=== PATIENT | female | born 1965 | race Caucasian/White ===

== ENCOUNTER 2019-10-15 12:27 | Outpatient (CLI) | payer MEDICARE, MEDICAID, SELFPAY ==
[2019-10-15 12:51] LABS: Basophils Percent Auto 0.4 % (0.2-1.2); Eosinophils Absolute Auto 0.4 K/mm3 (0-0.3); Eosinophils Percent Auto 4.3 % (0-4.4); Hematocrit 39.8 % (37.0-47.0); Immature Granulocyte Absolute 0.03 K/mm3 (0.00-0.031); Immature Granulocyte Percent A 0.3 % (0-0.5); Lymphocytes Absolute Auto 2.17 K/mm3 (0.9-3.2); Lymphocytes Percent Auto 22.6 % (18.3-44.2); Mean Corpuscular HGB Conc 35.2 g/dl (32-36); Mean Corpuscular Hemoglobin 32.6 pg (26-34); Mean Corpuscular Volume 92.8 fl (80-100); Mean Platelet Volume 10.3 fl (7.4-10.4); Monocytes Absolute Auto 0.6 K/mm3 (0.1-0.6); Monocytes Percent Auto 5.8 % (2.6-8.5); Neutrophils Absolute Auto 6.4 K/mm3 (1.3-6.7); Neutrophils Percent Auto 66.6 % (45.5-73.1); Platelet Count Result 260 k/mm3 (150-375); Red Blood Count 4.29 M/mm3 (4.2-5.4); Red Cell Distribution Width 13.1 % (11.5-14.5); White Blood Count 9.6 K/mm3 (4.5-10.0)
[2019-10-15 16:32] LABS: Alanine Aminotransferase 25 U/L (4-35); Albumin Level 4.2 g/dL (3.5-5.1); Alkaline Phosphatase 169 U/L (38-126); Aspartate Amino Transferase 31 U/L (14-36); Bilirubin,Total 0.6 mg/dL (0.2-1.3); Blood Urea Nitrogen 14 mg/dL (7-17); Calcium 9.5 mg/dL (8.4-10.2); Carbon Dioxide 25 mmol/L (22-30); Chloride 103 mmol/L (98-107); Estimated Glomerular Filt Rate > 60; Glucose 229 mg/dL (65-105); Sodium 136 mmol/L (137-145)
[2019-10-15 17:23] LABS: Iron 76 ug/dL (37-170)
[2019-10-15 17:33] LABS: Percent Iron Saturation 24 % (20-50)
== END 2019-10-15 12:28 | disposition home or self-care (01) ==
PROVIDERS: Visit Provider Internal Medicine Hematology & Oncology
DX: E80.1 Porphyria cutanea tarda (principal)
CPT/HCPCS: 36415; 80053; 82542; 82728; 83540; 83550; 85025

== ENCOUNTER 2019-11-04 12:19 | Outpatient (CLI) | payer MEDICARE, MEDICAID, SELFPAY ==
[2019-11-13 18:26] LABS: Coproporphyrin I 16.3 mcg/24 h (7.1-48.7); Coproporphyrin III 2.6 mcg/24 h (11.0-148.5); Total Volume 1175 mL
== END 2019-11-04 12:20 | disposition home or self-care (01) ==
LOC: ANHLAB 12:26
PROVIDERS: Visit Provider Internal Medicine Hematology & Oncology
DX: E80.1 Porphyria cutanea tarda (principal)
CPT/HCPCS: 81050; 84120

== ENCOUNTER 2020-07-07 13:00 | Outpatient (RCR) | payer MEDICARE, MEDICAID, SELFPAY ==
[2020-04-16 10:52] VITALS: BMI 36.5
[2020-04-16 10:59] VITALS: BMI 36.5
== END 2020-07-07 16:27 | disposition home or self-care (01) ==
LOC: ANHDMC 13:00
PROVIDERS: Visit Provider Internal Medicine Endocrinology, Diabetes & Metabolism
DX: E11.69 Type 2 diabetes mellitus with other specified complication (principal); Z71.3 Dietary counseling and surveillance; Z71.89 Other specified counseling
CPT/HCPCS: 97802; G0108

== ENCOUNTER 2020-07-21 11:12 | Outpatient (RCR) | payer MEDICARE, SELFPAY ==
[2020-07-21 11:16] VITALS: BMI 35.5
[2020-07-21 11:17] VITALS: BMI 35.5
== END 2020-08-24 13:57 | disposition home or self-care (01) ==
LOC: ANHDMC 11:12
PROVIDERS: Visit Provider Internal Medicine Endocrinology, Diabetes & Metabolism
DX: E11.69 Type 2 diabetes mellitus with other specified complication (principal); Z71.3 Dietary counseling and surveillance
CPT/HCPCS: 97803

== ENCOUNTER 2021-02-22 07:22 | Outpatient (RCR) | payer MEDICARE, MEDICAID, SELFPAY ==
[2021-01-29 08:48] LABS: Basophils Absolute Auto 0.1 K/mm3 (0.0-0.1); Basophils Percent Auto 0.5 % (0.2-1.2); Eosinophils Absolute Auto 0.4 K/mm3 (0-0.3); Eosinophils Percent Auto 3.9 % (0-4.4); Hematocrit 39.6 % (37.0-47.0); Hemoglobin 13.4 g/dL (12.0-15.0); Immature Granulocyte Absolute 0.06 K/mm3 (0.00-0.031); Immature Granulocyte Percent A 0.6 % (0-0.5); Lymphocytes Absolute Auto 1.54 K/mm3 (0.9-3.2); Lymphocytes Percent Auto 15.5 % (18.3-44.2); Mean Corpuscular HGB Conc 33.8 g/dl (32-36); Mean Corpuscular Hemoglobin 29.8 pg (26-34); Mean Platelet Volume 9.6 fl (7.4-10.4); Monocytes Absolute Auto 0.5 K/mm3 (0.1-0.6); Monocytes Percent Auto 5.1 % (2.6-8.5); Neutrophils Absolute Auto 7.4 K/mm3 (1.3-6.7); Neutrophils Percent Auto 74.4 % (45.5-73.1); Platelet Count Result 293 k/mm3 (150-375); Red Cell Distribution Width 13.3 % (11.5-14.5); White Blood Count 9.9 K/mm3 (4.5-10.0)
[2021-01-29 08:54] LABS: Blood Urea Nitrogen 10 mg/dL (8-26); Carbon Dioxide 24 mmol/L (22-30); Chloride 95 mmol/L (98-109); Estimated Glomerular Filt Rate > 60; Glucose 383 mg/dL (70-105); Potassium 4.1 mmol/L (3.5-4.9); Sodium 136 mmol/L (138-146)
[2021-01-29 12:41] LABS: Alanine Aminotransferase 39 U/L (4-35); Albumin Level 4.1 g/dL (3.5-5.1); Alkaline Phosphatase 157 U/L (38-126); Anion Gap 14 mmol/L (8-16); Aspartate Amino Transferase 50 U/L (14-36); Bilirubin,Total 0.7 mg/dL (0.2-1.3); Blood Urea Nitrogen 11 mg/dL (7-17); Calcium 9.6 mg/dL (8.4-10.2); Carbon Dioxide 23 mmol/L (22-30); Chloride 98 mmol/L (98-107); Estimated Glomerular Filt Rate > 60; Glucose 378 mg/dL (65-110); Potassium 4.3 mmol/L (3.4-5.0); Sodium 135 mmol/L (137-145)
[2021-03-02 18:48] LABS: Coproporphyrin I 50.4 mcg/24 h (7.1-48.7); Coproporphyrin III 147.6 mcg/24 h (11.0-148.5); Total Volume 1700 mL
== END 2021-02-23 10:00 | disposition home or self-care (01) ==
LOC: ANHLAB 07:22
PROVIDERS: Visit Provider Internal Medicine Hematology & Oncology
DX: E80.1 Porphyria cutanea tarda (principal)
CPT/HCPCS: 36415; 80048; 80053; 81050; 82542; 84120; 85025

== ENCOUNTER 2024-06-24 09:29 | Outpatient (CLI) | payer MEDICARE, MEDICAID, SELFPAY ==
--- OUTSIDE RECORDS SUMMARY | 2024-06-24 10:08 | XMS_ITS ---
Author Organization [facility] Address [address] [facility] [place] [address] Care Team Providers Care Professor Of Chemical Engineering Name Role Phone Margot Aceves Primary Care Provider [phone] REASON FOR VISIT labs Encounters Encounter Location Date Provider Diagnosis [facility] - Margot Aceves [address] [place] [address] 05/15/2024 Margot Aceves Plan Of Treatment No Information Progress Notes * Yunier JHAB:1965 ( 58 yo F)Acc No.[id number]:05/15/2024 Patient:?JADYN Miracle :1965???Age:58 Y???Sex:Female Address:[facility] [place], [address] * true * Date:? Generated for Sundeepi danna/Nain/eTransmitting on:?06/24/2024 10:08 AM TOWER HAND
--- OUTSIDE RECORDS SUMMARY | 2024-06-24 10:08 | XMS_ITS | Referral Summary ---
Author Organization [facility] Address [address] [place] [address] Care Team Providers Care Small Parts Assembler Name Role Phone Lou Martni MD Primary Care Provide r Darian Beckman MD Unavailable [phone] Cezar Vides MD Unavailable Allergies Active Allergy Reactions Criticality Noted Date Comments Codeine Nausea only Low 04/08/2021 Diphenhydramine Rash,Nausea only,Nathen sea And Vomiting,Vomiting High 07/07/2017 Erythromycin Nausea & Vomiting,Itching High 06/18/19 18 [place]-3 Fatty Acids Nausea only Low 04/08/2021 Fluticasone Propion-Salmeterol Hives High 02/20/2020 Lisinopril Cough Low 04/08/2021 Morphine Hallucinations Medium 04/08/2021 Clopidogrel Hives Medium 04/08/2021 Tramadol Itching Low 04/08/2021 Medications atorvastatin (LIPITOR) 40 mg tablet Take 40 mg by mouth daily [address] (NexIUM) 40 mg capsule Take 40 mg by mouth daily before breakfast 0 Active ezetimibe (ZETIA) 10 mg tablet Take 10 mg by mouth daily 1 Active metFORMIN XR (GLUCOPHAGE XR) 500 mg 24 hr tablet Take 500 mg by mouth daily with breakfast 0 Active pregabalin (LYRICA) 25 mg capsule Take 25 mg by mouth nightly 0 Active fluticasone propionate (FLONASE) 50 mcg/actuation nasal spray Administer 2 sprays into each nostril daily 0 Active insulin degludec (TRESIBA) 200 unit/mL (3 mL) pen for injection Inject 0.28 mL (56 Units total) under the skin nightly 8.4 mL 1 Active dapagliflozin (FARXIGA) 10 mg tabletIndications :type 2 diabetes mellitus and heart failure with reduced ejection fraction Take 1 tablet (10 mg total) by mouth daily 30 tablet 1 Active metoprolol XL (TOPROL-XL) 25 mg extended release tablet Take 1 tablet (25 mg total) by mouth nightly 30 tablet 1 1 Active blood glucose diagnostic strip FreeStyle Lite Strips Take 1 strip 4 times a day by miscell. route before meals for 30 days. Active pen needle, diabetic (BD Ultra-Fine Mini Pen Needle) 31 gauge x 3/16 needle 0 Active exenatide ER microspheres (Bydureon BCise) 2 mg/0.85 mL auto-injector once a week 0 Active aspirin 81 mg chewable tablet Take 81 mg by mouth daily [address] (CYMBALTA) 60 mg capsule Take 1 capsule by mouth nightly 0 Active FLUoxetine (PROzac) 20 mg tablet Take 40 mg by mouth daily 0 Active montelukast (SINGULAIR) 10 mg tablet Take 10 mg by mouth nightly Active potassium chloride ER (potassium chloride ER) 20 mEq CR tablet Take 20 mEq by mouth daily as needed Active ticagrelor (Brilinta) 90 mg tablet Take 60 mg by mouth daily 0 Active ranolazine ER (RANEXA) 500 mg 12 hr tablet Take 1 tablet by mouth 2 (two) times a day 1 Active busPIRone (BUSPAR) 10 mg tablet Take 15 mg by mouth 2 (two) times a day Active hydrOXYzine (ATARAX) 25 mg tablet Take 1 tablet by mouth daily as needed 1 Active budesonide-formot Solitario (SYMBICORT) 160-4.5 mcg/actuation inhaler Inhale 2 puffs daily 1 Active albuterol HFA (PROVENTIL HFA,VENTOLIN HFA,PROAIR HFA) 90 mcg/actuation inhaler INHALE 1 PUFF BY MOUTH EVERY 4 HOURS NEEDED Active cyclobenzaprine (FLEXERIL) 10 mg tablet Take 10 mg by mouth as needed for muscle spasms Active oxyCODONE (ROXICODONE) 5 mg immediate release tabletIndications :Pain Take 1 tablet (5 mg total) by mouth every 4 (four) hours as needed for pain 20 tablet 1 Active amLODIPine (NORVASC) 5 mg tablet Take 1 tablet (5 mg total) by mouth daily Active carbidopa-levodop a CR (SINEMET CR) 25-100 mg per CR tablet TK TWO TS PO QHS Active dexAMETHasone (DECADRON) 1 mg tablet take at 10 p.m. the night before 8 a.m. cortisol Active ergocalciferol (VITAMIN D) 50,000 unit capsule Take 1 capsule every week by oral route for 90 days. Active icosapent ethyL (Vascepa) 1 gram capsule Active levothyroxine (Unithroid) 25 mcg tablet Take 1 tablet every day by oral route for 30 days. Active meclizine (ANTIVERT) 25 mg tablet Take 1 tablet twice a day by oral route as needed. 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 Overview (05/18/2021): Added automatically from request for surgery [id number] Coronary artery disease invo lving [place] heart without angina pectoris 04/06/2021 Overview (04/09/2021): Added automatically from request for surgery [id number] Social History Tobacco Use Types Packs/Day Years Used Date Smoking Tobacco: Former Cigarettes Q uit: 05/1988 Smokeless Tobacco: Never Tobacco Cessation:Counseling Given: Not Answered Alcohol Use Standard Drinks/Week Comments Never 0 (1 standard drink = 0.6 oz pur e alcohol) Social Connection and Isolation Panel [NHANES] A nswer Date Recorded In a typical week, how many times do you talk on the phone with family, friends, or neighbors? Three times a week 04/08/20 How often do you get togethe r with friends or relatives? Three times a week 04/08/2021 How often do you attend chur ch or tenriism services? 1 to 4 times per year 04/08/2021 Do you belong to any clubs o r organizations such as holiness groups, unions, fraternal or athletic groups, or school groups? No 04/08/2021 How often do you attend meet ings of the clubs or organizations you belong to? Never 04/08/2021 Are you , , di vorced, , never , or living with a partner? 04/08/2021 Overall Financial Resource Strain (CARDIA) Answe r Date Recorded How hard is it for you to pa y for the very basics like food, housing, medical care, and heating? Not hard at all 04/08/2021 PHQ-2 Answer Date Recorded PHQ-2 Total Score (If total score is 3 or more points, staff should administer the PHQ-9) 1 04/08/2021 Hunger Vital Sign Answer Date Recorded Within the past 12 months, y ou worried that your food would run out before you got the money to buy more. Never true 04/08/20 21 Within the past 12 months, t he food you bought just didn't last and you didn't have money to get more. Never true 04/08/2021 PRAPARE - Transportation Answer Date Re corded In the past 12 months, has l ack of transportation kept you from medical appointments or from getting medications? No 03/29 In the past 12 months, has l ack of transportation kept you from meetings, work, or from getting things needed for daily living? No 04/08/2021 Housing Stability Vital Sign Answer Ubaldo e Recorded In the last 12 months, was t here a time when you were not able to pay the mortgage or rent on time? No 04/08/2021 Number of Places Lived in the Last Year Not on f ile 04/08/2021 In the last 12 months, was t here a time when you did not have a steady place to sleep or slept in a prison (including now)? No 04/08/2021 Personal Safety Answer Date Recorded Have you ever been in or are you currently in a harmful physical or emotional relationship or is someone making you feel afraid or unsafe? Denies 07/27/2023 Comments No Sex and Gender Information Value Date Recorded Sex Assigned at Not on file Legal Sex Female 2:15 AM REGULATORY ASSISTANT Gender Identity Not on file Sexual Orientation Not on file Last Filed Vital Signs Vital Sign Reading Time Taken Comments Blood Pressure 143/85 07/27/2023 8:00 PM REGULATORY ASSISTANT Pulse 80 07/27/2023 8:00 PM REGULATORY ASSISTANT Temperature 36.5 ??C (97.7 ??F) 07/27/2023 1:55 PM CS T Respiratory Rate 18 07/27/2023 4:15 PM REGULATORY ASSISTANT Oxygen Saturation 97% 07/27/2023 8:00 PM REGULATORY ASSISTANT Inhaled Oxygen Concentration - - Weight 99.8 kg (220 lb) 07/27/2023 1:55 PM REGULATORY ASSISTANT Height 167.6 cm (5' 6 ) 07/27/2023 1:55 PM REGULATORY ASSISTANT Body Mass Index 35.51 07/27/2023 1:55 PM REGULATORY ASSISTANT Plan of Treatment Not on file Medical Devices Implanted Type Area Entry Level Installation Technician Device Identifier Shelf Expiration Date Model / Serial / Lot Biomet [employer] 73-3893 Sternalock Naldo 8 Hole Sternum Plate Bone 2.4 Mm Screw - [id number] Implanted:Qty: 3 on 04/12/2021 by Darian Beckman MD at [facility] N/A: Sternum [employer] 73-2623 / / Biomet [employer] [id number] Sternalock Naldo 2.4mm 12mm Self Drill Lock Sternum Cancellous - [id number] Implanted:Qty: 12 on 04/12/2021 by Darian Beckman MD at [facility] N/A: Sternum [employer] 73-2412 / / Biomet [employer] [id number] Sternalock Naldo 2.4mm 14mm Self Drill Lock Sternum Cancellous - [id number] Implanted:Qty: 4 on 04/12/2021 by Darian Beckman MD at [facility] N/A: Sternum [employer] 73-2414 / / Biomet [employer] [id number] Sternalock Naldo 2.4mm 18mm Self Drill Lock Sternum Cancellous - [id number] Implanted:Qty: 4 on 04/12/2021 by Darian Beckman MD at [facility] N/A: Sternum [employer] 73-2418 / / Biomet [employer] 73-2416 Sternalock Naldo 2.4mm 16mm Self Drill Lock Sternum Cancellous - [id number] Implanted:Qty: 4 on 04/12/2021 by Darian Beckman MD at [facility] N/A: Sternum [employer] 73-2416 / / Insurance IDPR MEDICARE SOLUTIONS IDPA MEDICARE SOLUTIONS MEDICARE SOLUTIONS IDPA MEDICARE SOLUTIONS IDPA Advance Directives For more information, please contact: [phone] * Full Code (Latest Code Status on File) Date Activated Date Inactivated Comments 04/12/2021 2:39 PM 04/21/2021 9:55 PM * Full Code Date Activated Date Inactivated Comments 04/08/2021 4:39 AM 04/12/2021 2:39 PM Care Teams Small Parts Assembler Relationship Specialty Start Date End Date Lou Martin MD [address] [address] PCP - General Internal Medicine 04/02/21 Darian Beckman MD [address] [address] Surgeon Cardiothoracic Surgery 04/21/21 Cezar Vides MD [address] [address] Referring Physician Cardiovascular Disease 04/21/21
--- OUTSIDE RECORDS SUMMARY | 2024-06-24 10:08 | XMS_ITS | Clinical Summary ---
Author Organization [facility] Address [address] [place] [address] Care Team Providers Care Digital Content Producer Name Role Phone Lou Martin MD Primary Care Provide r Darian Beckman MD Unavailable [phone] Cezar Vides MD Unavailable Allergies Active Allergy Reactions Criticality Noted Date Comments Codeine Nausea only Low 04/08/2021 Diphenhydramine Rash,Nausea only,[place] sea And Vomiting,Vomiting High 07/07/2017 Erythromycin Nausea & Vomiting,Itching High 06/18/19 18 [place]-3 Fatty Acids Nausea only Low 04/08/2021 Fluticasone [...] (05/18/2021): Added automatically from request for surgery [id number] Coronary artery disease invo lving inaja heart without angina pectoris 04/06/2021 Overview (04/09/2021): Added automatically from request for surgery [id number] Surgical History Surgery Date Site/Laterality Comments CORONARY ARTERY BYPASS GRAFT ECTOPIC SURGERY SECTION Medical History Medical History Date Comments Diabetes mellitus (HCC) Coronary artery disease Hypertension Anxiety Pulmonary nodule Sleep apnea CAD (coronary artery disease) Open wound GERD (gastroesophageal reflux disease) Type 2 diabetes mellitus (HCC) Stroke (HCC) PCT (porphyria cutanea tarda) (HCC) Depression Anxiety Family History Medical History Relation Name Comments Cancer Father Heart disease Father Cancer Maternal Grandfather Heart disease Mother Relation Name Status Comments Father Maternal Grandfather Mother Social History Tobacco Use Types Packs/Day Years [...] or neighbors? Three times a week 04/08/20 21 How often do you get togethe r with friends or relatives? Three times a week 04/08/2021 How often do you attend chur ch or lutheran services? 1 to 4 times per year 04/08/2021 Do you belong to any clubs o r organizations such as christian groups, unions, fraternal or athletic groups, or [...] place to sleep or slept in a senior living (including now)? No 04/08/2021 Personal Safety Answer Date Recorded Have you ever been in or are you currently in a harmful physical or emotional relationship or is someone making you feel afraid or unsafe? Denies 07/27/2023 Comments No Sex and Gender Information Value Date Recorded Sex Assigned at Not on file Legal Sex Female 2:15 AM [employer] Gender Identity Not on file Sexual Orientation Not on file Obstetrics History Last Filed Vital Signs Vital Sign Reading Time Taken Comments Blood Pressure 143/85 07/27/2023 8:00 PM [employer] Pulse 80 07/27/2023 8:00 PM [employer] Temperature 36.5 ??C (97.7 ??F) 07/27/2023 1:55 PM CS T Respiratory Rate 18 07/27/2023 4:15 PM [employer] Oxygen Saturation 97% 07/27/2023 8:00 PM W[employer] Inhaled Oxygen Concentration - - Weight 99.8 kg (220 lb) 07/27/2023 1:55 PM [employer] Height 167.6 cm (5' 6 ) 07/27/2023 1:55 PM [employer] Body Mass Index 35.51 07/27/2023 1:55 PM [employer] 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 Plan of Treatment Health Maintenance Due Date Last Done Comments Breast Cancer Screening-Mammogram 1963 Cervical Cancer Screening 1963 Colon Cancer Screening-Colonoscopy 1963 Hepatitis C Screening 1963 DTaP/Tdap/Td Vaccine (1 - Tdap) 1974 Hepatitis B Screening 1981 Regular Well Visit/Exam 18-64 1981 Zoster Vaccine (1 of 2) 2013 Depression Screening 04/06/2022 04/06/2021, 04/06/20 21 Influenza Vaccine (#1) 2024 Pneumococcal vaccine <65 (3 of 3 - PPSV23 or PCV20) 2028 02/19/2020, 02/19/2020 Medical Devices Implanted Type Area Acls Specialist Device Identifier Shelf Expiration Date Model / Serial / Lot [employer] 73-2623 Sternalock Naldo 8 Hole Sternum Plate Bone 2.4 Mm Screw - [id number] Implanted:Qty: 3 on 04/12/2021 by Darian Beckman MD at [facility] N/A: Sternum [employer] 73-2623 / / [employer] 73-2412 Sternalock Naldo 2.4mm 12mm Self Drill Lock Sternum Cancellous - [id number] Implanted:Qty: 12 on 04/12/2021 by Darian Beckman MD at [facility] N/A: Sternum [employer] 73-2412 / / [employer] 73-2414 Sternalock Naldo 2.4mm 14mm Self Drill Lock Sternum Cancellous - [id number] Implanted:Qty: 4 on 04/12/2021 by Darian Beckman MD at [facility] N/A: Sternum [employer] 73-2414 / / [employer] 73-2418 Sternalock Naldo 2.4mm 18mm Self Drill Lock Sternum Cancellous - [id number] Implanted:Qty: 4 on 04/12/2021 by Darian Beckman MD at [facility] N/A: Sternum [employer] 73-2418 / / [employer] 73-2416 Sternalock Naldo 2.4mm 16mm Self Drill Lock Sternum Cancellous - [id number] Implanted:Qty: 4 on 04/12/2021 by Darian Beckman MD at [facility] N/A: [employer] 73-0570 / / Insurance IDPA MEDICARE SOLUTIONS IDPA MEDICARE SOLUTIONS MEDICARE SOLUTIONS IDPA MEDICARE [employer] IDPA Advance Directives For more information, please contact: [phone] * Full Code (Latest Code Status on File) Date Activated Date Inactivated Comments 04/12/2021 2:39 PM 04/21/2021 9:55 PM * Full Code Date Activated Date Inactivated Comments 04/08/2021 4:39 AM 04/12/2021 2:39 PM Care Teams Digital Content Producer Relationship Specialty Start Date End Date Lou Martin MD [address] [address] PCP - General Internal Medicine 04/02/21 Darian Beckman MD [address] [address] Surgeon Cardiothoracic Surgery 04/21/21 Cezar Vides MD [address] [address] Referring Physician Cardiovascular Disease 04/21/21
--- OUTSIDE RECORDS SUMMARY | 2024-06-24 10:09 | XMS_ITS | Data Portability ---
Author Organization [place] - [facility] [employer], Main Office Address [address] [place] [address] Care Team Providers Care Criminal Legal Assistant Name Role Phone LEXI MARTIN Primary Care Provider [phone] LEXI MARTIN Referring Provider Assessment Encounter Date Assessment Date Assessment LastModified by Organization Details LastModified Time 02/22/2024 02/22/2024 03/11/2022: A1C 10.2 TSH/FT4: WNL Urine micro alb 235.4 CMP: Gluc 282, ALP 157 LIPIDS: HDL 28 CBC: HGB 11.6 11/11/2022: A1C 8.9 Gluc 206 TG 238, HDL 31 10/24/2023: A1C 12.1 Urine micro alb 71.8 UA: Bacteria few, gluc >1000, yeast 45 minutes spent with the patient in the office, ROS done, chart updated, consults reviewed, CT scan and Xrays ordered Not available 02/22/2024 13:27:21 02/29/2024 02/29/2024 03/11/2022: A1C 10.2 TSH/FT4: WNL Urine micro alb 235.4 CMP: Gluc 282, ALP 157 LIPIDS: HDL 28 CBC: HGB 11.6 11/11/2022: A1C 8.9 Gluc 206 TG 238, HDL 31 10/24/2023: A1C 12.1 Urine micro alb 71.8 UA: Bacteria few, gluc >1000, yeast 45 minutes spent in the office, chart updated, referrals provided Not available 03/15/2024 08:39:50 05/15/2024 05/15/2024 Assessment: Nicotine smoke: 3 ppd [id number] = 33 pack years Rhinitis to multiple environmental allergens with postnasal drip Bronchiectasis Bilateral pulmonary nodules Very severe OSAHS, AHI = 54 Plan: The following were reviewed and explained to the patient: [facility] split night sleep study 10/05/17 AHI = 54, CPAP 15 cmH2O, ResMed AirFit P10 nasal pillows Chest CT 03/19/20 RUL GGO; 5 mm RLL pulmonary nodule Chest CT 03/17/21 bilateral GGO, 5 mm RLL nodule, thoracic DDD Chest CT 10/07/21 stable RML nodules, bilateral GGO Chest CT 01/10/[address] 05/26/23 bronchiectasis, 7 mm and 5 mm RLL nodules, 5 mm CARLITOS nodule PFT 03/15/19 nl FEV1/FVC, FEV1 1.35 L (49%), TLC 4.24 L (82%), DLCO 59%, DLCO/VA 95% PFT 03/16/21 nl FEV1/FVC, FEV1 1.81 L (68%), TLC 4.33 L (81%), DLCO 32%, DLCO/VA 79% Lab data 09/06/21 multiple environmental allergies Lab data 03/15/22 ABHIJIT homogeneous 1:80, Coccidioides 2.1 6MW 08/22/23 pulse oximeter reading dropped from 95% to 94% with exercise PAP compliance downloaded and interpreted x 20 minutes. Data reviewed and explained to the patient. Average apnea/hypopnea index (AHI) is 9.5. Patient used PAP > 4 hours 95% of the time. PAP is set at 15 cmH2O. PAP will be reset at 14-20 cmH2O. Patient lost 22 lbs since the last visit. Keep EPR +2 multimedia engineer. Keep ramp start at 4 cmH2O. Keep ramp duration at 20 minutes. Keep humidifier level at 4. Oxygen supplementation: none Patient is benefiting from PAP therapy. Encouraged patient to maintain PAP use more than 70% of the time. Statement of PAP use and benefits will be sent to the home care store. ResMed Air Sense 11 auto set unit with heated humidifier, supplies at 14-20 cmH2O ordered. Further adjustment will be based on clinical response. Educated the patient on problems and solutions associated with positive airway pressure (PAP) use. Difficulty tolerating pressure, mask leaks, intolerance of interface, nasal congestion, claustrophobic response, dry mouth, and unintentional mask removal during sleep were covered. Patient experiences nasal congestion. Patient will use nasal saline spray before starting PAP, use heated PAP humidifier, clean/air dry humidifier reservoir daily, use nasal steroid spray, use ipratropium bromide nasal spray if rhinitis/rhinorrhe a is present or obtain an oronasal/oral interface. Dry mouth is a normal occurrence for people who just start out on PAP therapy because they are not used to air blowing in to the throat to hold open. Dry mouth is exacerbated for people who wear nasal PAP mask and whose jaw drops open during sleep. Not only does this create a much less efficient therapy because of leakage, it also causes dry mouth. There are a couple solutions to help prevent this type of problem. A simple solution would be to wear a chinstrap which essentially holds the jaw in place. A second solution would be a switch to a full face mask which covers both the nose and mouth. Although this is another easy solution, using a full face mask for some could seem claustrophobic or confining. There is no silver bullet solution as no single mask is right for everybody. Sometimes it takes a bit of experimentation to find a PAP mask which best meets the patient's needs as well as fits comfortably. Another tactic is to use a humidifier on your PAP machine. Most new PAP machines have integrated humidifiers. Humidification is moctezuma when dealing with symptoms of dry mouth because the humidifier can supply both warm and room temperate air. Even a small amount of humidity in the airflow will help nasal passages to stay hydrated. If a person is using both a full face mask and a PAP machine with a heated humidifier and is still experiencing dry mouth, an ill-fitted PAP mask might be causing the problem. Leakage can be caused by a mask that is to large or small, the wrong style mask, the cushion is degraded or simply because the mask's straps aren't adjusted correctly. If leakage occurs, dry air from the room can leak in while humidification escapes. The result is reduced humidification within the circuit and resulting in dry throat and mouth. Finally, beyond factors involving the PAP machine and mask, dry mouth can also be caused or worsened by dehydration. The general recommendation to during eight 8 oz. glasses of water a day might be too little for many people. When people drink large amounts of coffee or other caffeine beverages, or sweat a lot during the day, making sure to rehydrate is an important part of PAP therapy. Patient will setup an appointment with [facility] for supplies and pressure adjustments. A major predictor of success with use of PAP is follow-up with both the respiratory supplier and the treating physician. The download results can show the treating physician information about adherence to treatment, residual AHI while on treatment and presence of large mask leakage. This information is especially helpful if the patient has residual sleepiness despite treatment. General information on sleep disorder breathing, evaluation of sleep disordered breathing, treatment with PAP therapy, and living with PAP therapy were covered. We discussed with the patient the impact of weight on: Sleep disordered breathing CVA DM Mixed hyperlipidemia Hypertension CAD JEREMI Thoracic DDD We discussed with the patient the benefit of PAP therapy on: Sleep disordered breathing CVA Bipolar depression/Anxiety Headaches Rhinitis DM Hypertension Ischemic cardiomyopathy JEREMI Educated the patient on sleep hygiene measures. Relaxing rituals to rest easy, understanding foods with positive and negative impact on sleep, creating a peaceful sleep environment, timing of exercise, using herbal sleep aids, and practicing sleep-friendly meditation were covered. To determine how much sleep is needed, the patient will assess where (s)he falls on the spectrum, examine what lifestyle factors such as work schedules and stress are affecting the quality and quantity of sleep. In general, adults need 7-9 hours of sleep. Educated the patient regarding foods that promote sleep. These include but are not limited to cherries, bananas, toast, oatmeal, and warm milk. Educated the patient regarding foods and drinks to avoid before bedtime. These include but are not limited to aged cheese, chocolate, spicy foods, tomato-based sauces, soy, ginseng tea and processed meat. Cough/Dyspnea workup will be done as follows: Methacholine challenge test Advised to continue not to smoke. Continue albuterol HFA as needed. Continue Symbicort HFA 160/4.5 mcg 2 puffs BID. Gargle after use. She is advised to take one puff at a time and rest one minute between the first and second puff. The patient does not know how to accurately administer the inhalers. Today, the patient was shown how to take these medications. The proper technique for delivering these medications was instructed. The patient expressed a clear understanding and demonstrated back how to use these medications. Without the proper technique, the patient will not reap the benefits of these medications as the contents will not reach the lower airways as intended to be. Adherence to therapy is advocated. Nonadherence may lead to treatment failure, further progression of the condition, and other complications. Hospitals admissions are often the result of individuals not taking prescription medications accurately. Alternatively, greater adherence to medication regimens have shown to lower rates of hospitalization and decrease total medical costs in patients with chronic medical conditions. Advocated influenza vaccination annually and pneumonia vaccination in 2024. Advocated weight loss through diet and exercise. Patient's ideal body weight according to height and gender is up to 140 lbs. Encouraged patient to adjust caloric intake to maintain/achieve ideal body weight, emphasizing on fruits, vegetables, whole grains, and fat-free or low-fat products. These include lean meats, poultry, fish, beans, eggs, and nuts and foods that are low in saturated fats, trans-fats, cholesterol, salt (sodium), and glycemic index. Stressed the importance of regular exercise up to the patient's capacity limits. In this case, we recommend regular (4 x a week or more) walking or other light activity. Patient to monitor BP daily and bring records to PCP for further management. Follow-up: 1 week after methacholine challenge testing [email or web address] Not available 05/15/2024 09:06:22 06/20/2024 06/20/2024 03/11/2022: A1C 10.2 TSH/FT4: WNL Urine micro alb 235.4 CMP: Gluc 282, ALP 157 LIPIDS: HDL 28 CBC: HGB 11.6 11/11/2022: A1C 8.9 Gluc 206 TG 238, HDL 31 10/24/2023: A1C 12.1 Urine micro alb 71.8 UA: Bacteria few, gluc >1000, yeast 05/15/2024: Dr Aceves Vit D 16.2 UA: Glucose >1000 Plasma ACTH 5.7L DHEA 26.4 A1C 13.7 Urine micro alb 189 TG 276 Na 133, Gluc 541, ALP 168, T bili 1.40 HGB 15.7 05/20/2024: Dr Aceves Dexamethasone 356 Cortisol 3.6 45 minutes spent in the office, labs from Dr Aceves reviewed, chart updated, referrals provided, also called ER at [facility] Not available 06/20/2024 10:24:02 Plan of Treatment Reminders Order Date Submit Date Provider Last Modified By Organization Details Last Modified Time Details Appointments Any 15 2024 09:45A M Lexi mckinnon MD Not available Not available Not available Lab vitamin D, 25-hydrox y, total, serum [address] (Lab), [address] [place], [address], 02/22/2024 11:23:34 glycohemo globin, total, blood [address] (Lab), [address] [place], [address], 02/22/2024 11:23:34 microalbu min, urine [address] (Lab), [address] [place], [address], 02/22/2024 11:23:34 urinalysi s, complete [address] (Lab), [address] [place], [address], 03/06/2024 14:09:19 vitamin D, 25-hydrox y, total, serum [address] (Lab), [address] [place], [address], 02/29/2024 11:29:27 glycohemo globin, total, blood 2023 024 CONSTANZA [facility] (Lab), [address] [place], [address], 05/15/2024 13:34:27 microalbu min, urine [address] (Lab), [address] [place], [address], 02/29/2024 11:29:28 urinalysi s, complete [address] (Lab), [address] [place], [address], 03/07/2024 15:01:05 lipid panel, serum [address] (Lab), [address] [place], [address], 06/20/2024 10:21:32 CBC w/ auto diff [address] (Lab), [address] [place], [address], 06/20/2024 10:21:32 TSH, serum or plasma [address] (Lab), [address] [place], [address], 06/20/2024 10:21:33 CMP, serum or plasma [address] (Lab), [address] [place], [address], 06/20/2024 10:21:33 vitamin D, 25-hydrox y, total, serum [address] (Lab), [address] [place], [address], 06/20/2024 10:15:26 glycohemo globin, total, blood [address] (Lab), [address] [place], [address], 06/20/2024 10:15:27 microalbu min, urine 2024 025 [email or web address] [facility] (Lab), [address] [facility], [place], [address], 06/20/2024 10:15:27 urinalysi s, complete 2024 025 [email or web address] [facility] (Lab), [address] [place], [address], 06/20/2024 10:15:27 glucose, fingersti ck, blood 2024 025 [email or web address] [address] [facility] [address], [place], [address], 06/20/2024 10:14:44 Referral gynecolog ist referral - Please call patient to schedule. 2023 024 [email or web address] Jeane Hollis MD, [address], [address], [place], [address], 03/27/2024 08:59:15 orthopedi c surgeon referral 2023 024 [email or web address] Jeffrey Perry MD, [address] [facility], [place], [address], 02/26/2024 12:14:27 pulmonolo gist referral 2023 024 [email or web address] Germain Romero MD, [address] [place], [address], 02/26/2024 12:13:10 hematolog ist referral 2023 024 [email or web address] Ronnell Butler, [address], [place], [address], 02/26/2024 12:13:08 nephrolog ist referral 2023 024 [place], [address], [address], [place], [address], 02/26/2024 12:15:15 cardiolog ist referral 2023 024 [email or web address] Tigre Gifford MD, [address] [facility], [address], [place], [address], 02/26/2024 12:15:13 hepatolog ist referral 2023 024 [email or web address] Trinidad Vega MD, [address], [address], [place], [address], 02/26/2024 12:15:14 podiatris t referral 2023 024 [email or web address] Víctor Zaragoza DPM, [address] [facility], [address], [place], [address], 02/26/2024 12:13:10 endocrino logy referral - Please call patient to schedule. 2023 024 [email or web address] [place], [address] [facility], [place], [address], 03/27/2024 08:58:46 gynecolog ist referral - Please call patient to schedule. 2023 024 Jeane Hollis MD, [address], [address], [place], [address], 02/29/2024 11:58:59 orthopedi c surgeon referral 2023 024 [email or web address] Jeffrey Perry MD, [address] [facility], [place], [address], 02/29/2024 11:57:10 pulmonolo gist referral 2023 024 [email or web address] Germain Romero MD, [address] [facility], [place], [address], 02/29/2024 11:57:08 hematolog ist referral 2023 024 [email or web address] Ronnell Butler, [address], [place], [address], 02/29/2024 11:58:31 nephrolog ist referral 2023 024 [email or web address] [place], [address], [address], [place], [address], 02/29/2024 11:57:08 cardiolog ist referral 2023 024 [email or web address] Tigre Gifford MD, [address] [facility], [address], [place], [address], 02/29/2024 11:57:55 urologist referral 2023 024 Rahul Anders, [address] [facility], [address], [place], [address], 02/29/2024 11:58:18 hepatolog ist referral 2023 024 Trinidad Vega MD, [address], [address], [place], [address], 02/29/2024 11:57:56 podiatris t referral 2023 024 [email or web address] Víctor Zaragoza DPM, [address] [facility], [address], [place], [address], 02/29/2024 11:57:09 endocrino logy referral - Please call patient to schedule. 2023 024 [place], [address], [place], [address], 02/29/2024 11:59:00 gynecolog ist referral - Please call patient to schedule. 2024 025 [email or web address] Jeane Hollis MD, [address], [address], [place], [address], 06/20/2024 10:22:10 orthopedi c surgeon referral 2024 025 [email or web address] Jeffrey Perry MD, [address] [facility], [place], [address], 06/20/2024 10:22:11 pulmonolo gist referral 2024 025 [email or web address] Germain Romero MD, [address] [place], [address], 06/20/2024 10:22:11 neurologi reza surgeon referral 2024 025 [email or web address] [place], [address], [place], [address], 06/20/2024 10:22:12 hematolog ist referral 2024 025 [email or web address] Ronnell Butler, [address], [place], [address], 06/20/2024 10:22:10 nephrolog ist referral 2024 025 [email or web address] [place], [address], [place], [address], 06/20/2024 10:22:11 cardiolog ist referral 2024 025 [email or web address] Tigre Gifford MD, [address] [facility], [address], [place], [address], 06/20/2024 10:22:11 urologist referral 2024 025 [email or web address] Rahul Anders, [address] [facility], [facility] [address], [place], [address], 06/20/2024 10:22:10 hepatolog ist referral 2024 025 [email or web address] Trinidad Vega MD, [address], [address], [place], [address], 06/20/2024 10:22:10 podiatris t referral 2024 025 [email or web address] Víctor Zaragoza DPM, [address], [address], [place], [address], 06/20/2024 10:22:11 endocrino logy referral - Please call patient to schedule. 2024 025 [email or web address] [place], [address], [place], [address], 06/20/2024 10:22:10 Procedures None recorded. Surgeries None recorded. Imaging MAMMO, screening , digital, bilateral - Please call patient to schedule. [address] ([facility] Scheduling), [address] [place], [address], 02/22/2024 11:23:34 XR, hip + pelvis, unilatera l 2023 024 [facility] ([facility] Scheduling), [address] [place], [address], 02/22/2024 11:27:24 CT, abdomen + pelvis, w/o contrast - STATH OLD AND CALL Dr JINA PATEL DO ORAL CONTRAST 2023 024 [facility] ([facility] Scheduling), [address] [place], [address], 02/22/2024 13:03:02 DEXA, axial skeleton [address] ([facility] Scheduling), [address] [place], [address], 02/22/2024 11:23:34 MAMMO, screening , digital, bilateral - Please call patient to schedule. [address] ([facility] Scheduling), [address] [place], [address], 02/29/2024 11:33:44 DEXA, axial skeleton [address] ([facility] Scheduling), [address] [place], [address], 02/29/2024 11:33:44 CT, abdomen + pelvis, w/o contrast [facility] [address] [place], [address], 06/22/2024 04:09:14 MAMMO, screening , digital, bilateral - Please call patient to schedule. [address] ([facility] Scheduling), [address] [place], [address], 06/24/2024 11:06:39 DEXA, axial skeleton [address] ([facility] Scheduling), [address] [place], [address], 06/24/2024 11:07:14 Medication Orders None recorded. Patient TargetsNo targets recorded. Patient Instructions Encounter Date Encounter Id Patient Instructions Last Modified By Organization Details Last Modified Time 02/29/2024 [id number] Thank you for your visit to our office today. We would like to request that you reach out to your referring or previous provider and request that they send us a Summary of Care in electronic form, so that we may have it on file in your medical record. At your visit, we had the medical records we needed to provide you with the best possible care; however, for insurance purposes, an electronic Summary of Care is beneficial. Thank you for your assistance in obtaining this information and we look forward to providing continued care to you. Please review your medication list from the Summary of Care for this visit. If there are any differences from what you are currently taking at home, please call us to discuss. lena Not available 02/29/2024 10:25:07 Homebound Status : {{Patient has an inability to leave the home without a taxing effort and assistance from another person Does not meet homebound status}} Required Home Health Services: {{none longterm, physical therapy, occupational therapy longterm, physical therapy longterm}} Durable Medical Equipment needed: {{cane walker wal ker with seat manual wheelchair bedsid e commode oxygen}} Billing Guidelines CPT code 89001- Transitional Care Management services with moderate medical decision complexity (qbay-my-eyar visit within 14 days of discharge). CPT code 35784- Transitional Care Management services with high medical decision complexity (insp-zq-suou visit within 7 days of discharge). lena Not available 02/29/2024 10:25:07 03/15/2024 [id number] 1. I will send a urine for culture 2. She needs a CT of the abdomen and pelvis without contrast to see if she still has emphysematous cystitis 3. If she does she may need a cystoscopy with resection of the wall of the bladder to release the infection of the bladder [email or web address] Not available 03/15/2024 18:03:50 05/15/2024 [id number] methacholine challenge* - Please call patient to schedule. ALFA CPT_95070 per [facility] payor portal, ref #[id number]. CONSTANZA Not available 06/20/2024 07:15:56 Reason for Referral Corporate Traffic Manager Referral for Co ronary arteriosclerosis Referring Physician: Lexi Martin Internal Medicine, Encounter Date: 02/22/2024 Referring Physician: Lexi Martin Internal Medicine, Encounter Date: 02/22/2024 Travel Rn Or Referral for Ci rrhosis of liver Referring Physician: Lexi Martin Internal Medicine, Encounter Date: 02/22/2024 Seasonal Retail Merchandiser Referral for Ch ronic kidney disease Referring Physician: Lexi Martin Internal [facility], Encounter Date: 02/22/2024 Customer Solutions Representative Referral for C hronic obstructive pulmonary disease Referring Physician: Lexi Martin Internal Medicine, Encounter Date: 02/22/2024 Building Consultant Referral for Type 2 diabetes mellitus without complication Referring Physician: Lexi Martin Internal [facility], Encounter Date: 02/22/2024 Smelter Charger Referral for Gy necologic examination Please call patient to schedule. Referring Physician: Darrin Johnson Medicine, Encounter Date: 02/22/2024 Endocrinology Referral for T ype 2 diabetes mellitus without complication Please call patient to schedule. Referring Physician: Lexi Martin [facility], Encounter Date: 02/22/2024 Orthopedic Surgeon Referral for Pain in right hip joint Referring Physician: Lexi Martin [facility], Encounter Date: 02/22/2024 Corporate Traffic Manager Referral for Co ronary arteriosclerosis Referring Physician: Lexi Martin [facility], Encounter Date: 02/29/2024 Referring Physician: Darrin Johnson Medicine, Encounter Date: 02/29/2024 Travel Rn Or Referral for Ci rrhosis of liver Referring Physician: Lexi Martin [facility], Encounter Date: 02/29/2024 Seasonal Retail Merchandiser Referral for Ch ronic kidney disease Referring Physician: Lexi Martin [facility], Encounter Date: 02/29/2024 Customer Solutions Representative Referral for C hronic obstructive pulmonary disease Referring Physician: Darrin Johnson Medicine, Encounter Date: 02/29/2024 Building Consultant Referral for Type 2 diabetes mellitus without complication Referring Physician: Lexi Martin Internal [facility], Encounter Date: 02/29/2024 Smelter Charger Referral for Gy necologic examination Please call patient to schedule. Referring Physician: Darrin Johnson Medicine, Encounter Date: 02/29/2024 Endocrinology Referral for T ype 2 diabetes mellitus without complication Please call patient to schedule. Referring Physician: Lexi Maritn Internal Medicine, Encounter Date: 02/29/2024 Orthopedic Surgeon Referral for Pain in right hip joint Referring Physician: Lexi Martin [facility], Encounter Date: 02/29/2024 Urologist Referral for Cysti tis Referring Physician: Darrin Johnson Medicine, Encounter Date: 02/29/2024 Corporate Traffic Manager Referral for Co ronary arteriosclerosis Referring Physician: Lexi Mratin Internal Medicine, Encounter Date: 06/20/2024 Referring Physician: Darrin Johnson Medicine, Encounter Date: 06/20/2024 Travel Rn Or Referral for Ci rrhosis of liver Referring Physician: Darrin Johnson, Encounter Date: 06/20/2024 Seasonal Retail Merchandiser Referral for Ch ronic kidney disease Referring Physician: Darrin Johnson, Encounter Date: 06/20/2024 Customer Solutions Representative Referral for C hronic obstructive pulmonary disease Referring Physician: Darrin Johnson, Encounter Date: 06/20/2024 Building Consultant Referral for Type 2 diabetes mellitus without complication Referring Physician: Darrin Johnson, Encounter Date: 06/20/2024 Smelter Charger Referral for Gy necologic examination Please call patient to schedule. Referring Physician: Darrin Johnson, Encounter Date: 06/20/2024 Endocrinology Referral for T ype 2 diabetes mellitus without complication Please call patient to schedule. Referring Physician: Darrin Johnson, Encounter Date: 06/20/2024 Orthopedic Surgeon Referral for Pain in right hip joint Referring Physician: Darrin Johnson, Encounter Date: 06/20/2024 Urologist Referral for Cysti tis Referring Physician: Lexi Martin, Internal Medicine, Encounter Date: 06/20/2024 Neurological Surgeon Amy schaeffer for Spinal stenosis Referring Physician: Lexi Martin, Internal Medicine, Encounter Date: 06/20/2024 Results Created Date Observation Date Name Description Value Unit Range Abnormal Flag Note LastModifiedBy Organization Detail LastModifiedTime 03/15/2003/15/2024 urina lysis , dipst ick Color Yellow Not Available [address], [address], [address], 03/15/2024 16:53:28 03/15/2003/15/2024 urina lysis , dipst ick Appearance Slight ly Cloudy Not Available [address], [address], 03/15/2024 16:53:28 03/15/2003/15/2024 urina lysis , dipst ick Glucose (reference range: negative mg/dl) 1000 Not Available [address], [address], [address], 03/15/2024 16:53:28 03/15/2003/15/2024 urina lysis , dipst ick Bilirubin (reference range: negative mg/dl) Negati ve Not Available [address], [address], 03/15/2024 16:53:28 03/15/2003/15/2024 urina lysis , dipst ick Ketone (reference range: negative mg/dl) Negati ve Not Available [address], [address], 03/15/2024 16:53:28 03/15/20 24 03/15/2024 urina lysis , dipst ick Specific Gordon (reference range: 1.005-1.030) 1.015 Not Available [address], [address], 03/15/2024 16:53:28 03/15/2003/15/2024 urina lysis , dipst ick Blood (reference range: negative Ever/??l) Small Not Available [address], [address], 03/15/2024 16:53:28 03/15/20 24 03/15/2024 urina lysis , dipst ick pH (reference range: 5-7) 6.0 Not Available [address], [address], 03/15/2024 16:53:28 03/15/20 24 03/15/2024 urina lysis , dipst ick Protein (reference range: negative mg/dl) Negati ve Not Available [address], [address], 03/15/2024 16:53:28 03/15/20 24 03/15/2024 urina lysis , dipst ick Urobilinogen (reference range: 0.2-1 mg/dl) 0.2 Not Available [address], [address], 03/15/2024 16:53:28 03/15/20 24 03/15/2024 urina lysis , dipst ick Nitrite (reference rage: negative mg/dl) positi ve Not Available [facility] [address], [address], [place], [address], 03/15/2024 16:53:28 03/15/20 24 03/15/2024 urina lysis , dipst ick Leukocytes (reference range: negative americo/??l) Negati ve Not Available [facility] [place] [address], [address], [place], [address], 03/15/2024 16:53:28 06/20/19 25 06/20/2024 gluco se, finge rstic k, blood Blood Glucose: mg/dl 543 Not Available [facility] [address], [place], [address], 06/20/2024 10:09:49 02/22/20 24 02/22/2024 XR, hip, unila teral , 2 or 3 view [facility] [address], [place] [address] [phone] Patien t Name: JOSE D JHA ion #: [id number] Sex: F : 1965 5 Dictat ed By: Alli rogel Attend ing Physic jovi: MEAGHAN SINGER [facility] Physic jovi: MEAGHAN SINGER Exam Date: 2023 10:00 AM Exam Name: XR HIP/PE LVIS RT 2-3V Admitt ing Diagno sis(es ): CLINIC AL INFORM ATION: 58 years old, Female ; pain right hip. TECHNI QUE: 3 views of the pelvis and right hip were obtain ed. COMPAR SHELLIE: None FINDIN GS: No acute fractu re or disloc ation. Modera te arthri tic change s are seen in both hips, slight ly greate r on the right with joint space narrow ing and subcho ndral sclero sis. Sacrum is partia lly obscur ed by bowel gas. Surgic al clip in the right inguin al region . Adjace nt soft tissue s are otherw ise unrema rkable . IMPRES LAKSHMI: 1. No eviden ce of acute bony abnorm ality. 2. Arthri tic change s as descri bed above. Electr onical ly Signed by: Alli rogel at 2023 08:23: 16 AM Page 1 INTERFACE [facility] (Imaging) [address] [place], [address], 02/22/2024 11:25:31 02/22/20 24 02/22/2024 XR, hip + pelvi s, unila teral No observ ation record ed. [facility] [address] [place], [address], 02/22/2024 11:27:24 02/22/20 24 02/22/2024 CT, abdom en + pelvi s, w/o contr ast [facility] [address] [place] [address] [phone] Patien t Name: JOSE D JHA Access ion #: [id number] Sex: F : 1965 5 Dictat ed By: Alli rogel Attend ing Physic jovi: MEAGHAN SINGER Orderi Physic jovi: MEAGHAN SINGER Exam Date: 2023 11:18 AM Exam Name: CT ABDOME N PELVIS WO Admitt ing Diagno sis(es ): CLINIC AL INFORM ATION: 58 years old, Female ; abdomi nal pain. TECHNI QUE: Axial CT images of the abdome n and pelvis were obtain ed withou t IV contra st. Oral contra st was also admini stered prior to the examin ation. Bills l and sagitt al reform atted images were obtain ed, review ed, and stored . Evalua tion of the parenc hymal organs is limite d withou t IV contra st. Evalua tion of the bowel and mesent ever is limite d withou t oral contra st. [facility] CT [facility] are perfor med using dose modula tion techni ques as approp riate to a perfor med exam includ ing the follow ing: Automa sharan exposu re contro l was utiliz ed; adjust ment of the MA and/or KV accord ing to patien t size; and use of iterat kandi recons tructi on techni que. CTDIvo l = 19.49 mGy DLP = 1072.7 mGy-cm COMPAR SHELLIE: None FINDIN GS: Lung bases: 5 mm nodule in the right middle lobe partia lly visual ized. Calcif ied granul josette also seen in the right middle lobe. 5.5 mm nodule in the right lower lobe. Atelec tasis in the lung bases. Liver: Nodula r contou r of the liver with relati ve enlarg ement of the left hepati c lobe consis tent with cirrho sis [facility]. Biliar y: No calcif ied gallst ones or biliar y ductal dilata tion. Spleen : Unrema rkable . Pancre as: Grossl y unrema rkable in its noncon trast enhanc ed appear ance. Adrena l glands : Left adrena l nodule measur es up to 1.5 cm with densit y most Page 1 [facility] [address] [place] [address] Patien t Name: JOSE D JHA Access ion #: [id number] Sex: F : 1965 5 Dictat ed By: Alli rogel Attend ing Physic jovi: KAIN HERNANDEZ Orderi Physic jovi: MEAGHAN SINGER Exam Date: 2023 11:18 AM Exam Name: CT ABDOME N PELVIS WO Admitt ing Diagno sis(es ): consis tent with a benign lipid rich adenom a. Right adrena l nodule measur es up to 1.2 cm, also most consis tent with a benign lipid rich adenom a. Kidney s: No hydron ephros is. No renal or ureter al calcul i. Aorta/ Vascul ar: Scatte red athero sclero tic calcif icatio n. No abdomi nal aortic aneury sm. Retrop eriton eum: No mass or lympha denopa thy. Bowel/ mesent ever: No small bowel obstru ction. No free air or free fluid. Append ix is visual ized and appear s unrema rkable . Pelvic organs : Grossl y unrema rkable . Bladde r: Promin ent locule s of gas within the bladde r wall, with a larger pocket of gas along the right anteri or aspect of the bladde r, can not exclud e extral uminal gas in this locati on. No free air elsewh ere in the abdome n or pelvis . Abdomi nal wall: No mass or hernia . Bones: No acute fractu re or suspic ious intrao sseous lesion . IMPRES LAKSHMI: 1. Intram ural gas in the bladde r wall , suspec sharan emphys ematou s cystit is in the approp ria clinic al settin g. A pocket of gas along the right anteri or aspect of the bladde r may be intram ural gas, althou gh extral uminal gas not exclud ed. No free air elsewh ere in the abdome n or pelvis . 2. Cirrho tic liver morpho logy . 3. Small pulmon mulugeta nodule s in the right lung base. These appear stable compar ed to prior CT chest exams dating back to 2022 and most likely benign . Correl ation with patien t risk factor s for lung cancer recomm ended. If the patien t is high risk, follow -up CT chest in 12 months could be consid ered. Findin gs regard ing the suspec sharan emphys ematou s cystit is and possib le extral uminal gas adjace nt to the right anteri or bladde r wall was report ed to the [facility] Jennifer almanzar , at [facility] by Dr. Anni rogel by phone at a proxim ally 12:00 p.m. CDT on 2023. Electr onical ly Signed by: Alli rogel at 2023 10:00: 34 AM Page 3 INTERFACE [facility] (Imaging) [address] [place], [address], 02/22/2024 13:03:03 02/22/20 24 02/22/2024 CT, abdom en + pelvi s, w/o contr ast No observ ation record ed. [address] [place], [address], 03/11/2024 12:21:45 02/22/20 24 02/22/2024 XR, chest , 1 view No observ ation record ed. [address] [place], [address], 03/11/2024 12:21:57 05/27/20 24 05/27/2024 imagi ng/di agnos tic resul t No observ ation record ed. [facility] [address] [place], [address], 05/27/2024 10:01:36 05/27/20 24 05/27/2024 imagi ng/di agnos tic resul t No observ ation record ed. [facility] [address] [place], [address], 05/27/2024 10:06:35 05/27/20 24 05/27/2024 imagi ng/di agnos tic resul t No observ ation record ed. [facility] [address] [place], [address], 05/27/2024 13:20:30 Result Notes None recorded. Problems Name Problem SNOMED Code Status Onset Date Resolution Date Notes Provider Name and Address Organization Details Recorded Time Vitamin D deficien cy 17817488 Active 2022 Not Available [facility] 3 21:07:09 Onychomy cosis of toenails 988427650 Active 2022 Not Available [facility] 3 21:07:09 Cirrhosi s of liver 37194552 Active 2022 Lexi foster MD [address], [address], [place], [address] , [employer] [facility] 3 16:11:52 Spinal stenosis 35513866 Active 2022 Lexi foster MD [address], [address], [place], [address] , [employer] [facility] 3 16:12:07 Gastroes ophageal reflux disease without esophagi tis 768820699 Active 2022 Lexi foster MD [address], [address], [place], [address] , [employer] [facility] 3 16:12:29 Ganglion of wrist 096490612 Active 2022 Lexi foster MD [address], [address], [place], [address] , [employer] [facility] 3 16:13:07 Chronic obstruct kandi pulmonar y disease 66652255 Completed 201903/10/2021 Lexi foster MD [address], [address], [place], [address] , [employer] [facility] 4 22:58:28 Herpes labialis 9946541 Active Not Available [facility] 3 21:07:08 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 39844154994 07 Active 2019 Not Available [facility] 3 21:07:08 Pain in throat 000464491 Completed Not Available [facility] 3 03:03:13 Chronic depressi on 619868415 Active Not Available [facility] 3 21:07:08 Degenera tive joint disease involvin g multiple joints 910838812 Active 2021 Not Available [facility] 3 21:07:08 Gastroes ophageal reflux disease 868015127 Active Not Available [facility] 3 21:07:08 Gastroen teritis 98797233 Completed Not Available [facility] 3 03:03:14 Chest pain 23495592 Completed Not Available [facility] 3 03:03:14 Hypertri glycerid emia 425782503 Active Not Available [facility] 3 21:07:09 Knee pain Completed Not Available [facility] 3 03:03:14 Type 2 diabetes mellitus without complica tion 103998505 Completed Lexi foster MD [address], [place], [address] , [employer] 5 09:52:44 Arthriti s 8676544 Completed Not Available [facility] 3 03:03:14 Hyperten sive disorder 70922233 Completed Not Available [facility] 3 03:03:15 Neuropat hy 954047136 Completed Lexi foster MD [address], [address], [place], [address] , [employer] 5 17:43:39 Stented coronary artery 173964723 Active x6 stents Not Available [facility] 3 21:07:09 Osteoart hritis 070317628 Completed Not Available [facility] 3 03:03:15 Vertigo 599856640 Active 2021 Not Available [facility] 3 21:07:09 Obesity 202313699 Active Not Available [facility] 3 21:07:09 Ischemic congesti ve cardiomy opathy 828615617 Active 2017 Not Available [facility] 3 21:07:09 Type 1 diabetes mellitus 53515402 Completed Not Available [facility] 3 03:03:15 Anxiety 70899693 Active Not Available [facility] 3 21:07:09 Coronary arterios clerosis 39878153 Active 2017 Not Available [facility] 3 21:07:09 Acute upper respirat ory infectio n 92874559 Completed Not Available [facility] 3 03:03:16 Hyperlip idemia 92958103 Completed Lexi foster MD [address], [address], [place], [address] , [facility] 5 10:20:29 Essentia l hyperten lakshmi 09835111 Active Not Available [facility] 3 21:07:09 Porphyri a cutanea tarda 87310020 Active Not Available [facility] 3 21:07:09 Polyp of colon 98525717 Active Not Available [facility] 3 21:07:09 Diabetes mellitus 89092024 Completed Not Available [facility] 3 03:03:17 Sleep apnea 62647172 Completed 201703/10/2021 Not Available [facility] 3 03:03:17 Obstruct kandi sleep apnea syndrome 36289875 Active 2019 Not Available [facility] 3 21:07:09 Psoriasi s 4134106 Active Not Available [facility] 3 21:07:09 Disorder of skin 79957785 Completed Not Available [facility] 3 03:03:17 Chronic kidney disease 427922777 Active 2023 Lexi foster MD [address], [address], [place], [address] , [facility] 4 16:45:16 Chronic obstruct kandi pulmonar y disease 78198762 Active 2023 Lexi foster MD [address], [address], [place], [address] , [facility] 4 22:58:28 Seasonal allergy 785252518 Active 2023 PRATEEK Carvajal null, [facility] 4 16:36:13 Cough 39310896 Active 2024 Michel Malagon CMA null, [facility] 5 13:40:29 Neuropat hy 705441188 Active 2024 Lexi foster MD [address], [address] [address], [place], [address] , [employer] 5 17:43:39 Type 2 diabetes mellitus without complica tion 122907938 Active 2024 Lexi foster MD [address], [place], [address] , [employer] 5 09:52:44 Hyperlip idemia 49311535 Active 2024 Lexi foster MD [address], [facility] [address], [place], [address] , [employer] 5 10:20:29 Notes:Medical History: Left CVA without residual hemiparesis 1984 Vertigo Bipolar depression/Anxiety Migraine headaches Bruxism Rhinitis to multiple environmental allergens with postnasal drip Eosinophils 400/uL Alpha-1 antitrypsin PiMM 160 mg% Obesity with very severe OSAHS, AHI = 54, 10/05/17, on autoCPAP c/o [employer] [facility] T2DM with neuropathy/microalbuminuria Mixed hyperlipidemia Hypertension EF 55% CAD s/p CA with ischemic cardiomyopathy Mild MR 4.1 cm ascending thoracic aortic ectasia Granulomatous disease (chest, liver) ABHIJIT homogeneous 1:80 Coccidioides 2.1 Bronchiectasis Bilateral nodules JEREMI Cirrhosis Diarrhea-predominant IBS Diverticulosis/Diverticulitis Normocytic anemia Porphyria cutanea tarda Thoracic stenosis/DDD Onychomycosis Procedure History: T&A 1969 9 coronary artery stents placement 2015, 2016, 2017 Colonoscopy with polypectomy 2019 4 vessel CABG 2020 Problem Notes None recorded. Procedures Surgical History Date Name Laterality Status Provider Name and Address Organization Details Recorded Time 02/29/20 24 Transitional_Care_ Management completed Sagrario Álvarez MA [employer] 02/29/2024 10:25:07 11/25/19 23 Blank Procedure Note completed Víctor Zaragoza DPM [address], [address], [place], [address], [employer] 11/24/2022 11:35:04 11/23/19 23 Medicare Wellness CPT Code, subsequent completed Carlie Vidal RN [facility] 11/22/2022 09:36:22 09/14/19 23 Nail Debridement completed Víctor Zaragoza DPM [address], [address], [place], [address], [facility] 09/13/2022 09:36:10 05/29/19 22 dilation of esophagus completed Isabella Grijalva RN [facility] 08/24/2022 10:11:23 11/13/19 21 Endoscopy completed Not Available [facility] 07/27/2022 02:55:59 07/08/19 21 Date of Last Colonoscopy completed Not Available [facility] 07/27/2022 02:55:56 01/18/20 18 Exc tr-ext b9+nancy 2.1-3cm completed Not Available [facility] 07/27/2022 02:55:59 01/18/20 18 Intmd rpr s/a/t/ext 2.6-7.5 completed Not Available [facility] 07/27/2022 02:55:59 section completed Not Available [facility] 07/27/2022 02:55:59 other completed Not Available [facility] 07/27/2022 02:55:59 Cardiovascular Surgery completed Not Available [facility] 07/27/2022 02:55:59 TOPOGRAPHY TECHNICIAN Surgery completed Not Available [facility] 07/27/2022 02:55:59 Cardiac Bypass completed Not Available [facility] 07/27/2022 02:55:59 Imaging Results Imaging Date Name Status LastModified by [facility] Details LastModified Time 02/22/2024 XR, hip, unilateral, 2 or 3 view active INTERFACE [facility] (Imaging) [address] [place], [address], 02/22/2024 11:25:31 02/22/2024 XR, hip + pelvis, unilateral active [facility] [address] [place], [address], 02/22/2024 11:27:24 02/22/2024 CT, abdomen + pelvis, w/o contrast active INTERFACE [facility] (Imaging) [address] [place], [address], 02/22/2024 13:03:03 02/22/2024 CT, abdomen + pelvis, w/o contrast completed [address] [place], [address], 03/11/2024 12:21:45 02/22/2024 XR, chest, 1 view completed [address] [place], [address], 03/11/2024 12:21:57 05/27/2024 imaging/diagnos tic result active [facility] [address] [place], [address], 05/27/2024 10:01:36 05/27/2024 imaging/diagnos tic result active [facility] [address] [place], [address], 05/27/2024 10:06:35 05/27/2024 imaging/diagnos tic result active [facility] [address] [place], [address], 05/27/2024 13:20:30 Procedure Notes None recorded. Medical Equipment None Reported. Allergies Allergen ID Allergen Name Allergen Category Reaction Reaction Severity Criticality Documentation Date Start Date Code Code System Note Provider Name and Address Organization Details Recorded Time 5479 tramadol medicatio n rash Not available Not available 07/27/2022 56266 RxNorm Not Available [facility] 3 03:13:29 5480 Plavix medicatio n itching Not available Not available 07/27/2022 94571 2 RxNorm Not Available [facility] 3 03:13:29 5481 morphine medicatio n Not available Not available Not available 07/27/2022 7052 RxNorm Not Available [facility] 3 03:13:29 5482 lisinopri l medicatio n cough Not available Not available 07/27/2022 85738 RxNorm Not Available [facility] 3 03:13:29 5483 erythromy zenobia medicatio n dizziness vomiting Not available Not available Not available 07/27/2022 4053 RxNorm Not Available [facility] 3 03:13:29 5484 codeine medicatio n dizziness vomiting Not available Not available Not available 07/27/2022 2670 RxNorm Not Available [facility] 3 03:13:30 5485 Benadryl medicatio n vomiting Not available Not available 07/27/2022 96854 7 RxNorm Not Available [facility] 3 03:13:30 5486 fluticaso ne / salmetero l medicatio n Not available Not available Not available 07/27/2022 65100 5 RxNorm Not Available [facility] 3 03:13:30 Medications Name Sig Start Date Stop Date Status Note LastModified by Organization Details LastModified Time multivitami n tablet active Not Available Not Available Not Available losartan 50 mg tablet TAKE 1 TABLET BY MOUTH EVERY DAY active Not Available Not Available No t Available quetiapine 25 mg tablet TAKE 1 TABLET BY MOUTH AT BEDTIME NEEDED 08/21 completed Not Available Not Available Not Available glycopyrrol ate 1 mg tablet 03/09 completed Not Available Not Available Not Available fluoxetine 40 mg capsule TAKE 1 CAPSULE BY MOUTH DAILY active Not Available Not Available No t Available cyclobenzap rine 10 mg tablet TAKE 1 TABLET BY MOUTH TWICE DAILY NEEDED active Not Available Not Available No t Available ziprasidone 80 mg capsule TK 1 C PO HS active Not Available Not Available No t Available amoxicillin 500 mg capsule Take 1 capsule 3 times a day by oral route for 7 days. 07/21 completed Not Available Not Available Not Available Miralax 17 gram/dose oral powder FPD OR DIRECTED BY DOCTOR active Not Available Not Available No t Available atorvastati n 40 mg tablet TAKE 1 TABLET BY MOUTH EVERY DAY active Not Available Not Available No t Available methocarbam ol 500 mg tablet TK 2 TS PO TID FOR 7 DAYS 05/01 completed Not Available Not Available Not Available Augmentin 875 mg-125 mg tablet Take 1 tablet twice a day by oral route for 7 days. 06/20 completed Not Available Not Available Not Available carvedilol 6.25 mg tablet Take 1 tablet twice a day by oral route. 08/12 completed Not Available Not Available Not Available gabapentin 600 mg tablet TAKE 1 TABLET BY MOUTH THREE TIMES DAILY 11/19 completed Not Available Not Available Not Available doxycycline hyclate 100 mg capsule Take 1 capsule twice a day by oral route. 10/09 completed Not Available Not Available Not Available atorvastati n 20 mg tablet active Not Available Not Available Not Available ipratropium 0.5 mg-albutero l 3 mg (2.5 mg base)/3 mL nebulizatio n soln USE 1 VIAL IN NEBULIZER FOUR TIMES DAILY NEEDED 03/15 completed Not Available Not Available Not Available clindamycin HCl 300 mg capsule 08/12 completed Not Available Not Available Not Available albuterol sulfate 2.5 mg/3 mL (0.083 %) solution for nebulizatio n INHALE THE CONTENTS OF 1 VIAL PER NEBULIZER Q 4 H PRN active Not Available Not Available No t Available carbidopa ER 25 mg-levodopa 100 mg tablet,exte nded release TK TWO TS PO QHS active Not Available Not Available No t Available cetirizine 10 mg tablet TAKE 1 TABLET BY MOUTH EVERY DAY NEEDED active Not Available Not Available No t Available cefpodoxime 200 mg tablet 02/28 completed Not Available Not Available Not Available azithromyci n 250 mg tablet Take 2 TABLET EVERY DAY by oral route for 1 day. then 1 tab a day for 4 days 07/10 completed Not Available Not Available Not Available ibuprofen 800 mg tablet 12/05 completed Not Available Not Available Not Available ofloxacin 0.3 % eye drops INSTILL 1 DROP INTO AFFECTED EYE(S) BY OPHTHALMI C ROUTE 4 TIMES PER DAY active Not Available Not Available No t Available fluconazole 150 mg tablet TAKE 1 TABLET BY MOUTH DAILY 02/21 completed Not Available Not Available Not Available ranitidine 300 mg tablet Take1 tab by mouth twice daily active Not Available Not Available No t Available cephalexin 250 mg capsule Take 1 capsule 4 times a day by oral route for 7 days. active Not Available Not Available No t Available hydrocodone 5 mg-acetamin ophen 325 mg tablet 12/05 completed Not Available Not Available Not Available Claritin 10 mg tablet Take 1 tablet every day by oral route for 30 days. 08/12 completed Not Available Not Available Not Available meloxicam 15 mg tablet 08/29 completed Not Available Not Available Not Available sucralfate 1 gram tablet 08/12 completed Not Available Not Available Not Available FreeStyle Lancets 28 gauge TEST TID 03/10 completed Not Available Not Available Not Available prednisone 20 mg tablet active Not Available Not Available Not Available isosorbide mononitrate ER 30 mg tablet,exte nded release 24 hr 09/30 completed Not Available Not Available Not Available terconazole 0.8 % vaginal cream 12/01 completed Not Available Not Available Not Available Lantus U-100 Insulin 100 unit/mL subcutaneou s solution Inject 68 units every day by subcutane ous route. 11/14 completed Not Available Not Available Not Available metronidazo le 500 mg tablet 07/10 completed Not Available Not Available Not Available clopidogrel 75 mg tablet 08/29 completed Not Available Not Available Not Available amlodipine 5 mg tablet TAKE 1 TABLET BY MOUTH EVERY DAY active Not Available Not Available No t Available valacyclovi r 500 mg tablet qd active Not Available Not Available Not Available ciprofloxac in 500 mg tablet TAKE 1 TABLET BY MOUTH EVERY 12 HOURS FOR 7 DAYS 02/21 completed Not Available Not Available Not Available sulfamethox azole 800 mg-trimetho prim 160 mg tablet Take 1 tablet twice a day by oral route for 7 days. 09/30 completed Not Available Not Available Not Available hydrocodone 10 mg-acetamin ophen 325 mg tablet 10/09 completed Not Available Not Available Not Available tramadol 50 mg tablet active Not Available Not Available No t Available Condoms-Pre m Lubricated 07/10 completed Not Available Not Available Not Available acetaminoph en 500 mg tablet TAKE 1-2 TABLETS BY MOUTH EVERY 6 HOURS NEEDED FOR PAIN 08/14 completed Not Available Not Available Not Available triamcinolo ne acetonide 0.1 % topical cream 05/02 completed Not Available Not Available Not Available glimepiride 2 mg tablet Take 2 tablets twice a day by oral route before meals for 90 days. 08/12 completed Not Available Not Available Not Available glimepiride 1 mg tablet TAKE 1 TABLET BY MOUTH TWICE DAILY WITH MEALS 02/11 completed Not Available Not Available Not Available ketorolac 0.5 % eye drops 10/10 completed Not Available Not Available Not Available Imitrex 50 mg tablet Take one tablet for headache, repeat in 2 hrs if needed , not to exceed 2 pills in 24hrs 09/24 completed Not Available Not Available Not Available meloxicam 7.5 mg tablet TK 1 T PO QD FOR 14 DAYS 02/06 completed Not Available Not Available Not Available famotidine 20 mg tablet Take 1 tablet twice a day by oral route. active Not Available Not Available No t Available amitriptyli ne 25 mg tablet Take 1 tablet every day by oral route. 11/14 completed Not Available Not Available Not Available ciprofloxac in 0.3 % eye drops INSTILL 1 DROP INTO AFFECTED EYE(S) BY OPHTHALMI C ROUTE EVERY 2 HOURSWHIL E AWAKE FOR 2 DAYS THEN 1 DROP EVERY 4 HRS WHILE AWAKE FOR 5 DAYS active Not Available Not Available No t Available Kenalog 10 mg/mL suspension for injection In office injection administe red by the provider 07/21 completed [facility]: [id number] Not Available Not Available Not Available dexamethaso ne 1 mg tablet TAKE 1 TABLET BY MOUTH AT 10 PM NIGHT BEFORE 8AM CORTISOL 1 DAYS 06/20 completed Not Available Not Available Not Available meclizine 25 mg tablet Take 1 tablet twice a day by oral route as needed. 05/02 completed Not Available Not Available Not Available lithium carbonate 300 mg capsule TK 1 C PO TID B MEALS active Not Available Not Available No t Available doxycycline monohydrate 100 mg capsule 10/09 completed Not Available Not Available Not Available gemfibrozil 600 mg tablet TAKE 1 TABLET BY MOUTH TWICE DAILY active Not Available Not Available No t Available hydrocodone 7.5 mg-acetamin ophen 325 mg tablet 10/31 completed Not Available Not Available Not Available cephalexin 500 mg capsule Take 1 capsule 4 times a day by oral route for 10 days. 04/05 completed Not Available Not Available Not Available simvastatin 20 mg tablet TK 1 T PO QD active Not Available Not Available No t Available buspirone 30 mg tablet TAKE 1 TABLET BY MOUTH THREE TIMES DAILY active Not Available Not Available No t Available metformin 1,000 mg tablet TK 1 T PO D IN THE MORNING 08/29 completed Not Available Not Available Not Available esomeprazol e magnesium 40 mg capsule,del ayed release TAKE 1 CAPSULE BY MOUTH TWICE DAILY active Not Available Not Available No t Available neomycin-po lymyxin-dex ameth 3.5 mg/mL-10,00 0 unit/mL-0.1 % eye drops INT 1 GTT INTO OU QID FOR 1 WEEK 12/01 completed Not Available Not Available Not Available nystatin 100,000 unit/gram topical cream PRN 03/09 completed Not Available Not Available Not Available ranitidine 150 mg tablet TAKE ONE TABLET BY MOUTH TWICE DAILY NEEDED 11/19 completed Not Available Not Available Not Available buspirone 10 mg tablet TAKE 1 TABLET BY MOUTH THREE TIMES DAILY active Not Available Not Available No t Available lisinopril 10 mg tablet 08/29 completed Not Available Not Available Not Available glimepiride 4 mg tablet active Not Available Not Available Not Available Qvar 40 mcg/actuati on Metered Aerosol oral inhaler INHALE 2 PUFFS BY MOUTH TWICE DAILY 10/10 completed Not Available Not Available Not Available fluoxetine 10 mg capsule Take 1 capsule twice a day by oral route. 10/27 completed Not Available Not Available Not Available nitroglycer in 0.4 mg sublingual tablet 05/02 completed Not Available Not Available Not Available Valtrex 1 gram tablet Take 1 tablet every 12 hours by oral route. 06/25 completed Not Available Not Available Not Available gabapentin 300 mg capsule TAKE ONE CAPSULE BY MOUTH THREE TIMES DAILY 09/30 completed Not Available Not Available Not Available omeprazole 20 mg capsule,del ayed release Take 1 capsule every day by oral route as needed for 90 days. active Not Available Not Available No t Available aspirin 81 mg chewable tablet Chew 1 tablet every day by oral route. 10/27 completed Not Available Not Available Not Available diclofenac sodium 75 mg tablet,mauro yed release Take 2 tablets every day by oral route. 12/01 completed Not Available Not Available Not Available insulin syringe U-100 with needle 1 mL 31 gauge x 5/16 USE TO INJECT INSULIN QID active Not Available Not Available No t Available montelukast 10 mg tablet TAKE 1 TABLET BY MOUTH EVERY DAY 05/15 completed Not Available Not Available Not Available hydroxyzine HCl 25 mg tablet 08/12 completed Not Available Not Available Not Available ranitidine 150 mg capsule 09/30 completed Not Available Not Available Not Available lisinopril 5 mg tablet 08/29 completed Not Available Not Available Not Available hydrochloro thiazide 25 mg tablet Take 1 tablet every day by oral route for 30 days. 09/30 completed Not Available Not Available Not Available furosemide 20 mg tablet TAKE 1 TABLET BY MOUTH SINGLE DOSE NEEDED. TAKE IF BLOOD PRESSURE IS HIGH AFTER A HIGH SALT MEAL 02/28 completed Not Available Not Available Not Available Unithroid 25 mcg tablet Take 1 tablet every day by oral route for 30 days. active Not Available Not Available No t Available ziprasidone 40 mg capsule TK 1 C PO QD WC active Not Available Not Available No t Available metoprolol succinate ER 25 mg tablet,exte nded release 24 hr TAKE 1 TABLET BY MOUTH EVERY DAY active Not Available Not Available No t Available clobetasol 0.05 % topical ointment APPLY TOPICALLY TO THE AFFECTED AREA TWICE DAILY FOR 2 WEEKS 05/15 completed Not Available Not Available Not Available Aspir-81 mg tablet,mauro yed release Take 1 tablet every day by oral route. 05/02 completed Not Available Not Available Not Available levofloxaci n 500 mg tablet Take 1 tablet every 24 hours by oral route. 09/30 completed Not Available Not Available Not Available levofloxaci n 750 mg tablet TK 1 T PO Q 24 HOURS FOR 7 DAYS active Not Available Not Available No t Available methylpredn isolone 4 mg tablets in a dose pack take as directed 08/29 completed Not Available Not Available Not Available albuterol sulfate HFA 90 mcg/actuati on aerosol inhaler INHALE 1 PUFF BY MOUTH EVERY 4 HOURS NEEDED active Not Available Not Available No t Available Vitamin D2 1,250 mcg (50,000 unit) capsule Take 1 capsule every week by oral route for 90 days. active Not Available Not Available No t Available losartan 50 mg-hydrochl orothiazide 12.5 mg tablet TAKE 1 TABLET BY MOUTH EVERY DAY active Not Available Not Available No t Available carbidopa 25 mg-levodopa 100 mg tablet TAKE 2 TABLETS BY MOUTH EVERY NIGHT AT BEDTIME 10/31 completed Not Available Not Available Not Available ziprasidone 60 mg capsule Take 1 capsule every day by oral route. 2012 active Not Available Not Available Not Avai lable ondansetron 4 mg disintegrat ing tablet 09/30 completed Not Available Not Available Not Available cefdinir 300 mg capsule Take 1 capsule every 12 hours by oral route. active Not Available Not Available No t Available losartan 100 mg tablet 08/12 completed Not Available Not Available Not Available fluoxetine 20 mg capsule TK 2 CS PO QAM FOR 30 DAYS 11/14 completed Not Available Not Available Not Available fluticasone propionate 50 mcg/actuati on nasal spray,suspe nsion SHAKE LIQUID AND USE 1 SPRAY IN EACH NOSTRIL DAILY 2022 active Not Available Not Available Not Avai lable metformin ER 500 mg tablet,exte nded release 24 hr TAKE 1 TABLET BY MOUTH EVERY DAY WITH A MEAL active Not Available Not Available No t Available clotrimazol e 1 % topical cream PRN 03/09 completed Not Available Not Available Not Available doxycycline hyclate 100 mg tablet active Not Available Not Available No t Available dicyclomine 10 mg capsule TK 1T PO TID 08/12 completed Not Available Not Available Not Available insulin syringe U-100 with needle 0.5 mL 31 gauge x /16 USE ONCE D UTD active Not Available Not Available No t Available risperidone 0.5 mg tablet TK 1 T PO QD HS 05/01 completed Not Available Not Available Not Available naproxen 500 mg tablet TK 1 T PO BID WC 07/10 completed Not Available Not Available Not Available amoxicillin 500 mg-anmol m clavulanate 125 mg tablet 10/10 completed Not Available Not Available Not Available buspirone 15 mg tablet Take 1 tablet twice a day by oral route for 30 days. 07/21 completed Not Available Not Available Not Available hydroxyzine pamoate 25 mg capsule 08/29 completed Not Available Not Available Not Available neomycin 3.5 mg/g-polymy rob B 10,000 unit/g-dexa meth 0.1 % eye oint 08/03 completed Not Available Not Available Not Available ezetimibe 10 mg tablet TAKE 1 TABLET BY MOUTH EVERY DAY active Not Available Not Available No t Available Novolog FlexPen U-100 Insulin aspart 100 unit/mL (3 mL) subcutaneou s active Not Available Not Available Not Available carbidopa 25 mg-levodopa 100 mg-entacapo ne 200 mg tablet 2 tabs every night at bedtime 09/24 completed Not Available Not Available Not Available nitrofurant oin monohydrate /macrocryst als 100 mg capsule Take 1 capsule every 12 hours by oral route for 5 days. 08/14 completed Not Available Not Available Not Available duloxetine 30 mg capsule,del ayed release 08/12 completed Not Available Not Available Not Available duloxetine 60 mg capsule,del ayed release TAKE 1 CAPSULE BY MOUTH DAILY active Not Available Not Available No t Available BD Ultra-Fine Mini Pen Needle 31 gauge x 3/16 USE 1 NEEDLE FOUR TIMES DAILY DIRECTED. 05/02 completed Not Available Not Available Not Available Flovent HFA 110 mcg/actuati on aerosol inhaler 2 PUFFS BID 11/23 completed Not Available Not Available Not Available fenofibrate 160 mg tablet 12/01 completed Not Available Not Available Not Available pregabalin 25 mg capsule Take 1 capsule every day No alcohol, driving or with other sedating medicatio ns. 09/06 completed Not Available Not Available Not Available pregabalin 50 mg capsule TAKE 1 CAPSULE BY MOUTH EVERY DAY active Not Available Not Available No t Available meloxicam 7.5mg tab 1x daily 12/28 completed Not Available Not Available Not Available glycopyrrol ate 08/[address] Vega 03/19 Not Available Not Available Not Available calcium 60MG 1T PO BID 03/09 completed Not Available Not Available Not Available omeprazole 40mg 11/16 completed Not Available Not Available Not Available multivitami n 1T PO QD 03/09 completed Not Available Not Available Not Available ranolazine ER 500 mg tablet,exte nded release,12 hr TAKE 1 TABLET BY MOUTH TWICE DAILY FOR CHRONIC ANGINA active Not Available Not Available No t Available BD Ultra-Fine Short Pen Needle 31 gauge x 5/16 USE FOUR TIMES DAILY DIRECTED 03/10 completed Not Available Not Available Not Available BD Ultra-Fine Original Pen Needle 29 gauge x 1/2 USE TO INJECT INSULIN DAILY active Not Available Not Available No t Available Apidra U-100 Insulin 100 unit/mL subcutaneou s solution INJECT 15 UNITS SUBCUTANE OUSLY WITH MEALS 2 TO 3 TIMES DAILY 07/10 completed Not Available Not Available Not Available Apidra U-100 Insulin 20 mg with meals 10/27 completed Not Available Not Available Not Available fenofibrate nanocrystal lized 145 mg tablet TAKE 1 TABLET BY MOUTH EVERY DAY active Not Available Not Available No t Available calcium 600 mg (as carbonate)- vitamin D3 10 mcg (400 unit) tablet 09/30 completed Not Available Not Available Not Available budesonide- formoterol HFA 160 mcg-4.5 mcg/actuati on aerosol inhaler INHALE 2 PUFFS BY MOUTH TWICE DAILY DIRECTED 05/02 completed Not Available Not Available Not Available peg 3350-electr olytes 236 gram-22.74 gram-6.74 gram-5.86 gram solution active Not Available Not Available Not Available FreeStyle Lite Strips Take 1 strip 4 times a day by miscell. route before meals for 30 days. 03/10 completed Not Available Not Available Not Available Symbicort 05/02 completed Not Available Not Available Not Available Lantus Solostar U-100 Insulin 68 units daily 10/27 completed Not Available Not Available Not Available Humalog KwikPen (U-100) Insulin 100 unit/mL subcutaneou s Inject 10 units 3 times a day by subcutane ous route with meals for 90 days. 01/29 completed Not Available Not Available Not Available Calcium 500 + D (D3) BID 07/10 completed Not Available Not Available Not Available ProChamber U UTD active Not Available Not Av ailable Not Available BD Ultra-Fine Sofia Pen Needle 32 gauge x 03/10 completed Not Available Not Available Not Available Brilinta 90 mg tablet Take 1 tablet twice a day by oral route for 30 days. 03/09 completed Not Available Not Available Not Available ropivacaine (PF) 5 mg/mL (0.5 %) injection solution Take 1 mg by injection route. 07/21 completed Not Available Not Available Not Available Accu-Chek FastClix Lancing Device 01/15 completed Not Available Not Available Not Available Vascepa 1 gram capsule Take 2 capsules twice a day by oral route for 90 days. 03/09 completed Not Available Not Available Not Available Aerospan 80 mcg/actuati on HFA aerosol inhaler Inhale 1 puff every day by inhalatio n route. 03/15 completed Not Available Not Available Not Available potassium chloride ER 20 mEq tablet,exte nded release active Not Available Not Available Not Available Spiriva Respimat 2.5 mcg/actuati on solution for inhalation Inhale 2 puffs every day by inhalatio n route. 11/22 completed Not Available Not Available Not Available Rexulti 1 mg tablet TAKE 1 TABLET BY MOUTH EVERY DAY active Not Available Not Available No t Available Rexulti 0.5 mg tablet TAKE 1 TABLET BY MOUTH EVERY DAY 08/14 completed Not Available Not Available Not Available Rexulti 05/02 completed Not Available Not Available Not Available Brilinta 60 mg tablet TAKE 1 TABLET BY MOUTH TWICE DAILY active Not Available Not Available No t Available Tresiba FlexTouch U-200 insulin 200 unit/mL (3 mL) subcutaneou s pen INJECT UP TO 80 UNITS ONCE A DAY AT BEDTIME active Not Available Not Available No t Available metoprolol tartrate 37.5 mg tablet TAKE 1 TABLET BY MOUTH 1 TIME EACH DAY 08/14 completed Not Available Not Available Not Available Basaglar KwikPen U-100 Insulin 100 unit/mL (3 mL) subcutaneou s 70-75 U daily 09/30 completed Not Available Not Available Not Available Qvar RediHaler 40 mcg/actuati on HFA breath activated aerosol Inhale 2 puffs twice a day by inhalatio n route. 08/06 completed Not Available Not Available Not Available Bydureon BCise 2 mg/0.85 mL subcutaneou s auto-inject or INJECT 2 MG UNDER THE SKIN ONCE A WEEK 02/28 completed Not Available Not Available Not Available Tylenol 325 mg capsule Take 2 capsules as needed by oral route. 12/01 completed Not Available Not Available Not Available OneTouch Ultra Blue Test Strip USE DIRECTED TO CHECK BLOOD SUGAR FOUR TIMES DAILY 03/10 completed Not Available Not Available Not Available Tia Max U-300 SoloStar 300 unit/mL (3 mL) subcutaneou s insulin pen Inject 70 units every day by subcutane ous route. 06/17 completed Not Available Not Available Not Available Accu-Chek Fastclix Lancet Drum 07/10 completed Not Available Not Available Not Available Bijuva 1 mg-100 mg capsule TK 1T PO QD 03/09 completed Not Available Not Available Not Available Dexcom G7 Sensor device CHANGE SENSOR EVERY 10 DAYS active Not Available Not Available No t Available Ozempic 0.25 mg or 0.5 mg (2 mg/3 mL) subcutaneou s pen injector Inject by subcutane ous route. active Not Available Not Available No t Available Vitals Date Recorded Body height Body mass index (BMI) Body weight Body temperature Heart rate Systolic blood pressure Diastolic blood pressure Provider Name and Address Organization Details Last Updated DateTime 4 167.64 cm 33.9 kg/m2 50813.4 g 97.1 [degF] 84 /min 124 mm[Hg] 70 mm[Hg] PRATEEK [place] [employer] [facility] [employer] 4 09:47:16 Date Recorded Body height Body mass index (BMI) Body weight Body temperature Heart rate Oxygen saturation Oxygen saturation in Arterial blood by Pulse oximetry Systolic blood pressure Diastolic blood pressure Provider Name and Address Organization Details Last Updated DateTime 4 167.64 cm 34.1 kg/m2 24641.9 9 g 96.1 [degF] 96 /min 89 % 89 % 132 mm[Hg] 74 mm[Hg] Sagrario Álvarez [place] [employer] [facility] [employer] 4 10:29:18 Date Recorded Body height Heart rate Body temperature Body mass index (BMI) Body weight Oxygen saturation Oxygen saturation in Arterial blood by Pulse oximetry Systolic blood pressure Diastolic blood pressure Provider Name and Address Organization Details Last Updated DateTime 4 167.64 cm 86 /min 97.1 [degF] 34.2 kg/m2 93706.5 8 g 98 % 98 % 164 mm[Hg] 88 mm[Hg] Carlee Harper CMA [place] [employer] [facility] [employer] 4 16:36:43 Date Recorded Body height Body mass index (BMI) Body weight Body temperature Heart rate Oxygen saturation Oxygen saturation in Arterial blood by Pulse oximetry Systolic blood pressure Diastolic blood pressure Provider Name and Address Organization Details Last Updated DateTime 4 167.64 cm 32 kg/m2 47241.0 1 g 98.1 [degF] 75 /min 96 % 96 % 130 mm[Hg] 84 mm[Hg] Sagrario Álvarez MA [facility] [employer] [facility] 4 08:39:17 Date Recorded Heart rate Respiratory rate Provider N julian and Address Organization Details Last Updated DateTime 05/15/2024 75 /min 15 /min Germain Romero MD [address] [place] [address], [id number], [facility] [employer] [facility] 05/15/2024 09:07:54 Date Recorded Body height Body mass index (BMI) Body weight Body temperature Heart rate Oxygen saturation Oxygen saturation in Arterial blood by Pulse oximetry Systolic blood pressure Diastolic blood pressure Provider Name and Address Organization Details Last Updated DateTime 5 167.64 cm 32.8 kg/m2 87381.2 5 g 98.1 [degF] 89 /min 96 % 96 % 134 mm[Hg] 72 mm[Hg] Sagrario Álvarez MA [facility] [employer] [facility] 5 09:36:12 Social History Question Answer Notes LastModified by Organization Details LastModified Time Tobacco Smoking Status Former Smoker quit 32yrs ago Not Available [facility] 07/27/2022 02:51:25 Do You Have An Advance Directive? No Information Given To Patient [id number] Information not available 07/27/2022 What Is Your Level Of Alcohol Consumption? None [id number] Information not available 07/27/2022 What Is Your Level Of Caffeine Consumption? Heavy [id number] Information not available 07/27/2022 How Much Tobacco Do You Chew? None [id number] Information not available 07/27/2022 In The 14 Days Before Symptom Onset, Have You Had Close Contact With A Laboratory-conf irwalker GUOID-19 While That Case Was Ill? No [id number] Information not available 07/27/2022 In The 14 Days Before Symptom Onset, Have You Had Close Contact With A Person Who Is Under Investigation For COVID-19 While That Person Was Ill? No [id number] Information not available 07/27/2022 Are You Currently Employed? No Disablied Information not available 05/15/2024 What Type Of Diet Are You Following? REGULAR [id number] Information not available 07/27/2022 Which Illicit Or Recreational Drugs Have You Used? None [id number] Information not available 07/27/2022 Do You Or Have You Ever Used E-cigarettes Or Vape? Never Used Electronic Cigarettes [id number] Information not available 07/27/2022 What Is The Highest Grade Or Level Of School You Have Completed Or The Highest Degree You Have Received? [id number] Information not available 07/27/2022 Do You Have An Electrostatic Air Filter? No [id number] Information not available 07/27/2022 Have There Been Any Changes To Your Family Or Social Situation? No [id number] Information not available 07/27/2022 What Is The Fluoride Status Of Your Home? Unknown [id number] Information not available 07/27/2022 When Did You Quit Smoking? 14+yearssincelast cigarette [id number] Information not available 07/27/2022 Are There Any Guns Present In Your Home? No [id number] Information not available 07/27/2022 Do You Have A Humidifier? Yes [id number] Information not available 07/27/2022 Do You Use Insect Repellent Routinely? No [id number] Information not available 07/27/2022 Where [facility] You [facility] [id number] Information not available 07/27/2022 Do You Have A Medical Power Of Care Professionals? No [id number] Information not available 07/27/2022 Do You Have Moisture Problems In Your Home? No [id number] Information not available 07/27/2022 What Was The Date Of Your Most Recent Tobacco Screening? 06/20/2024 Information not available 06/20/2024 How Many Children Do You Have? 2 Information not available 02/29/2024 Do You Have Any Pets? Yes [id number] Information not available 07/27/2022 What Is Your Relationship Status? Single [id number] Information not available 07/27/2022 Do You Use Your Seat Belt Or Car Seat Routinely? Yes [id number] Information not available 07/27/2022 Do You Have Smoke And Carbon Monoxide Detectors In Your Home? Yes [id number] Information not available 07/27/2022 At What Age Did You Start Smoking Tobacco? 13 [id number].[id number] [id number] Information not available 07/27/2022 Are You Passively Exposed To Smoke? Yes [id number] Information not available 07/27/2022 Do You Or Have You Ever Used Smokeless Tobacco? Never Used Smokeless Tobacco MIGRATION.0301 [id number] Information not available 07/27/2022 Are There Any Smokers In Your House? Yes MIGRATION.0301 [id number] Information not available 07/27/2022 How Much Tobacco Do You Smoke? 3+ PPD MIGRATION.0301 [id number] Information not available 07/27/2022 What Types Of Sporting Activities Do You Participate In? None MIGRATION.0301 [id number] Information not available 07/27/2022 Do You Feel Stressed (tense, Restless, Nervous, Or Anxious, Or Unable To Sleep At Night)? [id number] MIGRATION.0301 [id number] Information not available 07/27/2022 Do You Use Any Illicit Or Recreational Drugs? No MIGRATION.0301 [id number] Information not available 07/27/2022 Do You Use Sunscreen Routinely? Yes MIGRATION.0301 [id number] Information not available 07/27/2022 Has Tobacco Cessation Counseling Been Provided? No Information not available 09/13/2022 Have You Recently Traveled Abroad? No MIGRATION.0301 [id number] Information not available 07/27/2022 Do You Have Any Dietary Restrictions? No MIGRATION.0301 [id number] Information not available 07/27/2022 Do You Or Have You Ever Used Any Other Forms Of Tobacco Or Nicotine? No MIGRATION.0301 [id number] Information not available 07/27/2022 Sex: Female Functional Status Question Answer Note LastModified by Organizat ion Details LastModified Time What is your exercise level? Occasional [id number] Information not available 07/27/2022 Mental Status None recorded. Family History Relationship Description Onset Age of this Age Resolved Age Notes LastModified by Organization Details LastModified Time Paternal Grandmother Diabetes mellitus MIGRATION.020 [id number] Not available 07/27/2022 02:56:04 Mother Diabetes mellitus MIGRATION.021 [id number] Not available 07/27/2022 02:56:04 Mother Essential hypertension MIGRATION.331 [id number] Not available 07/27/2022 02:56:04 Maternal Grandmother Diabetes mellitus MIGRATION.216 [id number] Not available 07/27/2022 02:56:04 Maternal Grandfather Malignant tumor of colon MIGRATION.183 [id number] Not available 07/27/2022 02:56:04 Paternal Grandfather Malignant tumor of lung MIGRATION.610 [id number] Not available 07/27/2022 02:56:04 Father Essential hypertension MIGRATION.915 [id number] Not available 07/27/2022 02:56:04 Father Diabetes mellitus [email or web address] Not available 2022 09:21:05 Father Heart disease [email or web address] Not available 2022 09:21:54 Father Family history of malignant neoplasm [email or web address] Not available 2022 09:22:16 Sister Diabetes mellitus [email or web address] Not available 2022 09:21:09 Maternal Uncle Diabetes mellitus [email or web address] Not available 2022 09:21:15 Maternal Uncle Family history of stroke [email or web address] Not available 2022 09:21:28 Paternal Uncle Family history of stroke [email or web address] Not available 2022 09:21:28 Mother Arthritis Not available 09/13/2022 09:21:36 Mother Heart disease [email or web address] Not available 2022 09:21:53 Unspecified Relation Family history of malignant neoplasm [email or web address] Not available 2022 09:22:16 Son Asthma [email or web address] Not available 09/2022 12:49:38 Notes:NO ENT Medical History Condition Response SLEEP APNEA Y MRSA N ALLERGIES/HAYFEVER Y LUNG DISEASE/DISORDER N INSOMNIA N COPD N RADIATION / CHEMOTHERAPY N HIGH CHOLESTEROL / HYPERLIPIDEMIA Y HYPERTHYROIDISM N BLOOD DISEASES Y EAR OR HEARING PROBLEMS N HYPOTHYROIDISM N DEPRESSION (INCLUDING POST ) Y BOWEL PROBLEMS Y BACK / NECK PROBLEMS Y STROKE/TIA Y ULCERS N OBESITY Y ANEURYSM N URINARY/BLADDER/KIDNEY PROBLEMS Y CORONARY ARTERY DISEASE (CAD) Y ARTHRITIS Y USE OF BLOOD THINNERS Y DIABETES, TYPE Y ENT Y PARATHYROID DISEASE N SEASONAL ALLERGIES Y PERIPHERAL VASCULAR DISEASE Y HEARTBURN / REFLUX Y HEPATITIS / LIVER DISEASE N SLEEP DISORDER Y SEIZURES/EPILEPSY N HEADACHES/MIGRAINES Y CHF N PACEMAKER N DIZZINESS Y NEUROPATHY Y HEART DISEASE/HEART PROBLEMS Y AIDS/HIV N FRACTURES N HYPERTENSION Y CANCER: SPECIFY N TOURETTE'S N BLOOD TRANSFUSION N ANESTHESIA COMPLICATIONS N ANEMIA/BLOOD DISORDER N CHRONIC EAR INFECTIONS N TUBERCULOSIS N Gynecological History Statement/Question Response How many live births 2 Date of Last Mammogram 12/02/2020 Date of Last Colonoscopy 07/08/2020 Date of Last Mammogram Date of LMP Date of Last Pap Current Control Method Tubal Ligat ion Obstetrics History GPAL:G 4 P 2 0 2 2 Type Value Multiple Births 0 Full Term 2 Induced 1 Spontaneous 1 Premature 0 Living 2 Ectopics 0 Total 4 Immunizations Vaccine Type Date Status Note Provider Nam e and Address Organization Details Recorded Time Pneumococcal conjugate PCV 13 0 completed Not Available [facility] 06/26/2023 12:27:58 pneumococcal polysaccharide PPV23 0 completed Not Available [facility] 06/26/2023 12:27:58 Past Encounters Encounter ID Performer Location Encounter Start Date Encounter Closed Date Diagnosis/Indication Diagnosis SNOMED-CT Code Diagnosis ICD10 Code Diagnosis Note [id number] _CONSTANZA_M IGRATION_ DEFAULT_1 _1 , 10/02/2020 00:00:00 10/05/2020 09:05:28 [id number] [facility] Internal Med [facility] [address] [place] [address] [address] 10/27/2020 00:00:00 10/27/2020 11:28:54 [id number] S_[facility] Internal Med [facility] [address] [place] [address] 12/01/2020 00:00:00 12/01/2020 17:49:53 [id number] _CONSTANZA_M IGRATION_ DEFAULT_1 _1 , 01/08/2021 00:00:00 01/18/2021 10:12:42 [id number] _ATHENA_M IGRATION_ DEFAULT_1 _1 , 02/11/2021 00:00:00 02/11/2021 12:48:03 [id number] [facility] Internal Med [address], [facility] [address] [place] [address] 03/09/2021 00:00:00 03/22/2021 17:55:37 [id number] [facility] [address] [place] [address] 03/15/2021 00:00:00 03/16/2021 10:19:52 [id number] [facility] Internal Med [address] [address] 03/26/2021 00:00:00 03/27/2021 08:37:14 [id number] [facility] General Surgery [address] [place] [address], [address] [address] 04/01/2021 00:00:00 04/01/2021 13:39:45 [id number] [facility] Internal Med [address] [address] 08/12/2021 00:00:00 08/12/2021 10:14:45 [id number] [facility] [address] [place] [address] 08/23/2021 00:00:00 08/23/2021 17:47:56 [id number] _ATHENA_M IGRATION_ DEFAULT_1 _1 , 09/02/2021 00:00:00 09/02/2021 11:52:42 [id number] [facility] [address] [place] [address] 09/06/2021 00:00:00 09/06/2021 10:41:11 [id number] [facility] Internal Med [address] [address] 11/16/2021 00:00:00 11/16/2021 16:04:11 [id number] [facility] [address] [facility] 15 [place] [address] 03/15/2022 00:00:00 03/15/2022 10:21:02 [id number] [facility] Pul[facility] [place] [address] [facility], [facility] 15 [place] [address] 03/15/2022 00:00:00 03/15/2022 11:32:59 [id number] [facility] [place] [address] [facility] [address] [place] [address] 04/05/2022 00:00:00 04/05/2022 09:45:54 [id number] [facility] Internal Med [facility] [address]43 [facility], [address] [address] 07/21/2022 00:00:00 07/21/2022 09:40:11 [id number] Virgilio Vick MD [facility] ENT [place] [address] [facility] [address] [place] [address] 08/25/2022 10:07:10 08/25/2022 11:05:59 Vertigo [id number] R42 [id number] Víctor Zaragoza DPM [facility] Podiatry [place] [id number] [facility], [facility] 4 [place] [address] 09/13/2022 08:49:33 09/13/2022 09:44:48 Diabetic peripheral neuropathy [id number] E11.42 Patient educated on neuropathy , diabetes, diabetic diet, and daily foot exams. Patient is to check feet daily for new wounds, blisters, redness to prevent infection and ulceration s to the feet. Patient will return to clinic in 3 months for diabetic foot workup.Rx diabetic shoes insoles Onychomyco sis of toenails [id number] B35.1 left great toenailedu cated on treatment optionsPat ient will return for total nail avulsion of left great toenail with treatment with topical medication [id number] Lexi foster MD [facility] Internal Med [facility] [address] [facility], [facility] 15 [place] [address] 11/22/2022 09:05:48 11/22/2022 09:59:24 Screening - NAD 411906930 Z13.9 C-scope: 07/08/2020 : Poor prep, next in one year 03/09/2021 C-scope/EG D 11/17/2021 : Dr Vega PAP: Did see Dr Gloria as per her hxNow on OC bijuva for 'vaginal thinness' as per her hx DEXA: 12/03/18: NormalDEXA : 12/25/2020 : Normal Mammogram: 12/02/2020 : NormalOrde red Get yearly flu shots, does not do thisUTD Tdap if one year agoUTD PCV #23 02/19/2020 Get COVID 19 vaccine done, she has declined this today 03/09/2021 states that she does not 'trust' this or the government that made this', advised to follow all CDC guidelines RTC in 3 monthsDo labsER if worseShe did verbalize her understand ing of the above Type 2 brie betes mellitus without complication 649533113 E11.[address] Aceves Not on farxiga 10mg dailyNot on glimeperid e as per ACCU On metformin ER 500mg dailyOn bydurion 2mg weekly Dr Ndiaye podiatryNe eds to see [facility] Coronary arteriosclerosis 08176540 I25.10 S/p stentsS/p stress test 01/12/[address] [facility] [address] Joseph/p admitted and d/c from [facility] for CP on 10/20/2020 S/p CABG in 03/2021, Dr Beckman On ASAOn brilintaOf f coreg 6.25mg bidOn losartan 50mg dailyOn mag oxOn metoprolol XR 25mg daily Dr Gifford 03/17/22 Hyperlipidemia 91486579 E78.5 On ASAOn atorvastat in 40mg dailyOn zetia 10mg dailyOff vascepa 1mg 2 tabs bid Get labs Porphyria cutanea tarda 45528293 E80.[address] Butler She did have a skin lesion on the L forearm, advised to keep away from sunlight and keep coveredDr Butler 01/29/2021 , treated with atarax and PO keflex PRN Dr Butler 12/24/2021 Cirrhosis of liver 99569 007 K74.60 12/06/2019 : US liver: Fatty liver02/16: MRCP: Fatty infiltrati on, unremarkab le MRCP, Ila Hanin L Noted on the CT A/P 10/20/2020 Dr Vega 03/18/2021 , needs to see Dr Vega again Chronic ki dney disease 632180415 N18.9 Get an apt with Dr Carbone, last 10/26/2021 Spinal stenosis 21705842 M48.00 MRI T spine 03/25/2021 , needs to see NS Abdominal pain 29320719 R10.9 S/p CT A/P on 10/20/2020 , admitted and d/c from [facility] on 10/20/2020 Dr Vega: 11/04/2020 C-scope/EG D 11/17/2021 : Dr Troy: Dr Vega On prilosec 20mg dailyGastr itis, distal esophogeal strictureK eep apt with Dr Vega Chronic ob structive pulmonary disease 01124322 J44.9 Ex smoker On singulairO n HHNsOn proventilO n flonaseOn spirivaOn Symbicort Not on symbicortO n O2 PRN CT chest 03/17/2021 Dr Romero 03/15/2022 Gastroesop hageal reflux disease without esophagitis 307625200 K21.9 12/13/2019 : EGD: Hiatal hernia, gastritis: Dr Sanabria-ri ope/EGD 11/17/2021 : Dr Sweeney PPI advised to take as needed, did see Dr Vega 03/18/2021 , stricture dilated, PPI to be bidDoes wellAdvise d Neuropathy 167276585 G62 .9 On lyrica 50mg dailyDoes not want to see pain management Anxiety 19823312 F41.[address] [place] psychiatry in past On fluoxetine 40mg dailyOn buspirone 15mg dailyNot suicidal or homicidalS ees Dr Banerjee Ganglion of wrist 20280828 [address] GomezL>R soft slightly tender swelling noted on the flexor wrist, normal ROM and pediatric genetic counselor Dr Gomez 04/05/2022 Eruption 214074186 R21 Noted on the upper anterior chest, faint red flat rashGet on triamcinol one Vertigo 149295741 R42 Get a referral to ENT and do PT Screening mammography 24 136656 Z12.31 Screening for osteoporosis 825710156 Z13.820 Gynecologi c examination 62830527 Z01.419 Adult heal th examination 774942508 Z00.00 Screening for disorder 016771892 Z13.9 [id number] Víctor Zaragoza DPM [facility] Pod[facility] [place] [address] [facility], [place] [address] [place] [address] 11/24/2022 09:41:05 11/24/2022 16:11:07 Onychomycosis of toenails 066565986 B35.1 left great toenailTot al nail avulsion performed todayWound care instructio peña reviewedMo nitor for signs of infection at present seek medical attention immediatel yThe area clean and dry daily until healedFoll ow-up in 2-3 weeks, Rx ketoconazo le at that time [id number] Lexi foster MD [facility] Internal Med [facility] [address] [facility], [place] [address] [place] [address] 03/21/2023 09:43:30 03/21/2023 10:15:32 Screening - NAD 115333222 Z13.9 C-scope: 07/08/2020 : Poor prep, next in one year 03/09/2021 C-scope/EG D 11/17/2021 : Dr Vega PAP: Did see Dr Gloria as per her hxNow on OC bijuva for 'vaginal thinness' as per her hx DEXA: 12/03/18: NormalDEXA : 12/25/2020 : Normal Mammogram: 12/02/2020 : NormalOrde red Get yearly flu shots, does not do thisUTD Tdap if one year agoUTD PCV #23 02/19/2020 Get COVID 19 vaccine done, she has declined this today 03/09/2021 states that she does not 'trust' this or the government that made this', advised to follow all CDC guidelines RTC in 3 monthsDo labsER if worseShe did verbalize her understand ing of the above Type 2 brie betes mellitus without complication 583179898 E11.[address] On tresciba 77U daily Dr Aceves Not on farxiga 10mg dailyNot on glimeperid e as per ACCU On metformin ER 500mg dailyOn bydurion 2mg weekly Dr Ndiaye podiatryNe eds to see eye MDDr Ketan, referred to Dr Mays labs Coronary arteriosclerosis 33596881 I25.10 S/p stentsS/p stress test 01/12/2021 [facility] Dr Joseph/ellie admitted and d/c from [facility] for CP on 10/20/2020 S/p CABG in 03/2021, Dr Beckman On ASAOn brilintaOf f coreg 6.25mg bidOn lasix PRNOn losartan 50mg dailyOn mag oxOn metoprolol XR 25mg dailyON NTGOn ranolazine ER 500mg bid, filled 02/24/2023 Dr Balta Gifford 03/17/22Dr Gifford 09/02/2022 Rhythm report 03/14/2023 Hyperlipidemia 12795713 E78.5 On ASAOn atorvastat in 40mg dailyOn zetia 10mg dailyOff vascepa 1mg 2 tabs bid Get labs Porphyria cutanea tarda 27432453 E80.[address] Butler She did have a skin lesion on the L forearm, advised to keep away from sunlight and keep coveredDr Butler 01/29/2021 , treated with atarax and PO keflex PRN Cirrhosis of liver 54465 007 K74.60 12/06/2019 : US liver: Fatty liver02/16: MRCP: Fatty infiltrati on, unremarkab le MRCP, Ila Schaeffer Noted on the CT A/P 10/20/2020 Dr Vega 03/18/2021 , needs to see Dr Vega again Dr Vega 01/25/2023 , f/u in 6 weeks, get RUQ US, continue with nexium, and get barium swallow study Chronic ki dney disease 233168624 N18.9 Get an apt with Dr Carbone, last 10/26/2021 Spinal stenosis 89001708 M48.00 MRI T spine 03/25/2021 , needs to see NS Abdominal pain 31652781 R10.9 S/p CT A/P on 10/20/2020 , admitted and d/c from [facility] on 10/20/2020 Dr Vega: 11/04/2020 C-scope/EG D 11/17/2021 : Dr Troy: Dr Vega On prilosec 20mg dailyGastr itis, distal esophogeal strictureK eep apt with Dr Vega Chronic ob structive pulmonary disease 30900735 J44.9 Ex smoker On singulairO n HHNsOn proventilO n flonaseOn spirivaOn Symbicort Not on symbicortO n O2 PRN CT chest 03/17/2021 Dr Romero 03/15/2022 Gastroesop hageal reflux disease without esophagitis 324801180 K21.9 12/13/2019 : EGD: Hiatal hernia, gastritis: Dr Sanabria-ri ope/EGD 11/17/2021 : Dr Sweeney PPI advised to take as needed, did see Dr Vega 03/18/2021 , stricture dilated, PPI to be bidDoes wellAdvise d Neuropathy 027294875 G62 .9 On lyrica 50mg dailyDoes not want to see pain management Anxiety 61690066 F41.[address] [place] psychiatry in past On fluoxetine 40mg dailyOn buspirone 15mg dailyNot suicidal or homicidalS ees Dr Banerjee Ganglion of wrist 777118 [address] GomezL>R soft slightly tender swelling noted on the flexor wrist, normal ROM and pediatric genetic counselor Dr Gomez 04/05/2022 Eruption 811139315 R21 Noted on the upper anterior chest, faint red flat rashGet on triamcinol one Screening mammography 24 054424 Z12.31 Screening for osteoporosis 464465370 Z13.820 Gynecologi c examination 36559754 Z01.315 [id number] Germain Romero MD [facility] Pulmon[facility] gy [address] [address] 05/02/2023 11:58:54 05/03/2023 10:02:49 Dyspnea on exertion 19550290 R06.09 R05.9 T78.40XA [id number] Lexi foster MD [facility] Internal Med [facility] [address] [place] [address] 08/22/2023 08:57:49 08/22/2023 11:17:00 Screening - NAD 247823600 Z13.9 C-scope: 07/08/2020 : Poor prep, next in one year 03/09/2021 C-scope/EG D 11/17/2021 : Dr Vega PAP: Did see Dr Gloria as per her hxNow on OC bijuva for 'vaginal thinness' as per her hx DEXA: 12/03/18: NormalDEXA : 12/25/2020 : Normal Mammogram: 12/02/2020 : NormalOrde red Get yearly flu shots, does not do thisUTD Tdap if one year agoUTD PCV #23 02/19/2020 Get COVID 19 vaccine done, she has declined this today 03/09/2021 states that she does not 'trust' this or the government that made this', advised to follow all CDC guidelines RTC in 6 weeksDo labsER if worseShe did verbalize her understand ing of the above Type 2 brie betes mellitus without complication 990597204 E11.9 On tresciba 77U daily Dr Aceves Not on farxiga 10mg dailyNot on glimeperid e as per ACCU On metformin ER 500mg dailyOn bydurion 2mg weeklyOn tresciba U [address] Ndiaye podiatryNe eds to see eye MDDr Ketan, referred to Dr Mays labs Coronary arteriosclerosis 81916230 I25.10 S/p stentsS/p stress test 01/12/[address] [facility] [address] Joseph/p admitted and d/c from [facility] for CP on 10/20/2020 S/p CABG in 03/2021, Dr Beckman On ASAOn brilintaOf f coreg 6.25mg bidOn lasix PRNOn losartan 50mg dailyOn mag oxOn metoprolol ER 25mg dailyON NTGOn ranolazine ER 500mg bid, filled 02/24/2023 Dr Balta Gifford 03/17/22Dr Balta 09/02/2022 Rhythm report 03/14/2023 Hyperlipidemia 51265360 E78.5 On ASAOn atorvastat in 40mg dailyOn zetia 10mg dailyOff vascepa 1mg 2 tabs bid Get labs Porphyria cutanea tarda 17681992 E80.[address] Butler She did have a skin lesion on the L forearm, advised to keep away from sunlight and keep coveredDr Butler 01/29/2021 , treated with atarax and PO keflex PRN Cirrhosis of liver 89305 007 K74.60 12/06/2019 : US liver: Fatty liver02/16: MRCP: Fatty infiltrati on, unremarkab le MRCP, Bakanas Sandra L Noted on the CT A/P 10/20/2020 Dr Vega 03/18/2021 , needs to see Dr Vega again Dr Vega 01/25/2023 , f/u in 6 weeks, get RUQ US, continue with nexium, and get barium swallow study [facility] 07/07/2023 : ER for weakness, CT A/P: Cirrhosis, get MRI liver Chronic ki dney disease 047962761 N18.9 Get an apt with Dr Carbone, last 10/26/2021 Spinal stenosis 10226539 M48.00 MRI T spine 03/25/2021 , needs to see NS Abdominal pain 61900642 R10.9 S/p CT A/P on 10/20/2020 , admitted and d/c from [facility] on 10/20/2020 Dr Vega: 11/04/2020 C-scope/EG D 11/17/2021 : Dr Troy: Dr Vega On prilosec 20mg dailyGastr itis, distal esophogeal strictureK eep apt with Dr Vega Chronic ob structive pulmonary disease 19416032 J44.9 Ex smoker On singulairO n HHNsOn proventilO n flonaseOn singulairO n spirivaOn Symbicort Not on symbicortO n O2 PRN CT chest 03/17/2021 Dr Romero 03/15/2022 Addendum: 08/25/2023 :CT Chest Dr Romero Gastroesop hageal reflux disease without esophagitis 768737562 K21.9 12/13/2019 : EGD: Hiatal hernia, gastritis: Dr Sanabria-ri ope/EGD 11/17/2021 : Dr Sweeney PPI advised to take as needed, did see Dr Vega 03/18/2021 , stricture dilated, PPI to be bidDoes wellAdvise d Neuropathy 660375273 G62 .9 On lyrica 50mg dailyDoes not want to see pain management Anxiety 06111939 F41.[address] [place] psychiatry in past On fluoxetine 40mg dailyOn buspirone 15mg dailyNot suicidal or homicidalS ees Dr Banerjee Ganglion of wrist 20280828 009 [address] GomezL>R soft slightly tender swelling noted on the flexor wrist, normal ROM and pediatric genetic counselor Dr Gomez 04/05/2022 Eruption 296549779 R21 Noted on the upper anterior chest, faint red flat rashGet on triamcinol one Screening mammography 24 066569 Z12.31 Screening for osteoporosis 234313764 Z13.820 Gynecologi c examination 92505922 Z01.419 Recurrent urinary tract infection 184463710 N39.0 Seen in the ERHas increased frequency and urgency, no LBP, no gross hematuriaU A: 08/22/2023 : No leuk, trace blood, +ve nitriteSta rt on cipro 500mg po bid for 7 days, also get on diflucan as she also gets yeast infections with any antibiotic s [id number] Germain Romero MD [facility] [address] 08/22/2023 09:28:58 08/23/2023 08:18:50 Obstructive sleep apnea syndrome 14137616 G47.33 Dyspnea on exertion 6084 5006 R06.09 R05.9 T78.40XA [id number] Lexi foster MD [facility] [address] 10/24/2023 10:53:09 10/24/2023 11:31:57 Screening - NAD 750947811 Z13.9 C-scope: 07/08/2020 : Poor prep, next in one year 03/09/2021 C-scope/EG D 11/17/2021 : Dr Silvia RIVERA: Did see Dr Gloria as per her hxNow on OC bijuva for 'vaginal thinness' as per her hx DEXA: 12/03/18: NormalDEXA : 12/25/2020 : Normal Mammogram: 12/02/2020 : Renee moura Get yearly flu shots, does not do thisUTD Tdap if one year agoUTD PCV #23 02/19/2020 Get COVID 19 vaccine done, she has declined this today 03/09/2021 states that she does not 'trust' this or the government that made this', advised to follow all CDC guidelines RTC in 6 weeksDo labsER if worseShe did verbalize her understand ing of the above Type 2 brie betes mellitus without complication 234397136 E11.9 Not on farxiga 10mg dailyNot on glimeperid e as per ACCU On metformin ER 500mg dailyOn bydurion 2mg weeklyOn tresciba U [address] Ndiaye podiatryNe eds to see eye MDDr Wood, referred to Dr Davon carballo Coronary arteriosclerosis 31485020 I25.10 S/p stentsS/p stress test 01/12/[address] [facility] [address] Joseph/p admitted and d/c from [facility] for CP on 10/20/2020 S/p CABG in 03/2021, Dr Kim/ellie ECHO 07/31/2023 S/p stress 08/28/[address] Gifford 10/10/2023 Off coreg 6.25mg bidOn lasix PRNOn losartan 50mg dailyOn mag oxOn metoprolol ER 25mg dailyON NTGOn ranolazine ER 500mg bid, filled 02/24/2023 Dr Balta Gifford 03/17/22Dr Gifford 09/02/2022 Rhythm report 03/14/2023 Hyperlipidemia 89197135 E78.5 On ASAOn atorvastat in 40mg dailyOn zetia 10mg dailyOff vascepa 1mg 2 tabs bid Get labs Porphyria cutanea tarda 22805700 E80.[address] Butler She did have a skin lesion on the L forearm, advised to keep away from sunlight and keep coveredDr Butler 01/29/2021 , treated with atarax and PO keflex PRN Cirrhosis of liver 88571 007 K74.60 12/06/2019 : US liver: Fatty liver02/16: MRCP: Fatty infiltrati on, unremarkab le MRCP, Ila Flores L Noted on the CT A/P 10/20/2020 Dr Vega 03/18/2021 , needs to see Dr Vega again Dr Vega 01/25/2023 , f/u in 6 weeks, get RUQ US, continue with nexium, and get barium swallow study [facility] 07/07/2023 : ER for weakness, CT A/P: Cirrhosis, get MRI liver Chronic ki dney disease 969585525 N18.9 Get an apt with Dr Carbone, last 10/26/2021 Spinal stenosis 41800975 M48.00 MRI T spine 03/25/2021 , needs to see NS, today 10/24/2023 declines Abdominal pain 72987389 R10.9 S/p CT A/P on 10/20/2020 , admitted and d/c from [facility] on 10/20/2020 Dr Vega: 11/04/2020 C-scope/EG D 11/17/2021 : Dr Troy: Dr Vega On prilosec 20mg dailyGastr itis, distal esophogeal strictureK eep apt with Dr Vega Chronic ob structive pulmonary disease 57806385 J44.9 Ex smoker On singulairO n HHNsOn proventilO n flonaseOn singulairO n spirivaOn Symbicort Not on symbicortO n O2 PRN CT chest 03/17/2021 Dr Romero 03/15/2022 Addendum: 08/25/2023 :CT Chest Dr Romero Gastroesop hageal reflux disease without esophagitis 147128707 K21.9 12/13/2019 : EGD: Hiatal hernia, gastritis: Dr Sanabria-ri ope/EGD 11/17/2021 : Dr Sweeney PPI advised to take as needed, did see Dr Vega 03/18/2021 , stricture dilated, PPI to be bidDoes wellAdvise d Neuropathy 728882109 G62 .9 On lyrica 50mg daily, wants to double as she feels that the daily dose is not as effective, will increase to bid 10/24/2023 Does not want to see pain management Anxiety 03662334 F41.[address] Ny psychiatry in past On fluoxetine 40mg dailyOn buspirone 15mg dailyNot suicidal or homicidalS ees Dr Banerjee Ganglion of wrist 20280828 [address] GomezL>R soft slightly tender swelling noted on the flexor wrist, normal ROM and pediatric genetic counselor Dr Gomez 04/05/2022 Eruption [id number] R21 Noted on the upper anterior chest, faint red flat rashGet on triamcinol one Screening mammography 24 224999 Z12.31 Screening for osteoporosis 780922900 Z13.820 Gynecologi c examination 29551563 Z01.371 [id number] Lexi foster MD [facility] Internal Med [facility] [address] [facility] [place] [address] 02/22/2024 09:36:19 02/22/2024 10:21:01 Screening - NAD 826768511 Z13.9 C-scope: 07/08/2020 : Poor prep, next in one year 03/09/2021 C-scope/EG D 11/17/2021 : Dr Vega PAP: Did see Dr Gloria as per her hxNow on OC bijuva for 'vaginal thinness' as per her hx DEXA: 12/03/18: NormalDEXA : 12/25/2020 : Normal Mammogram: 12/02/2020 : NormalMamm ogram 05/26/2023 : Neg Get yearly flu shots, does not do thisUTD Tdap if one year agoUTD PCV #23 02/19/2020 Get COVID 19 vaccine done, she has declined this today 03/09/2021 states that she does not 'trust' this or the government that made this', advised to follow all CDC guidelines RTC in 6 weeksDo labsER if worseShe did verbalize her understand ing of the above Type 2 brie betes mellitus without complication [id number] E11.9 Not on farxiga 10mg dailyNot on glimeperid e as per ACCU On metformin ER 500mg dailyOn bydurion 2mg weeklyOn tresciba U [address] Ndiaye podiatryGr [facility] 09/27/2023 Dr Aceves, referred to Dr Mays labs Coronary arteriosclerosis 06746400 I25.10 S/p stentsS/p stress test 01/12/[address] Joseph/ellie admitted and d/c from [facility] for CP on 10/20/2020 S/p CABG in 03/2021, Dr RayS/p ECHO 07/31/2023 S/p stress 08/28/[address] Gifford 10/10/2023 , 02/18/2024 Off coreg 6.25mg bidOn lasix PRNOn losartan 50mg dailyOn mag oxOn metoprolol ER 25mg dailyOn NTGOn ranolazine ER 500mg bid, filled 02/24/2023 Dr Gifford Rhythm report 03/14/2023 Hyperlipidemia 09601715 E78.5 On ASAOn atorvastat in 40mg dailyOn zetia 10mg dailyOff vascepa 1mg 2 tabs bid Get labs Porphyria cutanea tarda 72615910 E80.[address] Butler She did have a skin lesion on the L forearm, advised to keep away from sunlight and keep coveredDr Butler 01/29/2021 , treated with atarax and PO keflex PRN Cirrhosis of liver 61887 007 K74.60 12/06/2019 : US liver: Fatty liver02/16: MRCP: Fatty infiltrati on, unremarkab le MRCP, Bakanas Sandra L Noted on the CT A/P 10/20/2020 Dr Vega 03/18/2021 , needs to see Dr Vega again Dr Vega 01/25/2023 , f/u in 6 weeks, get RUQ US, continue with nexium, and get barium swallow study [facility] 07/07/2023 : ER for weakness, CT A/P: Cirrhosis, get MRI liver Chronic ki dney disease 647748284 N18.9 Get an apt with Dr Carbone last 01/03/2023 , f/u in 6 months Spinal stenosis 47668038 M48.00 MRI T spine 03/25/2021 , needs to see NS, today 10/24/2023 declines Abdominal pain 47177640 R10.9 S/p CT A/P on 10/20/2020 , admitted and d/c from [facility] on 10/20/2020 Dr Vega: 11/04/2020 C-scope/EG D 11/17/2021 : Dr Troy: Dr Vega On prilosec 20mg dailyGastr itis, distal esophogeal strictureK eep apt with Dr Vega Will repeat the CT A/P 02/22/2024 , may need to d/c the GLP-1 Addendum: 02/22/2024 : CT abd/pelvis noted, will now have to proceed to the ER, she was notified and will go to [facility] ER, also discussed with Dr Lillian QUINTANILLA at [facility] ER Chronic ob structive pulmonary disease 20888849 J44.9 Ex smoker On singulairO n HHNsOn proventilO n flonaseOn singulairN ot on spirivaNot on Symbicort Not on symbicortO n O2 PRN CT chest 03/17/2021 Dr Romero 03/15/2022 Addendum: 08/25/2023 :CT Chest Dr Heather Romero 08/22/2023 Gastroesop hageal reflux disease without esophagitis 040051444 K21.9 12/13/2019 : EGD: Hiatal hernia, gastritis: Dr Sanabria-ri ope/EGD 11/17/2021 : Dr Sweeney PPI advised to take as needed, did see Dr Vega 03/18/2021 , stricture dilated, PPI to be bidDoes wellAdvise d Neuropathy 019863801 G62 .9 On lyrica 50mg daily, increased to bid 10/24/2023 Does not want to see pain management Anxiety 62950181 F41.[address] Ny psychiatry in past On fluoxetine 40mg dailyOn buspirone 15mg dailyNot suicidal or homicidalS ees Dr Banerjee Ganglion of wrist 20280828 009 [address] GomezL>R soft slightly tender swelling noted on the flexor wrist, normal ROM and pediatric genetic counselor Dr Gomez 04/05/2022 Eruption 214099579 R21 Noted on the upper anterior chest, faint red flat rashGet on triamcinol one Screening mammography 24 559334 Z12.31 Screening for osteoporosis 928159002 Z13.820 Gynecologi c examination 47644207 Z01.419 Pain in ri ght hip joint 1900672453 87207 M25.551 Get xraysWill need to see ortho Addendum: 02/22/2024 :XRays noted [id number] Lexi foster MD [facility] Internal Med [address] [place] [address] 02/29/2024 10:00:10 02/29/2024 11:33:43 Screening - NAD 138118271 Z13.9 C-scope: 07/08/2020 : Poor prep, next in one year 03/09/2021 C-scope/EG D 11/17/2021 : Dr Vega PAP: Did see Dr Gloria as per her hxNow on OC bijuva for 'vaginal thinness' as per her hx DEXA: 12/03/18: NormalDEXA : 12/25/2020 : Normal Mammogram: 12/02/2020 : NormalMamm ogram 05/26/2023 : Neg Get yearly flu shots, does not do thisUTD Tdap if one year agoUTD PCV #23 02/19/2020 Get COVID 19 vaccine done, she has declined this today 03/09/2021 states that she does not 'trust' this or the government that made this', advised to follow all CDC guidelines RTC in 6 weeksDo labsER if worseShe did verbalize her understand ing of the above Type 2 brie betes mellitus without complication 169322670 E11.9 Not on farxiga 10mg dailyNot on glimeperid e as per ACCUNot on bydurion 2mg weekly On metformin ER 500mg dailyOn tresciba U [address] Ndiaye podiatryGr [facility] 09/27/2023 Dr Aceves, will discuss use of the Bydureon with Dr AcevesGet labs Coronary arteriosclerosis 03472807 I25.10 S/p stentsS/p stress test 01/12/2021 [facility] Dr Joseph/p admitted and d/c from [facility] for CP on 10/20/2020 S/p CABG in 03/2021, Dr Kim/ellie ECHO 07/31/2023 S/p stress 08/28/[address] Gifford 10/10/2023 , 02/18/2024 Off coreg 6.25mg bidOn lasix PRNOn losartan 50mg dailyOn mag oxOn metoprolol ER 25mg dailyOn NTGOn ranolazine ER 500mg bid, filled 02/24/2023 Dr Gifford Rhythm report 03/14/2023 Hyperlipidemia 83482779 E78.5 On ASAOn atorvastat in 40mg dailyOn zetia 10mg dailyOff vascepa 1mg 2 tabs bid Get labs Porphyria cutanea tarda 66431554 E80.[address] Butler She did have a skin lesion on the L forearm, advised to keep away from sunlight and keep coveredDr Luke 01/29/2021 , treated with atarax and PO keflex PRN Cirrhosis of liver 13126 007 K74.60 12/06/2019 : US liver: Fatty liver02/16: MRCP: Fatty infiltrati on, unremarkab le MRCP, Bakanas Sandra L Noted on the CT A/P 10/20/2020 Dr Vega 03/18/2021 , needs to see Dr Vega again Dr Vega 01/25/2023 , f/u in 6 weeks, get RUQ US, continue with nexium, and get barium swallow study [facility] 07/07/2023 : ER for weakness, CT A/P: Cirrhosis, get MRI liver Chronic ki dney disease 393702441 N18.9 Get an apt with Dr Carbone last 01/03/2023 , f/u in 6 months Spinal stenosis 82903259 M48.00 MRI T spine 03/25/2021 , needs to see NS, today 10/24/2023 declines Abdominal pain 38320517 R10.9 S/p CT A/P on 10/20/2020 , admitted and d/c from [facility] on 10/20/2020 Dr Vega: 11/04/2020 C-scope/EG D 11/17/2021 : Dr Troy: Dr Vega On prilosec 20mg dailyGastr itis, distal esophogeal strictureK eep apt with Dr Vega Will repeat the CT A/P 02/22/2024 , may need to d/c the GLP-1 Addendum: 02/22/2024 : CT abd/pelvis noted, will now have to proceed to the ER, she was notified and will go to [facility] ER, also discussed with Dr Lillian QUINTANILLA at [facility] ER OV 02/29/2024 : S/p [facility] ER, given antibiotic s, does well today, does now need to see urology Chronic ob structive pulmonary disease 88208838 J44.9 Ex smoker On singulairO n HHNsOn proventilO n flonaseOn singulairN ot on spirivaNot on Symbicort Not on symbicortO n O2 PRN CT chest 03/17/2021 Dr Romero 03/15/2022 Addendum: 08/25/2023 :CT Chest Dr Heather Romero 08/22/2023 Gastroesop hageal reflux disease without esophagitis 309115153 K21.9 12/13/2019 : EGD: Hiatal hernia, gastritis: Dr Burdick-ri ope/EGD 11/17/2021 : Dr Sweeney PPI advised to take as needed, did see Dr Vega 03/18/2021 , stricture dilated, PPI to be bidDoes wellAdvise d Neuropathy 159502223 G62 .9 On lyrica 50mg daily, increased to bid 10/24/2023 Does not want to see pain management Anxiety 72684144 F41.[address] Ny psychiatry in past On fluoxetine 40mg dailyOn buspirone 15mg dailyNot suicidal or homicidalS ees Dr Banerjee Ganglion of wrist 147281 [address] GomezL>R soft slightly tender swelling noted on the flexor wrist, normal ROM and pediatric genetic counselor Dr Gomez 04/05/2022 Screening mammography 24 697667 Z12.31 Screening for osteoporosis 932118572 Z13.820 Gynecologi c examination 17752151 Z01.419 Pain in ri ght hip joint 1694267525 69754 M25.551 Get xraysWill need to see ortho Addendum: 02/22/2024 :XRays noted Cystitis 93785878 B37.41 S/p CT A/P , 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 [id number] Germain Romero MD [facility] [place] [address] [address] 05/15/2024 08:25:38 05/15/2024 11:58:26 Obstructive sleep apnea syndrome 63395151 G47.33 Dyspnea on exertion 6084 5006 R06.09 R05.9 T78.40XA [id number] Lexi foster MD [facility] Internal Med [facility] [address] [place] [address] 06/20/2024 09:16:46 06/20/2024 10:22:09 Screening - NAD 198984968 Z13.9 C-scope: 07/08/2020 : Poor prep, next in one year 03/09/2021 C-scope/EG D 11/17/2021 : Dr Vega PAP: Did see Dr Gloria as per her hxNow on OC bijuva for 'vaginal thinness' as per her hx DEXA: 12/03/18: NormalDEXA : 12/25/2020 : Normal Mammogram: 12/02/2020 : NormalMamm ogram 05/26/2023 : Neg Get yearly flu shots, does not do thisUTD Tdap if one year agoUTD PCV #23 02/19/2020 Get COVID 19 vaccine done, she has declined this today 03/09/2021 states that she does not 'trust' this or the government that made this', advised to follow all CDC guidelines RTC in 6 weeksDo labsER if worseShe did verbalize her understand ing of the above Type 2 brie betes mellitus without complication 795730821 E11.9 Not on farxiga 10mg dailyNot on glimeperid e as per ACCUNot on bydurion 2mg weekly On metformin ER 500mg dailyOn tresciba U [address] Ndiaye podiatryGr [facility] 09/27/2023 Dr Aceves, will discuss use of the Bydureon with Dr Julian labs OV 06/20/2024 :ACCU 06/20/2024 540+, which is fasting, she is now referred to the ER 06/20/2024 [address] [facility] ER, case discussed with Dr Snyder in the ERAlso spoke personally with Dr Aceves, as per Dr Aceves she has been very non compliant with her labs and has also missed her appointmen t, she does also agree that she has to proceed to the ER! Coronary arteriosclerosis 15797081 I25.10 S/p stentsS/p stress test 01/12/2021 [facility] Dr Joseph/p admitted and d/c from [facility] for CP on 10/20/2020 S/p CABG in 03/2021, Dr Kim/ellie ECHO 07/31/2023 S/p stress 08/28/[address] Gifford 10/10/2023 , 02/18/2024 Off coreg 6.25mg bidOn lasix PRNOn losartan 50mg dailyOn mag oxOn metoprolol ER 25mg dailyOn NTGOn ranolazine ER 500mg bid, filled 02/24/2023 Dr Gifford Rhythm report 03/14/2023 05/27/2024 : CTA chest, [facility] ER Hyperlipidemia 38336351 E78.5 On ASAOn atorvastat in 40mg dailyOn zetia 10mg dailyOff vascepa 1mg 2 tabs bid Get labs Porphyria cutanea tarda 93484006 E80.[address] Butler She did have a skin lesion on the L forearm, advised to keep away from sunlight and keep coveredDr Luke 01/29/2021 , treated with atarax and PO keflex PRN Cirrhosis of liver 33865 007 K74.60 12/06/2019 : US liver: Fatty liver02/16: MRCP: Fatty infiltrati on, unremarkab le MRCP, Ila Flores L Noted on the CT A/P 10/20/2020 Dr Vega 03/18/2021 , needs to see Dr Vega again Dr Vega 01/25/2023 , f/u in 6 weeks, get RUQ US, continue with nexium, and get barium swallow study [facility] 07/07/2023 : ER for weakness, CT A/P: Cirrhosis, get MRI liverRefer red to Dr Vega 06/20/2024 Chronic ki dney disease 010895237 N18.9 Get an apt with Dr Carbone last 01/03/2023 , f/u in 6 months Spinal stenosis 73744178 M48.00 MRI T spine 03/25/2021 , needs to see NS, today 10/24/2023 declinesCT A Chest 05/27/2024 , needs to repeat the MRI, at this time refer to NS, will refer to NS 06/20/2024 Abdominal pain 60533675 R10.9 S/p CT A/P on 10/20/2020 , admitted and d/c from [facility] on 10/20/2020 Dr Vega: 11/04/2020 C-scope/EG D 11/17/2021 : Dr Troy: Dr Vega On prilosec 20mg dailyGastr itis, distal esophogeal strictureK eep apt with Dr Vega Will repeat the CT A/P 02/22/2024 , may need to d/c the GLP-1 Addendum: 02/22/2024 : CT abd/pelvis noted, will now have to proceed to the ER, she was notified and will go to [facility] ER, also discussed with Dr Lillian QUINTANILLA at [facility] ER OV 02/29/2024 : S/p [facility] ER, given antibiotic s, does well today, does now need to see urology Chronic ob structive pulmonary disease 93420456 J44.9 Ex smoker On singulairO n HHNsOn proventilO n flonaseOn singulairN ot on spirivaNot on Symbicort Not on symbicortO n O2 PRN CT chest 03/17/2021 Dr Romero 03/15/2022 Addendum: 08/25/2023 :CT Chest Dr Heather Romero 08/22/2023 , referred 06/20/2024 Gastroesop hageal reflux disease without esophagitis 078610261 K21.9 12/13/2019 : EGD: Hiatal hernia, gastritis: Dr Sanabria-ri ope/EGD 11/17/2021 : Dr Sweeney PPI advised to take as needed, did see Dr Vega 03/18/2021 , stricture dilated, PPI to be bidDoes wellAdvise d Neuropathy 896961138 G62 .9 On lyrica 50mg daily, increased to bid 10/24/2023 Does not want to see pain management Anxiety 49616038 F41.[address] Ny psychiatry in past On fluoxetine 40mg dailyOn buspirone 15mg dailyNot suicidal or homicidalS ees Dr Banerjee Ganglion of wrist 20280828 009 M67[address] GomezL>R soft slightly tender swelling noted on the flexor wrist, normal ROM and pediatric genetic counselor Dr Gomez 04/05/2022 Screening mammography 24 980223 Z12.31 Screening for osteoporosis 677192901 Z13.820 Gynecologi c examination 32133476 Z01.419 Pain in ri ght hip joint 7776475898 21434 M25.551 Get xraysWill need to see ortho Addendum: 02/22/2024 :XRays noted Cystitis 06420395 B37.41 S/p CT A/P , [facility] Health Concerns Section Related Observation LastModified by Organization Detai ls LastModified Time None Recorded Concern Status LastModified by Organization Details LastModified Time None Recorded Advance Directives Directive N: information given to mac ent Payers Encounter Date Sequence Insurance Name Policy Number Policy Mata Covered Member ID Mata Member ID Guarantor Name 02/22/2024 1 [facility] (MEDICARE REPLACEMENT/AD VANTAGE - PPO) [id number] Jose D Jha [id number] Jose D Jha 02/22/2024 2 [place] Jose D Jha [id number] Jose D Jha 02/29/2024 1 [facility] (MEDICARE REPLACEMENT/AD VANTAGE - PPO) [id number] Jose D Jha [id number] Jose D Jha 02/29/2024 2 [place]IC[place] REPLACEMENT PRIMARY) Jose D Jha [id number] Jose D Jha 03/15/2024 1 [facility] (MEDICARE REPLACEMENT/AD VANTAGE - PPO) [id number] Jose D Jha [id number] Jose D Jha 03/15/2024 2 [place]PLACEMENT [place]IMARY) Jose D Jha [id number] Jose D Jha 05/15/2024 1 [facility] (MEDICARE REPLACEMENT/AD VANTAGE - PPO) [id number] Jose D Jha [id number] Jose D Jha 05/15/2024 2 [place]IC[place] REPLACEMENT [place]IMARY) Jose D Jha [id number] Jose D Jha 06/20/2024 1 [facility] (MEDICARE REPLACEMENT/AD VANTAGE - PPO) [id number] Jose D Jha [id number] Jose D Jha 06/20/2024 2 [place] OR MEDIC[place] REPLACEMENT [place]IMARY) Jose D Jha [id number] Jose D Jha Notes Date Note Type Note Provider Name and Address Organization Details Recorded Time 4 text/html OV 10/01/2019:Here to establish care via doxy tele visit she is agreeable to do this visitPast PCP: Dr Antonio Hx:HTNDMIIHLDAsthmaGERDC AD s/p stentsSleep apneaAnxiety and depressinChronic managementPorphyria cutanea tardiaSurgical Hx: 16 yearsSocial Hx:Quit 31 years ago, 3 PPD 4 yearsHPI:She is here for ACV for dental caries with teeth fractures and also sinus issuesShe feels that she may have an infected tooth, at the 'bottom' of both sidesThere is blood with brushing, has not seen a dentisit recently d/t COVID 19OV 11/20/2019:Here for her one month follow upShe states that she did do the labsShe has a c/o abd pain and dysphagiaShe is able to swallow but states that she has to 'shaw food with water'She c/o epigastric pain and RUQ painNo N/V or diarrhea, no constipationNo blood in stool or urineNormal appetiteNo fevers or chillsOV 01/16/2020:Tele visit she is agreeable to do soHere for post hosp follow upShe was admitted for pneumoniaShe is on the antibioticsDoes well now, the cough is very mild and has a clear sputum to it, no SOB or chest painHer meds were reconciled OV 02/19/2020:Here for her one month aptShe is doing much betterShe did do the labsShe also has seen Dr Aceves and is now on metformin and bydurionOV 06/17/2020:Here for her routine aptShe is doing wellNo recent labs notedShe is here for her MWVOV 10/27/2020:Here for her post hosp aptShe was admitted to [facility] for chest pain and abd pain, s/p xr chest and CT A/P d/c on 10/20/2020oes well nowDoes have abrasions noted on the L forearmShe denies any trauma, but does state that she has dogs that can 'claw' on the skin but does not feel that they did thisNo fevers or chillsNo N/V or diarrhea nowNo chest pain or SOBOV 12/01/2020:Here for her routine aptShe is doing well todayShe has not yet done her mammogram, PAP or Dexa, d/t insurance issues but can do that nowShe did do the labsShe states that her skin issues are resolvedOV 03/09/2021:Here for her routine aptShe is doing wellShe did do the labsOV 08/12/2021:Here for her f/u aptShe is well, s/p CABG Dr Beckman in he has no new labsOV 11/16/2021:Here for her routine aptShe is doing wellStamela did do the labs for Dr Aceves's NPOV 03/15/2022:Here for her f/u apt, she is doing well, she did do the labs, wants a referral for a cyst on the L>R wristOV 07/21/2022:Here for her f/u apt and wellness visit, she is feeling well today, has not done her labs as she states that she 'got busy', she has also not seen Dr Aceves, she does have vertigo, states that the meclizine does not help, gets dizzy when she lies down or get up from a sitting positionROS OV 11/22/2022: Here for her f/u apt, she is doing very well, states that she has been very active now and she did do the labs, she still has to see Dr Aceves OV 03/21/2023: Here for her f/u apt, she feels well today, no recent labs noted OV 08/22/2023: Here for her f/u apt, she was seen in the ER for a UTI, now still c/o UTI symptoms of urgency, no fevers or chills, no N/V no LBP OV 10/24/2023: Here for her f/u apt, she is doing well today, would like to increase her lyrica, also wants to get labs OV 02/22/2024: Here for her routine apt, she is c/o R hip pain, denies any acute or remote trauma, is able to weight bear, also has noted abd pain, some diarrhea, no blood in stool, no fevers or chills Lexi Martin MD [address], [place], [address], [place] [facility] 02/22/2024 14:05:34 4 text/html OV 10/01/2019:Here to establish care via doxy tele visit she is agreeable to do this visitPast PCP: Dr Antonio Hx:HTNDMIIHLDAsthmaGERDC AD s/p stentsSleep apneaAnxiety and depressinChronic managementPorphyria cutanea tardiaSurgical Hx: 16 yearsSocial Hx:Quit 31 years ago, 3 PPD 4 yearsHPI:She is here for ACV for dental caries with teeth fractures and also sinus issuesShe feels that she may have an infected tooth, at the 'bottom' of both sidesThere is blood with brushing, has not seen a dentisit recently d/t COVID 19OV 11/20/2019:Here for her one month follow upShe states that she did do the labsShe has a c/o abd pain and dysphagiaShe is able to swallow but states that she has to 'shaw food with water'She c/o epigastric pain and RUQ painNo N/V or diarrhea, no constipationNo blood in stool or urineNormal appetiteNo fevers or chillsOV 01/16/2020:Tele visit she is agreeable to do soHere for post hosp follow upShe was admitted for pneumoniaShe is on the antibioticsDoes well now, the cough is very mild and has a clear sputum to it, no SOB or chest painHer meds were reconciled OV 02/19/2020:Here for her one month aptShe is doing much betterShe did do the labsShe also has seen Dr Aceves and is now on metformin and bydurionOV 06/17/2020:Here for her routine aptShe is doing wellNo recent labs notedShe is here for her MWVOV 10/27/2020:Here for her post hosp aptShe was admitted to [facility] for chest pain and abd pain, s/p xr chest and CT A/P d/c on 10/20/2020oes well nowDoes have abrasions noted on the L forearmShe denies any trauma, but does state that she has dogs that can 'claw' on the skin but does not feel that they did thisNo fevers or chillsNo N/V or diarrhea nowNo chest pain or SOBOV 12/01/2020:Here for her routine aptShe is doing well todayShe has not yet done her mammogram, PAP or Dexa, d/t insurance issues but can do that nowShe did do the labsShe states that her skin issues are resolvedOV 03/09/2021:Here for her routine aptShe is doing Tanner did do the labsOV 08/12/2021:Here for her f/u aptShe is well, s/p CABG Dr Beckman in he has no new labsOV 11/16/2021:Here for her routine aptShe is doing Tanner did do the labs for Dr Aceves's NPOV 03/15/2022:Here for her f/u apt, she is doing well, she did do the labs, wants a referral for a cyst on the L>R wristOV 07/21/2022:Here for her f/u apt and wellness visit, she is feeling well today, has not done her labs as she states that she 'got busy', she has also not seen Dr Aceves, she does have vertigo, states that the meclizine does not help, gets dizzy when she lies down or get up from a sitting positionROS OV 11/22/2022: Here for her f/u apt, she is doing very well, states that she has been very active now and she did do the labs, she still has to see Dr Aceves OV 03/21/2023: Here for her f/u apt, she feels well today, no recent labs noted OV 08/22/2023: Here for her f/u apt, she was seen in the ER for a UTI, now still c/o UTI symptoms of urgency, no fevers or chills, no N/V no LBP OV 10/24/2023: Here for her f/u apt, she is doing well today, would like to increase her lyrica, also wants to get labs OV 02/22/2024: Here for her routine apt, she is c/o R hip pain, denies any acute or remote trauma, is able to weight bear, also has noted abd pain, some diarrhea, no blood in stool, no fevers or chills 02/29/2024: Here for her f/u apt, she is doing well today, was seen in the ER Lexi Martin MD [address], [address], [place], [address], [employer] 03/15/2024 08:41:16 4 text/html this is a severe diabetic that has not been controlling her diabetes. She presented to the emergency room and I remember getting a call from the emergency room saying that this patient had emphysematous cystitis. Her sugars are still out of control she has been noncompliant. She has been treated with antibiotics for a long course but she is still showing nitrite positive urine but greater than a 1000 mg/dL of glucose in her urine. Rahul Anders MD [address], [address], [place], [address], [employer] 03/15/2024 18:05:30 4 text/html Primary care/Referring provider: Lexi Martin, MDPatient is here to go over her ILD management.Initial development of shortness of breath: 1990Duration of shortness of breath: 36 yearsCondition of shortness of breath: stableTiming of shortness of breath: noneFrequency: up to 6 times a dayLimits activities: yesAggravating factors: walking, bending down, heat, bug spray, cologneAlleviating factors: restModified Medical Research [place] (mMRC) Dyspnea Scale - Grade 2Grade 0 ? I only get breathless with strenuous exercise? .Grade 1 ? I get short of breath when hurrying on the level or walking up a slight hill? .Grade 2 ? I walk slower than people of the same age on the level because of breathlessness or have to stop for breath when walking at my own pace on the level? .Grade 3 ? I stop for breath after walking about 100 yards or after a few minutes on the level? .Grade 4 ? I am too breathless to leave the house? or ? I am breathless when dressing? .Treatment history:albuterol HFA as needed since 1987Duonebs as needed 2017-1Advair 2004 onlyQVAR 2012-2016Aerospan 80 mcg 2016-2018Flovent HFA 2019 onlySymbicort 160/4.5 mcg 2 puffs BID since 2019Other symptoms:Productive cough: yellowWheezing: yesChest tightness: yesOrthopnea: noFrequent throat clearing or swallowing: yesPalpitations: noHeartburn: noDysphagia: noEdema: noEnvironmental exposures:Nicotine smoke: 3 ppd 0521-9424 = 33 pack yearsPaint: noDye: noDust mites: yesMold: noDamp basement: yesWood burning stove: noAnimal dander: cats and dogsCockroaches: yesPollen: yesArsenic: noAsbestos: noBeryllium: noCadmium: noChromium: noCoal smoke: noDiesel fumes: noNickel: noSilica: noSoot: no CC: My CPAP stop working in the middle of 03/2024. It won't turn back on anymore. At home since 08/22/23, the patient uses a ResMed AirSense 10 autoset unit with heated humidification. The patient does not need the ramp to start low and go up slowly on the pressure anymore. There is some xerostomia in a.m. There is no hose/mask condensation with water.The patient wears a [employer]Med extra small AirFit P10 nasal pillows for her without chin strap. There is no claustrophobia, no nostril/nose bridge irritation, no facial rash, no facial numbness, no nosebleeding.The patient feels more refreshed upon waking and daytime alertness is improved. Energy levels are sustained until noon.At home, the patient sleeps from 8:30 pm to 4:30 am and wakes up without an alarm.Snoring: heavy, since .Snorting: yesChoking: yesCoughing: yesGasping: yesGagging: noSighing: noWitnessed apnea: yesTwitching or jerking of leg(s), arm(s), body, head: yesTeeth grinding: yesTeeth clenching: yesSleeptalking: yesSleepwalking: noSleep crying: noBedwetting: noTongue/lip/gum/cheek biting: noSleeping with open mouth: yesSleep paralysis: yesHypnagogic hallucinations: noHypnopompic hallucinations: noVivid dreams: yesDifficulty with sleep onset: yesDifficulty with sleep maintenance: yesSleep interruptions: bodily achesPatient wakes up with: fatigue, xerostomia, headaches, jaw pain, disorientation, cognitive impairment, mobility impairment, dexterity impairmentDaytime cataplexy: noMorning hypersomnolence: noAfternoon hypersomnolence: yesCaffeine sources in diet: coffee 3 cups per day, tea 64 oz per day, energy drink 1/3 can of Rip It per dayAssociated medical and psychiatric conditions:Congestive heart failure: noCoronary artery disease: yesMyocardial infarction: yesHypertension: yesStroke: noBronchial asthma: noChronic obstructive pulmonary disease: noDepression: yesBipolar disorder: yesAnxiety: yesPanic disorder: noPosttraumatic stress disorder: noAttention deficit and hyperactivity disorder: noObsessive Compulsive disorder: noSchizophrenia: noSchizoaffective disorder: noPersonality disorder: noChronic analgesic use: noChronic sedative/hypnotic use: noEPWORTH SLEEPINESS SCALE (ESS)CHANCE OF DOZING SCORE0 = would never doze1 = slight chance of dozing2 = moderate chance of dozing3 = high chance of dozingSITUATION AND CHANCE OF DOZINGSitting and reading - 2Watching television - 2Sitting inactive in a public place (e.g. a theater or meeting) - 1As a passenger in a car for an hour without a break - 2Lying down to rest in the afternoon when circumstances permit - 2Sitting and talking to someone - 2Sitting quietly after lunch without alcohol - 2In a car, while stopped for a few minutes in the traffic - 1TOTAL SCORE 14Subjectively, patient has a moderate chance of dozing. Germain Romero MD [address], [address], [place], [address], [place] [facility] 05/15/2024 09:09:06 5 text/html OV 10/01/2019:Here to establish care via doxy tele visit she is agreeable to do this visitPast PCP: Dr Antonio Hx:HTNDMIIHLDAsthmaGERDC AD s/p stentsSleep apneaAnxiety and depressinChronic managementPorphyria cutanea tardiaSurgical Hx: 16 yearsSocial Hx:Quit 31 years ago, 3 PPD 4 yearsHPI:She is here for ACV for dental caries with teeth fractures and also sinus issuesShe feels that she may have an infected tooth, at the 'bottom' of both sidesThere is blood with brushing, has not seen a dentisit recently d/t COVID 19OV 11/20/2019:Here for her one month follow upShe states that she did do the labsShe has a c/o abd pain and dysphagiaShe is able to swallow but states that she has to 'shaw food with water'She c/o epigastric pain and RUQ painNo N/V or diarrhea, no constipationNo blood in stool or urineNormal appetiteNo fevers or chillsOV 01/16/2020:Tele visit she is agreeable to do soHere for post hosp follow upShe was admitted for pneumoniaShe is on the antibioticsDoes well now, the cough is very mild and has a clear sputum to it, no SOB or chest painHer meds were reconciled OV 02/19/2020:Here for her one month aptShe is doing much betterShe did do the labsShe also has seen Dr Aceves and is now on metformin and bydurionOV 06/17/2020:Here for her routine aptShe is doing wellNo recent labs notedShe is here for her MWVOV 10/27/2020:Here for her post hosp aptShe was admitted to [facility] for chest pain and abd pain, s/p xr chest and CT A/P d/c on 1Does well nowDoes have abrasions noted on the L forearmShe denies any trauma, but does state that she has dogs that can 'claw' on the skin but does not feel that they did thisNo fevers or chillsNo N/V or diarrhea nowNo chest pain or SOBOV 12/01/2020:Here for her routine aptShe is doing well todayShe has not yet done her mammogram, PAP or Dexa, d/t insurance issues but can do that nowShe did do the labsShe states that her skin issues are resolvedOV 03/09/2021:Here for her routine aptShe is doing wellShe did do the labsOV 08/12/2021:Here for her f/u aptShe is well, s/p CABG Dr Beckman in he has no new labsOV 11/16/2021:Here for her routine aptShe is doing wellShe did do the labs for Dr Aceves's NPOV 03/15/2022:Here for her f/u apt, she is doing well, she did do the labs, wants a referral for a cyst on the L>R wristOV 07/21/2022:Here for her f/u apt and wellness visit, she is feeling well today, has not done her labs as she states that she 'got busy', she has also not seen Dr Aceves, she does have vertigo, states that the meclizine does not help, gets dizzy when she lies down or get up from a sitting positionROS OV 11/22/2022: Here for her f/u apt, she is doing very well, states that she has been very active now and she did do the labs, she still has to see Dr Aceves OV 03/21/2023: Here for her f/u apt, she feels well today, no recent labs noted OV 08/22/2023: Here for her f/u apt, she was seen in the ER for a UTI, now still c/o UTI symptoms of urgency, no fevers or chills, no N/V no LBP OV 10/24/2023: Here for her f/u apt, she is doing well today, would like to increase her lyrica, also wants to get labs OV 02/22/2024: Here for her routine apt, she is c/o R hip pain, denies any acute or remote trauma, is able to weight bear, also has noted abd pain, some diarrhea, no blood in stool, no fevers or chills 02/29/2024: Here for her f/u apt, she is doing well today, was seen in the ER OV 06/20/2024: Here for her f/u apt, she feels well today, states that she has not kept her apt with Dr Aceves as she was 'sick' on the day of the appointment, 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
--- OUTSIDE RECORDS SUMMARY | 2024-06-24 10:09 | XMS_ITS ---
Author Organization [facility] Address [address] [place] [address] Care Team Providers Care Pharmaceutical Representative Name Role Phone Margot Aceves Primary Care Provider [phone] Encounters Encounter Location Date Provider Diagnosis [facility] - Margot Aceves [address] [place] [address] 05/21/2024 Margot Aceves Plan Of Treatment No Information Progress Notes * Yunier JHAB:1965 ( 58 yo F)Acc No.[id number]:05/21/2024 Patient:?JADYN Miracle :1965???Age:58 Y???Sex:Female Address:[place], [address] * true * Date:? 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
--- OUTSIDE RECORDS SUMMARY | 2024-06-24 10:10 | XMS_ITS | CONTINUITY OF CARE DOCUMENT ---
Author Name tammie cho Address Unknown Organization [facility] Address [address] [address] [place] [address] Phone [phone] Care Team Providers Care Sales Operations Specialist Name Role Phone Balta QUINTANILLA, Tigre Gamboa Unavailable DANIELLE YOUNG MD Unavailable [phone] LEXI LE MD Unavailable PROBLEMS Condition Status Date Provider Notes CHEST PAIN NL STRESS TEST 04/10 active Kelby Worthy MD SHORTNESS OF BREATH active Maryjane Worthy MD CAD active Ana Rosa Canada NP Diastolic CHF active Collins Bradford MD Cardiomyopathy active Luz Verma HTN essential active Luz Verma Hypercholesterolemia active Luz Alonso on TIA active Tigre Gifford MD Dizziness active Tigre Gifford MD Syncope and collapse active Tigre foster MD Palpitations active Tigre Gifford MD CAD -s/p CABG active Tigre Gifford MD Preop cardiovasc. examination active Ignacio Gifford MD Sternal wound infection active Tigre nguyen MD Porphyria cutanea tarda active Tigre nguyen MD Pneumonia active Tigre Gifford MD MISTY active Tigre Gifford MD AMI inferior wall active Luz Verma AMI anterior wall active Essence Verma Fatigue active Ana Rosa Canada NP Family History of Hypertension: completed - Sa esa Gifford MD Family History of CVA or Stroke: completed - Sergio Gifford MD Family History of Hypertension: completed - Sa esa Gifford MD Family History of CVA or Stroke: completed - S so Gifford MD HTN NL LV FN ON ECHO active Maryjane Worthy MD BIPOLAR AFFECTIVE DISORDER active Maryjane hodge MD DIABETES MELLITUS active Maryjane Worthy MD ENCOUNTERS Date Type Provider Location Encounter Diag nosis - In-person encounter Office Visit Tigre Gifford MD [facility] Syncope and collapse - In-person encounter Office Visit Tigre Gifford MD [facility] Palpitations - In-person encounter Office Visit Tigre Gifford MD [facility] - In-person encounter Office Visit Tigre Gifford MD [facility] - In-person encounter Office Visit Tigre Gifford MD [facility] CAD -s/p CABG - In-person encounter Office Visit Tigre Gifford MD [facility] Preop cardiovasc. examination - In-person encounter Office Visit Tigre Gifford MD [facility] - In-person encounter Office Visit Tigre Gifford MD [facility] Sternal wound infection - In-person encounter Office Visit Tigre Gifford MD [facility] - In-person encounter Office Visit Tigre Gifford MD [facility] - In-person encounter Office Visit Tigre Gifford MD [facility] Porphyria cutanea tarda - In-person encounter Office Visit Tigre Gifford MD [facility] - In-person encounter Office Visit Tigre Gifford MD [facility] - In-person encounter Office Visit Tigre Gifford MD [facility] Pneumonia - In-person encounter Office Visit Tigre Gifford MD [facility] - In-person encounter Office Visit Tigre Gifford MD [facility] - In-person encounter Office Visit Tigre Gifford MD [facility] - In-person encounter Office Visit Tigre Gifford MD [facility] - In-person encounter Office Visit Tigre Gifford MD [facility] Dizziness - In-person encounter Office Visit Tigre Gifford MD [facility] Family History of CVA or Stroke:Family History of Hypertension:Family History of CVA or Stroke:Family History of Hypertension:TIAOSA - In-person encounter Office Visit Tigre Gifford MD [facility] - In-person encounter Office Visit Tigre Gifford MD [facility] - In-person encounter Office Visit Tigre Gifford MD [facility] - In-person encounter Office Visit Tigre Gifford MD [facility] - In-person encounter Office Visit Tigre Gifford MD [facility] AMI anterior wallAMI inferior wallDiastolic CHFCardiomyopathyHTN essentialHypercholesterolemia - In-person encounter Office Visit Tigre Gifford MD [facility] CADFatigue - In-person encounter Office Visit Maryjane Worthy MD [facility] CHEST PAIN NL STRESS TEST 04/10SHORTNESS OF BREATHDIABETES MELLITUSBIPOLAR AFFECTIVE DISORDERHTN NL LV FN ON ECHO VITAL SIGNS Date Observation Value Provider Body Mass Index (Ratio) 36.61 kg/m2 [place] as Paula blood pressure, diastolic 94 mm[Hg] Li nkLogic blood pressure, systolic 155 mm[Hg] [place] kLogic blood pressure, cuff size regular Ja rr blood pressure, diastolic 94 mm[Hg] Ja rret blood pressure, systolic 155 mm[Hg] Jar unm [facility] pulse rate 73 /min Celio oxygen saturation, oximetry 95 % Celio respiratory rate E&M 16 /min Celio weight E&M 220 [lb_av] Celio y height E&M 65 [in_i] Celio y Body Mass Index (Ratio) 36.61 kg/m2 Colby Gifford MD blood pressure, diastolic 97 mm[Hg] An shara Barr blood pressure, systolic 145 mm[Hg] Any cristian Barr pulse rate 86 /min Apryl Barr oxygen saturation, oximetry 95 % Apryl Barr weight E&M 220 [lb_av] Apryl Barr blood pressure, cuff size large An shara Barr height E&M 65 [in_i] Apryl Barr Body Mass Index (Ratio) 35.11 kg/m2 Colby Gifford MD blood pressure, diastolic 76 mm[Hg] Kaylen Gonzalez blood pressure, systolic 134 mm[Hg] Abner Gonzalez oxygen saturation, oximetry 96 % Daphney Carlos pulse rate 85 /min Daphney garnica weight E&M 211 [lb_av] Daphney garnica blood pressure, cuff size large Kaylen saravia Carlos respiratory rate E&M 16 /min Nikky Gonzalez height E&M 65 [in_i] Daphney garnica Body Mass Index (Ratio) 34.11 kg/m2 Colby Gifford MD blood pressure, cuff size large Ke rri Umairuenenfdomingo blood pressure, diastolic 91 mm[Hg] Ke rri Gruenenfeldradha blood pressure, systolic 138 mm[Hg] Luna ri Sue oxygen saturation, oximetry 97 % Gosia Sue respiratory rate E&M 16 /min Gosia G christopheenenfeldradha pulse rate 79 /min Gosia Espinozanfe lder weight E&M 205 [lb_av] Gosia Rocnenfe lder height E&M 65 [in_i] Gosia Rocnenfe lder Body Mass Index (Ratio) 34.78 kg/m2 Colby Gifford MD blood pressure, diastolic 97 mm[Hg] St chun Milton blood pressure, systolic 128 mm[Hg] Shiraz Milton oxygen saturation, oximetry 98 % Raquel Milton pulse rate 81 /min Raquel Milton respiratory rate E&M 18 /min Raquel Garnica eliot weight E&M 209 [lb_av] Raquel Milton height E&M 65 [in_i] Raquel Milton Body Mass Index (Ratio) 35.77 kg/m2 Colby Gifford MD blood pressure, diastolic 79 mm[Hg] Te bess Odraz blood pressure, systolic 123 mm[Hg] Ter i Ordaz oxygen saturation, oximetry 96 % Jessica Ordaz respiratory rate E&M 15 /min Jessica Bermudez jazmin pulse rate 86 /min Jessica Schafferett weight E&M 215 [lb_av] Jessica Ordaz Body Mass Index (Ratio) 35.94 kg/m2 Colby Gifford MD blood pressure, diastolic 73 mm[Hg] Sa ra [place] blood pressure, systolic 113 mm[Hg] Tona a Fuller oxygen saturation, oximetry 96 % Kristina Fuller respiratory rate E&M 18 /min Kristina Si ms pulse rate 95 /min Kristina Fuller Inhaled O2 2 L/min Kristina Fuller weight E&M 216 [lb_av] Kristina Fuller height E&M 65 [in_i] Kristina Fuller Body Mass Index (Ratio) 35.27 kg/m2 Colby Gifford MD blood pressure, diastolic 94 mm[Hg] Li nkLogic blood pressure, systolic 145 mm[Hg] [place] kLogic blood pressure, cuff size large Tr hever Izquierdo blood pressure, diastolic 94 mm[Hg] Tr hever Izquierdo blood pressure, systolic 145 mm[Hg] Try chase Izquierdo oxygen saturation, oximetry 96 % Raymond Izquierdo respiratory rate E&M 20 /min Raymond Izquierdo pulse rate 96 /min Raymond Izquierdo weight E&M 212 [lb_av] Raymond Izquierdo height E&M 65 [in_i] Raymond Izquierdo Body Mass Index (Ratio) 37.77 kg/m2 Colby Gifford MD blood pressure, cuff size large Ke rri Gruenenfeldradha blood pressure, diastolic 66 mm[Hg] Ke rri Gruenenfeldradha blood pressure, systolic 132 mm[Hg] Luna ri Jamarelder oxygen saturation, oximetry 95 % Gosia Sue respiratory rate E&M 16 /min Gosia G christopheenenfeldradha pulse rate 94 /min Gosia Grjacquelinenenfe lder weight E&M 227 [lb_av] Gosia Gruenenfe lder height E&M 65 [in_i] Gosia Gruenenfe lder Body Mass Index (Ratio) 37.60 kg/m2 Colby Gifford MD blood pressure, diastolic 60 mm[Hg] Li nkLogic blood pressure, systolic 118 mm[Hg] [place] kLogic blood pressure, diastolic 60 mm[Hg] Rhoda Larsen blood pressure, systolic 118 mm[Hg] Meg Larsen oxygen saturation, oximetry 96 % Seymour Larsen respiratory rate E&M 16 /min Jasmyn Larsen pulse rate 95 /min Seymour huynh weight E&M 226 [lb_av] Seymour Huizare peña height E&M 65 [in_i] Seymour Huizare [facility] Body Mass Index (Ratio) 37.94 kg/m2 Colby Gifford MD blood pressure, diastolic 80 mm[Hg] Li nkLogic blood pressure, systolic 140 mm[Hg] [place] kLogic blood pressure, cuff size large Ke rri Gruenenfeldradha blood pressure, diastolic 80 mm[Hg] Ke rri Gruenenfeldradha blood pressure, systolic 140 mm[Hg] Luna Briannenfelder oxygen saturation, oximetry 94 % Gosia Briannenfelder respiratory rate E&M 16 /min Gosia caalnfelder pulse rate 97 /min Gosia Briannenfe lder weight E&M 228 [lb_av] Gosia Briannenfe lder height E&M 65 [in_i] Gosia Gruenenfe lder Body Mass Index (Ratio) 37.94 kg/m2 Colby Gifford MD blood pressure, diastolic 70 mm[Hg] Ma [facility] [place] blood pressure, systolic 102 mm[Hg] [facility] [place] oxygen saturation, oximetry 97 % Subha [place] respiratory rate E&M 18 /min Subha [place] pulse rate 86 /min Subha [place] weight E&M 228 [lb_av] Subha [place] blood pressure, resting Yes Graham [place] height E&M 65 [in_i] Subha O'[place]imeon Body Mass Index (Ratio) 37.60 kg/m2 Colby Gifford MD blood pressure, diastolic 92 mm[Hg] Cy crissy Verdugo blood pressure, systolic 136 mm[Hg] Cassandra ghazala Verdugo blood pressure, cuff size regular Dima Verdugo pulse rate 93 /min Laura Abelinobel laury oxygen saturation, oximetry 95 % Laura Verdugo respiratory rate E&M 16 /min Laura Verdugo weight E&M 226 [lb_av] Laura Campbel l height E&M 65 [in_i] Laura Campbel l Body Mass Index (Ratio) 36.61 kg/m2 Lion patel Lambros blood pressure, diastolic 82 mm[Hg] To nsha Rizo blood pressure, systolic 139 mm[Hg] Ton sha Rizo oxygen saturation, oximetry 95 % Tonsha Rizo respiratory rate E&M 16 /min Tonsha Rizo pulse rate 83 /min Tonsha Rizo weight E&M 220 [lb_av] Tonsha Rizo height E&M 65 [in_i] Tonsha Rizo Body Mass Index (Ratio) 38.44 kg/m2 Colby Gifford MD blood pressure, diastolic 96 mm[Hg] To nsha Rizo blood pressure, systolic 156 mm[Hg] Ton sha Rizo pulse rate 88 /min Tonsha Rizo oxygen saturation, oximetry 93 % Tonsha Rizo respiratory rate E&M 18 /min Tonsha Rizo weight E&M 231 [lb_av] Tonsha Rizo height E&M 65 [in_i] Tonsha Rizo Body Mass Index (Ratio) 38.10 kg/m2 Colby Gifford MD temperature site temporal Tonsha Rizo weight E&M 229 [lb_av] Tonsha Rizo oxygen saturation, oximetry 95 % Tonsha Rizo respiratory rate E&M 16 /min Tonsha Rizo pulse rate 88 /min Tonsha Rizo height E&M 65 [in_i] Tonsha Rizo blood pressure, diastolic 88 mm[Hg] To nsha Rizo blood pressure, systolic 127 mm[Hg] Ton sha Rizo temperature E&M 97.1 [degF] Tressa Tanks chaim Body Mass Index (Ratio) 37.11 kg/m2 Lion jorge Al Body Mass Index (Ratio) 38.77 kg/m2 Colby Gifford MD pulse rate 81 /min Tessy Block blood pressure, diastolic 80 mm[Hg] Br ittsilvia Block blood pressure, systolic 102 mm[Hg] Aurora wanda Block oxygen saturation, oximetry 97 % Tessy Block weight E&M 223 [lb_av] Tessy Block respiratory rate E&M 16 /min Rk Clifford height E&M 65 [in_i] Tessy Block blood pressure, cuff size regular Cy crissy Verdugo blood pressure, diastolic 80 mm[Hg] Cy crissy Verdugo blood pressure, systolic 138 mm[Hg] Cassandra ghazala Verdugo oxygen saturation, oximetry 95 % Laura Verdugo respiratory rate E&M 18 /min Laura Verdugo pulse rate 83 /min Laura Waters l weight E&M 233 [lb_av] Laura Rocabel l height E&M 65 [in_i] Laura Rocabel l Body Mass Index (Ratio) 39.77 kg/m2 Colby Gifford MD blood pressure, diastolic, standing 70 mm [Hg] Germaine Barr blood pressure, systolic, standing 90 mm[ Hg] Germaine Barr pulse rate, sitting 79 /min Germaine Barr blood pressure, diastolic, sitting 60 mm[ Hg] Germaine Barr blood pressure, systolic, sitting 110 mm[ Hg] Germaine Barr blood pressure, cuff size large Cr jeannette Barr blood pressure, diastolic 60 mm[Hg] Cr jeannette Barr blood pressure, systolic 110 mm[Hg] Cry stal Momo oxygen saturation, oximetry 96 % Germaine Barr respiratory rate E&M 17 /min Germaine Barr pulse rate 79 /min Germaine hill weight E&M 239 [lb_av] Germaine hill height E&M 65 [in_i] Germaine hill Body Mass Index (Ratio) 39.60 kg/m2 Colby Gifford MD blood pressure, diastolic 80 mm[Hg] Jose Enrique lleen Robbins blood pressure, systolic 118 mm[Hg] Marcus cui Robbins oxygen saturation, oximetry 98 % Samuel Robbins respiratory rate E&M 16 /min Samuel Robibns pulse rate 74 /min [place] Robbins weight E&M 238 [lb_av] [place] Robbins height E&M 65 [in_i] Samuel Robbins Body Mass Index (Ratio) 38.77 kg/m2 Alexei Plurad respiratory rate E&M 18 /min Laura Verdugo blood pressure, cuff size regular Cy crissy Verdugo blood pressure, diastolic 78 mm[Hg] Cy courtneybrandon Verdugo blood pressure, systolic 128 mm[Hg] Cassandra ghazala Verdugo oxygen saturation, oximetry 96 % Laura Verdugo pulse rate 92 /min Laura Abelinobel l weight E&M 233 [lb_av] Laura Campbel l height E&M 65 [in_i] Laura Campbel l Body Mass Index (Ratio) 38.44 kg/m2 Colby Gifford MD blood pressure, diastolic 80 mm[Hg] Da sascha Jorge blood pressure, systolic 126 mm[Hg] Dac ia Jorge oxygen saturation, oximetry 95 % Ashanti Jorge respiratory rate E&M 16 /min Ashanti V oss pulse rate 78 /min Ashanti Jorge weight E&M 231 [lb_av] Ashanti Jorge height E&M 65 [in_i] Ashanti Jorge Body Mass Index (Ratio) 38.77 kg/m2 Colby Gifford MD blood pressure, diastolic 72 mm[Hg] Da sascha Jorge blood pressure, systolic 128 mm[Hg] Dac ia Jorge oxygen saturation, oximetry 97 % Ashanti Jorge respiratory rate E&M 16 /min Ashanti V oss pulse rate 71 /min Ashanti Jorge weight E&M 233 [lb_av] Ashanti Jorge height E&M 65 [in_i] Ashanti Jorge Body Mass Index (Ratio) 37.94 kg/m2 Alexei Plurad blood pressure, diastolic 70 mm[Hg] Da sascha Jorge blood pressure, systolic 120 mm[Hg] Dac ia Jorge oxygen saturation, oximetry 95 % Ashanti Jorge respiratory rate E&M 18 /min Ashanti V oss pulse rate 73 /min Ashanti Jorge weight E&M 228 [lb_av] Ashanti Jorge height E&M 65 [in_i] Ashanti Jorge Body Mass Index (Ratio) 38.74 kg/m2 Dasha Verma blood pressure, diastolic 70 mm[Hg] Rhoda Larsen blood pressure, systolic 118 mm[Hg] Meg Larsen oxygen saturation, oximetry 97 % Seymour Larsen respiratory rate E&M 20 /min Jasmyn Larsen pulse rate 87 /min Seymour huynh weight E&M 232.8 [lb_av] Seymour rebolledo height E&M 65 [in_i] Seymour huynh Body Mass Index (Ratio) 39.57 kg/m2 Colby Gifford MD blood pressure, resting Yes Jana Larsen blood pressure, diastolic 70 mm[Hg] Rhoda Larsen blood pressure, systolic 135 mm[Hg] Meg Larsen oxygen saturation, oximetry 94 % Seymour Larsen respiratory rate E&M 20 /min Jasmyn Larsen pulse rate 75 /min Seymour huynh weight E&M 237.8 [lb_av] Seymour rebolledo height E&M 65 [in_i] Seymour huynh Body Mass Index (Ratio) 40.08 kg/m2 Schuyler Gonzales blood pressure, diastolic, left arm 82 mm [Hg] Rivas Gonzales blood pressure, systolic, left arm 120 mm [Hg] Rivas Gonzales blood pressure, diastolic, right arm 80 m m[Hg] Rivas Gonzales blood pressure, systolic, right arm 130 m m[Hg] Rivas Gonzales blood pressure, diastolic 82 mm[Hg] Dodd blood pressure, systolic 120 mm[Hg] Ozzie Gonzales pulse rate 104 /min Rivas Gonzales oxygen saturation, oximetry 98 % Rivas Gonzales respiratory rate E&M 16 /min Rivas Gonzales weight E&M 240 [lb_av] Rivas Gonzales height E&M 65 [in_i] Rivas Gonzales ALLERGIES Allergy Name Onset Date Reaction Criticality Status FISH OIL High Criticality active TRAMADOL High Criticality active BENADRYL High Criticality active PLAVIX FULL BODY RASH & burning sensation to skin High Criticality active CODEINE High Criticality active ERYTHROMYCIN High Criticality active RESULTS Date Observation Value Provider Reference Range Interpretation Location lipoprotein, beta, serum, point, quantitative, calculated 59 mg/dL Link[facility] 0-99 HDL cholesterol, serum 29 mg/dL Link[facility] >39 Low triglyceride, serum, random 252 mg/dL [facility] 0-149 High cholesterol, serum 129 mg/dL [facility] [phone]/08/ 05 alanine aminotransferase (SGPT), serum 42 1/L [facility] 0-32 High aspartate aminotransferase (SGOT), serum 41 1/L [facility] 0-40 High alkaline phosphatase, serum 170 1/L [facility] 48-121 High bilirubin, serum, total 0.4 mg/dL [facility] 0.0-1.2 albumin/globulin ratio, serum 1.6 [facility] 1.2-2.2 globulin, serum 2.5 [facility] 1.5-4.5 albumin, serum 4.0 g/dL [facility] 3.8-4.9 protein, total, serum 6.5 g/dL [facility] 6.0-8.5 calcium, serum 9.5 mg/dL [facility] 8.7-10.2 carbon dioxide, venous blood 25 mmol/L [facility] 20-29 chloride, serum 98 mmol/L [facility] 96-106 potassium, serum 4.2 mmol/L [facility] 3.5-5.2 sodium, serum 137 mmol/L [facility] [phone]/08/ 05 urea nitrogen/creatinine ratio, serum 13 [facility] 9-23 eGFR if 91 mL/min/{1. 73_m2} Link[facility]ic >59 eGFR if not 79 mL/min/{1. 73_m2} LinkLogic >59 creatinine, serum 0.83 mg/dL [facility] 0.57-1.00 urea nitrogen, blood 11 mg/dL Link[facility] 6-24 blood glucose, random 346 mg/dL [facility] 65-99 High prothrombin time (patient) 11.3 s [facility] 9.1-12.0 international normalized ratio (INR) 1.1 [facility] 0.9-1.2 platelet count 285 X10E3/UL [facility] [phone]/08/ 05 red blood cell distribution width 13.2 % [facility] 11.7-15.4 mean corpuscular hemoglobin concentration, RBC 32.8 G/DL [facility] 31.5-35.7 mean corpuscular hemoglobin, RBC 29.0 pg [facility] 26.6-33.0 mean corpuscular volume, RBC 88 fL [facility] 79-97 hematocrit, blood 40.5 % [facility] 34.0-46.6 hemoglobin, blood 13.3 g/dL [facility] 11.1-15.9 erythrocyte (RBC) count 4.58 X10E6/UL Link[facility] 3.77-5.28 leukocyte count, blood 10.7 X10E3/UL [facility] 3.4-10.8 lipoprotein, beta, serum, point, quantitative, calculated 66 mg/dL [facility] 0-99 HDL cholesterol, serum 30 mg/dL Link[facility] >39 Low triglyceride, serum, random 205 mg/dL [facility] 0-149 High cholesterol, serum 130 mg/dL [facility] [phone]/01/ 30 alanine aminotransferase (SGPT), serum 15 1/L [facility] 0-32 aspartate aminotransferase (SGOT), serum 20 1/L [facility] 0-40 alkaline phosphatase, serum 94 1/L [facility] 39-117 bilirubin, serum, total 0.2 mg/dL [facility] 0.0-1.2 albumin/globulin ratio, serum 1.5 [facility] 1.2-2.2 globulin, serum 2.6 [facility] 1.5-4.5 albumin, serum 4.0 g/dL [facility] 3.8-4.9 protein, total, serum 6.6 g/dL [facility] 6.0-8.5 calcium, serum 9.6 mg/dL [facility] 8.7-10.2 carbon dioxide, venous blood 23 mmol/L [facility] 20-29 chloride, serum 103 mmol/L [facility] 96-106 potassium, serum 4.0 mmol/L [facility] 3.5-5.2 sodium, serum 140 mmol/L [facility] [phone]/01/ 30 urea nitrogen/creatinine ratio, serum 14 [facility] 9-23 eGFR if 60 mL/min/{1. 73_m2} Link[facility]ic >59 eGFR if not 52 mL/min/{1. 73_m2} [facility] >59 Low creatinine, serum 1.16 mg/dL [facility] 0.57-1.00 High urea nitrogen, blood 16 mg/dL [facility] 6-24 blood glucose, random 83 mg/dL [facility] 65-99 alanine aminotransferase (SGPT), serum 33 1/L [facility] 0-32 High aspartate aminotransferase (SGOT), serum 33 1/L [facility] 0-40 alkaline phosphatase, serum 150 1/L [facility] 39-117 High bilirubin, serum, direct 0.15 mg/dL [facility] 0.00-0.40 bilirubin, serum, total 0.4 mg/dL [facility] 0.0-1.2 albumin, serum 4.2 g/dL [facility] 3.5-5.5 protein, total, serum 6.9 g/dL [facility] 6.0-8.5 lipoprotein, beta, serum, point, quantitative, calculated See report mg/dL [facility] 0-99 very low density lipoproteins See report mg/dL [facility] 5-40 HDL cholesterol, serum 26 mg/dL [facility] >39 Low triglyceride, serum, random 493 mg/dL [facility] 0-149 High cholesterol, serum 154 mg/dL [facility] [phone]/10/ 17 calcium, serum 9.5 mg/dL [facility] 8.7-10.2 carbon dioxide, venous blood 23 mmol/L [facility] 20-29 chloride, serum 97 mmol/L [facility] 96-106 potassium, serum 4.3 mmol/L [facility] 3.5-5.2 sodium, serum 139 mmol/L [facility] [phone]/10/ 17 urea nitrogen/creatinine ratio, serum 14 [facility] 9-23 eGFR if 77 mL/min/{1. 73_m2} Link[facility] >59 eGFR if not 67 mL/min/{1. 73_m2} [facility] >59 creatinine, serum 0.96 mg/dL [facility] 0.57-1.00 urea nitrogen, blood 13 mg/dL [facility] 6-24 blood glucose, random 387 mg/dL [facility] 65-99 High hemoglobin A1C, blood, as % of total hemoglobin 9.2 % [facility] 4.8-5.6 High prothrombin time (patient) 11.9 s [facility] 9.1-12.0 international normalized ratio (INR) 1.1 [facility] 0.8-1.2 basophil count, absolute 0.0 x10E3/uL [facility] 0.0-0.2 Eosinophil Absolute Count 0.4 X10E3/UL [facility] 0.0-0.4 monocyte count, blood, automated 0.6 X10E3/UL [facility] 0.1-0.9 lymphocyte count, blood, automated 1.8 X10E3/UL [facility] 0.7-3.1 Absolute Neutrophils 4.4 X10E3/UL [facility] 1.4-7.0 basophils as percent of blood leukocytes 0 % [facility] Not Estab. eosinophils as percent of blood leukocytes 5 % [facility] Not Estab. monocytes as percent of blood leukocytes 9 % [facility] Not Estab. lymphocytes as percent of blood leukocytes 25 % [facility] Not Estab. neutrophils as percent of blood leukocytes 61 % [facility] Not Estab. platelet count 269 X10E3/UL [facility] [phone]/10/ 17 red blood cell distribution width 14.2 % [facility] 12.3-15.4 mean corpuscular hemoglobin concentration, RBC 32.8 G/DL [facility] 31.5-35.7 mean corpuscular hemoglobin, RBC 31.7 pg [facility] 26.6-33.0 mean corpuscular volume, RBC 97 fL [facility] 79-97 hematocrit, blood 42.4 % [facility] 34.0-46.6 hemoglobin, blood 13.9 g/dL [facility] 11.1-15.9 erythrocyte (RBC) count 4.38 X10E6/UL [facility] 3.77-5.28 leukocyte count, blood 7.3 X10E3/UL [facility] 3.4-10.8 pro brain natriuretic peptide 342 pg/mL [facility] 0-249 High lipoprotein, beta, serum, point, quantitative, calculated 42 mg/dL [facility] 0-99 very low density lipoproteins 63 mg/dL [facility] 5-40 High HDL cholesterol, serum 23 mg/dL [facility] >39 Low triglyceride, serum, random 314 mg/dL [facility] 0-149 High cholesterol, serum 128 mg/dL [facility] 272-206 7579/06/ 08 alanine aminotransferase (SGPT), serum 21 1/L [facility] 0-32 aspartate aminotransferase (SGOT), serum 27 1/L [facility] 0-40 2018/06/ 08 alkaline phosphatase, serum 169 1/L [facility] 39-117 High bilirubin, serum, total 0.7 mg/dL [facility] 0.0-1.2 albumin/globulin ratio, serum 1.7 [facility] 1.2-2.2 globulin, serum 2.5 [facility] 1.5-4.5 albumin, serum 4.3 g/dL [facility] 3.5-5.5 protein, total, serum 6.8 g/dL [facility] 6.0-8.5 calcium, serum 9.4 mg/dL [facility] 8.7-10.2 carbon dioxide, venous blood 22 mmol/L [facility] 18-29 chloride, serum 103 mmol/L [facility] 96-106 potassium, serum 4.3 mmol/L [facility] 3.5-5.2 sodium, serum 141 mmol/L [facility] 268-644 4737/06/ 08 urea nitrogen/creatinine ratio, serum 14 [facility] 9-23 eGFR if 70 mL/min/{1. 73_m2} [facility] >59 eGFR if not 60 mL/min/{1. 73_m2} [facility] >59 creatinine, serum 1.05 mg/dL [facility] 0.57-1.00 High urea nitrogen, blood 15 mg/dL [facility] 6-24 blood glucose, random 190 mg/dL [facility] 65-99 High lipoprotein, beta, serum, point, quantitative, calculated 57 mg/dL [facility] 0-99 very low density lipoproteins 53 mg/dL [facility] 5-40 High HDL cholesterol, serum 26 mg/dL [facility] >39 Low triglyceride, serum, random 264 mg/dL [facility] 0-149 High cholesterol, serum 136 mg/dL [facility] [phone]/04/ 25 platelet count 321 X10E3/UL [facility] 113-227 0722/04/ 25 red blood cell distribution width 15.2 % [facility] 12.3-15.4 mean corpuscular hemoglobin concentration, RBC 33.1 G/DL [facility] 31.5-35.7 mean corpuscular hemoglobin, RBC 31.0 pg [facility] 26.6-33.0 mean corpuscular volume, RBC 94 fL [facility] 79-97 hematocrit, blood 42.6 % [facility] 34.0-46.6 hemoglobin, blood 14.1 g/dL [facility] 11.1-15.9 erythrocyte (RBC) count 4.55 X10E6/UL [facility] 3.77-5.28 leukocyte count, blood 9.2 X10E3/UL [facility] 3.4-10.8 alanine aminotransferase (SGPT), serum 23 1/L [facility] 0-32 aspartate aminotransferase (SGOT), serum 24 1/L [facility] 0-40 alkaline phosphatase, serum 163 1/L [facility] 39-117 High bilirubin, serum, total 0.6 mg/dL [facility] 0.0-1.2 albumin/globulin ratio, serum 1.5 [facility] 1.2-2.2 globulin, serum 2.9 [facility] 1.5-4.5 albumin, serum 4.4 g/dL [facility] 3.5-5.5 protein, total, serum 7.3 g/dL [employer] 6.0-8.5 calcium, serum 9.9 mg/dL [employer] 8.7-10.2 carbon dioxide, venous blood 25 mmol/L [employer] 18-29 chloride, serum 100 mmol/L [employer] 96-106 potassium, serum 4.4 mmol/L [employer] 3.5-5.2 sodium, serum 140 mmol/L [employer] [phone]/04/ 25 urea nitrogen/creatinine ratio, serum 12 [employer] 9-23 eGFR if 84 mL/min/{1. 73_m2} [employer] >59 eGFR if not 73 mL/min/{1. 73_m2} [employer] >59 creatinine, serum 0.90 mg/dL [employer] 0.57-1.00 urea nitrogen, blood 11 mg/dL [employer] 6-24 blood glucose, random 89 mg/dL [employer] 65-99 HISTORY OF MEDICATION USE Medication Status Instructions Dates Provider Indications Com mentsergio Brilinta 60 mg tablet active TAKE 1 TABLET BY MOUTH TWICE DAILY Socorro Dia ranolazine 500 mg tablet extended release 12 hr active TAKE 1 TABLET BY MOUTH TWICE DAILY FOR CHRONIC ANGINA 07/24 Tigre Gifford MD ezetimibe 10 mg tablet active TAKE 1 TABLET BY MOUTH EVERY DAY 07/15 Alyssa Lim atorvastatin 40 mg tablet active TAKE 1 TABLET BY MOUTH EVERY DAY 07/11 Tiffany Pitts metoprolol succinate 25 mg tablet extended release 24 hr active TAKE 1 TABLET BY MOUTH EVERY DAY 07/11 Tiffany Pitts furosemide 20 mg tablet active TAKE 1 TABLET BY MOUTH SINGLE DOSE NEEDED. TAKE IF BLOOD PRESSURE IS HIGH AFTER A HIGH SALT MEAL 06/05 [facility] mg tablet completed Take 1 tablet by mouth single dose as needed take if BP is high after a high salt meal - 06/05 Celio Mcgregor atorvastatin 40 mg tablet completed Take 1 tablet by mouth once a day 02/23 - 07/11 Tiffany Pitts Brilinta 60 mg tablet completed Take 1 tablet by mouth twice a day 02/23 - Socorro Dia ezetimibe 10 mg tablet completed Take 1 tablet by mouth once a day 02/23 - 07/15 Alyssa Lim losartan 50 mg tablet active Take 1 tablet by mouth once a day 02/23 Gosia Rogers ranolazine 500 mg tablet extended release 12 hr completed Take 1 tablet by mouth twice a day FOR CHRONIC ANGINA 02/23 - 07/24 Tigre Gifford MD metoprolol succinate 25 mg tablet extended release 24 hr completed Take 1 1/2 tablet by mouth once a day 02/23 - 07/11 Tiffany Pitts ezetimibe 10 mg tablet completed Take 1 tablet by mouth once a day TAKE 1 TABLET BY MOUTH ONCE DAILY 02/06 - 02/23 Gosia Rogers Brilinta 60 mg tablet completed Take 1 tablet by mouth twice a day TAKE 1 TABLET BY MOUTH TWICE DAILY 02/06 - 02/23 Gosia Rogers ranolazine 500 mg tablet extended release 12 hr completed TAKE 1 TABLET BY MOUTH TWICE DAILY FOR CHRONIC ANGINA 07/20 - 02/23 Gosia Rogers losartan 50 mg tablet completed TAKE 1 TABLET BY MOUTH EVERY DAY 07/20 - 02/23 Gosia Rogers metoprolol succinate 25 mg tablet extended release 24 hr completed TAKE 1 TABLET BY MOUTH EVERY DAY 07/20 - 02/23 Gosia Rogers ezetimibe 10 mg tablet completed TAKE 1 TABLET BY MOUTH ONCE DAILY 07/20 - 02/06 Bjorn Goodman Vascepa 1 gram capsule completed TAKE 2 CAPSULES BY MOUTH TWICE DAILY 08/06 - 08/06 Tigre Gifford MD esomeprazole magnesium 40 mg capsule,delayed release(DR/EC) active Kristina Fuller fenofibrate 160 mg tablet active Take 1 tablet by mouth once a day Kristina Fuller Brilinta 60 mg tablet completed TAKE 1 TABLET BY MOUTH TWICE DAILY 07/07 - 02/06 Bjorn Goodman ezetimibe 10 mg tablet completed TAKE 1 TABLET BY MOUTH ONCE A DAY 07/07 - 07/20 Yasmeen Reaves Toprol XL 25 mg tablet extended release 24 hr completed TAKE 1 TABLET BY MOUTH EVERY DAY 06/11 - 07/09 Paulina Robles RN Ranexa 500 mg tablet extended release 12 hr completed TAKE 1 TABLET BY MOUTH TWICE DAILY FOR CHRONIC ANGINA - 07/09 Paulina Robles RN fluoxetine 20 mg tablet active Take 2 tablet by mouth once a day Tianna De Los Santos NP carvedilol 6.25 mg tablet completed - Seymour Larsen fluticasone propionate 50 mcg/actuation spray,suspension active [place] 1 spray into both nostrils once a day Seymour Larsen duloxetine 60 mg capsule,delayed release(DR/EC) active by mouth once a day Gosia Rogers hydroxyzine HCl 25 mg tablet active by mouth once a day Gosia Rogers atorvastatin 40 mg tablet completed TAKE 1 TABLET BY MOUTH DAILY 01/16 - 02/23 Gosia Rogers Zetia 10 mg tablet completed Take 1 tablet by mouth once a day 01/04 - 07/07 Tigre Gifford MD nitroglycerin 0.4 mg tablet, sublingual active 1 tablet under tongue as directed as needed 1 tablet under tongue for chest pain. May repeat every 5 minutes if still having chest pain- to max of 3 tablets per episode. 12/30 Paulina Robles RN Tresiba FlexTouch U-100 100 unit/mL (3 mL) insulin pen active Inject 64 unit subcutaneously every night Seymour Larsen Bydureon 2 mg/0.65 mL pen injector active Administer 2 mg subcutaneously once a week Seymour Larsen metformin 500 mg tablet active Take 1 tablet by mouth once a day Seymour Larsen Spiriva Respimat 1.25 mcg/actuation mist completed - Subha Pimentel Brilinta 60 mg tablet completed 1 tablet twice a day 06/26 - 07/07 Tigre Gifford MD cyclobenzaprine 10 mg tablet active Take 1 tablet once a day as needed 06/26 Laura Verdugo Nexium 40 mg capsule,delayed release(DR/EC) active once a day 12/24 Tianna De Los Santos NP Toujeo Max U-300 SoloStar 300 unit/mL (3 mL) insulin pen completed 70 unit once a day 12/24 - 12/30 Tianna De Los Santos NP fenofibrate nanocrystallized 145 mg tablet completed 12/24 - 12/30 Tianna De Los Santos NP Symbicort 160-4.5 mcg/actuation HFA aerosol inhaler active Inhale 1 puff using inhaler once a day 12/24 Seymour Larsen Brilinta 90 mg tablet completed 1 tablet twice a day 12/24 - 12/30 Tianna De Los Santos NP Lyrica 25 mg capsule active once a day 12/24 Tianna De Los Santos NP NOVOLOG FLEXPEN 100 UNIT/ML SUBCUTANEOUS SOLUTION PEN-INJECTOR completed 10 units TID 12/24 - 06/26 Laura Verdugo BASAGLAR KWIKPEN 100 UNIT/ML SUBCUTANEOUS SOLUTION PEN-INJECTOR completed inject 70-75 units daily - 12/24 Tianna De Los Santos NP LEVOFLOXACIN 500 MG ORAL TABLET completed Take 1 and 1/2 tablet daily for 7 days 09/12 - 12/18 Germaine Barr HYDROCHLOROTHIAZIDE 25MG TABLETS completed TAKE 1 TABLET BY MOUTH DAILY - 12/24 Tianna De Los Santos NP ISOSORBIDE MONONITRATE TABLET completed take one daily 06/29 - 12/24 Tianna De Los Santos NP QVAR REDIHALER 40MCG ORALINH (120) completed INHALE 1 PUFF BY MOUTH DAILY 07/05 - 12/24 Tianna De Los Santos NP CALCIUM 500/VITAMIN D TABLET completed take one daily - Laura Verdugo QVAR REDIHALER 40 MCG/ACT INHALATION AEROSOL BREATH ACTIVATED completed take one puff daily - Ami Hare Daily Value tablet completed Take 1 once a day - Ashanti Patel GLIMEPIRIDE 2 MG ORAL TABLET completed 4 mg BID - 06/26 Laura Verdugo GABAPENTIN 600MG TABLETS completed TAKE 1 TABLET BY MOUTH THREE TIMES DAILY 08/31 - 12/24 Tianna De Los Santos NP FISH OIL CONCENTRATE 1000 MG ORAL CAPSULE completed Take one capsule daily 09/22 - 12/18 Germaine Barr BRILINTA 90 MG ORAL TABLET completed One tab. twice daily (d/t allergy to plavix) 09/14 - 10/31 Tigre Gifford MD CLOPIDOGREL BISULFATE 75 MG ORAL TABLET completed one tab daily 09/14 - 09/14 Jana Sparrow RN TYLENOL 325 MG CAPS active 2 tablet as needed Seymour Larsen Singulair 10 mg tablet active 1 tablet once a day Seymour Larsen losartan 50 mg tablet completed Take 1 tablet by mouth once a day Take 1 tablet by mouth once daily 12/27 - 07/04 Paulina Robles RN diclofenac sodium 75 mg tablet,delayed release (DR/EC) completed three times a day - 12/30 Seymour Larsen fluoxetine 40 mg capsule completed 1 capsule once a day 12/24 - 02/05 Tianna De Los Santos NP buspirone 15 mg tablet active Take 1 twice a day 07/05 Ashanticonrad Patel GABAPENTIN 300 MG ORAL CAPSULE completed ONE TAB. 3 times daily - 12/18 Ashanti Patel aspirin 81 mg tablet,delayed release (DR/EC) active 1 tablet by mouth once a day Seymour Larsen atorvastatin 40 mg tablet completed Take 1 tablet by mouth once a day 12/27 - 01/16 Aline Fournier LANTUS SOLUTION completed 60 units once daily - 12/18 Germaine Barr APIDRA SOLOSTAR SOLUTION PEN-INJECTOR completed 3 times daily - Laura Verdugo albuterol sulfate 90 mcg/actuation HFA aerosol inhaler active Inhale 1-2 puff by mouth every four to six hours as needed 02/07 Subha Pimentel BRILINTA 90 MG ORAL TABLET completed One tab. twice daily 06/26 - 09/14 Jana Sparrow RN Patient broke out in a rash after taking Plavix. Was switched to Brilinta. LOSARTAN POTASSIUM-HCTZ 50-12.5 MG ORAL TABLET completed 1 TAB DAILY 06/30 - 07/07 Ana Rosa Canada NP LITHIUM CARBONATE 300 MG ORAL CAPSULE completed 1 TAB THREE TIMES DAILY 06/30 - 12/18 Seymour Larsen VALACYCLOVIR HCL 500 MG ORAL TABLET completed 1 TAB DAILY 06/30 - 12/18 Seymour Larsen PEPCID 20 MG ORAL TABLET completed one tab daily 07/08 - 12/24 Tianna De Los Santos NP may use generic AMLODIPINE BESYLATE 5 MG ORAL TABLET completed 1 TAB DAILY 06/30 - 07/07 Ana Rosa Canada NP CARBIDOPA-LEVODOPA 25-100 MG ORAL TABLET completed 1 TABS AT BEDTIME 06/30 - 12/18 Seymour Larsen METFORMIN HCL 1000 MG ORAL TABLET completed 1 TAB TWICE DAILY 06/30 - 12/18 Seymour Larsen GEODON 60 MG ORAL CAPSULE completed 1 TAB DAILY 06/30 - 12/18 Seymour Larsen CLARITIN 10 MG ORAL CAPSULE completed 1 TAB DAILY 06/30 - 12/18 Seymour Larsen VALTREX 1 GM ORAL TABLET completed 1 TAB TWICE DAILY 06/30 - 12/18 Seymour Larsen CYCLOBENZAPRINE HCL TABLET completed 1 TAB TWICE DAILY 06/30 - 12/18 Seymour Larsen ALBUTEROL SULFATE (2.5 MG/3ML) 0.083% INHALATION NEBULIZATION SOLUTION completed 1 PUFF NEEDED 06/30 - 12/18 Seymour Larsen SOCIAL HISTORY Date Observation Value Provider drug use no Tigre foster MD alcohol use no Tigre foster MD passive cigarette sm jake exposure yes Tigre Gifford MD chewing tobacco use Former Tigre Gifford MD smoking, year quit 30 Tigre Gifford MD smoking history, tot al pack/year 3 Tigre Gifford MD cigarette use yes Tigre hansen MD smoking status Former smoker Tigre nguyen MD social history reviewed E&M revi ewed - no changes required Tigre Gifford MD social history E&M S moking History: Lynn gonzalez is a former smoker. Tigre Gifford MD seatbelt usage 100 % Aprylcristian Barr caffeine use, averag e drinks per day 3 /d Apryl Momo passive cigarette sm jake exposure yes Aprylcristian Barr chewing tobacco use Former Apryl Jose De Jesus sauceda smoking, year quit 30 Aprylcristian schofield smoking history, tot al pack/year 3 Aprylcristian Barr cigarette use yes Aprylcristian Barr smoking status Former smoker Apryl Pepito hill social history E&M S moking History: Lynn gonzalez is a former smoker. Tigre Gifford MD social history reviewed E&M revi ewed - no changes required Tigre Gifford MD seatbelt usage 100 % Daphney Morales caffeine use, averag e drinks per day 3 /d Daphney Gonzalez passive cigarette sm jake exposure yes Daphney Gonzalez chewing tobacco use Former Daphney Gonzalez smoking, year quit 30 Daphney Gonzalez smoking history, tot al pack/year 3 Daphney Gonzalez cigarette use yes Daphney Johnston nd smoking status Former smoker Daphney Luiz pak social history E&M S moking History: Lynn gonzalez is a former smoker. Tigre Gifford MD smoking status Former smoker Gosia Blockmegha mayo drug use no Christine Wiley alcohol use no Christine Wiley seatbelt usage 100 % Christine Wiley caffeine use, averag e drinks per day 3 /d Christine Wiley passive cigarette sm jake exposure yes Christine Wiley chewing tobacco use Former Christine Zimmer dominguez smoking, year quit 30 Christine tello smoking history, tot al pack/year 3 Christine Wiley cigarette use yes Christine Wiley social history reviewed E&M revi ewed - no changes required Christine Wiley social history E&M S moking History: Lynn gonzalez is a former smoker. Tigre Gifford MD social history reviewed E&M revi ewed - no changes required Tigre Gifford MD seatbelt usage 100 % Raquel Milton caffeine use, averag e drinks per day 3 /d Raquel Milton passive cigarette sm jake exposure yes Raquel Milton chewing tobacco use Former Raquel Vela smoking, year quit 30 Raquel herrera smoking history, tot al pack/year 3 Raquel Milton cigarette use yes Raquel Milton smoking status Former smoker Raquel Milton social history E&M S moking History: Lynn gonzalez is a former smoker. Tigre Gifford MD social history reviewed E&M revi ewed - no changes required Tigre Gifford MD seatbelt usage 100 % Jessica Ordaz caffeine use, averag e drinks per day 3 /d Jessica Orlin drug use no Jessica Orlin alcohol use no Jessica Orlin chewing tobacco use Former Jessica Pelayo kett smoking status Former smoker Jessica Ordaz social history reviewed E&M revi ewed - no changes required Tigre Gifford MD social history E&M S moking History: Lynn gonzalez is a former smoker. Tigre Gifford MD social history reviewed E&M revi ewed - no changes required Tigre Gifford MD smoking, year quit 30 Trychase patelards cigarette use yes Trychase Dukeward s smoking status Former smoker Raymond Dukewa rds passive cigarette sm jake exposure yes Gosia Blockjulienne smoking, year quit 1979 Gosia Amaya donald smoking history, tot al pack/year 3 Gosia Blockjulienne cigarette use yes Gosia Blockgilma lane smoking status Former smoker Gosia Doran gael passive cigarette sm jake exposure yes Seymour Larsen smoking, year quit 1979 Seymour Larsen smoking history, tot al pack/year 3 Seymour Larsen cigarette use yes Seymour jerrymeenu smoking status Former smoker Seymour Swanson social history E&M S moking History: Lynn gonzalez is a former smoker. Tigre Gifford MD social history reviewed E&M revi ewed - no changes required Tigre Gifford MD passive cigarette sm jake exposure yes Gosia Sue smoking, year quit 1979 Gosia Jose Luis bennett smoking history, tot al pack/year 3 Gosia Blockjulienne cigarette use yes Gosia Blockgilma lane smoking status Former smoker Gosia Briancarrie mayo social history E&M S moking History: Lynn gonzalez is a former smoker. Tigre Gifford MD social history reviewed E&M revi ewed - no changes required Tigre Gifford MD passive cigarette sm jake exposure yes Subha Pimentel smoking, year quit 1979 Subha Cabrera' Simeon smoking history, tot al pack/year 3 Subha O'Simeon cigarette use yes Subha O'Simoen smoking status Former smoker Subha Parrya l passive cigarette sm jake exposure yes Laura Verdugo smoking, year quit 1979 Laura Francisca gary smoking history, tot al pack/year 3 Laura Verdugo cigarette use yes Laura cabello smoking status Former smoker Laura Roca stew smoking status Former smoker Tigre nguyen MD social history E&M S moking History: Lynn gonzalez is a former smoker. Tigre Gifford MD social history reviewed E&M revi ewed - no changes required Tigre Gifford MD passive cigarette sm jake exposure yes Tonsha Rizo smoking, year quit 1979 Tonsha Mo ss smoking history, tot al pack/year 3 Tonsha Rizo cigarette use yes Tonsha Rizo smoking status Former smoker Tianna moraes NP social history E&M S moking History: Lynn gonzalez is a former smoker. Tianna De Los Santos NP social history reviewed E&M revi ewed - no changes required Tianna De Los Santos NP passive cigarette sm jake exposure yes Tonsha Rizo smoking, year quit 1979 Tonsha Mo ss smoking history, tot al pack/year 3 Tonsha Rizo cigarette use yes Tonsha Rizo smoking status Former smoker Markus brand social history E&M S moking History: Lynn gonzalez is a former smoker. Markus Melendez social history reviewed E&M revi ewed - no changes required Markus Melendez passive cigarette sm jake exposure yes Tonsha Rizo smoking, year quit 1979 Tonsha Mo ss smoking history, tot al pack/year 3 Tonsha Rizo cigarette use yes Tonsha Rizo social history E&M S moking History: Lynn gonzalez is a former smoker. Tigre Gifford MD social history reviewed E&M revi ewed - no changes required Tigre Gifford MD passive cigarette sm jake exposure yes Tessy Block smoking, year quit 1979 Tessy Block smoking history, tot al pack/year 3 Tessy Block cigarette use yes Tessy Block smoking status Former smoker Tessy Griffin ck social history E&M S moking History: Lynn gonzalez is a former smoker. Tigre Gifford MD social history reviewed E&M revi ewed - no changes required Tigre Gifford MD passive cigarette sm jake exposure yes Laura Verdugo smoking, year quit 1979 Laura Francisca gary smoking history, tot al pack/year 3 Laura Verdugo cigarette use yes Laura Rocacari cabello smoking status Former smoker Laura Abelino mathias social history E&M S moking History: Lynn gonzalez is a former smoker. Tigre Gifford MD social history reviewed E&M revi ewed - no changes required Tigre Gifford MD cigarette use yes Germaine Bonilla ms smoking status Former smoker Germaine Caba ia social history E&M S moking History: Lynn gonzalez is a former smoker. Tigre Gifford MD social history reviewed E&M revi ewed - no changes required Tigre Gifford MD alcohol use no [place] Rob[place] drug use no [place] Rob[place] passive cigarette sm jake exposure yes [place] Robbins smoking status Former smoker Samuel Ingr am social history E&M S moking History: Lynn gonzalez is a former smoker. Tigre Gifford MD social history reviewed E&M revi ewed - no changes required Tigre Gifford MD alcohol use no Laura Waters l drug use no Laura Waters l passive cigarette sm jake exposure yes Laura Verdugo smoking status Former smoker Laura mathias social history E&M S moking History: Lynn gonzalez is a former smoker. Tigre Gifford MD social history reviewed E&M revi ewed - no changes required Tigre Gifford MD alcohol use no Ashanti Jorge drug use no Ashanti Jorge passive cigarette sm jake exposure yes Ashanti Jorge smoking status Former smoker Ashanti Jorge social history reviewed E&M revi ewed - no changes required Tigre Gifford MD social history E&M S moking History: Lynn gonzalez is a former smoker. Tigre Gifford MD alcohol use no Ashanti Jorge drug use no Ashanti Jorge passive cigarette sm jake exposure yes Ashanti Jorge smoking status Former smoker Ashanti Jorge social history reviewed E&M revi ewed - no changes required Tianna Rao NP social history E&M S moking History: Lynn gonzalez is a former smoker. Tianna Rao NP alcohol use no Ashanti Jorge drug use no Ashanti Jorge passive cigarette sm jake exposure yes Ashanti Jorge smoking status Former smoker Ashanti Jorge social history E&M S moking History: Lynn gonzalez is a former smoker. Tigre Gifford MD social history reviewed E&M revi ewed - no changes required Tigre Gifford MD alcohol use no Seymour huynh drug use no Seymour pompaon passive cigarette sm jake exposure yes Seymour Larsen smoking status Former smoker Seymour Swanson number of grandchildren Tigre Gifford MD social history reviewed E&M revi ewed - no changes required Ana Rosa Canada NP social history E&M S moking History: Lynn gonzalez is a former smoker. Ana Rosa Canada NP alcohol use no Seymour Lu nsmeenu drug use no Seymour Lu nsmeenu passive cigarette sm jake exposure yes Seymour Larsen smoking status Former smoker Seymour St tinajeroson drug use no Rivas Gonzales passive cigarette sm jake exposure yes Rivas Gonzales smoking history, tot al pack/year 3 Rivas Gonzales smoking, year quit 1979 Rivas burrell smoking status former smoker Rivas reynolds FUNCTIONAL STATUS Date Observation Value Provider HRA, CV Assess/Plan, Angina (inactive) Management Plan continue current therapy Tigre Gifford MD HRA, CV Assess/Plan, Angina (inactive) Management Plan continue current therapy Tigre Gifford MD HRA, CV Assess/Plan, Angina (inactive) Management Plan continue current therapy Tigre Gifford MD HRA, CV Assess/Plan, Angina (inactive) Management Plan continue current therapy Tigre Gifford MD HRA, CV Assess/Plan, Angina (inactive) Management Plan continue current therapy Tigre Gifford MD HRA, CV Assess/Plan, Angina (inactive) Management Plan continue current therapy Tigre Gifford MD HRA, CV Assess/Plan, Angina (inactive) Management Plan continue current therapy Tigre Gifford MD HRA, CV Assess/Plan, Angina (inactive) Management Plan antianginal therapy Tigre Gifford MD HRA, CV Assess/Plan, Angina (inactive) Management Plan continue current therapy Tianna De Los Santos NP HRA, CV Assess/Plan, Angina (inactive) Management Plan continue current therapy Tigre Gifford MD HRA, CV Assess/Plan, Angina (inactive) Management Plan continue current therapy Tigre Gifford MD HRA, CV Assess/Plan, Angina (inactive) Management Plan continue current therapy Tianna De Los Santos NP HRA, CV Assess/Plan, Angina (inactive) Management Plan continue current therapy Tigre Gifford MD HRA, CV Assess/Plan, Angina (inactive) Management Plan antianginal therapy Tigre Gifford MD HRA, CV Assess/Plan, Angina (inactive) Management Plan continue current therapy Tigre Gifford MD HRA, CV Assess/Plan, Angina (inactive) Management Plan continue current therapy Tigre Gifford MD HRA, CV Assess/Plan, Angina (inactive) Management Plan continue current therapy Tigre Gifford MD HRA, CV Assess/Plan, Angina (inactive) Management Plan continue current therapy Tigre Gifford MD HRA, CV Assess/Plan, Angina (inactive) Management Plan schedule PCI Tigre Gifford MD HRA, CV Assess/Plan, Angina (inactive) Management Plan continue current therapy Tianna Rao NP HRA, CV Assess/Plan, Angina (inactive) Management Plan continue current therapy Tigre Gifford MD HRA, CV Assess/Plan, Angina (inactive) Management Plan continue current therapy Tigre Gifford MD FAMILY HISTORY Family Member Condition Father [place] male <55 Mother [place] female <65 Father Family History of Co ronary Artery Disease: Father Family History of Hy pertension: Father Family History of Di abetes: Father Family History of CV A or Stroke: Mother Family History of Co ronary Artery Disease: Mother Family History of Hy pertension: Mother Family History of Di abetes: Mother Family History of CV A or Stroke: INSURANCE PROVIDERS Payer name Policy type / Coverage type Brush red constitution party ID [facility] (PPO C-SNP) Medicare [id number] [place] [facility] Medicaid 1 [id number] ADVANCE DIRECTIVES Name Date DISCUSSED - NO DECISION MADE TREATMENT PLAN Date Name Performer [id number],S,check tele fo r 48 hrs, having palps Tigre Gifford MD [id number],C, R EMAINS ON BRILENTA 60 bid UNABLE TO TAKE PLAVIX DUE TO ALLERGY Her updated medication list for this problem includes: Metoprolol Succinate 25 Mg Tablet Extended Release 24 Hr (Metoprolol succinate) ..... Take 1 1/2 tablet by mouth once a day Brilinta 60 Mg Tablet (Ticagrelor) ..... Take 1 tablet by mouth twice a day Ranolazine 500 Mg Tablet Extended Release 12 Hr (Ranolazine) ..... Take 1 tablet by mouth twice a day for chronic angina Nitroglycerin 0.4 Mg Tablet, Sublingual (Nitroglycerin) ..... 1 tablet under tongue as directed as needed 1 tablet under tongue for chest pain. may repeat every 5 minutes if still having chest pain- to max of 3 tablets per episode. Aspirin 81 Mg Tablet,delayed Release (dr/ec) (Aspirin) ..... 1 tablet by mouth once a day Tiger Gifford MD [id number],C, H er updated medication list for this problem includes: Atorvastatin 40 Mg Tablet (Atorvastatin) ..... Take 1 tablet by mouth once a day Ezetimibe 10 Mg Tablet (Ezetimibe) ..... Take 1 tablet by mouth once a day Fenofibrate 160 Mg Tablet (Fenofibrate) ..... Take 1 tablet by mouth once a day Tigre Gifford MD [id number],S, Tigre nguyen MD [id number],C, C heck carotid US n o new current dizzines sxs are not similar to prior TIA carotid CONCLUSIONS: 1 . Mild plaque with less than 50% stenosis of the internal carotid arteries bilaterally. 2 . Vertebral flow is antegrade bilaterally A llergic to plavix, remains on Brilinta 60 mg BID (although is brilinta ideally approved for PAD, is better than taking Ticlid since she is allergic to Plavix Tigre Gifford MD [id number],C, O n 2 L of O2 with CPAP. The patient is using CPAP on a regular basis. The patient has been benefiting from therapy and should continue use. Tigre Gifford MD [id number],C, s he had a CABG since then has had sternal wound issues. had CABGx4 THAPA to RAMUS. LEft radial to OM SVG to PDA and PLB. 04/12/21 due to severe ISR of the RCA distributiuin June 03, 2022 R esidual sternal pain noted September 02, 2022 S ternum pain is unchanged. March 03, 2023 I mproved sternal pain Tigre Gifford MD [id number],C, S kin incision are well healed. Tigre Gifford MD [id number],S,A1C was 8.4% Sess PCP Tigre Gifford MD [id number],C, E F 65% per last echo 02/2020 A pril 2022 C ONCLUSIONS: 1 . Septal motion consistent with post-operative state. Normal left ventricular systolic function. Normal left ventricular size. N ormal left ventricular wall thickness. There is E to A wave reversal consistent with impaired LV relaxation. E/E': 6.1 Left v entricular ejection fraction is measured at 55 %. 2 . Normal right ventricular size. Normal right ventricular systolic function. 3 . Trace MR TR CA. 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 The patient is using CPAP on a regular basis. The patient has been benefiting from therapy and should continue use. Tigre Gifford MD [id number],C, C heck carotid US n o new current dizzines sxs are not similar to prior TIA carotid CONCLUSIONS: 1 . Mild plaque with less than 50% stenosis of the internal carotid arteries bilaterally. 2 . Vertebral flow is antegrade bilaterally A llergic to plavix, remains on Brilinta 60 mg BID (although is brilinta ideally approved for PAD, is better than taking Ticlid since she is allergic to Plavix Tigre Gifford MD [id number],C, s he had a CABG since then has had sternal wound issues. had CABGx4 THAPA to RAMUS. LEft radial to OM SVG to PDA and PLB. 04/12/21 due to severe ISR of the RCA distributiuin June 03, 2022 R esidual sternal pain noted September 02, 2022 S ternum pain is unchanged. Tigre Gifford MD [id number],C, S kin incision are well healed. Tigre Gifford MD [id number],C,D iscussion of benefits for remote patient monitoring took place. Patient gives consent for remote monitoring of physiologic parameters including, but not limited to, weight, blood pressure, pulse oximetry, respiratory flow rate. Her updated medication list for this problem includes: Toprol Xl 25 Mg Tablet Extended Release 24 Hr (Metoprolol succinate) ..... Take 1 tablet by mouth every day Losartan 50 Mg Tablet (Losartan) ..... Take 1 tablet by mouth once a day take 1 tablet by mouth once daily Aspirin 81 Mg Tablet,delayed Release (dr/ec) (Aspirin) ..... 1 tablet by mouth once a day BP today: 138/91 P rior BP: 128/97 (03/17/2022) Labs Reviewed: C reat: 0.83 (12/31/2020) C hol: 129 (12/31/2020) HDL: 29 (12/31/2020) Tigre Gifford MD [id number],C,C heck carotid US n o new current dizzines sxs are not similar to prior TIA carotid CONCLUSIONS: 1 . Mild plaque with less than 50% stenosis of the internal carotid arteries bilaterally. 2 . Vertebral flow is antegrade bilaterally A llergic to plavix, remains on Brilinta 60 mg BID (although is brilinta ideally approved for PAD, is better than taking Ticlid since she is allergic to Plavix Tigre Gifford MD [id number],C,C heck lipid panel and LFTs H er updated medication list for this problem includes: Atorvastatin 40 Mg Tablet (Atorvastatin) ..... Take 1 tablet by mouth daily Fenofibrate 160 Mg Tablet (Fenofibrate) ..... Take 1 tablet by mouth once a day Ezetimibe 10 Mg Tablet (Ezetimibe) ..... Take 1 tablet by mouth once a day Tigre Gifford MD [id number],S,Check Carotid s Tirge Gifford MD [id number],C, s he had a CABG since then has had sternal wound issues. had CABGx4 THAPA to RAMUS. LEft radial to OM SVG to PDA and PLB. 04/12/21 due to severe ISR of the RCA distributiuin June 03, 2022 R esidual sternal pain noted Tigre Gifford MD [id number],C,Skin incision are well healed. Tigre Gifford MD [id number],C, n o new current dizzines sxs are not similar to prior TIA carotid CONCLUSIONS: 1 . Mild plaque with less than 50% stenosis of the internal carotid arteries bilaterally. 2 . Vertebral flow is antegrade bilaterally A llergic to plavix, remains on Brilinta 60 mg BID (although is brilinta ideally approved for PAD, is better than taking Ticlid since she is allergic to Plavix Tigre Gifford MD [id number],C, B P today: 128/97 P rior BP: 123/79 (11/10/2021) Labs Reviewed: C reat: 0.83 (12/31/2020) C hol: 129 (12/31/2020) HDL: 29 (12/31/2020) Her updated medication list for this problem includes: Toprol Xl 25 Mg Tablet Extended Release 24 Hr (Metoprolol succinate) ..... Take 1 tablet by mouth every day Losartan 50 Mg Tablet (Losartan) ..... Take 1 tablet by mouth once a day take 1 tablet by mouth once daily Aspirin 81 Mg Tablet,delayed Release (dr/ec) (Aspirin) ..... 1 tablet by mouth once a day Tigre Gifford MD [id number],S,g ood idea to see Dr Margot Aceves for DM, insulin pump may be a benefit for her Tigre Gifford MD [id number],C, T his is improved. she had a CABG since then has had sternal wound issues. had CABGx4 THAPA to RAMUS. LEft radial to OM SVG to PDA and PLB. 04/12/21 due to severe ISR of the RCA distributiuin Tigre Gifford MD [id number],C,s he had a CABG since then has had sternal wound issues. had CABGx4 THAPA to RAMUS. LEft radial to OM SVG to PDA and PLB. 04/12/21 due to severe ISR of the RCA distributiuin Tigre Gifford MD [id number],C, s he had a CABG since then has had sternal wound issues. had CABGx4 THAPA to RAMUS. LEft radial to OM SVG to PDA and PLB. 04/12/21 due to severe ISR of the RCA distributiuin PTCA stenting of a complex chronic total occlusion 100% occluded c ollateralized RCA in the setting of inferior wall ST-elevation [place] t reated with angioplasty and followed by stenting of the posterior d escending artery with a 3.25 x 23 Xience drug-eluting stent with an o verlapping, more proximally plated 35x 18 Resolute drug-eluting stent i nto the AV groove of the RCA, proximal to the FDA-PLV bifurcation. A 3 rd stent was placed in the mid RCA proximal to the RV marginal with p lacement of a 4.5 x 13 ultra bare metal stent treating a high-grade f ocal 80% lesion. D ES DAPT ASA/Brilinta 12 motnhs until 07/2018. June 26, 2020 r ecent stress 02/2020 CONCLUSIONS: 1 . Normal vasodilator stress EKG. There were no ischemic ST or T changes. 2 . The inferobasilar wall has a moderate perfusion abnormality defect. The perfusion defect is small in size. The defect is not r eversible. 3 . There is a breast attenuation artifact noted. The severity of the artifact is moderate. Technical quality of study is fair. Left v entricle cavity size with stress is unchanged. 4 . Left Ventricular Ejection Fraction is 56 %. TID: 0.98. Tigre Gifford MD [id number],S,P arsh on having esophegeal dilitation and colonoscopy done with GI. Upon review of invasive and noninvasive testing and recent exam the patient is an acceptable candidate for the planned surgical procedure recommend to maintain his blood pressure range of 110 to 140 mmHg and a heart rate of 60-80 B p.m.. It is okay to use IV beta blockers calcium channel blockers nitrates and afterload reducing agents to maintain the aforementioned hemodynamics parameters. Tele monitoring and EKG should be done if the patient has arrhythmia during procedure OK TO HOLD ASPIRIN AND BRILINTA FOR PROCEDURE. PT IS ALLERGIC TO PLAVIX. R esume aspirin and brilinta when OK with GI doctor. Tigre Gifford MD [id number],C, n o new current dizzines sxs are not similar to prior TIA carotid CONCLUSIONS: 1 . Mild plaque with less than 50% stenosis of the internal carotid arteries bilaterally. 2 . Vertebral flow is antegrade bilaterally. Tigre Gifford MD [id number],C, O n 2 L of O2 with CPAP. The patient is using CPAP on a regular basis. The patient has been benefiting from therapy and should continue use. Tigre Gifford MD [id number],C, P TCA *tenting of a high-grade 99% proximal to mid LAD lesion reduced to a 0 % residual with implantation of a 3.5 x 18 Resolute drug-eluting stent. D ES DAPT ASA/Brilinta 12 motnhs until 07/2018. she had a CABG since then has had sternal wound issues. had CABGx4 THAPA to RAMUS. LEft radial to OM SVG to PDA and PLB. 04/12/21 due to severe ISR of the RCA distributiuin November 10, 2021 S ternal wound is healed. Have her stop doing bike and stretches at cardiac rehab. Tigre Giffrod MD [id number],C,This is impro sharonda. Tigre Gifford MD [id number],S, L VEF 45% on cath 03/25/19. Tigre Gifford MD [id number],C, r ecalls A1c was 7.0 Tigre Gifford MD [id number],C,O ff Fenofibrate, on Lipitor and cannot take Vascepa due to fish oil allergy H er updated medication list for this problem includes: Fenofibrate 160 Mg Tablet (Fenofibrate) ..... Take 1 tablet by mouth once a day Atorvastatin 40 Mg Tablet (Atorvastatin) ..... Take 1 tablet by mouth daily Ezetimibe 10 Mg Tablet (Ezetimibe) ..... Take 1 tablet by mouth once a day Tigre Gifford MD [id number],S, E F 65% per last echo 02/2020 Tigre Gifford MD [id number],C, B P today: 113/73 P rior BP: 145/94 (06/11/2021) Labs Reviewed: C reat: 0.83 (12/31/2020) C hol: 129 (12/31/2020) HDL: 29 (12/31/2020) Her updated medication list for this problem includes: Toprol Xl 25 Mg Tablet Extended Release 24 Hr (Metoprolol succinate) ..... Take 1 tablet by mouth every day Losartan 50 Mg Tablet (Losartan) ..... Take 1 tablet by mouth once a day take 1 tablet by mouth once daily Aspirin 81 Mg Tablet,delayed Release (dr/ec) (Aspirin) ..... 1 tablet by mouth once a day Tigre Gifford MD [id number],C, O n 2 L of O2 with CPAP. The patient is using CPAP on a regular basis. The patient has been benefiting from therapy and should continue use. Tigre Gifford MD [id number],C, n o new current dizzines sxs are not similar to prior TIA carotid CONCLUSIONS: 1 . Mild plaque with less than 50% stenosis of the internal carotid arteries bilaterally. 2 . Vertebral flow is antegrade bilaterally. Tigre Gifford MD [id number],S, f ollows oncology Tigre Gifford MD [id number],B, Tigre nguyen MD [id number],C, H er updated medication list for this problem includes: Atorvastatin 40 Mg Tablet (Atorvastatin) ..... Take 1 tablet by mouth daily Zetia 10 Mg Tablet (Ezetimibe) ..... Take 1 tablet by mouth once a day Tigre Gifford MD [id number],C, H er updated medication list for this problem includes: Losartan 100 Mg Tablet (Losartan) ..... Take 1 tablet by mouth once a day Aspirin 81 Mg Tablet,delayed Release (dr/ec) (Aspirin) ..... 1 tablet by mouth once a day Coreg 6.25 Mg Tablet (Carvedilol) ..... 1 tablet twice a day BP today: 145/94 P rior BP: 132/66 (03/19/2021) Labs Reviewed: C reat: 0.83 (12/31/2020) C hol: 129 (12/31/2020) HDL: 29 (12/31/2020) Tigre Gifford MD [id number],C, O n 2 L of O2 with CPAP. Tigre Gifford MD [id number],C, s he had a CABG since then has had sternal wound issues. had CABGx4 THAPA to RAMUS. LEft radial to OM SVG to PDA and PLB. 04/12/21 due to severe ISR of the RCA distributiuin PTCA stenting of a complex chronic total occlusion 100% occluded c ollateralized RCA in the setting of inferior wall ST-elevation [place] t reated with angioplasty and followed by stenting of the posterior d escending artery with a 3.25 x 23 Xience drug-eluting stent with an o verlapping, more proximally plated 35x 18 Resolute drug-eluting stent i nto the AV groove of the RCA, proximal to the FDA-PLV bifurcation. A 3 rd stent was placed in the mid RCA proximal to the RV marginal with p lacement of a 4.5 x 13 ultra bare metal stent treating a high-grade f ocal 80% lesion. D ES DAPT ASA/Brilinta 12 motnhs until 07/2018. June 26, 2020 r ecent stress 02/2020 CONCLUSIONS: 1 . Normal vasodilator stress EKG. There were no ischemic ST or T changes. 2 . The inferobasilar wall has a moderate perfusion abnormality defect. The perfusion defect is small in size. The defect is not r eversible. 3 . There is a breast attenuation artifact noted. The severity of the artifact is moderate. Technical quality of study is fair. Left v entricle cavity size with stress is unchanged. 4 . Left Ventricular Ejection Fraction is 56 %. TID: 0.98. Tigre Gifford MD [id number],C, P TCA *tenting of a high-grade 99% proximal to mid LAD lesion reduced to a 0 % residual with implantation of a 3.5 x 18 Resolute drug-eluting stent. D ES DAPT ASA/Brilinta 12 motnhs until 07/2018. she had a CABG since then has had sternal wound issues. had CABGx4 THAPA to RAMUS. LEft radial to OM SVG to PDA and PLB. 04/12/21 due to severe ISR of the RCA distributiuin Tigre Gifford MD [id number],S,R EMAINS ON BRILENTA 60 bid UNABLE TO TAKE PLAVIX DUE TO ALLERGY Tigre Gifford MD [id number],C,s he had cath with ISR w ill start ranexa 500mg bid and see how she does having recurrent cp and bp is lowish will not tolerate nitrates as he gets dizzy periodically Tigre Gifford MD [id number],S, Tigre nguyen MD [id number],S, Tianna moraes NP [id number],S, H er updated medication list for this problem includes: Atorvastatin 40 Mg Tablet (Atorvastatin) ..... Take 1 tablet by mouth daily Zetia 10 Mg Tablet (Ezetimibe) ..... Take 1 tablet by mouth once a day Tianna De Los Santos NP [id number],B,EF 65% per la st echo 02/2020 Tianna De Los Santos NP [id number],S,follows oncol ogy Tianna De Los Santos NP [id number],C, B P today: 140/80 P rior BP: 102/70 (12/30/2020) Labs Reviewed: C reat: 0.83 (12/31/2020) C hol: 129 (12/31/2020) HDL: 29 (12/31/2020) Her updated medication list for this problem includes: Aspirin 81 Mg Tablet,delayed Release (dr/ec) (Aspirin) ..... 1 tablet by mouth once a day Losartan 50 Mg Tablet (Losartan) ..... Take 1 tablet by mouth once a day Coreg 6.25 Mg Tablet (Carvedilol) ..... 1 tablet twice a day Tigre Gifford MD [id number],S,r ecalls A1c was 7.0 Her updated medication list for this problem includes: Aspirin 81 Mg Tablet,delayed Release (dr/ec) (Aspirin) ..... 1 tablet by mouth once a day Losartan 50 Mg Tablet (Losartan) ..... Take 1 tablet by mouth once a day Tresiba Flextouch U-100 100 Unit/ml (3 Ml) Insulin Pen (Insulin degludec) Metformin 500 Mg Tablet (Metformin) Tigre Gifford MD [id number],S, P TCA *tenting of a high-grade 99% proximal to mid LAD lesion reduced to a 0 % residual with implantation of a 3.5 x 18 Resolute drug-eluting stent. D ES DAPT ASA/Brilinta 12 motnhs until 07/2018. Tigre Gifford MD [id number],C,u jakele to tolerate fish oil for her elevated TGs, with elevated LFTS will not initiate fibrates recommend strict Carb management Her updated medication list for this problem includes: Atorvastatin 40 Mg Tablet (Atorvastatin) ..... Take 1 tablet by mouth daily Zetia 10 Mg Tablet (Ezetimibe) ..... Take 1 tablet by mouth once a day Tigre Gifford MD [id number],C, P TCA stenting of a complex chronic total occlusion 100% occluded c ollateralized RCA in the setting of inferior wall ST-elevation [place] t reated with angioplasty and followed by stenting of the posterior d escending artery with a 3.25 x 23 Xience drug-eluting stent with an o verlapping, more proximally plated 35x 18 Resolute drug-eluting stent i nto the AV groove of the RCA, proximal to the FDA-PLV bifurcation. A 3 rd stent was placed in the mid RCA proximal to the RV marginal with p lacement of a 4.5 x 13 ultra bare metal stent treating a high-grade f ocal 80% lesion. D ES DAPT ASA/Brilinta 12 motnhs until 07/2018. June 26, 2020 r ecent stress 02/2020 CONCLUSIONS: 1 . Normal vasodilator stress EKG. There were no ischemic ST or T changes. 2 . The inferobasilar wall has a moderate perfusion abnormality defect. The perfusion defect is small in size. The defect is not r eversible. 3 . There is a breast attenuation artifact noted. The severity of the artifact is moderate. Technical quality of study is fair. Left v entricle cavity size with stress is unchanged. 4 . Left Ventricular Ejection Fraction is 56 %. TID: 0.98. Tigre Gifford MD [id number],C, n o new current dizzines sxs are not similar to prior TIA carotid CONCLUSIONS: 1 . Mild plaque with less than 50% stenosis of the internal carotid arteries bilaterally. 2 . Vertebral flow is antegrade bilaterally. Tigre Gifford MD [id number],S,H as PCT requiring phlebotomies FROM [facility] p[roceedinggs P CT, the most common type of porphyria, is caused by inhibition of hepatic uroporphyrinogen decarboxylase (UROD). Pathogenesis involves cutaneous phototoxicity due to deposition of alternative metabolic products from excess hepatic porphyrinogen accumulation. Approximately 20% of cases are associated with familial UROD mutations,1,2 whereas 80% of patients present with acquired PCT with absence of UROD mutations. These patients often have liver damage, frequently from alcohol, hepatitis C, human immunodeficiency virus infection, or hemochromatosis.2, 3, 4, 5 Typical presenting features include bullae and dyspigmentation of sun-exposed areas. First-line treatment is therapeutic phlebotomy of 450 mL every 2 weeks until ferritin concentration is less than 20 to 25 ng/dL.2 Additional management recommendations include broad-spectrum sun protection, alcohol cessation, and hepatitis C treatment. Hydroxychloroquine can be used when phlebotomy is contraindicated.2 Tigre Gifford MD [id number],S,h aving intermitten chest pain similar to how she had felt with prior stent procedures. will obtain nuclear stress and give her some nitro pills and see if the inferior wall is abnormal in which case she will need a cath Tigre Gifford MD [id number],C, T he following medications were removed from the medication list: Toujeo Max U-300 Solostar 300 Unit/ml (3 Ml) Insulin Pen (Insulin glargine u-300 conc) ..... 70 unit once a day Her updated medication list for this problem includes: Aspirin 81 Mg Tablet,delayed Release (dr/ec) (Aspirin) ..... 1 tablet by mouth once a day Losartan 50 Mg Tablet (Losartan) ..... Take 1 tablet by mouth once a day Tresiba Flextouch U-100 100 Unit/ml (3 Ml) Insulin Pen (Insulin degludec) Metformin 500 Mg Tablet (Metformin) Tigre Gifford MD [id number],C, P TCA stenting of a complex chronic total occlusion 100% occluded c ollateralized RCA in the setting of inferior wall ST-elevation [place] t reated with angioplasty and followed by stenting of the posterior d escending artery with a 3.25 x 23 Xience drug-eluting stent with an o verlapping, more proximally plated 35x 18 Resolute drug-eluting stent i nto the AV groove of the RCA, proximal to the FDA-PLV bifurcation. A 3 rd stent was placed in the mid RCA proximal to the RV marginal with p lacement of a 4.5 x 13 ultra bare metal stent treating a high-grade f ocal 80% lesion. D ES DAPT ASA/Brilinta 12 motnhs until 07/2018. June 26, 2020 r ecent stress 02/2020 CONCLUSIONS: 1 . Normal vasodilator stress EKG. There were no ischemic ST or T changes. 2 . The inferobasilar wall has a moderate perfusion abnormality defect. The perfusion defect is small in size. The defect is not r eversible. 3 . There is a breast attenuation artifact noted. The severity of the artifact is moderate. Technical quality of study is fair. Left v entricle cavity size with stress is unchanged. 4 . Left Ventricular Ejection Fraction is 56 %. TID: 0.98. Tigre Gifford MD [id number],S,C ONCLUSIONS: e 2019 1 . Technically difficult study, secondary to poor acoustic windows. There is poor endocardial visualization. Interpretation is b ased on available limited views. Normal left ventricular systolic function. Normal left ventricular size. Normal left ventricular w all thickness. There is E to A wave reversal consistent with impaired LV relaxation. Left ventricular ejection fraction is m easured at 65 %. 2 . Normal right ventricular size. Normal right ventricular systolic function. 3 . Mild mitral valve regurgitation. 4 . There is trace physiologic tricuspid valve regurgitation. 5 . There is trace physiologic pulmonic valve regurgitation. Tigre Gifford MD [id number],C, O n 2 L of O2 with CPAP. Tigre Gifford MD [id number],C, B P today: 102/70 P rior BP: 136/92 (06/26/2020) Labs Reviewed: C reat: 1.16 (06/27/2020) C hol: 130 (06/27/2020) HDL: 30 (06/27/2020) Her updated medication list for this problem includes: Aspirin 81 Mg Tablet,delayed Release (dr/ec) (Aspirin) ..... 1 tablet by mouth once a day Losartan 50 Mg Tablet (Losartan) ..... Take 1 tablet by mouth once a day Coreg 6.25 Mg Tablet (Carvedilol) ..... 1 tablet twice a day Tigre Gifford MD [id number],Francisca,a dvised for her to stop vescepa. reduce carbs in her diet. stop eating ramen noodles. Tigre Gifford MD [id number],C, n o new current dizzines sxs are not similar to prior TIA carotid CONCLUSIONS: 1 . Mild plaque with less than 50% stenosis of the internal carotid arteries bilaterally. 2 . Vertebral flow is antegrade bilaterally. Tigre Gifford MD Cardiology: S kin incision are well healed. Tigre Gifford MD Cardiology: Francisca lemusk Carotids C ONCLUSIONS: 1 . Mild plaque with less than 50% stenosis of the internal carotid arteries bilaterally. 2 . Vertebral flow is antegrade bilaterally. Tigre Gifford MD Cardiology: s he had a CABG since then has had sternal wound issues. had CABGx4 THAPA to RAMUS. LEft radial to OM SVG to PDA and PLB. 04/12/21 due to severe ISR of the RCA distributiuin June 03, 2022 R esidual sternal pain noted September 02, 2022 S ternum pain is unchanged. March 03, 2023 I mproved sternal pain July 07, 2023 S he needs to get ischemic workup since she passed out. Recommend for a PET CT due to elevated BMI of 36 and prior revasc and chest reconstruction. Tigre Gifford MD Cardiology:Check Tel e monitor for 2 weeks. Needs an ischemic workup done D iscussion of benefits for remote patient monitoring took place. Patient gives consent for remote monitoring of physiologic parameters including, but not limited to, weight, blood pressure, pulse oximetry, respiratory flow rate. Tigre Gifford MD Cardiology:check tele for 48 hrs , having palps Tigre Gifford MD Cardiology: Jazmin ROWELL ON BRILENTA 60 bid UNABLE TO TAKE PLAVIX DUE TO ALLERGY Her updated medication list for this problem includes: Metoprolol Succinate 25 Mg Tablet Extended Release 24 Hr (Metoprolol succinate) ..... Take 1 1/2 tablet by mouth once a day Brilinta 60 Mg Tablet (Ticagrelor) ..... Take 1 tablet by mouth twice a day Ranolazine 500 Mg Tablet Extended Release 12 Hr (Ranolazine) ..... Take 1 tablet by mouth twice a day for chronic angina Nitroglycerin 0.4 Mg Tablet, Sublingual (Nitroglycerin) ..... 1 tablet under tongue as directed as needed 1 tablet under tongue for chest pain. may repeat every 5 minutes if still having chest pain- to max of 3 tablets per episode. Aspirin 81 Mg Tablet,delayed Release (dr/ec) (Aspirin) ..... 1 tablet by mouth once a day Tigre Gifford MD Cardiology: H er updated medication list for this problem includes: Atorvastatin 40 Mg Tablet (Atorvastatin) ..... Take 1 tablet by mouth once a day Ezetimibe 10 Mg Tablet (Ezetimibe) ..... Take 1 tablet by mouth once a day Fenofibrate 160 Mg Tablet (Fenofibrate) ..... Take 1 tablet by mouth once a day Tigre Gifford MD Cardiology Tigre Gifford MD Cardiology: C heck carotid US n o new current dizzines sxs are not similar to prior TIA carotid CONCLUSIONS: 1 . Mild plaque with less than 50% stenosis of the internal carotid arteries bilaterally. 2 . Vertebral flow is antegrade bilaterally A llergic to plavix, remains on Brilinta 60 mg BID (although is brilinta ideally approved for PAD, is better than taking Ticlid since she is allergic to Plavix Tigre Gifford MD Cardiology: O n 2 L of O2 with CPAP. The patient is using CPAP on a regular basis. The patient has been benefiting from therapy and should continue use. Tigre Gifford MD Cardiology: s he had a CABG since then has had sternal wound issues. had CABGx4 THAPA to RAMUS. LEft radial to OM SVG to PDA and PLB. 04/12/21 due to severe ISR of the RCA distributiuin June 03, 2022 R esidual sternal pain noted September 02, 2022 S ternum pain is unchanged. March 03, 2023 I mproved sternal pain Tigre Gifford MD Cardiology: S kin incision are well healed. Tigre Gifford MD Cardiology:A1C was 8.4% Sess PCP Tigre Gifford MD Cardiology: E F 65% per last echo 02/2020 A pril 2022 C ONCLUSIONS: 1 . Septal motion consistent with post-operative state. Normal left ventricular systolic function. Normal left ventricular size. N ormal left ventricular wall thickness. There is E to A wave reversal consistent with impaired LV relaxation. E/E': 6.1 Left v entricular ejection fraction is measured at 55 %. 2 . Normal right ventricular size. Normal right ventricular systolic function. 3 . Trace MR TR CA. 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 The patient is using CPAP on a regular basis. The patient has been benefiting from therapy and should continue use. Tigre Gifford MD Cardiology: C heck carotid US n o new current dizzines sxs are not similar to prior TIA carotid CONCLUSIONS: 1 . Mild plaque with less than 50% stenosis of the internal carotid arteries bilaterally. 2 . Vertebral flow is antegrade bilaterally A llergic to plavix, remains on Brilinta 60 mg BID (although is brilinta ideally approved for PAD, is better than taking Ticlid since she is allergic to Plavix Tigre Gifford MD Cardiology: s he had a CABG since then has had sternal wound issues. had CABGx4 THAPA to RAMUS. LEft radial to OM SVG to PDA and PLB. 04/12/21 due to severe ISR of the RCA distributiuin June 03, 2022 R esidual sternal pain noted September 02, 2022 S ternum pain is unchanged. Tigre Gifford MD Cardiology: S kin incision are well healed. Tigre Gifford MD Cardiology:Discussio n of benefits for remote patient monitoring took place. Patient gives consent for remote monitoring of physiologic parameters including, but not limited to, weight, blood pressure, pulse oximetry, respiratory flow rate. Her updated medication list for this problem includes: Toprol Xl 25 Mg Tablet Extended Release 24 Hr (Metoprolol succinate) ..... Take 1 tablet by mouth every day Losartan 50 Mg Tablet (Losartan) ..... Take 1 tablet by mouth once a day take 1 tablet by mouth once daily Aspirin 81 Mg Tablet,delayed Release (dr/ec) (Aspirin) ..... 1 tablet by mouth once a day BP today: 138/91 P rior BP: 128/97 (03/17/2022) Labs Reviewed: C reat: 0.83 (12/31/2020) C hol: 129 (12/31/2020) HDL: 29 (12/31/2020) Tigre Gifford MD Cardiology:Check car otid US n o new current dizzines sxs are not similar to prior TIA carotid CONCLUSIONS: 1 . Mild plaque with less than 50% stenosis of the internal carotid arteries bilaterally. 2 . Vertebral flow is antegrade bilaterally A llergic to plavix, remains on Brilinta 60 mg BID (although is brilinta ideally approved for PAD, is better than taking Ticlid since she is allergic to Plavix Tigre Gifford MD Cardiology:Check lip id panel and LFTs H er updated medication list for this problem includes: Atorvastatin 40 Mg Tablet (Atorvastatin) ..... Take 1 tablet by mouth daily Fenofibrate 160 Mg Tablet (Fenofibrate) ..... Take 1 tablet by mouth once a day Ezetimibe 10 Mg Tablet (Ezetimibe) ..... Take 1 tablet by mouth once a day Tigre Gifford MD Cardiology:Check Carotids Ignacio Gifford MD Cardiology: s he had a CABG since then has had sternal wound issues. had CABGx4 THAPA to RAMUS. LEft radial to OM SVG to PDA and PLB. 04/12/21 due to severe ISR of the RCA distributiuin June 03, 2022 R esidual sternal pain noted Tigre Gifford MD Cardiology:Skin incision are wel l healed. Tigre Gifford MD Cardiology: n o new current dizzines sxs are not similar to prior TIA carotid CONCLUSIONS: 1 . Mild plaque with less than 50% stenosis of the internal carotid arteries bilaterally. 2 . Vertebral flow is antegrade bilaterally A llergic to plavix, remains on Brilinta 60 mg BID (although is brilinta ideally approved for PAD, is better than taking Ticlid since she is allergic to Plavix Tigre Gifford MD Cardiology: B P today: 128/97 P rior BP: 123/79 (11/10/2021) Labs Reviewed: C reat: 0.83 (12/31/2020) C hol: 129 (12/31/2020) HDL: 29 (12/31/2020) Her updated medication list for this problem includes: Toprol Xl 25 Mg Tablet Extended Release 24 Hr (Metoprolol succinate) ..... Take 1 tablet by mouth every day Losartan 50 Mg Tablet (Losartan) ..... Take 1 tablet by mouth once a day take 1 tablet by mouth once daily Aspirin 81 Mg Tablet,delayed Release (dr/ec) (Aspirin) ..... 1 tablet by mouth once a day Tigre Gifford MD Cardiology:good idea to see Dr Margot Aceves for DM, insulin pump may be a benefit for her Tigre Gifford MD Cardiology: T his is improved. she had a CABG since then has had sternal wound issues. had CABGx4 THAPA to RAMUS. LEft radial to OM SVG to PDA and PLB. 04/12/21 due to severe ISR of the RCA distributiuin Tigre Gifford MD Cardiology:she had a CABG since then has had sternal wound issues. had CABGx4 THAPA to RAMUS. LEft radial to OM SVG to PDA and PLB. 04/12/21 due to severe ISR of the RCA distributiuin Tigre Gifford MD Cardiology: s he had a CABG since then has had sternal wound issues. had CABGx4 THAPA to RAMUS. LEft radial to OM SVG to PDA and PLB. 04/12/21 due to severe ISR of the RCA distributiuin P TCA stenting of a complex chronic total occlusion 100% occluded c ollateralized RCA in the setting of inferior wall [place] t reated with angioplasty and followed by stenting of the posterior d escending artery with a 3.25 x 23 Xience drug-eluting stent with an o verlapping, more proximally plated 35x 18 Resolute drug-eluting stent i nto the AV groove of the RCA, proximal to the FDA-PLV bifurcation. A 3 rd stent was placed in the mid RCA proximal to the RV marginal with p lacement of a 4.5 x 13 ultra bare metal stent treating a high-grade focal 80% lesion. D ES DAPT ASA/Brilinta 12 motnhs until 07/2018. June 26, 2020 r ecent stress 02/2020 CONCLUSIONS: 1 . Normal vasodilator stress EKG. There were no ischemic ST or T changes. 2 . The inferobasilar wall has a moderate perfusion abnormality defect. The perfusion defect is small in size. The defect is not r eversible. 3 . There is a breast attenuation artifact noted. The severity of the artifact is moderate. Technical quality of study is fair. Left v entricle cavity size with stress is unchanged. 4 . Left Ventricular Ejection Fraction is 56 %. TID: 0.98. Tigre Gifford MD Cardiology:Planning on having esophegeal dilitation and colonoscopy done with GI. Upon review of invasive and noninvasive testing and recent exam the patient is an acceptable candidate for the planned surgical procedure recommend to maintain his blood pressure range of 110 to 140 mmHg and a heart rate of 60-80 B p.m.. It is okay to use IV beta blockers calcium channel blockers nitrates and afterload reducing agents to maintain the aforementioned hemodynamics parameters. Tele monitoring and EKG should be done if the patient has arrhythmia during procedure OK TO HOLD ASPIRIN AND BRILINTA FOR PROCEDURE. PT IS ALLERGIC TO PLAVIX. R esume aspirin and brilinta when OK with GI doctor. Tigre Gifford MD Cardiology: n o new current dizzines sxs are not similar to prior TIA carotid CONCLUSIONS: 1 . Mild plaque with less than 50% stenosis of the internal carotid arteries bilaterally. 2 . Vertebral flow is antegrade bilaterally. Tigre Gifford MD Cardiology: O n 2 L of O2 with CPAP. The patient is using CPAP on a regular basis. The patient has been benefiting from therapy and should continue use. Tigre Gifford MD Cardiology: P TCA *tenting of a high-grade 99% proximal to mid LAD lesion reduced to a 0 % residual with implantation of a 3.5 x 18 Resolute drug-eluting stent. D ES DAPT ASA/Brilinta 12 motnhs until 07/2018. she had a CABG since then has had sternal wound issues. had CABGx4 THAPA to RAMUS. LEft radial to OM SVG to PDA and PLB. 04/12/21 due to severe ISR of the RCA distributiuin November 10, 2021 S ternal wound is healed. Have her stop doing bike and stretches at cardiac rehab. Tigre Gifford MD Cardiology:This is improved. Bebo Gifford MD Cardiology: L VEF 45% on cath 03/25/19. 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 Take 1 tablet by mouth once a day Atorvastatin 40 Mg Tablet (Atorvastatin) ..... Take 1 tablet by mouth daily Ezetimibe 10 Mg Tablet (Ezetimibe) ..... Take 1 tablet by mouth once a day Tigre Gifford MD Cardiology: E F 65% per last echo 02/2020 Tigre Gifford MD Cardiology: B P today: 113/73 P rior BP: 145/94 (06/11/2021) Labs Reviewed: C reat: 0.83 (12/31/2020) C hol: 129 (12/31/2020) HDL: 29 (12/31/2020) Her updated medication list for this problem includes: Toprol Xl 25 Mg Tablet Extended Release 24 Hr (Metoprolol succinate) ..... Take 1 tablet by mouth every day Losartan 50 Mg Tablet (Losartan) ..... Take 1 tablet by mouth once a day take 1 tablet by mouth once daily Aspirin 81 Mg Tablet,delayed Release (dr/ec) (Aspirin) ..... 1 tablet by mouth once a day Tigre Gifford MD Cardiology: O n 2 L of O2 with CPAP. The patient is using CPAP on a regular basis. The patient has been benefiting from therapy and should continue use. Tigre Gifford MD Cardiology: n o new current dizzines sxs are not similar to prior TIA carotid CONCLUSIONS: 1 . Mild plaque with less than 50% stenosis of the internal carotid arteries bilaterally. 2 . Vertebral flow is antegrade bilaterally. Tigre Gifford MD Cardiology: f ollows oncology Tigre Gifford MD Cardiology Tigre Gifford MD Cardiology: H er updated medication list for this problem includes: Atorvastatin 40 Mg Tablet (Atorvastatin) ..... Take 1 tablet by mouth daily Zetia 10 Mg Tablet (Ezetimibe) ..... Take 1 tablet by mouth once a day Tigre Gifford MD Cardiology: H er updated medication list for this problem includes: Losartan 100 Mg Tablet (Losartan) ..... Take 1 tablet by mouth once a day Aspirin 81 Mg Tablet,delayed Release (dr/ec) (Aspirin) ..... 1 tablet by mouth once a day Coreg 6.25 Mg Tablet (Carvedilol) ..... 1 tablet twice a day BP today: 145/94 P rior BP: 132/66 (03/19/2021) Labs Reviewed: C reat: 0.83 (12/31/2020) C hol: 129 (12/31/2020) HDL: 29 (12/31/2020) Tigre Gifford MD Cardiology: O n 2 L of O2 with CPAP. Tigre Gifford MD Cardiology: s he had a CABG since then has had sternal wound issues. had CABGx4 THAPA to RAMUS. LEft radial to OM SVG to PDA and PLB. 04/12/21 due to severe ISR of the RCA distributiuin P TCA stenting of a complex chronic total occlusion 100% occluded c ollateralized RCA in the setting of inferior wall [place] t reated with angioplasty and followed by stenting of the posterior d escending artery with a 3.25 x 23 Xience drug-eluting stent with an o verlapping, more proximally plated 35x 18 Resolute drug-eluting stent i nto the AV groove of the RCA, proximal to the FDA-PLV bifurcation. A 3 rd stent was placed in the mid RCA proximal to the RV marginal with p lacement of a 4.5 x 13 ultra bare metal stent treating a high-grade focal 80% lesion. D ES DAPT ASA/Brilinta 12 motnhs until 07/2018. June 26, 2020 r ecent stress 02/2020 CONCLUSIONS: 1 . Normal vasodilator stress EKG. There were no ischemic ST or T changes. 2 . The inferobasilar wall has a moderate perfusion abnormality defect. The perfusion defect is small in size. The defect is not r eversible. 3 . There is a breast attenuation artifact noted. The severity of the artifact is moderate. Technical quality of study is fair. Left v entricle cavity size with stress is unchanged. 4 . Left Ventricular Ejection Fraction is 56 %. TID: 0.98. Tigre Gifford MD Cardiology: P TCA *tenting of a high-grade 99% proximal to mid LAD lesion reduced to a 0 % residual with implantation of a 3.5 x 18 Resolute drug-eluting stent. D ES DAPT ASA/Brilinta 12 motnhs until 07/2018. she had a CABG since then has had sternal wound issues. had CABGx4 THAPA to RAMUS. LEft radial to OM SVG to PDA and PLB. 04/12/21 due to severe ISR of the RCA distributiuin Tigre Gifford MD Cardiology:REMAINS O N BRILENTA 60 bid UNABLE TO TAKE PLAVIX DUE TO ALLERGY Tigre Gifford MD Cardiology:she had c ath with ISR w ill start ranexa 500mg bid and see how she does having recurrent cp and bp is lowish will not tolerate nitrates as he gets dizzy periodically Tigre Gifford MD Cardiology Tigre Gifford MD Cardiology Tianna De Los Santos NP Cardiology: H er updated medication list for this problem includes: Atorvastatin 40 Mg Tablet (Atorvastatin) ..... Take 1 tablet by mouth daily Zetia 10 Mg Tablet (Ezetimibe) ..... Take 1 tablet by mouth once a day Tianna De Los Santos NP Cardiology:EF 65% per last echo 02/2020 Tianna De Los Santos NP Cardiology:follows oncology Jim De Los Santos NP Cardiology: B P today: 140/80 P rior BP: 102/70 (12/30/2020) Labs Reviewed: C reat: 0.83 (12/31/2020) C hol: 129 (12/31/2020) HDL: 29 (12/31/2020) Her updated medication list for this problem includes: Aspirin 81 Mg Tablet,delayed Release (dr/ec) (Aspirin) ..... 1 tablet by mouth once a day Losartan 50 Mg Tablet (Losartan) ..... Take 1 tablet by mouth once a day Coreg 6.25 Mg Tablet (Carvedilol) ..... 1 tablet twice a day Tigre Gifford MD Cardiology:recalls A 1c was 7.0 Her updated medication list for this problem includes: Aspirin 81 Mg Tablet,delayed Release (dr/ec) (Aspirin) ..... 1 tablet by mouth once a day Losartan 50 Mg Tablet (Losartan) ..... Take 1 tablet by mouth once a day Tresiba Flextouch U-100 100 Unit/ml (3 Ml) Insulin Pen (Insulin degludec) Metformin 500 Mg Tablet (Metformin) Tigre Gifford MD Cardiology: P TCA *tenting of a high-grade 99% proximal to mid LAD lesion reduced to a 0 % residual with implantation of a 3.5 x 18 Resolute drug-eluting stent. D ES DAPT ASA/Brilinta 12 motnhs until 07/2018. Tigre Gifford MD Cardiology:unable to tolerate fish oil for her elevated TGs, with elevated LFTS will not initiate fibrates recommend strict Carb management Her updated medication list for this problem includes: Atorvastatin 40 Mg Tablet (Atorvastatin) ..... Take 1 tablet by mouth daily Zetia 10 Mg Tablet (Ezetimibe) ..... Take 1 tablet by mouth once a day Tigre Gifford MD Cardiology: P TCA stenting of a complex chronic total occlusion 100% occluded c ollateralized RCA in the setting of inferior wall ST-elevation [place] t reated with angioplasty and followed by stenting of the posterior d escending artery with a 3.25 x 23 Xience drug-eluting stent with an o verlapping, more proximally plated 35x 18 Resolute drug-eluting stent i nto the AV groove of the RCA, proximal to the FDA-PLV bifurcation. A 3 rd stent was placed in the mid RCA proximal to the RV marginal with p lacement of a 4.5 x 13 ultra bare metal stent treating a high-grade focal 80% lesion. D ES DAPT ASA/Brilinta 12 motnhs until 07/2018. June 26, 2020 r ecent stress 02/2020 CONCLUSIONS: 1 . Normal vasodilator stress EKG. There were no ischemic ST or T changes. 2 . The inferobasilar wall has a moderate perfusion abnormality defect. The perfusion defect is small in size. The defect is not r eversible. 3 . There is a breast attenuation artifact noted. The severity of the artifact is moderate. Technical quality of study is fair. Left v entricle cavity size with stress is unchanged. 4 . Left Ventricular Ejection Fraction is 56 %. TID: 0.98. Tigre Gifford MD Cardiology: n o new current dizzines sxs are not similar to prior TIA carotid CONCLUSIONS: 1 . Mild plaque with less than 50% stenosis of the internal carotid arteries bilaterally. 2 . Vertebral flow is antegrade bilaterally. Tigre Gifford MD Cardiology:Has PCT r equiring phlebotomies FROM [facility] p[roceedinggs P CT, the most common type of porphyria, is caused by inhibition of hepatic uroporphyrinogen decarboxylase (UROD). Pathogenesis involves cutaneous phototoxicity due to deposition of alternative metabolic products from excess hepatic porphyrinogen accumulation. Approximately 20% of cases are associated with familial UROD mutations,1,2 whereas 80% of patients present with acquired PCT with absence of UROD mutations. These patients often have liver damage, frequently from alcohol, hepatitis C, human immunodeficiency virus infection, or hemochromatosis.2, 3, 4, 5 Typical presenting features include bullae and dyspigmentation of sun-exposed areas. First-line treatment is therapeutic phlebotomy of 450 mL every 2 weeks until ferritin concentration is less than 20 to 25 ng/dL.2 Additional management recommendations include broad-spectrum sun protection, alcohol cessation, and hepatitis C treatment. Hydroxychloroquine can be used when phlebotomy is contraindicated.2 Tigre Gifford MD Cardiology:having in termitten chest pain similar to how she had felt with prior stent procedures. will obtain nuclear stress and give her some nitro pills and see if the inferior wall is abnormal in which case she will need a cath Tigre Gifford MD Cardiology: T he following medications were removed from the medication list: Toujeo Max U-300 Solostar 300 Unit/ml (3 Ml) Insulin Pen (Insulin glargine u-300 conc) ..... 70 unit once a day H er updated medication list for this problem includes: Aspirin 81 Mg Tablet,delayed Release (dr/ec) (Aspirin) ..... 1 tablet by mouth once a day Losartan 50 Mg Tablet (Losartan) ..... Take 1 tablet by mouth once a day Tresiba Flextouch U-100 100 Unit/ml (3 Ml) Insulin Pen (Insulin degludec) Metformin 500 Mg Tablet (Metformin) Tigre Gifford MD Cardiology: P TCA stenting of a complex chronic total occlusion 100% occluded c ollateralized RCA in the setting of inferior wall ST-elevation [place] t reated with angioplasty and followed by stenting of the posterior d escending artery with a 3.25 x 23 Xience drug-eluting stent with an o verlapping, more proximally plated 35x 18 Resolute drug-eluting stent i nto the AV groove of the RCA, proximal to the FDA-PLV bifurcation. A 3 rd stent was placed in the mid RCA proximal to the RV marginal with p lacement of a 4.5 x 13 ultra bare metal stent treating a high-grade focal 80% lesion. D ES DAPT ASA/Brilinta 12 motnhs until 07/2018. June 26, 2020 r ecent stress 02/2020 CONCLUSIONS: 1 . Normal vasodilator stress EKG. There were no ischemic ST or T changes. 2 . The inferobasilar wall has a moderate perfusion abnormality defect. The perfusion defect is small in size. The defect is not r eversible. 3 . There is a breast attenuation artifact noted. The severity of the artifact is moderate. Technical quality of study is fair. Left v entricle cavity size with stress is unchanged. 4 . Left Ventricular Ejection Fraction is 56 %. TID: 0.98. Tigre Gifford MD Cardiology:CONCLUSIO NS: e 2019 1 . Technically difficult study, secondary to poor acoustic windows. There is poor endocardial visualization. Interpretation is b ased on available limited views. Normal left ventricular systolic function. Normal left ventricular size. Normal left ventricular w all thickness. There is E to A wave reversal consistent with impaired LV relaxation. Left ventricular ejection fraction is m easured at 65 %. 2 . Normal right ventricular size. Normal right ventricular systolic function. 3 . Mild mitral valve regurgitation. 4 . There is trace physiologic tricuspid valve regurgitation. 5 . There is trace physiologic pulmonic valve regurgitation. Tigre Gifford MD Cardiology: O n 2 L of O2 with CPAP. Tigre Gifford MD Cardiology: B P today: 102/70 P rior BP: 136/92 (06/26/2020) Labs Reviewed: C reat: 1.16 (06/27/2020) C hol: 130 (06/27/2020) HDL: 30 (06/27/2020) Her updated medication list for this problem includes: Aspirin 81 Mg Tablet,delayed Release (dr/ec) (Aspirin) ..... 1 tablet by mouth once a day Losartan 50 Mg Tablet (Losartan) ..... Take 1 tablet by mouth once a day Coreg 6.25 Mg Tablet (Carvedilol) ..... 1 tablet twice a day Tigre Gifford MD Cardiology:advised f or her to stop vescepa. reduce carbs in her diet. stop eating ramen noodles. Tigre Gifford MD Cardiology: n o new current dizzines sxs are not similar to prior TIA carotid CONCLUSIONS: 1 . Mild plaque with less than 50% stenosis of the internal carotid arteries bilaterally. 2 . Vertebral flow is antegrade bilaterally. Tigre Gifford MD Cardiology follow up : H er updated medication list for this problem includes: Losartan 50mg Tablets (Losartan potassium) ..... Take 1 tablet by mouth daily Coreg 6.25 Mg Oral Tablet (Carvedilol) ..... One tab. twice daily Aspirin Adult Low Dose 81 Mg Oral Tablet Delayed Release (Aspirin) ..... One tab by mouth daily BP today: 136/92 P rior BP: 139/82 (02/07/2020) L abs Reviewed: C reat: 0.96 (03/14/2019) C hol: 154 (03/14/2019) HDL: 26 (03/14/2019) Tigre Gifford MD Cardiology follow up : P TCA stenting of a complex chronic total occlusion 100% occluded c ollateralized RCA in the setting of inferior wall ST-elevation [place] t reated with angioplasty and followed by stenting of the posterior d escending artery with a 3.25 x 23 Xience drug-eluting stent with an o verlapping, more proximally plated 35x 18 Resolute drug-eluting stent i nto the AV groove of the RCA, proximal to the FDA-PLV bifurcation. A 3 rd stent was placed in the mid RCA proximal to the RV marginal with p lacement of a 4.5 x 13 ultra bare metal stent treating a high-grade f ocal 80% lesion. D ES DAPT ASA/Brilinta 12 motnhs until 07/2018. June 26, 2020 r ecent stress 02/2020 CONCLUSIONS: 1 . Normal vasodilator stress EKG. There were no ischemic ST or T changes. 2 . The inferobasilar wall has a moderate perfusion abnormality defect. The perfusion defect is small in size. The defect is not r eversible. 3 . There is a breast attenuation artifact noted. The severity of the artifact is moderate. Technical quality of study is fair. Left v entricle cavity size with stress is unchanged. 4 . Left Ventricular Ejection Fraction is 56 %. TID: 0.98. Tigre Gifford MD Cardiology follow up : W ill check echo and Lexiscan. C ONCLUSIONS: 1 . Normal vasodilator stress EKG. There were no ischemic ST or T changes. 2 . The inferobasilar wall has a moderate perfusion abnormality defect. The perfusion defect is small in size. The defect is not r eversible. 3 . There is a breast attenuation artifact noted. The severity of the artifact is moderate. Technical quality of study is fair. Left v entricle cavity size with stress is unchanged. 4 . Left Ventricular Ejection Fraction is 56 %. TID: 0.98. CONCLUSIONS: 1 . Technically difficult study, secondary to poor acoustic windows. There is poor endocardial visualization. Interpretation is b ased on available limited views. Normal left ventricular systolic function. Normal left ventricular size. Normal left ventricular w all thickness. There is E to A wave reversal consistent with impaired LV relaxation. Left ventricular ejection fraction is m easured at 65 %. 2 . Normal right ventricular size. Normal right ventricular systolic function. 3 . Mild mitral valve regurgitation. 4 . There is trace physiologic tricuspid valve regurgitation. 5 . There is trace physiologic pulmonic valve regurgitation. Tigre Gifford MD Cardiology follow up :only when hypoglycemic does she get dizzy Tigre Gifford MD Cardiology follow up : n o new current dizzines sxs are not similar to prior TIA Tigre Gifford MD Cardiology:PTCA *ten ting of a high-grade 99% proximal to mid LAD lesion reduced to a 0 % residual with implantation of a 3.5 x 18 Resolute drug-eluting stent. D ES DAPT ASA/Brilinta 12 motnhs until 07/2018. Tigre Gifford MD Cardiology:PTCA sten ting of a complex chronic total occlusion 100% occluded c ollateralized RCA in the setting of inferior wall ST-elevation [place] t reated with angioplasty and followed by stenting of the posterior d escending artery with a 3.25 x 23 Xience drug-eluting stent with an o verlapping, more proximally plated 35x 18 Resolute drug-eluting stent i nto the AV groove of the RCA, proximal to the FDA-PLV bifurcation. A 3 rd stent was placed in the mid RCA proximal to the RV marginal with p lacement of a 4.5 x 13 ultra bare metal stent treating a high-grade f ocal 80% lesion. D ES DAPT ASA/Brilinta 12 motnhs until 07/2018. Tigre Gifford MD Cardiology: O n CPAP for MISTY. T he patient is using CPAP on a regular basis. The patient has been benefiting from therapy and should continue use. Tigre Gifford MD Cardiology:B/L PNA, will check PFTs. Has Hx of significant COPD based on prior PFT. Uses O2 and has CPAP. Tigre Gifford MD Cardiology: O n 2 L of O2 with CPAP. Tigre Gifford MD Cardiology: B P today: 139/82 P rior BP: 156/96 (12/25/2019) Labs Reviewed: C reat: 0.96 (03/14/2019) C hol: 154 (03/14/2019) HDL: 26 (03/14/2019) Her updated medication list for this problem includes: Losartan 50mg Tablets (Losartan potassium) ..... Take 1 tablet by mouth daily Coreg 6.25 Mg Oral Tablet (Carvedilol) ..... One tab. twice daily Aspirin Adult Low Dose 81 Mg Oral Tablet Delayed Release (Aspirin) ..... One tab by mouth daily Tigre Gifford MD Cardiology: B P today: 156/96 P rior BP: 127/88 (09/25/2019) Labs Reviewed: C reat: 0.96 (03/14/2019) C hol: 154 (03/14/2019) HDL: 26 (03/14/2019) The following medications were removed from the medication list: Hydrochlorothiazide 25mg Tablets (Hydrochlorothiazide) ..... Take 1 tablet by mouth daily Her updated medication list for this problem includes: Losartan 50mg Tablets (Losartan potassium) ..... Take 1 tablet by mouth daily Coreg 6.25 Mg Oral Tablet (Carvedilol) ..... One tab. twice daily Aspirin Adult Low Dose 81 Mg Oral Tablet Delayed Release (Aspirin) ..... One tab by mouth daily Tianna De Los Santos NP Cardiology:Reviewed need to remain on Atorvastatin 40 mg once daily. Her updated medication list for this problem includes: Fenofibrate 145 Mg Oral Tablet (Fenofibrate) Atorvastatin 40mg Tablets (Atorvastatin calcium) ..... Take 1 tablet by mouth daily Tianna De Los Santos NP Cardiology:Will check echo. Jim De Los Santos NP Cardiology:Had ptca of the RCA with angiosculpt and wolverine cutting balloons involving PLB bifurcation and PDA where she has had prior WILLA and had treatment of high-grade ISR. Remains on ASA/brilinta at present. Per SS's last visit, She cannot come off of anti platelets until February 2020. Need to defer ENT or dental work until then. Will check echo and stress test. Tianna De Los Santos NP Cardiology:Will check echo and L exiscan. Tianna De Los Santos NP Cardiology:LVEF 45% on cath 03/25/19. Markus Melendez Cardiology: B P today: 127/88 P rior BP: 102/80 (03/28/2019) Labs Reviewed: C reat: 0.96 (03/14/2019) C hol: 154 (03/14/2019) HDL: 26 (03/14/2019) Her updated medication list for this problem includes: Hydrochlorothiazide 25mg Tablets (Hydrochlorothiazide) ..... Take 1 tablet by mouth daily Losartan 50mg Tablets (Losartan potassium) ..... Take 1 tablet by mouth daily Coreg 6.25 Mg Oral Tablet (Carvedilol) ..... One tab. twice daily Aspirin Adult Low Dose 81 Mg Oral Tablet Delayed Release (Aspirin) ..... One tab by mouth daily Markus Melendez Cardiology:On 2 L of O2 with CPA P. Markus Melendez Cardiology: H ad ptca of the RCA with angiosculpt and wolverine cutting balloons involving PLB bifurcation and PDA where she has had prior WILLA and had treatment of high-grade ISR. Remains on ASA/brilinta at present. September 25, 2019 S he cannot come off of anti platelets until February 2020. Need to defer ENT or dental work until then. Markus Melendez Cardiology:LVEF 45% on cath 02/27 01/14. Tigre Gifford MD Cardiology:Had ptca of the RCA with angiosculpt and wolverine cutting balloons involving PLB bifurcation and PDA where she has had prior WILLA and had treatment of high-grade ISR. Remains on ASA/brilinta at present. Tigre Gifford MD Cardiology: B P today: 102/80 P rior BP: 90/70 (12/07/2018) Labs Reviewed: C reat: 1.05 (11/03/2017) C hol: 128 (11/03/2017) HDL: 23 (11/03/2017) Her updated medication list for this problem includes: Hydrochlorothiazide 25mg Tablets (Hydrochlorothiazide) ..... Take 1 tablet by mouth daily Losartan 50mg Tablets (Losartan potassium) ..... Take 1 tablet by mouth daily Coreg 6.25 Mg Oral Tablet (Carvedilol) ..... One tab. twice daily Aspirin Adult Low Dose 81 Mg Oral Tablet Delayed Release (Aspirin) ..... One tab by mouth daily Tigre Gifford MD Cardiology follow up : Haylee benitez 07/2018 Conclusions: 1 . Technically difficult study, limited views secondary to poor acoustic windows. Interpretation is b ased on available limited views. Normal left ventricular systolic function. Mild enlargement of left v entricular chamber. Normal wall thickness. Normal E/E` 14.0. Left ventricular ejection fraction is e stimated at 60 %. 2 . Normal right ventricular size. Normal right ventricular systolic function. 3 . Mild mitral annular calcification. The mitral valve leaflets appear myxomatous. Mild mitral valve r egurgitation. 4 . The tricuspid valve is not well visualized. There is mild tricuspid regurgitation. IVC is normal in size w ith normal respiratory response. Unable to adequately assess the RVSP. Tigre Gifford MD Cardiology follow up : s chedule cath w ill also check PFTs since she has a hx of COPD, Tigre Gifford MD Cardiology follow up : T he patient is using CPAP on a regular basis. The patient has been benefiting from therapy and should continue use. Tigre Gifford MD Cardiology follow up : W orsening CP and SOB. Symptoms similar to when she had her stents placed. WIll schedule cath. T he risks and benefits of the procedure, including but not limited the risk of heart attack, , stroke, bleeding, kidney failure, and loss of limb as well as the alternative of continued medical therapy, stress testing or bypass surgery were discussed with the patient and any present family members and the patient wishes to proceed with cardiac cath and stenting. The patient and family had opportunity to discuss this with us. Written material including informed consent was given out. Tigre Gifford MD Cardiology: s /p revascularization. Had WILLA and completed DAPT for 12 months. W as started on Plavix and broke out in a rash, needs to be switched to Brilinta. now stopped Tigre Gifford MD Cardiology: L VEF now 60%. Was in hosital with SOB. query related to brilinta. will d/c. maintian asa 81mg dialy Tigre Gifford MD Cardiology:current d izzines sxs are not similar to prior TIA Tigre Gifford MD Cardiology: H ad recent pneumonia. However, she feels that her current symptosm are unrelated to the pneumonia. Her updated medication list for this problem includes: Losartan Potassium 50 Mg Oral Tablet (Losartan potassium) ..... Take one tablet daily Coreg 6.25 Mg Oral Tablet (Carvedilol) ..... One tab. twice daily Aspirin Adult Low Dose 81 Mg Oral Tablet Delayed Release (Aspirin) ..... One tab by mouth daily Orders: 9 9215 HIGH Complex ([id number]) C ardiac Cath - Left - GC (*) Tigre Gifford MD Cardiology:Echo 08/15 18 Conclusions: 1 . Technically difficult study, limited views secondary to poor acoustic windows. Interpretation is b ased on available limited views. Normal left ventricular systolic function. Mild enlargement of left v entricular chamber. Normal wall thickness. Normal E/E` 14.0. Left ventricular ejection fraction is e stimated at 60 %. 2 . Normal right ventricular size. Normal right ventricular systolic function. 3 . Mild mitral annular calcification. The mitral valve leaflets appear myxomatous. Mild mitral valve r egurgitation. 4 . The tricuspid valve is not well visualized. There is mild tricuspid regurgitation. IVC is normal in size w ith normal respiratory response. Unable to adequately assess the RVSP. Tigre Gifford MD Cardiology: F paty with endocrine. Tigre Gifford MD Cardiology: H er updated medication list for this problem includes: Atorvastatin Calcium 40 Mg Oral Tablet (Atorvastatin calcium) ..... Once daily Tigre Gifford MD Cardiology: O n CPAP for MISTY. T he patient is using CPAP on a regular basis. The patient has been benefiting from therapy and should continue use. Tigre Gifford MD Cardiology: W orsening CP and SOB. Symptoms similar to when she had her stents placed. WIll schedule cath. T he risks and benefits of the procedure, including but not limited the risk of heart attack, , stroke, bleeding, kidney failure, and loss of limb as well as the alternative of continued medical therapy, stress testing or bypass surgery were discussed with the patient and any present family members and the patient wishes to proceed with cardiac cath and stenting. The patient and family had opportunity to discuss this with us. Written material including informed consent was given out. Echo 09/19/17 Conclusions: 1 . Technically difficult study, limited views secondary to poor acoustic windows. Interpretation is b ased on available limited views. Normal left ventricular systolic function. Normal left ventricular size. N ormal left ventricular wall thickness. There is E to A wave reversal consistent with impaired LV r elaxation. Normal E/E` 9.0. Left ventricular ejection fraction is estimated at 60 %. 2 . Normal right ventricular size. Normal right ventricular systolic function. 3 . No significant valvular abnormalities. Tigre Gifford MD Cardiology: L VEF now 60%. Was in hosital with SOB. query related to brilinta. will d/c. maintian asa 81mg dialy Tigre Gifford MD Cardiology follow up :Follows with endocrine. Labs Reviewed: C reat: 1.05 (11/03/2017) Tigre Gifford MD Cardiology follow up : D ES DAPT ASA/Brilinta 12 motnhs until 07/2018. Tigre Gifford MD Cardiology follow up :08/06/18 echo Conclusions: 1 . Technically difficult study, limited views secondary to poor acoustic windows. Interpretation is b ased on available limited views. Normal left ventricular systolic function. Mild enlargement of left v entricular chamber. Normal wall thickness. Normal E/E` 14.0. Left ventricular ejection fraction is e stimated at 60 %. 2 . Normal right ventricular size. Normal right ventricular systolic function. 3 . Mild mitral annular calcification. The mitral valve leaflets appear myxomatous. Mild mitral valve r egurgitation. 4 . The tricuspid valve is not well visualized. There is mild tricuspid regurgitation. IVC is normal in size w ith normal respiratory response. Unable to adequately assess the RVSP. Tigre Gifford MD Cardiology follow up : s /p revascularization. Has WILLA and needs to be on DAPT for at least 12 months. W as started on Plavix and broke out in a rash, needs to be switched to Brilinta. Tigre Gifford MD Cardiology follow up : L VEF now 60%. Tigre Gifford MD Cardiology follow up : Francisca zee echo for imrpovemenrt of LVEF. Was 40%. 08/06/18 echo Conclusions: 1 . Technically difficult study, limited views secondary to poor acoustic windows. Interpretation is b ased on available limited views. Normal left ventricular systolic function. Mild enlargement of left v entricular chamber. Normal wall thickness. Normal E/E` 14.0. Left ventricular ejection fraction is e stimated at 60 %. 2 . Normal right ventricular size. Normal right ventricular systolic function. 3 . Mild mitral annular calcification. The mitral valve leaflets appear myxomatous. Mild mitral valve r egurgitation. 4 . The tricuspid valve is not well visualized. There is mild tricuspid regurgitation. IVC is normal in size w ith normal respiratory response. Unable to adequately assess the RVSP. Tigre Gifford MD Cardiology hospital follow up: D ES DAPT ASA/Brilinta 12 motnhs until 07/2018. Tigre Gifford MD Cardiology hospital follow up: O n CPAP for MISTY. Adjusted back in September. T he patient is using CPAP on a regular basis. The patient has been benefiting from therapy and should continue use. Tigre Gifford MD Cardiology hospital follow up: M ed rx. CHF. ARB, beta bernadette, ASA, statin. Tigre Gifford MD Cardiology hospital follow up: L VEF now 60%. Tigre Gifford MD Cardiology follow up :On CPAP for MISTY. Adjusted back in September. Tigre Gifford MD Cardiology follow up : H er updated medication list for this problem includes: Glimepiride 2 Mg Oral Tablet (Glimepiride) ..... Take one three times daily Losartan Potassium 50 Mg Oral Tablet (Losartan potassium) ..... Take one tablet daily Aspirin Adult Low Dose 81 Mg Oral Tablet Delayed Release (Aspirin) ..... One tab by mouth daily Lantus Solution (Insulin glargine soln) ..... 60 units once daily Apidra Solostar Solution Pen-injector (Insulin glulisine sopn) ..... 3 times daily Orders: 9 9215 HIGH Complex ([id number]) C ardiac Cath - Left - GC (*) Tigre Gifford MD Cardiology follow up :Had recent pneumonia. However, she feels that her current symptosm are unrelated to the pneumonia. Will do heart cath since her symptoms are similar to what she had prior to her [place] NOnsmoker. H er updated medication list for this problem includes: Losartan Potassium 50 Mg Oral Tablet (Losartan potassium) ..... Take one tablet daily Coreg 6.25 Mg Oral Tablet (Carvedilol) ..... One tab. twice daily Aspirin Adult Low Dose 81 Mg Oral Tablet Delayed Release (Aspirin) ..... One tab by mouth daily Orders: 9 9215 HIGH Complex ([id number]) C ardiac Cath - Left - GC (*) Tigre Gifford MD Cardiology follow up : D ES DAPT ASA/Brilinta 12 motnhs until 07/2018. Tigre Gifford MD Cardiology follow up : D ES DAPT ASA/Brilinta 12 motnhs until 07/2018. Tigre Gifford MD Cardiology follow up :Worsening CP and SOB. Symptoms similar to when she had her stents placed. WIll schedule cath. T he risks and benefits of the procedure, including but not limited the risk of heart attack, , stroke, bleeding, kidney failure, and loss of limb as well as the alternative of continued medical therapy, stress testing or bypass surgery were discussed with the patient and any present family members and the patient wishes to proceed with cardiac cath and stenting. The patient and family had opportunity to discuss this with us. Written material including informed consent was given out. Echo 09/19/17 Conclusions: 1 . Technically difficult study, limited views secondary to poor acoustic windows. Interpretation is b ased on available limited views. Normal left ventricular systolic function. Normal left ventricular size. N ormal left ventricular wall thickness. There is E to A wave reversal consistent with impaired LV r elaxation. Normal E/E` 9.0. Left ventricular ejection fraction is estimated at 60 %. 2 . Normal right ventricular size. Normal right ventricular systolic function. 3 . No significant valvular abnormalities. Tigre Gifford MD Cardiology follow up:LVEF now 60 %. Tirge Gifford MD Cardiology follow up Tigre gonzales MD Cardiology follow up : M ed rx. CHF. ARB, beta bernadette, ASA, statin. Tigre Gifford MD Cardiology follow up Tigre gonzales MD Cardiology follow up Tigre gonzales MD Cardiology follow up : D ES DAPT ASA/Brilinta 12 motnhs until 07/2018. Tigre Gifford MD Cardiology: H er updated medication list for this problem includes: Atorvastatin Calcium 40 Mg Oral Tablet (Atorvastatin calcium) ..... Once daily Tigre Gifford MD Cardiology:Med rx. C HF. ARB, beta bernadette, ASA, statin. Tigre Gifford MD Cardiology:WILLA DAPT ASA/Brilinta 12 motnhs until 07/2018. Tigre Gifford MD Cardiology:WILLA DAPT ASA/Brilinta 12 motnhs until 07/2018. Tigre Gifford MD Cardiology: H er updated medication list for this problem includes: Losartan Potassium 50 Mg Oral Tablet (Losartan potassium) ..... Take one tablet daily Aspirin Adult Low Dose 81 Mg Oral Tablet Delayed Release (Aspirin) ..... One tab by mouth daily Lantus Solution (Insulin glargine soln) ..... 60 units once daily Apidra Solostar Solution Pen-injector (Insulin glulisine sopn) ..... 3 times daily Tigre Gifford MD Cardiology:Check ech o for imrpovemenrt of LVEF. Was 40%. Tigre Gifford MD Cardiology Tigre Gifford MD Cardiology Tigre Gifford MD Cardiology:Check home sleep stud y. Tigre Gifford MD Cardiology:States sh e recently had PFTs at [facility]. W ill have records sent to us. Tigre Gifford MD Cardiology:s/p revas cularization. Has WILLA and needs to be on DAPT for at least 12 months. W as started on Plavix and broke out in a rash, needs to be switched to Brilinta. Tigre Gifford MD [facility] FOLLOW UP: H er updated medication list for this problem includes: Amlodipine Besylate 5 Mg Tabs (Amlodipine besylate) ..... 1 tab daily Orders: E KG ([id number]) BP today: 120/82 Prior BP: / () N uclear Stress Findings: 1. Normal myocardial perfusion imaging after vasodilator stress with Regadenoson. 2 . Normal left ventricular systolic function with a calculated ejection fraction of 74%. 3 . No obvious significant scintigraphic evidence of myocardial ischemia or scar. - GC (04/16/2013) Maryjane Worthy MD Date Name RPM (remote patient monitoring) PROBNP, N TERMINAL PROTHROMBIN TIME WIT H INR CBC (INCLUDES DIFF/P LT) TSH, free T4, total T3 HEMOGLOBIN A1c LIPID PANEL COMPREHENSIVE METABO LIC PANEL, W/EGFR Monitor - Telemetry (Mobile Cardiac) Stress Cardiac PET-C T Complete Echo Holter Monitor 48 hr HEMOGLOBIN A1c LIPID PANEL COMPREHENSIVE METABO LIC PANEL, W/EGFR Carotid Duplex Bilat eral Complete Echo RPM (remote patient monitoring) EKG Cardiac Rehab Other Test PROTHROMBIN TIME WIT H INR CBC (INCLUDES DIFF/P LT) BASIC METABOLIC PANE L W/EGFR Monitor - Telemetry (Mobile Cardiac) PROTHROMBIN TIME WIT H INR CBC (H/H, RBC, INDIC ES, WBC, PLT) COMPREHENSIVE METABO LIC PANEL, W/EGFR LIPID PANEL Stress Regadenoson Carotid Duplex Bilat eral LIPID PANEL COMPREHENSIVE METABO LIC PANEL, W/EGFR 6 minute walk test Ambulatory Oximetry DLCO - 14577 FRC - 99932 FVC - 11153 Stress Regadenoson Stress Regadenoson Complete Echo Complete Echo HEPATIC FUNCTION [place] EL HEMOGLOBIN A1c PROTHROMBIN TIME WIT H INR LIPID PANEL CBC (INCLUDES DIFF/P LT) BASIC METABOLIC PANE L W/EGFR DLCO - 12088 FRC - 54336 FVC - 54960 Complete Echo Cardiac Cath - Left - GC LIPID PANEL COMPREHENSIVE METABO LIC PANEL W/EGFR COMPREHENSIVE METABO LIC PANEL, W/EGFR LIPID PANEL CBC (H/H, RBC, INDIC ES, WBC, PLT) Cardiac Rehab CBC (H/H, RBC, INDIC ES, WBC, PLT) LIPID PANEL COMPREHENSIVE METABO LIC PANEL, W/EGFR Carotid Duplex Bilat eral Complete Echo Mobile Cardiac Tele DLCO - 11617 FRC - 04454 FVC - 98055 Sleep Study Home HISTORY OF PROCEDURES Procedure Date Procedure Name Provider Procedure Notes S tatus EKG Tigre Gifford MD completed EKG Tigre Gifford MD completed EKG Tigre Gifford MD completed EKG Tigre Gifford MD completed EKG Tigre Gifford MD completed EKG Tigre Gifford MD completed Event Monitor Tigre Gifford MD completed EKG Tigre Gifford MD completed EKG Tigre Gifford MD completed EKG Tigre Gifford MD completed EKG Tigre Gifford MD completed EKG Tigre Gifford MD completed Regadenoson, 4 units Sanjaya N S aheta MD completed Cardiolite, 2 units Tigre nguyen MD completed SPECT Images Tigre Gifford MD completed Stress EKG Tiger Gifford MD completed EKG Tgire Gifford MD completed EKG Tigre Gifford MD completed EKG Tigre Gifford MD completed EKG Tigre Gifford MD completed FVC / MVV with bronchodilator - 23476 Tigre Gifford MD completed FRC - 83315 Tigre Gifford MD completed SpO2 w/o 6min walk/titration Tigre Gifford MD completed DLCO - 66410 Tigre Gifford MD completed EKG Tigre Gifford MD completed EKG Tigre Gifford MD completed EKG Tigre Gifford MD completed EKG Tigre Gifford MD completed EKG Tigre Gifford MD completed EKG Tigre Gifford MD completed EKG Tigre Gifford MD completed EKG Tigre Gifford MD completed FVC / MVV with bronchodilator - 01202 Collins Bradford MD completed BLOOD COUNT HEMOGLOBIN Collins Bradford MD completed FRC - 82321 Collins Bradford MD complet ed SpO2 w/o 6min walk/titration Collins Bradford MD completed DLCO - 93422 Collins Bradford MD comple sharan Event Monitor Tigre Gifford MD completed EKG Tigre Gifford MD completed SNOMED-CT: [id number] Current Medications Documented Tigre Gifford MD completed EKG Maryjane Worthy MD completed
--- OUTSIDE RECORDS SUMMARY | 2024-06-24 10:10 | XMS_ITS ---
Author Organization [facility] Address [address] [address] Care Team Providers Care Checkroom Chief Name Role Phone Margot Aceves Primary Care Provider REASON FOR VISIT Lab Review, Er follow up Medications Medication SIG (Take, Route, Frequency, Duration) Notes Start Date End Date Status Tresiba FlexTouch *Please review and pick correct strength-formulat ion from [employer]an options. If intended option is not shown, discontinue and re-order from Quick Search* Unknown Bydureon BCise *Please review and pick correct strength-formulat ion from [employer] options. If intended option is not shown, [...] Unknown Encounters Encounter Location Date Provider Diagnosis [facility] - Margot Aceves [address] [place] [address] 05/27/2024 Margot Aceves Plan Of Treatment No Information Progress Notes * Lizbeth JHAaDOB:1965 ( 59 yo F)Acc No.[id number]:05/27/2024 Progress Notes Patient:?Miracle JHA Provider:?Margot Aceves MD :1965???Age:58 Y???Sex:Female D ate:05/27/2024 Address:[address] [place] [address] [id number] Subjective: * Chief Complaints: * ???1. Lab Review, Er follow up. * Medical History:? * Medications:?Unknown Ozempic (0.25 or 0.5 MG/DOSE)(Semaglutide(0.25 or 0.5MG/DOS)) [...] *Please review and pick correct strength-formulation from [employer] options. If intended option is not shown, discontinue and re-order from Quick Search*, Unknown Tresiba FlexTouch , Notes to Pharmacist: *Please review and pick correct strength-formulation from [employer] options. If intended option is not shown, discontinue and re-order from Quick Search*, Unknown Tresiba FlexTouch(Insulin Degludec) 200 UNIT/ML Solution Pen-injector inject up to 80 units once at bedtime Subcutaneous at bedtime Objective: * Vitals:? Assessment: Plan: * Treatment: * Billing Information: * Visit Code:? * Procedure Codes:? * Electronic signature of Lasha Aceves MD on 06/24/2024 at 10:10 AM MANAGER STORE Sign off status: Pending * Provider:?Margot Aceves MD Date:? 4 Generated for Marino clay/Nain/Enrique on:?06/24/2024 10:10 AM MANAGER STORE
--- OUTSIDE RECORDS SUMMARY | 2024-06-24 10:10 | XMS_ITS | Clinical Summary ---
Author Organization [facility] Address [address] [place] [address] Care Team Providers Care Manager Diesel Name Role Phone Nereida Martin MD Primary Care Provider Allergies Active Allergy Reactions Criticality Noted Date Comments Clopidogrel Itching High 10/15/2019 Codeine Unknown 06/18/2017 Diphenhydramine Hcl Nausea and Vomiting Low 020 Erythromycin Itching Low 06/18/2017 Erythromycin Base Itching Low 10/15/2019 Fluticasone Propion-Salmeterol Hives High 02/19 Lisinopril Cough Low 10/15/2019 Tramadol Unknown,Rash Low 06/18/2017 Medications SYMBICORT 160-4.5 mcg/actuation HFA Aerosol Inhaler 0 Active montelukast (SINGULAIR) 10 mg tablet 0 Active BRILINTA 90 mg Tablet 0 Active Insulin Syringe-Needle U-100 1 mL 31 gauge x 10/11 Syringe 0 Active simvastatin (ZOCOR) 20 mg tablet simvastatin 20 mg tablet TK 1 T PO QD Active pregabalin (LYRICA) 25 mg Capsule 0 Active omeprazole (PriLOSEC) 20 mg Capsule, Delayed Release(E.C.) 0 Active losartan (COZAAR) 50 mg tablet 0 Active ipratropium-albu teroL (DUONEB) 0.5 mg-3 mg(2.5 mg base)/3 mL Solution for Nebulization ipratropium 0.5 mg-albuterol 3 mg (2.5 mg base)/3 mL nebulization soln USE 1 VIAL IN NEBULIZER FOUR TIMES DAILY NEEDED Active TOUJEO MAX U-300 SOLOSTAR 300 unit/mL (3 mL) Insulin Pen 0 Active glimepiride (AMARYL) 4 mg tablet 0 Active FLUoxetine (PROzac) 40 mg capsule 0 Active famotidine (PEPCID) 20 mg tablet 0 Active diclofenac sodium (VOLTAREN) 75 mg Tablet, Delayed Release (E.C.) 0 Active carvediloL (COREG) 6.25 mg tablet 0 Active busPIRone (BUSPAR) 15 mg Tablet 0 Active atorvastatin (LIPITOR) 40 mg tablet 0 Active aspirin (OLEGARIO CHEWABLE) 81 mg Tablet, Chewable Take 81 mg by mouth. 8 Active albuterol HFA 90 mcg inhaler 0 Active multivitamin (DAILY-SCOTT) tablet every 24 hours. Acti ve Insulin [place], Disposable, (BD Ultra-Fine Mini Pen Needle) 31 gauge x 3/16 Needle BD Ultra-Fine Mini Pen Needle 31 gauge x 3/16 Active Insulin [place], Disposable, (BD Ultra-Fine Short Pen Needle) 31 gauge x 5/16 Needle BD Ultra-Fine Short Pen Needle 31 gauge x 5/16 Active Insulin [place], Disposable, (BD Ultra-Fine Short Pen Needle) 31 gauge x 5/16 Needle BD Ultra-Fine Short Pen Needle 31 gauge x 5/16 USE FOUR TIMES DAILY DIRECTED Active blood sugar diagnostic (FreeStyle Lite Strips) Strip FreeStyle Lite Strips Take 1 strip 4 times a day by miscell. route before meals for 30 days. Active acetaminophen 325 mg Capsule Tylenol 325 mg capsule Take 2 capsules as needed by oral route. Active esomeprazole (NexIUM) 40 mg Capsule, Delayed Release(E.C.) esomeprazole magnesium 40 mg capsule,delayed release Active Bydureon BCise 2 mg/0.85 mL Auto-Injector 0 Active exenatide microspheres 2 mg/0.85 mL Auto-Injector Bydureon BCise 2 mg/0.85 mL subcutaneous auto-injector Active fenofibrate (LOFIBRA) 160 mg Tablet 0 Active insulin aspart U-100 (NovoLOG) 100 unit/mL pen syringe Novolog Flexpen U-100 Insulin aspart 100 unit/mL (3 mL) subcutaneous 2 units for every 50mg/dl over 200mg Active Tresiba FlexTouch U-200 200 unit/mL (3 mL) pen syringe 0 Active metFORMIN (GLUCOPHAGE XR) 500 mg Extended Release 24 hour tablet 0 Active BD Ultra-Fine Mini Pen Needle 31 gauge x 3/16 Needle 0 Active polyethylene glycol 3350 (MIRALAX) 17 gram/dose Powder Miralax 17 gram/dose oral powder FPD OR DIRECTED BY DOCTOR Active nitroglycerin (NITROSTAT) 0.4 mg Tablet, Sublingual 1 Active glycopyrrolate (ROBINUL) 1 mg tablet 1 Active fluticasone propionate (FLONASE) 50 mcg/spray [place], Suspension nasal inhaler 1 Active ezetimibe (ZETIA) 10 mg tablet 1 Active DULoxetine (CYMBALTA) 30 mg Capsule, Delayed Release(E.C.) 1 Active hydrOXYzine HCL (ATARAX) 25 mg tablet Take 1 Tablet (25 mg) by mouth 3 times daily as needed for Itching. 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 Family History Medical History Relation Name Comments Cancer Father Heart Disease Father Diabetes Mother Diabetes Sister 1 Relation Name Status Comments Father Mother Sister 1 Alive Sister 2 Alive Son 1 Alive Son 2 Alive Social History Tobacco Use Types Packs/Day Years Used Date Smoking Tobacco: Former Cigarettes 3 10 0 10/15/1979 - 10/14/1989 Smokeless Tobacco: Never Tobacco Cessation:Counseling Given: No Alcohol Use Standard Drinks/Week Comments Yes 0 (1 standard drink = 0.6 oz pur e alcohol) Comments No Sex and Gender Information Value Date Recorded Sex Assigned at Not on file Legal Sex Female 1:22 PM CDT Gender Identity Not on file Sexual Orientation Not on file Last Filed Vital Signs Vital Sign Reading Time Taken Comments Blood Pressure 140/83 01/29/2021 8:56 AM CDT Pulse 96 01/29/2021 8:56 AM CDT Temperature 37.1 ??C (98.7 ??F) 01/29/2021 8:56 AM CD T Respiratory Rate - - Oxygen Saturation 96% 01/29/2021 8:56 AM CDT Inhaled Oxygen Concentration - - Weight 101.2 kg (223 lb) 01/29/2021 8:56 AM CDT Height 167.6 cm (5' 6 ) 01/29/2021 8:56 AM CDT Body Mass Index 35.99 01/29/2021 8:56 AM CDT Plan of Treatment Health Maintenance Due Date Last Done Comments DIABETES ANNUAL FOOT EXAM 1981 DIABETES MICROALBUMIN ANNUAL SCREEN 1981 LDL CHOLESTEROL ANNUAL 1981 DTAP/TDAP/TD VACCINES (1 - Tdap) 1982 BREAST CANCER SCREENING 2003 FIT-DNA Q 3 years 2008 FIT/FOBT Q 1 year 2008 Flex Sig/CT Colonography Q 5 years 2008 ZOSTER VACCINE (1 of 2) 2013 DIABETES HBA1C Q 6 MONTHS 05/11/20212020, 07/06/2020, 02/17/2020, Additional history exists DIABETES ANNUAL RETINAL EXAM 08/05/2021 08/05/2020 RSV VACCINE (60+ or ) (1 - Risk 60-74 years 1-dose series) 2023 CERVICAL CANCER SCREENING 10/14/2023 10/13/2020 INFLUENZA VACCINE (#1) 2023 COLORECTAL SCREENING 07/08/2030 07/08/2020 Colorectal Cancer Screening 07/08/2030 Insurance [facility] [id number] MEDICAID [place] Care Teams Manager Diesel Relationship Specialty Start Date End Date Nereida Martin MD PCP - General Internal Medicine 10/04/19
--- OUTSIDE RECORDS SUMMARY | 2024-06-24 10:10 | XMS_ITS | Clinical Summary ---
Author Organization [facility] Address [address] [place] [address] Care Team Providers Care Roadmaster Name Role Phone Nereida Martin MD Primary Care Provider [phone] Allergies Active Allergy Reactions Criticality Noted Date Comments Clopidogrel Itching High 07/07/2017 Other reaction(s): FULL BODY RASH & burning sensation to skin Codeine Other (see comments),GI intolerance,Vomiting High 06/18/2017 Other reaction(s): Unknown Diphenhydramine Nausea And Vomiting,Vomiting High 07/07/2017 Erythromycin Itching High 06/18/2017 Erythromycin Base Itching,Vomiting Low 10/15/2019 Fluticasone-Salmeterol Hives High 02/20/2020 Lisinopril Other (see comments) Low 10/15/2019 Tramadol GI intolerance,Rash High 06/18/2017 Other reaction(s): Unknown Medications losartan (COZAAR) 100 MG tablet TAKE 1 TABLET(100 MG) BY MOUTH AT BEDTIME 90 tablet 06/07/2021 Active Metoprolol Tartrate 37.5 MG tablet Take 37.5 mg by mouth 1 (one) time each day 90 tablet 1 01/03/2023 Active metFORMIN XR (GLUCOPHAGE-XR) 500 MG 24 hr tablet Take 1 tablet (500 mg total) by mouth in the morning and 1 tablet (500 mg total) in the evening. 180 tablet 1 01/03/2023 Active Social History Tobacco Use Types Packs/Day Years Used Date Smoking Tobacco: Never Assessed Comments Unknown Sex and Gender Information Value Date Recorded Sex Assigned at Not on file Legal Sex Female 5:22 PM EDT Gender Identity Not on file Sexual Orientation Not on file Last Filed Vital Signs Vital Sign Reading Time Taken Comments Blood Pressure 120/70 01/03/2023 2:52 PM CDT Pulse 88 01/03/2023 2:52 PM CDT Temperature 36.1 ??C (97 ??F) 01/03/2023 2:52 PM CDT Respiratory Rate 18 01/03/2023 2:52 PM CDT Oxygen Saturation 97% 01/03/2023 2:52 PM CDT Inhaled Oxygen Concentration - - Weight 98.4 kg (217 lb) 01/03/2023 2:52 PM CDT Height 162.6 cm (5' 4 ) 03/09/2021 2:57 PM CDT Body Mass Index 37.25 03/09/2021 2:57 PM CDT Plan of Treatment Health Maintenance Due Date Last Done Comments Breast Cancer Screening 1965 Colorectal Cancer Screening: Annual FOBT 2012 Colorectal Cancer Screening: Colonoscopy 2012 Colorectal Cancer Screening: Sigmoidoscopy 2012 Diabetes: Ophthalmology Exam 01/12/2021 Diabetes: Pedal Pulse Checked 01/12/2021 Diabetes: Sensory Foot Exam 01/12/2021 Diabetes: Visual Foot Exam 01/12/2021 Diabetes: Hemoglobin A1C 07/09/2021 04/08/2021, 05/30 Hepatitis B Vaccine (1 of 3 - Risk 3-dose series) 2023 Influenza Vaccine (#1) 2024 Pneumococcal Vaccine: Pediat rics (0 to 5 Years) and At-Risk Patients (6 to 64 Years) (3 of 3 - PPSV23 or PCV20) 02/18/2025 02/19/2020, 02/19/2020 [place] [address] MEDICAID [place] [facility] MEDICARE [id number] [place] [id number] Care Teams Roadmaster Relationship Specialty Start Date End Date Nereida Martin MD [address] [place] [address] PCP - General Internal Medicine 11/19/20
--- OUTSIDE RECORDS SUMMARY | 2024-06-24 10:10 | XMS_ITS | Clinical Summary ---
Author Organization [facility] Address [address] [place] [address]. [place], [place] [id number] [place] [address] Care Team Providers Care Shampoo Person Name Role Phone Unavailable Primary Care Provider Unavailabl e Social History Tobacco Use Types Packs/Day Years Used Date Smoking Tobacco: Never Assessed Comments Unknown Sex and Gender Information Value Date Recorded Sex Assigned at Not on file Legal Sex Female 7:58 PM CDT Gender Identity Not on file Sexual Orientation Not on file Last Filed Vital Signs Vital Sign Reading Time Taken Comments Blood Pressure 112/72 01/16/2018 11:15 AM CDT Pulse 74 01/16/2018 11:15 AM CDT Temperature - - Respiratory Rate - - Oxygen Saturation - - Inhaled Oxygen Concentration - - Weight 102.2 kg (225 lb 6.1 oz) 018 11:15 AM CDT Height 167.6 cm (5' 6 ) 01/16/2018 11:1 5 AM CDT Body Mass Index 36.38 01/16/2018 11:15 AM CDT Plan of Treatment Health Maintenance Due Date Last Done Comments Cervical Cancer Screening Pa p Smear (Age 30 to 64) Every 3 Years 1963 Colorectal Cancer Screening Colonoscopy (10 Years) 1963 Annual Physical 1966 Hepatitis C 1981 DTaP, Tdap and Td Vaccines ( 1 - Tdap) 1982 Cervical Cancer Screening Pa p with HPV Testing (Age 30 to 64) Every 5 Years 1993 Cervical Cancer Screening with HPV 1993 Mammogram Screening 2003 Zoster Vaccines (1 of 2) 2013 COVID-19 Vaccine ( - 2023-2 5 season) 2024 Influenza Adult (#1) 2024 RSV Immunization or 60+ Years (1 - 1-dose 75+ series) 2038 Meningococcal B Vaccine Aged Out No l onger eligible based on patient's age to complete this topic Meningococcal Vaccine Aged Out No marvin maikel eligible based on patient's age to complete this topic Pneumococcal Vaccine: Pediat rics (0 to 5 Years) and At-Risk Patients (6 to 64 Years) Aged Out No longer eligible b ased on patient's age to complete this topic RSV Immunizations Under 20 Months Aged Out No longer eligible based on patient's age to complete this topic
--- OUTSIDE RECORDS SUMMARY | 2024-06-24 10:10 | XMS_ITS | Patient Health Record ---
Author Organization [facility] Address [address] [place] [address] Care Team Providers Care Supervisor Malt [employer] Name Role Phone Margot Aceves Primary Care Provider [phone] CHRIS CARO Unavailable [phone] Migration, Provider Unavailable Unavailable Allergies Allergen (clinical [...] diphenhydramine Benadryl Allergy Unknown Drug Allergy Active Reason For Referral No Information Medications Medication SIG (Take, Route, Frequency, Duration) Notes Start Date End Date Status Metoprolol Succinate ER 25 MG 1 tab(s) orally once a day Unknown Tresiba FlexTouch *Please review and pick correct strength-formulat ion from [employer] options. If intended option is not shown, discontinue and re-order from Quick Search* Unknown Pregabalin 50 MG 1 cap(s) orally 2 times a day Unknown Bydureon BCise *Please review and pick correct strength-formulat ion from [employer] options. If intended option is not shown, discontinue and re-order from Quick Search* Unknown Esomeprazole Magnesium 40 MG 1 cap(s) orally once a day Unknown Brilinta 60 MG 1 tab(s) orally 2 times a day Unknown Tresiba FlexTouch 200 UNIT/ML inject up to 80 units once at bedtime Subcutaneous at bedtime for 90 days Unknown Symbicort 160-4.5 MCG/ACT 2 puff(s) inhaled 2 times a day Unknown Atorvastatin Calcium 40 MG 1 tab(s) orally once a day Unknown Albuterol Sulfate HFA 108 (90 Base) MCG/ACT 2 INH inhaled every 6 hours Unknown Montelukast Sodium 10 MG 1 tab(s) orally once a day Unknown Aspirin Low Dose 81 MG 1 tab(s) orally once a day Unknown Losartan Potassium 50 MG 1 tab(s) orally once a day Unknown Ozempic (0.25 or 0.5 MG/DOSE) 2 MG/3ML inject 0.5 mg subcutaneously once a week with a meal for 90 days 03/25/2024 Unknown DULoxetine HCl 60 MG 1 cap(s) orally once a day Unknown busPIRone HCl 15 MG 1 tab(s) orally 2 times a day Unknown GVOKE HYPOPEN TWO PACK 1 MG/0.2 ML INJECT 1 MG SUBCUTANEOUSLY ONCE NEEDED for 1 DAYS *Please review for potential replacement for e-prescription and drug interaction check* 03/25/2024 Unknown Ezetimibe 10 MG 1 tab(s) orally once a day Unknown metFORMIN HCl ER 500 MG 1 tab(s) orally once a day with dinner for 90 days 03/25/2024 Unknown [employer] G7 Sensor - change sensor every 10 days for 90 days 05/14/2024 Unknown Problems Problem Type SNOMED Code ICD Code Onset Dates Problem Status W/U Status Risk Notes Problem Hyperglycemia due to type 2 diabetes mellitus (977257184816641) Type 2 diabetes mellitus with hyperglycemia (E11.65) Active confirmed Problem Hyperlipidemia (05438253) Hyperlipidemia, unspecified (E78.5) Active confirmed Problem Essential hypertension (14139921) Essential (primary) hypertension (I10) Active confirmed Problem Obesity (817989031) Obesity, unspecified (E66.9) Active confirmed Vital Signs Heart Rate 84 /min 05/14/2024 Blood pressure diastolic 89 mm Hg 05/14/2024 Height 66 in 05/14/2024 Blood pressure systolic 140 mm Hg 05/14/2024 Weight 197.6 lbs 05/14/2024 BMI 31.89 kg/m2 05/14/2024 Encounters Encounter Location Date Provider Diagnosis [facility] - Margot Aceves [address] [place] [address] 05/14/2024 Margot Aceves Type 2 diabetes mellitus with hyperglycemia E11.65 ; Obesity, unspecified E66.9 ; Hyperlipidemia, unspecified E78.5 ; Essential (primary) hypertension I10 and Dietary counseling and surveillance Z71.3 [facility] [address] [facility] [place] [address] 04/13/2024 Provider Migration Type 2 diabetes mellitus with hyperglycemia E11.65 and Obesity, unspecified E66.9 [facility], [facility] - Margot Aceves [address] [place] [address] 03/25/2024 Margot Aceves Type 2 diabetes mellitus with hyperglycemia E11.65 ; Hyperlipidemia, unspecified E78.5 ; Other fatigue R53.83 and Obesity, unspecified E66.9 [facility] [address] [place] [address] 04/01/2024 [facility], [facility] Margot Aceves [address] [place] [address] 04/04/2024 Margot Aceves [facility] [address] [place] [address] 05/03/2024 Margot Aceves [employer], [facility] Margot Aceves [address] [place] [address] 05/15/2024 Margot Aceves [employer] [facility], [facility] - Margot Spaces [address] [address] [place] [address] 05/21/2024 Margot Aceves Assessments Encounter Date Diagnosis (ICD Code) Assessment Notes Treatment Notes Treatment Clinical Notes Section Notes 05/14/2024 Type 2 diabetes mellitus with hyperglycemia (ICD-10 - E11.65) 05/14/2024 Obesity, unspecified (ICD-10 - E66.9) 04/13/2024 Type 2 diabetes mellitus with hyperglycemia (ICD-10 - E11.65) 03/25/2024 Type 2 diabetes mellitus with hyperglycemia (ICD-10 - E11.65) 03/25/2024 Hyperlipidemia, unspecified (ICD-10 - E78.5) 05/14/2024 Hyperlipidemia, unspecified (ICD-10 - E78.5) 03/25/2024 Other fatigue (ICD-10 - R53.83) 05/14/2024 Essential (primary) hypertension (ICD-10 - I10) 04/13/2024 Obesity, unspecified (ICD-10 - E66.9) 03/25/2024 Obesity, unspecified (ICD-10 - E66.9) 05/14/2024 Dietary counseling and surveillance (ICD-10 - Z71.3) 03/25/2024 Other Assessment and Plan: 1. Type 2 Diabetes Mellitus- Patient reports poor glycemic control with a recent A1c of 12 in September.- Currently on Tresiba 77 units and Metformin extended-release.- Bydureon discontinued.- Plan: Start Ozempic for better cardiovascular outcomes and potential weight loss. Continue Tresiba and Metformin extended-release. Educate the patient on the importance of regular blood glucose monitoring. Initiate Dexcom G7 continuous glucose monitoring system to improve glucose management. -Dexcom G7 sensor placed on patient to review CGM-glucose patterns-patient educated on self placement lot number [id number] exp 03/28/2025 2. Diabetic Peripheral Neuropathy- Patient reports cold feet and sharp pains.- No history of amputations, sores, or ulcers.- Plan: Encourage regular foot care and follow-up with franchise sales representative Dr. Alvarez. Monitor for any changes in symptoms or development of ulcers. 3. Cardiovascular Disease- History of triple or quadruple vessel bypass.- Plan: Continue monitoring cardiovascular health and optimize diabetes management with Ozempic. 4. Chronic Kidney Disease- Patient reports kidney problems but not on dialysis.- Currently seeing Dr. Arriola for kidney issues.- Plan: Continue follow-up with courier delivery driver Dr. Arriola and monitor kidney function. 5. Bladder issues- Patient reports gas in the bladder wall.- Plan: Monitor symptoms and refer to a urologist if symptoms worsen or new symptoms develop. 6. Possible Cortisol Resistance- Plan: Order dexamethasone suppression test to assess cortisol levels. Instruct the patient to take dexamethasone at 10 p.m. and have a blood draw for cortisol level the next morning. Follow-up:- Schedule a follow-up appointment in 4-6 weeks to assess the effectiveness of the new treatment plan and review continuous glucose monitoring data. If insurance covers telehealth, the patient may opt for a virtual visit. Prescriptions:- Ozempic- Dexcom G7 continuous glucose monitoring system- Pen needles- Glucagon pen- Dexamethasone for cortisol testing Labs:- Fasting blood work, including A1c, lipid panel, renal function, and liver function tests. Spent 45 minutes preparing to see the patient (ex review of tests/chart), obtaining and / or reviewing separately obtained history, performing a medically appropriate examination and/or evaluation, counseling and educating the patient/family/ocular care technologist, ordering medications, tests, or procedures, referring and communicating with other health professional healthcare representative, documenting clinical information in the electronic or other health record, independently interpreting results and communicating results to the patient/family/ocular care technologist and care coordinating patient plan. Patient alert and oriented x 4 and aware of discussion noted above and in agreeance to plan in management of type 2 DM (A1C of 10-12% range), dyslipidemia, fatigue and weight gain/management. 05/14/2024 Other Assessment and Plan: 1. Type 2 Diabetes Mellitus- Continue Tresiba and extended-release metformin- Discontinue Victoza- Initiate Ozempic- Address Dexcom adhesion issue: recommend trying Tegaderm, Band-Aids, or overlays for Dexcom or Freestyle from [employer]- Ensure patient has enough refills for medications and Dexcom supplies- Provide samples and overlays for Dexcom 2. Possible Hypercortisolism- Order cortisol test to evaluate for potential hypercortisolism, which may be contributing to insulin resistance and other health issues- Educate patient on the potential complications of high cortisol levels, including high blood pressure, heart problems, osteoporosis, and kidney stones- Discuss the need for proper lab work to obtain insurance coverage for treatment if hypercortisolism is confirmed 3. Chest Pain- Advise patient to seek immediate medical attention at the ER if chest pain persists or worsens 4. Laboratory Orders- Ensure patient has lab orders for cortisol test and any other necessary labs- Instruct patient to complete the dexamethasone test separately from other labs 5. Medication Refills- Confirm that the patient has enough refills for all current medications and Dexcom supplies- Provide additional refills if needed 6. Dexcom Joy Compatibility- Ensure patient's phone is compatible with the Dexcom joy for optimal monitoring and management of blood glucose levels- dexcom G7 was placed on patient in clinic today- hand drawer in helper provided as well as her phone is not compatible for download. Spent 25 minutes preparing to see the patient (ex review of tests/chart), obtaining and / or reviewing separately obtained history, performing a medically appropriate examination and/or evaluation, counseling and educating the patient/family/ocular care technologist, ordering medications, tests, or procedures, referring and communicating with other health professional healthcare representative, documenting clinical information in the electronic or other health record, independently interpreting results and communicating results to the patient/family/ocular care technologist and care coordinating patient plan. Patient alert and oriented x 4 and aware of discussion noted above and in agreeance to plan in management of type 2 DM/uncontrolled, need to obtain DST/labwork as patient did not complete, obesity, dyslipidemia and hypertension. Spent 15 minutes preventative counseling patient on dietary recommendations and changes in setting of hyperglycemia- need to restrict refined sugars and processed foods and incorporate up to 150 minutes of moderate level activity weekly. Plan Of Treatment No Information Insurance Providers Payer Name Payer Address Payer Phone Subscriber Number Group Number Insured Name Patient Relationship to Insured Coverage Start Date Coverage End Date [facility] [address] [place] [address] [id number] Miracle Jha Self - patient is the insured [place] Medicaid [address] [place] [address] [id number] Miracle Jha Self - patient is the insured Medical (General) History Medical History History ICD Code high blood pressure diabetes cardiomyopathy HIGH CHOLESTEROL HEART DISEASE STROKE LIVER DISEASE KIDNEY DISEASE HEART DISEASE Surgical History Surgery Date(Month/Year) quadruple bypass 2019
--- OUTSIDE RECORDS SUMMARY | 2024-06-24 10:11 | XMS_ITS | Referral Summary ---
Author Organization [facility] Address [address] [place] [address] Care Team Providers Care National Secretary Name Role Phone Nereida Martin MD Primary Care Provider Source Comments [facility],non-owned Affiliates and Associated Physician Practices is amultiple site organization consisting of ambulatory clinics and hospital sitesin [place], [place], [place] and [place]. This disclosure is being madepursuant to the Care Everywhere program and may not contain all information available regarding this patient. Last updated 18.[facility] GI Allergies Active Allergy Reactions Criticality Noted Date Comments Codeine GI Discomfort 06/18/2017 Erythromycin Itching 06/18/2017 Tramadol GI Discomfort 06/18/2017 Medications * Be aware that medications may not be up to date on this document. Alwaysverify current medications with the patient. Medication Sig Dispensed Refills Start Date End Date Status gabapentin (NEURONTIN) 300 MG capsule Take 300 mg by mouth 3 times daily Active diclofenac sodium EC (VOLTAREN) 75 MG tablet Take 75 mg by mouth 2 times daily Active raNITIdine (ZANTAC) 150 MG capsule Take 150 mg by mouth 2 times daily Active FLUoxetine (PROZAC) 20 MG capsule Take 20 mg by mouth 2 times daily Active amLODIPine (NORVASC) 5 MG tablet Take 5 mg by mouth once daily Active montelukast (SINGULAIR) 10 MG tablet Take 10 mg by mouth at bedtime Active busPIRone (BUSPAR) 10 MG tablet Take 10 mg by mouth 2 times daily Active atorvastatin (LIPITOR) 40 MG tabletIndications:Acu te Myocardial Infarction Take 1 tablet by mouth at bedtime Reasons: Acute Heart Attack 30 tablet 5 06/20/2017 Active lisinopril (PRINIVIL;ZESTRIL) 5 MG tablet Take 1 tablet by mouth once daily 30 tablet 5 06/21/2017 Active carvedilol (COREG) 6.25 MG tablet Take 1 tablet by mouth 2 times daily with morning and evening meal 60 tablet 5 06/20/2017 Active clopidogrel (PLAVIX) 75 MG tablet Take 1 tablet by mouth once daily 30 tablet 5 06/21/2017 Active aspirin (ASPIRIN) 81 MG chew tabletIndications:Acu te Myocardial Infarction Take 1 tablet by mouth once daily Reasons: Acute Heart Attack 06/21/2017 Active Active Problems Problem Noted Date Diagnosed Date ST elevation myocardial infarction (STEMI) 06/18 Social History Tobacco Use Types Packs/Day Years Used Date Smoking Tobacco: Former Cigarettes 3 30 0 06/18/1955 - 06/18/1985 Smokeless Tobacco: Never Tobacco Cessation:Counseling Given: No Alcohol Use Standard Drinks/Week Comments No 0 (1 standard drink = 0.6 oz pur e alcohol) Sex and Gender Information Value Date Recorded Sex Assigned at Not on file Gender Identity Not on file Sexual Orientation Not on file Last Filed Vital Signs Vital Sign Reading Time Taken Comments Blood Pressure 105/75 06/20/2017 11:58 AM SMOKE INSPECTOR Pulse 96 06/20/2017 11:59 AM SMOKE INSPECTOR Temperature 36.7 ??C (98 ??F) 06/20/2017 11:59 AM SMOKE INSPECTOR Respiratory Rate 18 06/20/2017 11:59 AM SMOKE INSPECTOR Oxygen Saturation 96% 06/20/2017 11:58 AM SMOKE INSPECTOR Inhaled Oxygen Concentration - - Weight 111.1 kg (245 lb) 06/18/2017 9:20 AM SMOKE INSPECTOR Height 167.6 cm (5' 6 ) 06/18/2017 9:20 AM SMOKE INSPECTOR Body Mass Index 39.54 06/18/2017 9:20 AM SMOKE INSPECTOR Functional Status Functional Status Response Date of Assess ment Is person deaf or have serious hearing difficult y? No 06/18/2017 Is person blind or have serious difficulty seein g? No 06/18/2017 Does person have serious dif ficulty walking/climbing stairs? Yes 06/18/2017 Does person have difficulty dressing/bathing? No 06/18/2017 Does person have difficulty doing errands alone? No 06/18/2017 Cognitive Status Response Date of Assessm ent Does person have difficulty concentrating/remembering/making decisions? No 06/18/2017 Plan of Treatment Not on file Advance Directives * Full Code (Latest Code Status on File) Date Activated Date Inactivated Comments 06/18/2017 11:12 AM 06/20/2017 3:28 PM Care Teams National Secretary Relationship Specialty Start Date End Date Nereida Martin MD [address] [facility] [address] [place] [id number] PCP - General 11/20/19
--- OUTSIDE RECORDS SUMMARY | 2024-06-24 10:11 | XMS_ITS | Patient Health Summary ---
Author Organization [facility] Address [address] [place] [address] Care Team Providers Care Flask Carrier Name Role Phone Nereida Martin MD Primary Care Provider Note from [facility],non-owned Affiliates and Associated Physician Practices is amultiple site organization consisting of ambulatory clinics and hospital sitesin [place], [place], [place] and [place]. This disclosure is being madepursuant to the Care Everywhere program and may not contain all information available regarding this patient. Last updated 18.[facility] Allergies * Codeine(GI Discomfort) * Erythromycin(Itching) * Tramadol(GI Discomfort) Medications * Be aware that medications may not be up to date on this document. Alwaysverify current medications with the patient. * gabapentin (NEURONTIN) 300 MG capsule Take 300 mg by mouth 3 times daily * diclofenac sodium EC (VOLTAREN) 75 MG tablet Take 75 mg by mouth 2 times daily * raNITIdine (ZANTAC) 150 MG capsule Take 150 mg by mouth 2 times daily * FLUoxetine (PROZAC) 20 MG capsule Take 20 mg by mouth 2 times daily * amLODIPine (NORVASC) 5 MG tablet Take 5 mg by mouth once daily * montelukast (SINGULAIR) 10 MG tablet Take 10 mg by mouth at bedtime * busPIRone (BUSPAR) 10 MG tablet Take 10 mg by mouth 2 times daily * atorvastatin (LIPITOR) 40 MG tablet(Started 06/20/2017) Take 1 tablet by mouth at bedtime Reasons: Acute Heart Attack 5 refills remaining * lisinopril (PRINIVIL;ZESTRIL) 5 MG tablet(Started 06/21/2017) Take 1 tablet by mouth once daily 5 refills remaining * carvedilol (COREG) 6.25 MG tablet(Started 06/20/2017) Take 1 tablet by mouth 2 times daily with morning and evening meal 5 refills remaining * clopidogrel (PLAVIX) 75 MG tablet(Started 06/21/2017) Take 1 tablet by mouth once daily 5 refills remaining * aspirin (ASPIRIN) 81 MG chew tablet(Started 06/21/2017) Take 1 tablet by mouth once daily Reasons: Acute Heart Attack Active Problems Problem Noted Date Diagnosed Date [...] Comments Blood Pressure 105/75 06/20/2017 11:58 AM LOG CLERK Pulse 96 06/20/2017 11:59 AM LOG CLERK Temperature 36.7 ??C (98 ??F) 06/20/2017 11:59 AM LOG CLERK Respiratory Rate 18 06/20/2017 11:59 AM LOG CLERK Oxygen Saturation 96% 06/20/2017 11:58 AM LOG CLERK Inhaled Oxygen Concentration - - Weight 111.1 kg (245 lb) 06/18/2017 9:20 AM LOG CLERK Height 167.6 cm (5' 6 ) 06/18/2017 9:20 AM LOG CLERK Body Mass Index 39.54 06/18/2017 9:20 AM LOG CLERK Procedures * IMAGING/RADIOLOGY/XRAY RESULTS ORDER(Performed 02/17/2020) * CARDIAC PROCEDURE ORDER(Performed 06/21/2017) * CARDIAC RHYTHM STRIP ORDER(Performed 06/21/2017) * CARDIAC EKG ORDER(Performed 06/21/2017) * CARDIAC EKG ORDER(Performed 06/21/2017) * GLUCOSE - POINT OF CARE(Performed 06/20/2017) * GLUCOSE - POINT OF CARE(Performed 06/19/2017) * GLUCOSE - POINT OF CARE(Performed 06/19/2017) * GLUCOSE - POINT OF CARE(Performed 06/19/2017) * GLUCOSE - POINT OF CARE(Performed 06/19/2017) * GLUCOSE - POINT OF CARE(Performed 06/19/2017) * LIPID PROFILE(Performed 06/19/2017) * CBC W AUTO DIFFERENTIAL(Performed 06/19/2017) * BASIC METABOLIC PANEL (CALCIUM TOTAL)(Performed 06/19/2017) * HEMOGLOBIN A1C(Performed 06/19/2017) * GLUCOSE - POINT OF CARE(Performed 06/18/2017) * GLUCOSE - POINT OF CARE(Performed 06/18/2017) * CULTURE VRE(Performed 06/18/2017) * CULTURE MRSA(Performed 06/18/2017) * CARDIAC CATH CONSULT(Performed 06/18/2017) * CARDIAC CATH(Performed 06/18/2017) Results * IMAGING RADIOLOGY XRAY RESULTS ORDER (02/17/2020 11:36 AM CDT) Anatomical Region Laterality Modality Other Narrative 02/17/2020 11:36 AM CDT Ordered by an unspecified provider. Scanned Document IMAGING * CARDIAC RHYTHM STRIP ORDER (06/21/2017 7:22 PM LOG CLERK) Narrative 06/21/2017 7:22 PM LOG CLERK Ordered by an unspecified provider. Scanned Document CARDIAC SERVICES ORD ERABLES * CARDIAC PROCEDURE ORDER (06/21/2017 7:22 PM LOG CLERK) Narrative 06/21/2017 7:22 PM LOG CLERK Ordered by an unspecified provider. Scanned Document CARDIAC SERVICES ORD ERABLES * CARDIAC EKG ORDER (06/21/2017 7:22 PM LOG CLERK) Only the most recent of2 resultswithin the time period is included. Narrative 06/21/2017 7:22 PM LOG CLERK Ordered by an unspecified provider. Scanned Document CARDIAC SERVICES ORD ERABLES * (ABNORMAL) GLUCOSE - POINT OF CARE (06/20/2017 11:57 AM LOG CLERK) Only the most recent of8 resultswithin the time period is included. Glucose WB/POC 161(H) 70 - 106 mg/dL 06/21/2017 7:34 AM LOG CLERK [facility] Blood BLOOD SPECIMEN / Unknown 06/20/2017 11:57 AM LOG CLERK 06/21/2017 7:34 AM LOG CLERK Maeve Gifford MD LAB - POINT OF CARE ORDERABLES Performing Organization Address [facility] [[email or web address]] Co de Phone Number [facility] [address] [place] [phone] * (ABNORMAL) HEMOGLOBIN A1C (06/19/2017 4:24 AM LOG CLERK) [facility] Hemoglobin A1c 7.1(H) 4.2 - 6.3 % 06/19/2017 5:24 AM [facility] Estimated Average Glucose 157 mg/dL 06/19/2017 5:24 AM [facility] Whole Blood BLOOD SPECIMEN WITH EDTA / Unknown Venipuncture / Unknown 06/19/2017 4:24 AM LOG CLERK 06/19/2017 4:34 AM LOG CLERK Tianna HARDIN LAB - CHEMISTRY ORDERABLES Performing Organization Address [facility] [[email or web address]] Co de Phone Number [facility] [address] [place] [phone] * (ABNORMAL) CBC W AUTO DIFFERENTIAL (06/19/2017 4:24 AM LOG CLERK) [facility] WBC 12.6(H) 4.4 - 10.7 x10E9/L 06/19/2017 4:43 AM [facility] WBC Corrected x10E9/L 06/19/2017 4:43 AM [facility] RBC 3.70(L) 3.80 - 5.20 x10E12/L 06/19/2017 4:43 AM [facility] Hemoglobin 11.9(L) 12.0 - 15.6 gm/dL 06/19/2017 4:43 AM [facility] Hematocrit 34.6(L) 35.9 - 45.5 % 06/19/2017 4:43 AM [facility] MCV 93.5 80.7 - 98.3 fl 06/19/2017 4:43 AM [facility] MCH 32.2 26.7 - 34.0 pg 06/19/2017 4:43 AM [facility] MCHC 34.4 30.8 - 35.9 gm/dL 06/19/2017 4:43 AM [facility] Platelet Count 294 153 - 416 x10E9/L 06/19/2017 4:43 AM [facility] RDW-CV 13.4 12.1 - 14.9 % 06/19/2017 4:43 AM [facility] MPV 10.6 9.4 - 12.9 fl 06/19/2017 4:43 AM [facility] Neutrophils % 73.0 44.0 - 73.0 % 06/19/2017 4:43 AM [facility] Lymphocytes % 18.2(L) 20.0 - 43.0 % 06/19/2017 4:43 AM [facility] Monocytes % 5.5 5.0 - 13.0 % 06/19/2017 4:43 AM [facility] Eosinophils % 2.3 0.0 - 6.0 % 06/19/2017 4:43 AM [facility] Basophils % 0.4 0.0 - 2.0 % 06/19/2017 4:43 AM [facility] Immature Granulocytes 0.6 0 - 1 % 06/19/2017 4:43 AM [facility] Neutrophil Absolute 9.22(H) 2.01 - 7.14 x10E9/L 06/19/2017 4:43 AM [facility] Lymphocytes Absolute 2.30 1.07 - 3.94 x10E9/L 06/19/2017 4:43 AM [facility] Monocytes Absolute 0.70 0.26 - 1.07 x10E9/L 06/19/2017 4:43 AM [facility] Eosinophils Absolute 0.29 0 - 0.47 x10E9/L 06/19/2017 4:43 AM [facility] Basophils Absolute 0.05 0 - 0.08 x10E9/L 06/19/2017 4:43 AM [facility] Immature Granulocytes Absolute 0.07(H) 0.00 - 0.06 x10E9/L 06/19/2017 4:43 AM [facility] nRBC Auto 0 /100 WBC 06/19/2017 4:43 AM [facility] Blood BLOOD SPECIMEN / Unknown Venipuncture / Unknown 06/19/2017 4:24 AM LOG CLERK 06/19/2017 4:34 AM LOG CLERK Tianna Maira [facility] LAB - HEMATOLOGY ORDERABLES Performing Organization Address City/[facility]/ZIP Co de Phone Number [facility] [address] [place] [address] * (ABNORMAL) BASIC METABOLIC PANEL (CALCIUM TOTAL) (06/19/2017 4:24 AM LOG CLERK) Glucose 167(H) 74 - 106 mg/dL 06/19/2017 4:53 AM [facility] Sodium 136 136 - 145 mmol/L 06/19/2017 4:53 AM [facility] Potassium 4.1 3.5 - 5.1 mmol/L 06/19/2017 4:53 AM [facility] Chloride 103 98 - 107 mmol/L 06/19/2017 4:53 AM [facility] CO2 25 22 - 31 mmol/L 06/19/2017 4:53 AM [facility] Calcium 9.6 8.5 - 10.1 mg/dL 06/19/2017 4:53 AM [facility] Anion Gap 8 8 - 16 mmol/L 06/19/2017 4:53 AM [facility] BUN 15 7 - 21 mg/dL 06/19/2017 4:53 AM [facility] Creatinine 0.72 0.50 - 1.30 mg/dL 06/19/2017 4:53 AM [facility] eGFR by MDRD >60 >60 mL/min/1.7 3m2 06/19/2017 4:53 AM [facility] eGFR by MDRD >60 >60 mL/min/1.7 3m2 06/19/2017 4:53 AM [facility] Blood BLOOD SPECIMEN / Unknown Venipuncture / Unknown 06/19/2017 4:24 AM LOG CLERK 06/19/2017 4:34 AM LOG CLERK Tianna Maira [facility] LAB - CHEMISTRY ORDERABLES Performing Organization Address [facility]/ZIP Co de Phone Number [facility] [address] [place] [address] * (ABNORMAL) LIPID PROFILE (06/19/2017 4:24 AM LOG CLERK) Cholesterol 197 <200 mg/dL 06/19/2017 10:04 AM [facility] Triglycerides 298(H) <150 mg/dL 06/19/2017 10:04 AM [facility] HDL Cholesterol 21(L) >40 mg/dL 8 10:04 AM [facility] LDL Calculated 116 <130 mg/dL 06/19/2017 10:04 AM [facility] VLDL Calculated 60(H) <=30 mg/dL 8 10:04 AM [facility] Chol HDL Ratio 9.4(H) <4.5 06/19/2017 10:04 AM [facility] LDL/HDL Ratio 5.5(H) <5.0 06/19/2017 10:04 AM [facility] Blood BLOOD SPECIMEN / Unknown Venipuncture / Unknown 06/19/2017 4:24 AM LOG CLERK 06/19/2017 9:46 AM LOG CLERK Holden Bee MD LAB - CHEMISTRY ORD ERABLES Performing Organization Address City/[facility]/ZIP Co de Phone Number [facility] [address] [place] [address] * CULTURE VRE (06/18/2017 12:50 PM LOG CLERK) Culture Negative for vancomycin-resi stant Enterococci (VRE) GURVINDER 06/20/2017 7:34 AM LOG CLERK [facility] Stool RECTAL SWAB / Unknown Collection / Unknown 06/18/2017 12:50 PM LOG CLERK 06/18/2017 12:55 PM LOG CLERK Maeve Gifford MD LAB - MICROBIO LOGY ORDERABLES [facility] [address] [place] [id number] [place] [address] * CULTURE MRSA (06/18/2017 12:50 PM LOG CLERK) Culture Negative for methicillin-resist ant Staphylococcus aureus (MRSA) GURVINDER 06/20/2017 7:37 AM LOG CLERK [facility] Microbiology SPECIMEN FROM NASAL FOSSAE / Unknown Collection / Unknown 06/18/2017 12:50 PM LOG CLERK 06/18/2017 12:56 PM LOG CLERK Maeve Gifford MD LAB - MICROBIO LOGY ORDERABLES [facility] MICROBIOLOGY [address] [place], [place] [address], [facility] [phone] * CARDIAC CATH CONSULT (for Epic Reporting) (06/18/2017 12:00 PM LOG CLERK) 06/18/2017 12:0 0 PM LOG CLERK Narrative Procedure Note Maeve Gifford MD - 06/19/2017 2:59 AM CST [facility] CARDIAC CATHETERIZATION PATIENT: JOSE D JHA MR#: [id number] ADMIT DATE: 06/18/2017 CSN: [id number] PROCEDURE DATE: 06/18/2017 :1965 PHYSICIAN: Maeve Gifford MD ROOM: REFERRING PHYSICIAN: Maeve Gifford MD HISTORY OF PRESENT ILLNESS: This is a 52-year-old [facility] having had substernalchest pain that started at 3 o'clock in the morning and awoken her from sleep.EMS had seen her. Her EKG demonstrated inferior wall ST-elevation IN. Shehas a history of diabetes, hypertension, obesity, bipolar disorder. She has hada prior nuclear stress test in 2012 with normal perfusion with an EF of 65.The patient had an elevated troponin that was noted at [facility]. She was transferred here to [facility] since the dairy laboratory technician at [facility] wasnot available, helicopter was not flying due to weather conditions, and as a result by ground transportation, she was brought here to [facility]. PROCEDURES PERFORMED: 1. Selective coronary angiography. 2. Left ventriculography. 3. PTCA stenting of a high-grade 99% proximal to mid LAD lesion reduced toa 0% residual with implantation of a 3.5 x 18 Resolute drug-elutingstent. 4. PTCA stenting of a complex chronic total occlusion 100% occluded collateralized RCA in the setting of inferior wall ST-elevation IN treated with angioplasty and followed by stenting of the posterior descending artery with a 3.25 x 23 Xience drug-eluting stent with an overlapping, more proximally placed 3.5 x 18 Resolute drug-elutingstent into the AV groove of the RCA, proximal to the PDA-PLV bifurcation.A 3rd stent was placed in the mid RCA proximal to the RV marginal with placement of a 4.5 x 13 ultra bare metal stent treating a high-grade focal 80% lesion. 5. Intracoronary adenosine, intracoronary Aggrastat, intracoronary nitroglycerin for the right coronary artery. 6. Right common femoral angiogram. 7. Angio-Seal deployment. PROCEDURE IN DETAIL: After informed consent was obtained in emergentfashion from the patient, risks, benefits, alternatives were explained to her including but not limited to stroke, heart attack, , vascular injury,dye reaction, dye allergy, thromboembolic event, loss of limb, loss ofdigits, need for amputation, need for emergency bypass surgery at rate of 1000 forthe angiographic portion procedure, 100 for percutaneous revascularizationportion of the procedure. The patient was agreeable and she was triaged forcardiac catheterization. After informed consent was obtained, the patient underwent standardsterile prep and drape. Right femoral arterial area was injected withlidocaine. Access was obtained utilizing a micropuncture kit. All exchanges weredone utilizing guidewire. A 6-Palestinian sheath was inserted and 5-Palestinian JL4,JR4, pigtail catheters were used for angiographic imaging performed invarious angles to delineate the vascular anatomy. Findings include: 1. The left main trunk was large, widely patent, appeared to be grossly normal. The LAD is a large size vessel which has a very high [id number] diagonal ramus intermedius vessel. The LAD just beyond this segmenthas a high-grade 99% lesion. There is extensive collateralization thatis noted of the septum via the septal perforators which seem to provideflow to the posterior descending artery and posterior lateral branch. Themid LAD has a 30% lesion. 2. Left circumflex is a nondominant vessel which has a large 1st obtuse marginal which has a 30% lesion in the proximal segment. The AVgroove continues to a more distal OM branch and the distal AV groovecontinues to a smaller distal OM branch, all of which appear to be widelypatent. 3. The right coronary artery demonstrates calcific stenosis and 100% occlusion in the distal aspect. There is a mid 80% lesion proximalto the RV marginal branch. Left ventriculogram was performed. Ejection fraction is estimatedroughly 45%. Inferior basal akinesis is noted and inferior wall hypokinesis inthe mid segment is identified. No significant mitral regurgitation is appreciated. Aortic pressure is 131/86 with mean artery pressure 105,left ventricular pressure 137/-1 with an end-diastolic pressure of 23. This moon right-dominant system. Decision was made to proceed with intervention on the LAD as this seemsto supply the inferior wall via collaterals and this lesion actually appearsto be ulcerated in its presentation. A 6-Palestinian CLS 4.0 guiding catheter was engaged in the ostium of leftmain trunk. Angiomax had already been initiated. The LAD was then wiredutilizing a Insurance Verifier wire. Predilatation was undertaken utilizing a 3 mm balloon and angioplasty was performed. This improved flow through the LAD. I thenplaced a 3.5 x 18 mm Resolute drug-eluting stent after carefully positioning itaway from the ostium of the LAD. In some views, there is some disease in the ostium, which is noted to be roughly about 20% to 30%. I did not want korin having the stent involved into this area. The stent was then deployed. Excellent angiographic results were noted. There was no dissection, thrombosis, or perforation noted. Brisk flow was noted into the apicalLAD. It is now appreciated that there may have been YOANA-3 flow initially. Enhanced filling of the RCA collaterals were seen now via the septal perforators after the stent has been placed. Since the patient had presented with an inferior wall IN, I elected tomake an attempt at this chronic total occlusion of the right coronary artery, asthere was still some residual ST elevation that was noted on the EKG tracings. A 6-Palestinian JR4 guiding catheter was engaged in the ostium of the right coronary artery. A 190 cm Insurance Verifier wire was then advanced across the MEDICAL RESEARCH ASSOCIATE. Doddering was then performed utilizing a 3 x 15 balloon. Angioplasty wasthen performed utilizing that 3.0 x 15 balloon. Improved flow was now notedinto the distal aspect of the vasculature. There does appear to be either aflap or a piece of thrombus, which may be seen into the posterior descending artery. The wire was then redirected into the PDA and angioplasty was performed at that site where the lesion was seen in the PDA and stentingwas then performed utilizing a 3.25 x 23 mm Xience drug-eluting stent. Thenan overlapping 3.5 x 18 Resolute was placed into the distal AV groove tohave continuous segment of stent through the chronic total occlusion into the posterior descending artery, jailing the posterior lateral branch. Slowflow was then noted. Intracoronary nitroglycerin, intracoronary adenosine, intracoronary Aggrastat were all administered. Flow had improved.Attention was then drawn to the mid RCA lesion, which was treated with a 4.5 x 13mm ultra bare metal stent. This was then deployed. Final angiograms demonstrated markedly improved brisk flow into this huge right coronaryartery distribution. IMPRESSION: Successful 2 vessel revascularization of the LAD and theRCA, creating 99% occluded proximal LAD with 1 drug-eluting stent, which was a3.5 x 18 and treating the complex MEDICAL RESEARCH ASSOCIATE RCA with 3 stents, a 3.25 x 23 Xience inthe posterior descending artery, a 3.5 x 18 Resolute in the distal AV groove,and a 4.5 x 13 Ultra in the mid RCA AV groove proximal to the RV marginalbranch. The patient now has complete revascularization of her coronaryvasculature. In evaluation of the RCA images at the end of the case, there was a hazyarea that was seen in the final angiogram. However, this was attributable to angulation of the images and a double S curve that was noted in the AVgroove, which is best realized in the AP shot. The patient already received Plavix at [facility]. She had alreadyreceived aspirin. She received Aggrastat during the procedure for the slow flownoted in the RCA, and she had Angiomax used for this case, which was turned offat the end of the procedure. Right femoral angiogram was performed and a 6-Palestinian Angio-Seal wasplaced with excellent hemostasis. There was no evidence of oozing, bruising, bleeding, or hematoma. RECOMMENDATION: Dual anti-platelet therapy for 12 months. The patientwill be in the step-down unit for further followup and follow up with [facility] in 2-4 weeks. SEDATION: The patient received 80 minutes of conscious sedation time, 2mg of Versed was administered. Conscious sedation was monitored andadministered by trained personnel for conscious sedation in the periprocedural setting. MAEVE GIFFORD MD SS/MODL #: [id number] MEDICAL/SURGICAL CARDIAC CATHETERIZATION - DP Maeve Gifford MD ECHO ORDERABLE S Performing Organization Address City/[facility]/ZIP Co de Phone Number [facility] * CARDIAC CATH PROCEDURE (06/18/2017 11:04 AM LOG CLERK) Narrative [facility] - 06/18/2017 11:04 AM LOG CLERK Maeve Gifford MD ? 06/18/2017 11:04 AM SCA/LVG/ICNTG/ICADNEOSINE/ICAGGRASTAT/PTCA-STENT X 1 OF LAD WITH 3.5X18 RESOLUTE WILLA/PTCA-STENT OF PDA 3.25X23 XIENCE/PTCA-STENT DISTAL RCA WITH 3.5X18 RESOLUTE/PTCA-STENT MID RCA WITH 4.5X13 ULTRA BMS/RFA/ANGIOSEAL 95-99% LAD REDUCED TO 0% 100% MEDICAL RESEARCH ASSOCIATE RCA REDUCED TO 0% LVEF 45% WITH INFERIOR WALL HK RFA/ANGIOSEAL PLAN ASA/PLAVIX 12 M FOR WILLA DICT [id number] Maeve Gifford MD CARDIAC SERVIC ES ORDERABLES Performing Organization Address City/[facility]/ZIP Co de Phone Number [facility] Care Teams Flask Carrier Relationship Specialty Start Date End Date Nereida Martin MD [address] [place] [phone] PCP - General 11/20/19
--- OUTSIDE RECORDS SUMMARY | 2024-06-24 10:11 | XMS_ITS | Clinical Summary ---
Author Organization [facility] Address [address] [place] [address] Care Team Providers Care Water Plant Pump Operator Supervisor Name Role Phone Nereida Martin MD Primary Care Provider Source Comments [facility],non-owned Affiliates and Associated Physician Practices is amultiple site organization consisting of ambulatory clinics and hospital sitesin [place], [place], [place] and [place]. This disclosure is being madepursuant to the Care Everywhere program and may not contain all information available regarding this patient. Last updated 18.[facility] Allergies Active Allergy Reactions Criticality Noted Date [...] Comments Blood Pressure 105/75 06/20/2017 11:58 AM GREENHOUSE SPECIALIST Pulse 96 06/20/2017 11:59 AM GREENHOUSE SPECIALIST Temperature 36.7 ??C (98 ??F) 06/20/2017 11:59 AM GREENHOUSE SPECIALIST Respiratory Rate 18 06/20/2017 11:59 AM GREENHOUSE SPECIALIST Oxygen Saturation 96% 06/20/2017 11:58 AM GREENHOUSE SPECIALIST Inhaled Oxygen Concentration - - Weight 111.1 kg (245 lb) 06/18/2017 9:20 AM GREENHOUSE SPECIALIST Height 167.6 cm (5' 6 ) 06/18/2017 9:20 AM GREENHOUSE SPECIALIST Body Mass Index 39.54 06/18/2017 9:20 AM GREENHOUSE SPECIALIST Plan of Treatment Health Maintenance Due Date Last Done Comments COLOGUARD (AGES 45-75) - COL ON CA SCREENING 1965 COLON MONITORING 1963 COLONOSCOPY - COLON CA SCREENING 1963 CT COLONOGRAPHY - COLON CA SCREENING 1963 Colorectal Cancer Screening 1963 FIT - COLON CA SCREENING 1963 FLEX SIG - COLON CA SCREENING 1963 MAMMOGRAM 1963 PAP SMEAR 1963 HIV SCREENING 1978 HEPATITIS C SCREENING 05/25/1981 DTAP/TDAP/TD VACCINES (1 - Tdap) 1982 PNEUMOCOCCAL VACCINE 50+ (1 of 1 - PCV) 2013 ZOSTER VACCINE (1 of 2) 2013 COVID-19 VACCINE (1 - 2023-2 5 season) 2024 INFLUENZA VACCINE (#1) 2024 DEPRESSION SCREENING 05/29/2024 MEDICARE AWV ? CALENDAR YEAR 2024 Respiratory Syncytial Virus (RSV) Vaccine Pt: or over 60 yrs (1 - 1-dose 75+ series) 2038 HEPATITIS B VACCINE Aged Out No longe r eligible based on patient's age to complete this topic HIB VACCINE Aged Out No longer eligi ble based on patient's age to complete this topic HPV VACCINE Aged Out No longer eligi ble based on patient's age to complete this topic MENINGOCOCCAL (Group B) VACCINE Aged Out No longer eligible based on patient's age to complete this topic MENINGOCOCCAL VACCINE Aged Out No marvin maikel eligible based on patient's age to complete this topic PNEUMOCOCCAL VACCINE Aged Out No long er eligible based on patient's age to complete this topic Advance Directives * Full Code (Latest Code Status on File) Date Activated Date Inactivated Comments 06/18/2017 11:12 AM 06/20/2017 3:28 PM Care Teams Water Plant Pump Operator Supervisor Relationship Specialty Start Date End Date Nereida Martin MD [address] [facility] [address] [place] [address] PCP - General 11/20/19
--- OUTSIDE RECORDS SUMMARY | 2024-06-24 10:11 | XMS_ITS | Encounter Summary ---
Author Organization [facility] Address [address] [place] [address] Care Team Providers Care Lion Hunter Name Role Phone Nereida Martin MD Primary Care Provider Encounter Details Date Type Department Care Team (Late st Contact Info) Description 04/12/2022 Abstract [facility] Oncology and Hematology - [place] [address] [address] Justyna Delgado RN Social History Tobacco Use Types Packs/Day Years Used Date Smoking Tobacco: Former Cigarettes 3 10 0 10/15/1979 - 10/14/1989 Smokeless Tobacco: Never Alcohol Use Standard Drinks/Week Comments Yes 0 (1 standard drink = 0.6 oz pur e alcohol) Comments No Sex and Gender Information Value Date Recorded Sex Assigned at Not on file Legal Sex Female 1:22 PM CDT Gender Identity Not on file Sexual Orientation Not on file documented as of this encounter Plan of Treatment Not on file documented as of this encounter Visit Diagnoses Not on filedocumented in this encounter Care Teams Lion Hunter Relationship Specialty Start Date End Date Nereida Martin MD PCP - General Internal Medicine 10/04/19 documented as of this encounter
--- NOTE | 2024-06-24 16:45 | WPDPFTINT ---
PFT Procedure Performed PFT Procedure Performed Spirometry with Pre/Post Bronchodilator Plethysmography (Lung Vol) Diffusing Cap (DLCO) Flow Vol Loop PFT Interpretation This is a pulmonary function test with pre and post-bronchodilator spirometry, plethysmography and diffusing capacity. The test was performed and results interpreted in accordance with the 2019 and 2005 ATS/ERS Task Force guidelines respectively using the Global Lung Function Initiative-2012 reference equations. Patient demonstrated good effort and cooperation. Reproducibility criteria were met. The quality of the pre bronchodilator spirometry maneuver was Grade A and post bronchodilator spirometry maneuver was Grade A. Findings: Spirometry: The contour the inspiratory and expiratory flow tracing are normal. The pre bronchodilator FVC is 2.53 L, 75% predicted. The pre bronchodilator FEV1 is 1.94 L, 73% predicted. The pre bronchodilator FEV1: FVC ratio 77%. The post bronchodilator FVC is 2.63 L, representing a 4% increase. The post bronchodilator FEV1 is 1.96 L, representing 1% increase. The post bronchodilator FEV1: FVC ratio 74%. Plethysmography: The total lung capacity is 4.45 L, 83% predicted. The functional residual capacity is 2.52 L, 83% predicted. The residual volume is 1.87 L, 89% predicted. Diffusing capacity: The diffusing capacity unadjusted for hemoglobin and carboxyhemoglobin is 17.3, 78% predicted. The diffusing capacity adjusted for alveolar volume is 4.63, 107% predicted. Impression: The FEV1 is less than 80% predicted and the FEV1: FVC ratio is greater than 70% consistent with Preserved Ratio Impaired Spirometry (PRISm) with a decreased FVC. There is no significant improvement after inhaling a single dose of albuterol. The lung volumes are normal. The diffusing capacity is normal. There are no prior studies for comparison.
== END 2024-06-24 09:30 | disposition home or self-care (01) ==
LOC: ANHPFT 09:32
PROVIDERS: PCP Internal Medicine; Visit Provider Internal Medicine Pulmonary Disease
DX: J44.9 Chronic obstructive pulmonary disease, unspecified (principal)
CPT/HCPCS: 94060; 94726; 94729

== ENCOUNTER 2024-07-04 07:50 | Outpatient (CLI) | payer MEDICARE, MEDICAID, SELFPAY ==
--- OUTSIDE RECORDS SUMMARY | 2024-07-04 07:53 | XMS_ITS | Referral Summary ---
Author Organization [facility] Address [address] [place] [address] Care Team Providers Care Reel Stripper Name Role Phone Lou Martin MD Primary Care Provide r Darian Beckman MD Unavailable [phone] Cezar Vides MD Unavailable Allergies Active Allergy Reactions Criticality Noted Date Comments Codeine Nausea only Low 04/08/2021 Diphenhydramine Rash,Nausea only,[place] sea And Vomiting,Vomiting High 07/07/2017 Erythromycin Nausea & Vomiting,Itching High 06/18/19 18 [place]-3 Fatty Acids Nausea only Low 04/08/2021 Fluticasone [...] (05/18/2021): Added automatically from request for surgery [id number] Coronary artery disease invo lving [place] heart without angina pectoris 04/06/2021 Overview (04/09/2021): Added automatically from request for surgery [id number] Social History Tobacco Use Types Packs/Day Years [...] often do you attend chur ch or caodaism services? 1 to 4 times per year 04/08/2021 Do you belong to any clubs o r organizations such as islam groups, unions, fraternal or athletic groups, or [...] place to sleep or slept in a longterm (including now)? No 04/08/2021 Personal Safety Answer Date Recorded Have you ever been in or are you currently in a harmful physical or emotional relationship or is someone making you feel afraid or unsafe? Denies 07/27/2023 Comments No Sex and Gender Information Value Date Recorded Sex Assigned at Not on file Legal Sex Female 2:15 AM MULTIMEDIA EDUCATIONAL SPECIALIST Gender Identity Not on file Sexual Orientation Not on file Last Filed Vital Signs Vital Sign Reading Time Taken Comments Blood Pressure 143/85 07/27/2023 8:00 PM MULTIMEDIA EDUCATIONAL SPECIALIST Pulse 80 07/27/2023 8:00 PM MULTIMEDIA EDUCATIONAL SPECIALIST Temperature 36.5 C (97.7 F) 07/27/2023 1:55 PM MULTIMEDIA EDUCATIONAL SPECIALIST Respiratory Rate 18 07/27/2023 4:15 PM MULTIMEDIA EDUCATIONAL SPECIALIST Oxygen Saturation 97% 07/27/2023 8:00 PM MULTIMEDIA EDUCATIONAL SPECIALIST Inhaled Oxygen Concentration - - Weight 99.8 kg (220 lb) 07/27/2023 1:55 PM MULTIMEDIA EDUCATIONAL SPECIALIST Height 167.6 cm (5' 6 ) 07/27/2023 1:55 PM MULTIMEDIA EDUCATIONAL SPECIALIST Body Mass Index 35.51 07/27/2023 1:55 PM MULTIMEDIA EDUCATIONAL SPECIALIST Plan of Treatment Not on file Medical Devices Implanted Type Area Granulator Device Identifier Shelf Expiration Date Model / Serial / Lot [employer] 73-7103 Sternalock Naldo 8 Hole Sternum Plate Bone 2.4 Mm Screw - [id number] Implanted:Qty: 3 on 04/12/2021 by Darian Beckman MD at [facility] N/A: Sternum [employer]an [employer] 73-2623 / / [employer] 73-5672 Sternalock Naldo 2.4mm 12mm Self Drill Lock Sternum Cancellous - [id number] Implanted:Qty: 12 on 04/12/2021 by Darian Beckman MD at [facility] N/A: Sternum [employer] 73-2412 / / [employer] 73-2414 Sternalock Naldo 2.4mm 14mm Self Drill Lock Sternum Cancellous - [id number] Implanted:Qty: 4 on 04/12/2021 by Darian Beckman MD at [facility] N/A: Sternum [employer] 73-2414 / / [employer] [id number] Sternalock Naldo 2.4mm 18mm Self Drill Lock Sternum Cancellous - [id number] Implanted:Qty: 4 on 04/12/2021 by Darian Beckman MD at [facility] N/A: Sternum [employer] 73-2418 / / [employer] 73-2416 Sternalock Naldo 2.4mm 16mm Self Drill Lock Sternum Cancellous - [id number] Implanted:Qty: 4 on 04/12/2021 by Darian Beckman MD at [facility] N/A: Sternum [employer] 73-2416 / / [place] [address] [place] [address] MEDICARE SOLUTIONS [facility] MEDICARE Address: [address] [address] [place] [address] [employer] MEDICARE [employer] MEDICARE SOLUTIONS [employer] MED[employer] [facility] MEDICARE Address: [address] [address] [place] [address] [employer] Advance Directives For more information, please contact: [phone] * Full Code (Latest Code Status on File) Date Activated Date Inactivated Comments 04/12/2021 2:39 PM 04/21/2021 9:55 PM * Full Code Date Activated Date Inactivated Comments 04/08/2021 4:39 AM 04/12/2021 2:39 PM Care Teams Reel Stripper Relationship Specialty Start Date End Date Lou Martin MD [address] [address] PCP - General Internal Medicine 04/02/21 Darian Beckman MD [address] [address] Surgeon Cardiothoracic Surgery 04/21/21 Cezar Vides MD [address] [place] [address] Referring Physician Cardiovascular Disease 04/21/21
--- OUTSIDE RECORDS SUMMARY | 2024-07-04 07:53 | XMS_ITS | Clinical Summary ---
Author Organization [facility] Address [address] [place] [address] Care Team Providers Care Van Loader Name Role Phone Lou Martin MD Primary Care Provide r Darian Beckman MD Unavailable [phone] Cezar Vides MD Unavailable Allergies Active Allergy Reactions Criticality Noted Date Comments Codeine Nausea only Low 04/08/2021 Diphenhydramine Rash,Nausea only,[place] sea And Vomiting,Vomiting High 07/07/2017 Erythromycin Nausea & Vomiting,Itching High 06/18/19 18 [place]-3 Fatty Acids Nausea only Low 04/08/2021 Fluticasone [...] (05/18/2021): Added automatically from request for surgery [id number] Coronary artery disease invo lving sycuan heart without angina pectoris 04/06/2021 Overview (04/09/2021): Added automatically from request for surgery [id number] Surgical History Surgery Date Site/Laterality Comments CORONARY [...] often do you attend chur ch or judaism services? 1 to 4 times per year 04/08/2021 Do you belong to any clubs o r organizations such as synagogue groups, unions, fraternal or athletic groups, or [...] place to sleep or slept in a intermediate (including now)? No 04/08/2021 Personal Safety Answer Date Recorded Have you ever been in or are you currently in a harmful physical or emotional relationship or is someone making you feel afraid or unsafe? Denies 07/27/2023 Comments No Sex and Gender Information Value Date Recorded Sex Assigned at Not on file Legal Sex Female 2:15 AM MILK CONDENSER Gender Identity Not on file Sexual Orientation Not on file Obstetrics History Last Filed Vital Signs Vital Sign Reading Time Taken Comments Blood Pressure 143/85 07/27/2023 8:00 PM MILK COND[employer]ER Pulse 80 07/27/2023 8:00 PM MILK COND[employer] Temperature 36.5 C (97.7 F) 07/27/2023 1:55 PM MILK CONDENSER Respiratory Rate 18 07/27/2023 4:15 PM MILK CONDENSER Oxygen Saturation 97% 07/27/2023 8:00 PM MILK CONDENSER Inhaled Oxygen Concentration - - Weight 99.8 kg (220 lb) 07/27/2023 1:55 PM MILK CONDENS[employer] Height 167.6 cm (5' 6 ) 07/27/2023 1:55 PM MILK COND[employer]ER Body Mass Index 35.51 07/27/2023 1:55 PM MILK CONDENSER Plan of Treatment Health Maintenance Due Date [...] 02/19/2020, 02/19/2020 Medical Devices Implanted Type Area Feather Boner Device Identifier Shelf Expiration Date Model / Serial / Lot [employer] 73-2623 Sternalock Naldo 8 Hole Sternum Plate Bone 2.4 Mm Screw - [id number] Implanted:Qty: 3 on 04/12/2021 by Darian Beckman MD at [facility] N/A: Sternum [employer] 73-2623 / / [employer] 73-2412 Sternalock Naldo 2.4mm 12mm Self Drill Lock Sternum Cancellous - [id number] Implanted:Qty: 12 on 04/12/2021 by Darian Beckman MD at [facility] N/A: Sternum [employer] 73-2412 / / [employer] 73-2414 Sternalock Naldo 2.4mm 14mm Self Drill Lock Sternum Cancellous - [id number] Implanted:Qty: 4 on 04/12/2021 by Darian Beckman MD at [facility] N/A: Sternum [employer] 73-2414 / / [employer] 73-2418 Sternalock Naldo 2.4mm 18mm Self Drill Lock Sternum Cancellous - [id number] Implanted:Qty: 4 on 04/12/2021 by Darian Beckman MD at [facility] N/A: Sternum [employer] 73-2418 / / [employer] 73-2416 Sternalock Naldo 2.4mm 16mm Self Drill Lock Sternum Cancellous - [id number] Implanted:Qty: 4 on 04/12/2021 by Darian Beckman MD at [facility] N/A: Sternum [facility] [employer] 73-8557 / / Insurance IDPA MEDICARE SOLUTIONS IDPA MEDICARE SOLUTIONS MEDICARE SOLUTIONS [employer] MED[employer]ARE [employer] IDPA Advance Directives For more information, please contact: [phone] * Full Code (Latest Code Status on File) Date Activated Date Inactivated Comments 04/12/2021 2:39 PM 04/21/2021 9:55 PM * Full Code Date Activated Date Inactivated Comments 04/08/2021 4:39 AM 04/12/2021 2:39 PM Care Teams Van Loader Relationship Specialty Start Date End Date Lou Martin MD [address] [address] PCP - General Internal Medicine 04/02/21 Darian Beckman MD [address] [address] Surgeon Cardiothoracic Surgery 04/21/21 Cezar Vides MD [address] [address] Referring Physician Cardiovascular Disease 04/21/21
--- OUTSIDE RECORDS SUMMARY | 2024-07-04 07:53 | XMS_ITS | Clinical Summary ---
Author Organization [facility] Address [address] [place] [address] Care Team Providers Care Machine Feeder Raw Stock Name Role Phone Unavailable Primary Care Provider [...]
--- OUTSIDE RECORDS SUMMARY | 2024-07-04 07:53 | XMS_ITS | Clinical Summary ---
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 Acti ve Insulin [place], Disposable, (BD Ultra-Fine Mini Pen Needle) 31 gauge x 3/16 Needle BD Ultra-Fine Mini Pen Needle 31 gauge x 3/16 Active Insulin [place], Disposable, (BD Ultra-Fine Short Pen Needle) 31 gauge x 5/16 Needle BD Ultra-Fine Short Pen Needle 31 gauge x 5/16 Active Insulin [place], Disposable, (BD Ultra-Fine Short Pen Needle) 31 [...] 1 Active fluticasone propionate (FLONASE) 50 mcg/spray [place], Suspension nasal inhaler 1 Active ezetimibe (ZETIA) [...] 96 01/29/2021 8:56 AM CDT Temperature 37.1 C (98.7 F) 01/29/2021 8:56 AM CDT Respiratory Rate - - Oxygen Saturation 96% [...] 07/08/2030 07/08/2020 Colorectal Cancer Screening 07/08/2030 Insurance MEDICAID [place] Care 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
--- OUTSIDE RECORDS SUMMARY | 2024-07-04 07:54 | XMS_ITS | Data Portability ---
Author Organization [place] [facility] [employer], Main Office Address [address] [place] [address] Care Team Providers Care Activity Aide Name Role Phone LEXI MARTIN Primary Care Provider LEXI MARTIN Referring Provider Assessment Encounter Date [...] 05/15/2024 05/15/2024 Assessment: Nicotine smoke: 3 ppd [id number] = 33 pack years Rhinitis to multiple environmental allergens with postnasal drip Bronchiectasis Bilateral pulmonary nodules Very severe OSAHS, AHI = 54 Plan: The following were reviewed and explained to the patient: [facility] split night sleep study 10/05/17 AHI = [...] since the last visit. Keep EPR +2 facility administrator. Keep ramp start at 4 cmH2O. Keep [...] therapy. Patient will setup an appointment with [place] Rowan Patient for supplies and pressure adjustments. A [...] updated, referrals provided, also called ER at [facility] Not available 06/20/2024 10:24:02 Plan of Treatment Reminders Order Date Submit Date Provider Last Modified By Organization Details Last Modified Time Details Appointments Any 15 2024 09:45A M Lexi mckinnon MD Not available Not available Not available Lab vitamin D, 25-hydrox y, total, serum [address] (Lab), [address] [place], [address], 02/22/2024 11:23:34 glycohemo globin, total, blood [address] (Lab), [address] [place], [address], 02/22/2024 11:23:34 microalbu min, urine [address] (Lab), [address] [place], [address], 02/22/2024 11:23:34 urinalysi s, complete [address] (Lab), [address] [place], [address], 03/06/2024 14:09:19 vitamin D, 25-hydrox y, total, serum [address] (Lab), [address] [place], [address], 02/29/2024 11:29:27 glycohemo globin, total, blood 2023 024 CONSTANZA [facility] (Lab), [address] [place], [address], 05/15/2024 13:34:27 microalbu min, urine [address] (Lab), [address] [place], [address], 02/29/2024 11:29:28 urinalysi s, complete [address] (Lab), [address] [place], [address], 03/07/2024 15:01:05 lipid panel, serum [address] (Lab), [address] [place], [address], 06/20/2024 10:21:32 CBC w/ auto diff [address] (Lab), [address] [place], [address], 06/20/2024 10:21:32 TSH, serum or plasma [address] (Lab), [address] [place], [address], 06/20/2024 10:21:33 CMP, serum or plasma [address] (Lab), [address] [place], [address], 06/20/2024 10:21:33 vitamin D, 25-hydrox y, total, serum [address] (Lab), [address] [place], [address], 06/20/2024 10:15:26 glycohemo globin, total, blood [address] (Lab), [address] [place], [address], 06/20/2024 10:15:27 microalbu min, urine 2024 025 [email or web address] [facility] (Lab), [address] [facility], [place], [address], 06/20/2024 10:15:27 urinalysi s, complete 2024 025 [email or web address] [facility] (Lab), [address] [place], [address], 06/20/2024 10:15:27 glucose, fingersti ck, blood 2024 025 [email or web address] [facility] [address] [facility] [address], [place], [address], 06/20/2024 10:14:44 Referral gynecolog ist referral - Please call patient to schedule. 2023 024 [email or web address] Jeane Hollis MD, [address], [address], [place], [address], 03/27/2024 08:59:15 orthopedi c surgeon referral 2023 024 Jeffrey Perry MD, [address] [facility], [place], [address], 02/26/2024 12:14:27 pulmonolo gist referral 2023 024 [email or web address] Germain Romero MD, [address] [place], [address], 02/26/2024 12:13:10 hematolog ist referral 2023 024 [email or web address] Ronnell Butler, [address], [place], [address], 02/26/2024 12:13:08 nephrolog ist referral 2023 024 [email or web address] [place], [address], [address], [place], [address], 02/26/2024 12:15:15 cardiolog ist referral 2023 024 [email or web address] Tigre Gifford MD, [address] [facility], [address], [place], [address], 02/26/2024 12:15:13 hepatolog ist referral 2023 024 [email or web address] Trinidad Vega MD, [address], [address], [place], [address], 02/26/2024 12:15:14 podiatris t referral 2023 024 [email or web address] Víctor Zaragoza DPM, [address] [facility], [address], [place], [address], 02/26/2024 12:13:10 endocrino logy referral - Please call patient to schedule. 2023 024 [email or web address] [place], [address] [facility], [place], [address], 03/27/2024 08:58:46 gynecolog ist referral - Please call patient to schedule. 2023 024 Jeane Hollis MD, [address], [address], [place], [address], 02/29/2024 11:58:59 orthopedi c surgeon referral 2023 024 [email or web address] Jeffrey Perry MD, [address] [facility], [place], [address], 02/29/2024 11:57:10 pulmonolo gist referral 2023 024 [email or web address] Germain Romero MD, [address] [facility], [place], [address], 02/29/2024 11:57:08 hematolog ist referral 2023 024 [email or web address] Ronnell Butler, [address], [place], [address], 02/29/2024 11:58:31 nephrolog ist referral 2023 024 [email or web address] [place], [address], [address], [place], [address], 02/29/2024 11:57:08 cardiolog ist referral 2023 024 Tigre Gifford MD, [address] [facility], [address], [place], [address], 02/29/2024 11:57:55 urologist referral 2023 024 [email or web address] Rahul Anders, [address] [facility], [address], [place], [address], 02/29/2024 11:58:18 hepatolog ist referral 2023 024 [email or web address] Trinidad Vega MD, [address], [address], [place], [address], 02/29/2024 11:57:56 podiatris t referral 2023 024 [email or web address] Víctor Zaragoza DPM, [address] [facility], [address], [place], [address], 02/29/2024 11:57:09 endocrino logy referral - Please call patient to schedule. 2023 024 [email or web address] [place], [address] [address], [place], [address], 02/29/2024 11:59:00 gynecolog ist referral - Please call patient to schedule. 2024 025 [email or web address] Jeane Hollis MD, [address], [address], [place], [address], 06/20/2024 10:22:10 orthopedi c surgeon referral 2024 025 [email or web address] Jeffrey Perry MD, [address] [facility], [place], [address], 06/20/2024 10:22:11 pulmonolo gist referral 2024 025 [email or web address] Germain Romero MD, [address] [place], [address], 06/20/2024 10:22:11 neurologi reza surgeon referral 2024 025 [place], [address], [place], [address], 06/20/2024 10:22:12 hematolog ist referral 2024 025 [email or web address] Ronnell Butler, [address], [place], [address], 06/20/2024 10:22:10 nephrolog ist referral 2024 025 [email or web address] [place], [address], [place], [address], 06/20/2024 10:22:11 cardiolog ist referral 2024 025 [email or web address] Tigre Gifford MD, [address] [facility], [address], [place], [address], 06/20/2024 10:22:11 urologist referral 2024 025 [email or web address] Rahul Anders, [address] [facility], [facility] [address], [place], [address], 06/20/2024 10:22:10 hepatolog ist referral 2024 025 [email or web address] Trinidad Vega MD, [address], [address], [place], [address], 06/20/2024 10:22:10 podiatris t referral 2024 025 [email or web address] Víctor Zaragoza DPM, [address], [address], [place], [address], 06/20/2024 10:22:11 endocrino logy referral - Please call patient to schedule. 2024 025 [email or web address] [place], [address], [place], [address], 06/20/2024 10:22:10 Procedures None recorded. Surgeries None recorded. Imaging MAMMO, screening , digital, bilateral - Please call patient to schedule. [address] ([facility] Scheduling), [address] [place], [address], 02/22/2024 11:23:34 XR, hip + pelvis, unilatera l 2023 024 [facility] [place] ([facility] Sched[facility]), [address] [place], [address], 02/22/2024 11:27:24 CT, abdomen + pelvis, w/o contrast - STATH OLD AND CALL Dr JINA PATEL DO ORAL CONTRAST 2023 024 [facility] [place] ([facility]), [address] [place], [address], 02/22/2024 13:03:02 DEXA, axial skeleton [address] ([facility] Scheduling), [address] [place], [address], 02/22/2024 11:23:34 MAMMO, screening , digital, bilateral - Please call patient to schedule. [address] ([facility]uling), [address] [place], [address], 02/29/2024 11:33:44 DEXA, axial skeleton 2023 024 [email or web address] [facility] ([facility] Scheduling), [address] [place], [address], 02/29/2024 11:33:44 CT, abdomen + pelvis, w/o contrast 2023 024 [facility] ([facility] Scheduling), [address] [place], [address], 06/25/2024 10:38:34 MAMMO, screening , digital, bilateral - Please call patient to schedule. [address] ([facility] Scheduling), [address] [place], [address], 06/24/2024 11:06:39 DEXA, axial skeleton [address] ([facility] Scheduling), [address] [place], [address], 06/24/2024 11:07:14 Medication Orders None recorded. Patient TargetsNo targets recorded. Patient Instructions Encounter Date Encounter Id Patient Instructions Last Modified By Organization Details Last Modified Time 02/29/2024 [id number] Thank you for your visit to our [...] homebound status}} Required Home Health Services: {{none long-term, physical therapy, occupational therapy long-term, physical therapy long-term}} Durable Medical Equipment needed: {{cane walker wal ker with seat manual wheelchair bedsid e commode oxygen}} Billing Guidelines CPT code 74883- Transitional Care Management services with moderate medical decision complexity (hxfk-yt-htfd visit within 14 days of discharge). CPT code 34028- Transitional Care Management services with high medical decision complexity (hmti-uq-ghny visit within 7 days of discharge). lena Not available 02/29/2024 10:25:07 03/15/2024 [id number] 1. I will send a urine for culture 2. She needs a CT of the abdomen and pelvis without contrast to see if she still has emphysematous cystitis 3. If she does she may need a cystoscopy with resection of the wall of the bladder to release the infection of the bladder [email or web address] Not available 03/15/2024 18:03:50 05/15/2024 [id number] methacholine challenge* - Please call patient to schedule. ALFA CPT_95070 per [facility] payor portal, ref #[id number]. CONSTANZA Not available 06/20/2024 07:15:56 Reason for Referral Forming Machine Tender Referral for Co ronary arteriosclerosis Referring Physician: Lexi Martin Internal Medicine, Encounter Date: 02/22/2024 Referring Physician: Lexi Martin [facility], Encounter Date: 02/22/2024 Embroidery Designer Referral for Ci rrhosis of liver Referring Physician: Lexi Martin [facility], Encounter Date: 02/22/2024 Creative Writing Teacher Referral for Ch ronic kidney disease Referring Physician: Lexi Martin Internal [facility], Encounter Date: 02/22/2024 Superintendent Operations Division Referral for C hronic obstructive pulmonary disease Referring Physician: Lexi Martin Internal [facility], Encounter Date: 02/22/2024 Senior Ui Ux Designer Referral for Type 2 diabetes mellitus without complication Referring Physician: Lexi Martin [facility], Encounter Date: 02/22/2024 Packing Supervisor Referral for Gy necologic examination Please call patient to schedule. Referring Physician: Darrin Johnson Medicine, Encounter Date: 02/22/2024 Endocrinology Referral for T ype 2 diabetes mellitus without complication Please call patient to schedule. Referring Physician: Lexi Martin [facility], Encounter Date: 02/22/2024 Orthopedic Surgeon Referral for Pain in right hip joint Referring Physician: Lexi Martin [facility], Encounter Date: 02/22/2024 Forming Machine Tender Referral for Co ronary arteriosclerosis Referring Physician: Darrin Johnson Medicine, Encounter Date: 02/29/2024 Referring Physician: Darrin Johnson Medicine, Encounter Date: 02/29/2024 Embroidery Designer Referral for Ci rrhosis of liver Referring Physician: Lexi Martin [facility], Encounter Date: 02/29/2024 Creative Writing Teacher Referral for Ch ronic kidney disease Referring Physician: Darrin Johnson Medicine, Encounter Date: 02/29/2024 Superintendent Operations Division Referral for C hronic obstructive pulmonary disease Referring Physician: Darrin Johnson Medicine, Encounter Date: 02/29/2024 Senior Ui Ux Designer Referral for Type 2 diabetes mellitus without complication Referring Physician: Lexi Martin Internal [facility], Encounter Date: 02/29/2024 Packing Supervisor Referral for Gy necologic examination Please call patient to schedule. Referring Physician: Darrin Johnson Medicine, Encounter Date: 02/29/2024 Endocrinology Referral for T ype 2 diabetes mellitus without complication Please call patient to schedule. Referring Physician: Lexi Martin [facility], Encounter Date: 02/29/2024 Orthopedic Surgeon Referral for Pain in right hip joint Referring Physician: Darrin Johnson Medicine, Encounter Date: 02/29/2024 Urologist Referral for Cysti tis Referring Physician: Darrin Johnson Medicine, Encounter Date: 02/29/2024 Forming Machine Tender Referral for Co ronary arteriosclerosis Referring Physician: Lexi Martin [facility], Encounter Date: 06/20/2024 Referring Physician: Lexi Martin [facility], Encounter Date: 06/20/2024 Embroidery Designer Referral for Ci rrhosis of liver Referring Physician: Darrin Johnson, Encounter Date: 06/20/2024 Creative Writing Teacher Referral for Ch ronic kidney disease Referring Physician: Darrin Johnson, Encounter Date: 06/20/2024 Superintendent Operations Division Referral for C hronic obstructive pulmonary disease Referring Physician: Darrin Johnson, Encounter Date: 06/20/2024 Senior Ui Ux Designer Referral for Type 2 diabetes mellitus without complication Referring Physician: Darrin Johnson, Encounter Date: 06/20/2024 Packing Supervisor Referral for Gy necologic examination Please call [...] Internal Medicine, Encounter Date: 06/20/2024 Neurological Surgeon Referra laury for Spinal stenosis Referring Physician: Lexi Martin, Internal Medicine, Encounter Date: 06/20/2024 Results Created Date Observation Date Name Description Value Unit Range Abnormal Flag Note LastModifiedBy Organization Detail LastModifiedTime 03/15/2003/15/2024 urina lysis , dipst ick Color Yellow Not Available [address], [address], 03/15/2024 16:53:28 03/15/2003/15/2024 urina lysis , dipst ick Appearance Slight ly Cloudy Not Available [address], [address], 03/15/2024 16:53:28 03/15/2003/15/2024 urina lysis , dipst ick Glucose (reference range: negative mg/dl) 1000 Not Available [address], [address], 03/15/2024 16:53:28 03/15/2003/15/2024 urina lysis , dipst ick Bilirubin (reference range: negative mg/dl) Negati ve Not Available [address], [address], 03/15/2024 16:53:28 03/15/2003/15/2024 urina lysis , dipst ick Ketone (reference range: negative mg/dl) Negati ve Not Available [address], [address], 03/15/2024 16:53:28 03/15/2003/15/2024 urina lysis , dipst ick Specific [place] (reference range: 1.005-1.030) 1.015 Not Available [address], [address], 03/15/2024 16:53:28 03/15/2003/15/2024 urina lysis , dipst ick Blood (reference range: negative Ever/ l) Small Not Available [address], [address], 03/15/2024 16:53:28 03/15/20 24 03/15/2024 urina lysis , dipst ick pH (reference range: 5-7) 6.0 Not Available [address], [address], 03/15/2024 16:53:28 03/15/2003/15/2024 urina lysis , dipst ick Protein (reference range: negative mg/dl) Negati ve Not Available [address], [address], 03/15/2024 16:53:28 03/15/2003/15/2024 urina lysis , dipst ick Urobilinogen (reference range: 0.2-1 mg/dl) 0.2 Not Available [address], [address], 03/15/2024 16:53:28 03/15/20 24 03/15/2024 urina lysis , dipst ick Nitrite (reference rage: negative mg/dl) positi ve Not Available [facility] [address] [facility], [address], [place], [address], 03/15/2024 16:53:28 03/15/20 24 03/15/2024 urina lysis , dipst ick Leukocytes (reference range: negative americo/ l) Negati ve Not Available [facility] [address] [facility], [address], [place], [address], 03/15/2024 16:53:28 06/20/19 25 06/20/2024 gluco se, finge rstic k, blood Blood Glucose: mg/dl 543 Not Available [facility] [address], [place], [address], 06/20/2024 10:09:49 02/22/20 24 02/22/2024 XR, hip, unila teral , 2 or 3 view [facility] [address] [facility] [address], [place] [address] Patien t Name: JOSE D JHA Access ion #: [id number] Sex: F : 1965 5 Dictat ed By: Alli rogel Attend ing Physic jovi: MEAGHAN SINGER [facility] Physic jovi: MEAGHAN SINGER Exam Date: [...] 2023 08:23: 16 AM Page 1 INTERFACE [facility] (Imaging) [address] [place], [address], 02/22/2024 11:25:31 02/22/20 24 02/22/2024 XR, hip + pelvi s, unila teral No observ ation record ed. [facility] [address] [place], [address], 02/22/2024 11:27:24 02/22/20 24 02/22/2024 CT, abdom en + pelvi s, w/o contr ast [facility] [address] [place] [address] Patien t Name: JOSE D JHA Access ion #: [id number] Sex: F : 1965 5 Dictat [...] contra st. All CT scans at this medica l facili ty are perfor med using dose modula tion techni ques as appro riate to a perfor med exam includ [...] consis tent with cirrho sis in the appro riate clinic al settin g. Biliar y: No calcif ied gallst ones or biliar y ductal dilata tion. Spleen : Unrema rkable . Pancre as: Grossl y unrema rkable in its noncon trast enhanc ed appear ance. Adrena l glands : Left adrena l nodule measur es up to 1.5 cm with densit y most Page 1 [facility] [address] [place] [address] Patien t Name: JOSE D JHA Access ion #: [id number] Sex: F : 1965 5 Dictat ed By: Alli rogel Attend ing Physic jovi: KAIN HERNANDEZ [facility] Physic jovi: MEAGHAN SINGER Exam Date: 2023 [...] r wall was report ed to the [facility] Jennifer almanzar , at [facility] by Dr. Anni rogel by phone at a proxim ally 12:00 p.m. CDT on 2023. Electr onical ly Signed by: Alli rogel at 2023 10:00: 34 AM Page 3 INTERFACE [facility] ([facility]) [address] [place], [address], 02/22/2024 13:03:03 02/22/20 24 02/22/2024 CT, abdom en + pelvi s, w/o contr ast No observ ation record ed. [address] [place], [address], 03/11/2024 12:21:45 02/22/20 24 02/22/2024 XR, chest , 1 view No observ ation record ed. [address] [place], [address], 03/11/2024 12:21:57 05/27/20 24 05/27/2024 imagi ng/di agnos tic resul t No observ ation record ed. [facility] [address] [place], [address], 05/27/2024 10:01:36 05/27/20 24 05/27/2024 imagi ng/di agnos tic resul t No observ ation record ed. [facility] [address] [place], [address], 05/27/2024 10:06:35 05/27/20 24 05/27/2024 imagi ng/di agnos tic resul t No observ ation record ed. [facility] [address] [place], [address], 05/27/2024 13:20:30 06/24/19 25 06/24/2024 imagi ng/di agnos tic resul t No observ ation record ed. [address], [place], [address], 06/24/2024 17:54:36 Result Notes None recorded. Problems Name Problem SNOMED Code Status Onset Date Resolution Date Notes Provider Name and Address Organization Details Recorded Time Vitamin D deficien 44657324 Active 2022 Not Available [facility] 3 21:07:09 Onychomy cosis of toenails 946356095 Active 2022 Not Available [facility] 3 21:07:09 Cirrhosi s of liver 94527262 Active 2022 Lexi foster MD [address], [place], [address] , [employer] [facility] 3 16:11:52 Spinal stenosis 84318426 Active 2022 Lexi foster MD [address], [address], [place], [address] , [employer] [facility] 3 16:12:07 Gastroes ophageal reflux disease without esophagi tis 131586297 Active 2022 Lexi foster MD [address], [address], [place], [address] , [employer] [facility] 3 16:12:29 Ganglion of wrist 955930014 Active 2022 Lexi foster MD [address], [address], [place], [address] , [employer] [facility] 3 16:13:07 Chronic obstruct kandi pulmonar y disease 12324472 Completed 201903/10/2021 Lexi foster MD [address], [address], [place], [address] , [employer] [facility] 4 22:58:28 Herpes labialis 0717715 Active Not Available [facility] 3 21:07:08 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 22520421423 07 Active 2019 Not Available [facility] 3 21:07:08 Pain in throat 080774656 Completed Not Available [facility] 3 03:03:13 Chronic depressi on 703222843 Active Not Available [facility] 3 21:07:08 Degenera tive joint disease involvin g multiple joints 497293892 Active 2021 Not Available [facility] 3 21:07:08 Gastroes ophageal reflux disease 388998582 Active Not Available [facility] 3 21:07:08 Gastroen teritis 68359988 Completed Not Available [facility] 3 03:03:14 Chest pain 92122547 Completed Not Available [facility] 3 03:03:14 Hypertri glycerid emia 599920182 Active Not Available [facility] 3 21:07:09 Knee pain Completed Not Available [facility] 3 03:03:14 Type 2 diabetes mellitus without complica tion 208803637 Completed Lexi foster MD [address] [facility], [address], [place], [address] , [employer] 5 09:52:44 Arthriti s 8121766 Completed Not Available [facility] 3 03:03:14 Hyperten sive disorder 65288439 Completed Not Available [facility] 3 03:03:15 Neuropat hy 982259220 Completed Lexi foster MD [address], [place], [address] , [employer] 5 17:43:39 Stented coronary artery 993303217 Active x6 stents Not Available [facility] 3 21:07:09 Osteoart hritis 560580637 Completed Not Available [facility] 3 03:03:15 Vertigo 238742227 Active 2021 Not Available [facility] 3 21:07:09 Obesity 862765966 Active Not Available [facility] 3 21:07:09 Ischemic congesti ve cardiomy opathy 041678167 Active 2017 Not Available [facility] 3 21:07:09 Type 1 diabetes mellitus 81871034 Completed Not Available [facility] 3 03:03:15 Anxiety 86197402 Active Not Available [facility] 3 21:07:09 Coronary arterios clerosis 50036809 Active 2017 Not Available [facility] 3 21:07:09 Acute upper respirat ory infectio n 39307367 Completed Not Available [facility] 3 03:03:16 Hyperlip idemia 39664834 Completed Lexi foster MD [address], [place], [address] , [employer] 5 10:20:29 Essentia l hyperten lakshmi 84154808 Active Not Available [facility] 3 21:07:09 Porphyri a cutanea tarda 51356040 Active Not Available [facility] 3 21:07:09 Polyp of colon 83307085 Active Not Available [facility] 3 21:07:09 Diabetes mellitus 54702593 Completed Not Available [facility] 3 03:03:17 Sleep apnea 51325143 Completed 201703/10/2021 Not Available [facility] 3 03:03:17 Obstruct kandi sleep apnea syndrome 75278252 Active 2019 Not Available [facility] 3 21:07:09 Psoriasi s 7337919 Active Not Available [facility] 3 21:07:09 Disorder of skin 48272930 Completed Not Available [facility] 3 03:03:17 Chronic kidney disease 725811307 Active 2023 Lexi foster MD [address], [place], [address] , [employer] 4 16:45:16 Chronic obstruct kandi pulmonar y disease 21815603 Active 2023 Lexi foster MD [address], [address], [place], [address] , [employer] 4 22:58:28 Seasonal allergy 648739258 Active 2023 ARIA CarvajlaGlen null, [facility] [employer] [facility] 4 16:36:13 Cough 12811737 Active 2024 Michel Malagon CMA null, [facility] [employer] [facility] 5 13:40:29 Neuropat hy 679229962 Active 2024 Lexi foster MD [address], [address] [address], [place], [address] , [facility] [employer] [facility] 5 17:43:39 Type 2 diabetes mellitus without complica tion 187268868 Active 2024 Lexi foster MD [address], [facility] [address], [place], [address] , [facility] [employer] [facility] 5 09:52:44 Hyperlip idemia 64679719 Active 2024 Lexi foster MD [address] [facility], [facility] [address], [place], [address] , [facility] [employer] [facility] [employer] [facility] 5 10:20:29 Notes:Medical History: Left CVA without residual hemiparesis 1983 Vertigo Bipolar depression/Anxiety Migraine headaches Bruxism Rhinitis to multiple environmental allergens with postnasal drip Eosinophils 400/uL Alpha-1 antitrypsin PiMM 160 mg% Obesity with very severe OSAHS, AHI = 54, 10/05/17, on autoCPAP c/o [place] [facility] T2DM with neuropathy/microalbuminuria Mixed hyperlipidemia Hypertension EF 55% CAD s/p [place] with ischemic cardiomyopathy Mild MR 4.1 cm ascending thoracic aortic ectasia Granulomatous disease (chest, liver) ABHIJIT homogeneous 1:80 Coccidioides 2.1 Bronchiectasis Bilateral nodules JEREMI Cirrhosis Diarrhea-predominant IBS Diverticulosis/Diverticulitis Normocytic anemia Porphyria cutanea tarda Thoracic stenosis/DDD Onychomycosis Procedure History: T&A 1969 9 coronary artery stents placement 2015, 2016, 2017 Colonoscopy with polypectomy 2019 08 vessel CABG 2020 Problem Notes None recorded. Procedures Surgical History Date Name Laterality Status Provider Name and Address Organization Details Recorded Time 02/29/20 24 Transitional_Care_ Management completed Sagrario Álvarez MA [facility] [employer] [facility] 02/29/2024 10:25:07 11/25/19 23 Blank Procedure Note completed Víctor Zaragoza DPM [address], [address], [place], [address], [facility] [employer] [facility] 11/24/2022 11:35:04 11/23/19 23 Medicare Wellness CPT Code, subsequent completed Carlie Vidal RN [facility] [employer] [facility] 11/22/2022 09:36:22 09/14/19 23 Nail Debridement completed Víctor Zaragoza DPM [address], [address], [place], [address], [facility] [employer] [facility] 09/13/2022 09:36:10 05/29/19 22 dilation of esophagus completed Isabella Grijalva RN [facility] [employer] [facility] 08/24/2022 10:11:23 11/13/19 21 Endoscopy completed Not Available [facility] 07/27/2022 02:55:59 07/08/19 21 Date of Last Colonoscopy completed Not Available [facility] 07/27/2022 02:55:56 01/18/20 18 Exc tr-ext b9+nancy 2.1-3cm completed Not Available [facility] 07/27/2022 02:55:59 01/18/20 18 Intmd rpr s/a/t/ext 2.6-7.5 completed Not Available [facility] 07/27/2022 02:55:59 section completed Not Available [facility] 07/27/2022 02:55:59 other completed Not Available [facility] 07/27/2022 02:55:59 Cardiovascular Surgery completed Not Available [facility] 07/27/2022 02:55:59 FLAVORER Surgery completed Not Available [facility] 07/27/2022 02:55:59 Cardiac Bypass completed Not Available [facility] 07/27/2022 02:55:59 Imaging Results Imaging Date Name Status LastModified by Organiz ation Details LastModified Time 02/22/2024 XR, hip, unilateral, 2 or 3 view active [facility] (Imaging) [address], [place], [address], 02/22/2024 11:25:31 02/22/2024 XR, hip + pelvis, unilateral active [facility] [address] [place], [address], 02/22/2024 11:27:24 02/22/2024 CT, abdomen + pelvis, w/o contrast active [facility] [address] [place], [address], 02/22/2024 13:03:03 02/22/2024 CT, abdomen + pelvis, w/o contrast completed [address] [place], [address], 03/11/2024 12:21:45 02/22/2024 XR, chest, 1 view completed [address] [place], [address], 03/11/2024 12:21:57 05/27/2024 imaging/diagnos tic result active [facility] [address] [place], [address], 05/27/2024 10:01:36 05/27/2024 imaging/diagnos tic result active [facility] [address] [place], [address], 05/27/2024 10:06:35 05/27/2024 imaging/diagnos tic result active [facility] [address] [place], [address], 05/27/2024 13:20:30 06/24/2024 imaging/diagnos tic result active [address] [place] [address], [address], 06/24/2024 17:54:36 Procedure Notes None recorded. Medical Equipment None Reported. Allergies Allergen ID Allergen Name Allergen Category Reaction Reaction Severity Criticality Documentation Date Start Date Code Code System Note Provider Name and Address Organization Details Recorded Time 5479 tramadol medicatio n rash Not available Not available 07/27/2022 27348 RxNorm Not Available [facility] 3 03:13:29 5480 Plavix medicatio n itching Not available Not available 07/27/2022 52067 2 RxNorm Not Available [facility] 3 03:13:29 5481 morphine medicatio n Not available Not available Not available 07/27/2022 7052 RxNorm Not Available [facility] 3 03:13:29 5482 lisinopri l medicatio n cough Not available Not available 07/27/2022 81746 RxNorm Not Available [facility] 3 03:13:29 5483 erythromy zenobia medicatio n dizziness vomiting Not available Not available Not available 07/27/2022 4053 RxNorm Not Available [facility] 3 03:13:29 5484 codeine medicatio n dizziness vomiting Not available Not available Not available 07/27/2022 2670 RxNorm Not Available [facility] 3 03:13:30 5485 Benadryl medicatio n vomiting Not available Not available 07/27/2022 07430 7 RxNorm Not Available [facility] 3 03:13:30 5486 fluticaso ne / salmetero l medicatio n Not available Not available Not available 07/27/2022 71060 5 RxNorm Not Available [facility] 3 03:13:30 Medications Name Sig Start Date [...] administe red by the provider 07/21 completed [facility]: 0003- 0494- 20 Not Available Not Available [...] with needle 1 mL 31 gauge x 10/11 USE TO INJECT INSULIN QID active Not [...] with needle 0.5 mL 31 gauge x 5/16 USE ONCE D UTD active Not Available Not Available No t Available risperidone 0.5 mg tablet TK 1 T PO QD HS 05/01 completed Not Available Not Available Not Available naproxen 500 mg tablet TK 1 T PO BID WC 07/10 completed Not Available Not Available Not Available amoxicillin 500 mg-potassiu m clavulanate 125 mg tablet 10/10 completed Not Available Not Available Not Available buspirone 15 mg tablet Take 1 tablet twice a day by oral route for 30 days. 02/23 /2023 completed Not Available Not Available Not Available [...] Ultra-Fine Mini Pen Needle 31 gauge x 08/11 USE 1 NEEDLE FOUR TIMES DAILY DIRECTED. [...] Ultra-Fine Sofia Pen Needle 32 gauge x 5/32 03/10 completed Not Available Not Available Not [...] tablet TAKE 1 TABLET BY MOUTH DAILY active Not Available Not [...] completed Not Available Not Available Not Available [employer] Max U-300 SoloStar 300 unit/mL (3 [...] Updated DateTime 4 167.64 cm 33.9 kg/m2 68624.4 g 97.1 [degF] 84 /min 124 mm[Hg] 70 mm[Hg] PRATEEK Carvajal [place] [facility] [employer] [facility] 4 09:47:16 Date Recorded Body height Body mass index (BMI) Body weight Body temperature Heart rate Oxygen saturation Oxygen saturation in Arterial blood by Pulse oximetry Pain severity - 0-10 verbal numeric rating [Score] - Reported Systolic blood pressure Diastolic blood pressure Provider Name and Address Organization Details Last Updated DateTime 4 167.64 cm 34.1 kg/m2 07781.9 9 g 96.1 [degF] 96 /min 89 % 89 % 8 132 mm[Hg] 74 mm[Hg] Sagrario Álvarez MA [facility] [employer] [facility] 4 10:29:18 Date Recorded Body height Heart rate Body temperature Body mass index (BMI) Body weight Oxygen saturation Oxygen saturation in Arterial blood by Pulse oximetry Systolic blood pressure Diastolic blood pressure Provider Name and Address Organization Details Last Updated DateTime 4 167.64 cm 86 /min 97.1 [degF] 34.2 kg/m2 17555.5 8 g 98 % 98 % 164 mm[Hg] 88 mm[Hg] Carlee Harper CMA [facility] [employer] [facility] 4 16:36:43 Date Recorded Body height Body mass index (BMI) Body weight Body temperature Heart rate Oxygen saturation Oxygen saturation in Arterial blood by Pulse oximetry Systolic blood pressure Diastolic blood pressure Provider Name and Address Organization Details Last Updated DateTime 4 167.64 cm 32 kg/m2 44086.0 1 g 98.1 [degF] 75 /min 96 % 96 % 130 mm[Hg] 84 mm[Hg] Sagrario Álvarez MA [facility] [employer] [facility] 4 08:39:17 Date Recorded Heart rate Respiratory rate Provider N julian and Address Organization Details Last Updated DateTime 05/15/2024 75 /min 15 /min Germain Romero MD [address] [place] [address], [address], [facility] [employer] [facility] 05/15/2024 09:07:54 Date Recorded Body height Body mass index (BMI) Body weight Body temperature Heart rate Oxygen saturation Oxygen saturation in Arterial blood by Pulse oximetry Pain severity - 0-10 verbal numeric rating [Score] - Reported Systolic blood pressure Diastolic blood pressure Provider Name and Address Organization Details Last Updated DateTime 5 167.64 cm 32.8 kg/m2 31926.2 5 g 98.1 [degF] 89 /min 96 % 96 % 3 134 mm[Hg] 72 mm[Hg] Sagrario Álvarez MA [facility] [employer] [facility] 5 09:36:12 Social History Question Answer Notes LastModified by Organization Details LastModified Time Tobacco Smoking Status Former Smoker quit 32yrs ago Not Available [employer] 07/27/2022 02:51:25 Do You Have An Advance Directive? No Information Given To Patient MIGRATION.0301 605299 Information not available 07/27/2022 What Is Your Level Of Alcohol Consumption? None MIGRATION.0301 240075 Information not available 07/27/2022 What Is Your Level Of Caffeine Consumption? Heavy MIGRATION.0301 728622 Information not available 07/27/2022 How Much Tobacco Do You Chew? None MIGRATION.0301 903188 Information not available 07/27/2022 In The 14 Days Before Symptom Onset, Have You Had Close Contact With A Laboratory-conf irmed COVID-19 While That Case Was Ill? No MIGRATION.0301 626913 Information not available 07/27/2022 In The 14 Days Before Symptom Onset, Have You Had Close Contact With A Person Who Is Under Investigation For COVID-19 While That Person Was Ill? No MIGRATION.0301 326091 Information not available 07/27/2022 Are You Currently Employed? No Disablied Information not available 05/15/2024 What Type Of Diet Are You Following? REGULAR MIGRATION.0301 414304 Information not available 07/27/2022 Which Illicit Or Recreational Drugs Have You Used? None MIGRATION.0301 816286 Information not available 07/27/2022 Do You Or Have You Ever Used E-cigarettes Or Vape? Never Used Electronic Cigarettes MIGRATION.0301 579622 Information not available 07/27/2022 What Is The Highest Grade Or Level Of School You Have Completed Or The Highest Degree You Have Received? IL22099-2 MIGRATION.0301 435679 Information not available 07/27/2022 Do You Have An Electrostatic Air Filter? No MIGRATION.0301 273522 Information not available 07/27/2022 Have There Been Any Changes To Your Family Or Social Situation? No MIGRATION.0301 038065 Information not available 07/27/2022 What Is The Fluoride Status Of Your Home? Unknown MIGRATION.0301 792243 Information not available 07/27/2022 When Did You Quit Smoking? 16+yearssincelast cigarette MIGRATION.0301 875339 Information not available 07/27/2022 Are There Any Guns Present In Your Home? No MIGRATION.0301 992361 Information not available 07/27/2022 Do You Have A Humidifier? Yes MIGRATION.0301 308841 Information not available 07/27/2022 Do You Use Insect Repellent Routinely? No MIGRATION.0301 933736 Information not available 07/27/2022 Where Do You Live? [facility] MIGRATION.0301 190066 Information not available 07/27/2022 Do You Have A Medical Power Of No Experience? No MIGRATION.0301 817478 Information not available 07/27/2022 Do You Have Moisture Problems In Your Home? No MIGRATION.0301 135071 Information not available 07/27/2022 What Was The Date Of Your Most Recent Tobacco Screening? 06/20/2024 Information not available 06/20/2024 How Many Children Do You Have? 2 Information not available 02/29/2024 Do You Have Any Pets? Yes MIGRATION.0301 335164 Information not available 07/27/2022 What Is Your Relationship Status? Single MIGRATION.0301 534805 Information not available 07/27/2022 Do You Use Your Seat Belt Or Car Seat Routinely? Yes MIGRATION.0301 958076 Information not available 07/27/2022 Do You Have Smoke And Carbon Monoxide Detectors In Your Home? Yes MIGRATION.0301 045039 Information not available 07/27/2022 At What Age Did You Start Smoking Tobacco? 13 MIGRATION.0301 447469 Information not available 07/27/2022 Are You Passively Exposed To Smoke? Yes MIGRATION.0301 425238 Information not available 07/27/2022 Do You Or Have You Ever Used Smokeless Tobacco? Never Used Smokeless Tobacco MIGRATION.0301 676737 Information not available 07/27/2022 Are There Any Smokers In Your House? Yes MIGRATION.0301 165776 Information not available 07/27/2022 How Much Tobacco Do You Smoke? 3+ PPD MIGRATION.0301 116624 Information not available 07/27/2022 What Types Of Sporting Activities Do You Participate In? None MIGRATION.0301 257945 Information not available 07/27/2022 Do You Feel Stressed (tense, Restless, Nervous, Or Anxious, Or Unable To Sleep At Night)? KB79661-6 MIGRATION.0301 707856 Information not available 07/27/2022 Do You Use Any Illicit Or Recreational Drugs? No MIGRATION.0301 927055 Information not available 07/27/2022 Do You Use Sunscreen Routinely? Yes MIGRATION.0301 140360 Information not available 07/27/2022 Has Tobacco Cessation Counseling Been Provided? No Information not available 09/13/2022 Have You Recently Traveled Abroad? No MIGRATION.0301 553079 Information not available 07/27/2022 Do You Have Any Dietary Restrictions? No MIGRATION.0301 535670 Information not available 07/27/2022 Do You Or Have You Ever Used Any Other Forms Of Tobacco Or Nicotine? No MIGRATION.0301 259064 Information not available 07/27/2022 Sex: Female Functional Status Question Answer Note LastModified by [employer] Details LastModified Time What is your exercise level? Occasional MIGRATION.[id number] 26 Information not available 07/27/2022 Mental Status None recorded. Family History Relationship Description Onset Age of this Age Resolved Age Notes LastModified by Organization Details LastModified Time Paternal Grandmother Diabetes mellitus MIGRATION.548 [id number] Not available 07/27/2022 02:56:04 Mother Diabetes mellitus MIGRATION.139 [id number] Not available 07/27/2022 02:56:04 Mother Essential hypertension MIGRATION.282 5802535 Not available 07/27/2022 02:56:04 Maternal Grandmother Diabetes mellitus MIGRATION.806 1598898 Not available 07/27/2022 02:56:04 Maternal Grandfather Malignant tumor of colon MIGRATION.202 5319345 Not available 07/27/2022 02:56:04 Paternal Grandfather Malignant tumor of lung MIGRATION.646 5624873 Not available 07/27/2022 02:56:04 Father Essential hypertension MIGRATION.107 [id number] Not available 07/27/2022 02:56:04 Father Diabetes mellitus [...] ALLERGIES/HAYFEVER Y LUNG DISEASE/DISORDER N INSOMNIA N RADIATION / CHEMOTHERAPY N COPD N HIGH CHOLESTEROL / HYPERLIPIDEMIA Y HYPERTHYROIDISM N BLOOD DISEASES Y EAR OR HEARING PROBLEMS N HYPOTHYROIDISM N BACK / NECK PROBLEMS Y DEPRESSION (INCLUDING POST ) Y BOWEL PROBLEMS Y STROKE/TIA Y ULCERS N OBESITY Y ANEURYSM N URINARY/BLADDER/KIDNEY PROBLEMS Y CORONARY ARTERY DISEASE (CAD) Y ARTHRITIS Y USE OF BLOOD THINNERS Y DIABETES, TYPE Y ENT Y PARATHYROID DISEASE N PERIPHERAL VASCULAR DISEASE Y SEASONAL ALLERGIES Y HEARTBURN / REFLUX Y HEPATITIS / LIVER DISEASE N SLEEP DISORDER Y SEIZURES/EPILEPSY N HEADACHES/MIGRAINES Y CHF N PACEMAKER N DIZZINESS Y NEUROPATHY Y AIDS/HIV N HEART DISEASE/HEART PROBLEMS Y FRACTURES N HYPERTENSION Y CANCER: SPECIFY N TOURETTE'S N BLOOD TRANSFUSION N ANEMIA/BLOOD DISORDER N ANESTHESIA COMPLICATIONS N CHRONIC EAR INFECTIONS N TUBERCULOSIS N [...] Not Available [facility] 06/26/2023 12:27:58 pneumococcal polysaccharide PPV23 0 completed Not Available [facility] 06/26/2023 12:27:58 Past Encounters Encounter ID Performer Location Encounter Start Date Encounter Closed Date Diagnosis/Indication Diagnosis SNOMED-CT Code Diagnosis ICD10 Code Diagnosis Note [id number] _COSNTANZA_Hossein IGRATION_ DEFAULT_1 _1 , 10/02/2020 00:00:00 10/05/2020 09:05:28 [id number] [facility] Internal [facility] [address] [place] [address], [facility] [address] [place] [address] 10/27/2020 00:00:00 10/27/2020 11:28:54 [id number] [facility] Internal Med [facility] [address] [place] [address], [address] [address] 12/01/2020 00:00:00 12/01/2020 17:49:53 [id number] _ATHENA_M IGRATION_ DEFAULT_1 _1 , 01/08/2021 00:00:00 01/18/2021 10:12:42 [id number] _ATHENA_M IGRATION_ DEFAULT_1 _1 , 02/11/2021 00:00:00 02/11/2021 12:48:03 [id number] [facility] Internal [facility] [address] [place] [address], [address] [address] 03/09/2021 00:00:00 03/22/2021 17:55:37 [id number] [facility] Pulmonolo [facility] [address] [place] [address] 03/15/2021 00:00:00 03/16/2021 10:19:52 [id number] [facility] Internal Med [facility] [address] [place] [address], [address] [address] 03/26/2021 00:00:00 03/27/2021 08:37:14 [id number] [facility] General Surgery [address] [facility], [address] [address] 04/01/2021 00:00:00 04/01/2021 13:39:45 [id number] [facility] Internal Med [address], [address] [address] 08/12/2021 00:00:00 08/12/2021 10:14:45 [id number] [facility] [address] [place] [address] 08/23/2021 00:00:00 08/23/2021 17:47:56 [id number] _ATHENA_M IGRATION_ DEFAULT_1 _1 , 09/02/2021 00:00:00 09/02/2021 11:52:42 [id number] [facility] [address] [address] 09/06/2021 00:00:00 09/06/2021 10:41:11 [id number] [facility] Internal [facility] [address] [address] 11/16/2021 00:00:00 11/16/2021 16:04:11 [id number] [facility] [address], [address] [address] 03/15/2022 00:00:00 03/15/2022 10:21:02 [id number] [facility] [address] [place] [address] 03/15/2022 00:00:00 03/15/2022 11:32:59 [id number] [facility] [place] [address] [facility] [address] [place] [address] 04/05/2022 00:00:00 04/05/2022 09:45:54 [id number] [facility] [address], [address] [address] 07/21/2022 00:00:00 07/21/2022 09:40:11 [id number] Virgilio Vick MD [facility] E[facility] [place] [address] [place] [address] 08/25/2022 10:07:10 08/25/2022 11:05:59 Vertigo [id number] R42 [id number] Víctor Zaragoza DPM [facility] [place] [address] [facility], [facility] [address] [place] [address] 09/13/2022 08:49:33 09/13/2022 09:44:48 Diabetic peripheral neuropathy 322437054 E11.42 Patient educated on neuropathy , diabetes, diabetic diet, and daily foot exams. Patient is to check feet daily for new wounds, blisters, redness to prevent infection and ulceration s to the feet. Patient will return to clinic in 3 months for diabetic foot workup.Rx diabetic shoes insoles Onychomyco sis of toenails 250822966 B35.1 left great toenailedu cated on treatment optionsPat ient will return for total nail avulsion of left great toenail with treatment with topical medication [id number] Lexi foster MD [facility] Internal Med [facility] [address] [facility] [place] [address] 11/22/2022 09:05:48 11/22/2022 09:59:24 Screening - NAD 292637073 Z13.9 C-scope: 07/08/2020 : Poor prep, next [...] Type 2 brie betes mellitus without complication 555101012 E11.[address] 77U daily Dr Aceves Not on farxiga 10mg dailyNot on glimeperid e as per ACCU On metformin ER 500mg dailyOn bydurion 2mg weekly Dr Ndiaye podiatryNe eds to [facility] Coronary arteriosclerosis 19413018 I25.10 S/p stentsS/p stress test 01/12/[address] [facility] [address] Joesph/p admitted and d/c from [facility] for CP on 10/20/2020 S/p CABG in 03/2021, Dr Beckman On ASAOn brilintaOf f coreg 6.25mg bidOn losartan 50mg dailyOn mag oxOn metoprolol XR 25mg daily Dr Gifford 03/17/22 Hyperlipidemia 33099048 E78.5 On ASAOn atorvastat in 40mg dailyOn zetia 10mg dailyOff vascepa 1mg 2 tabs bid Get labs Porphyria cutanea tarda 49532663 E80.[address] Butler She did have a skin lesion on the L forearm, advised to keep away from sunlight and keep coveredDr Butler 01/29/2021 , treated with atarax and PO keflex PRN Dr Butler 12/24/2021 Cirrhosis of liver 66156 007 K74.60 12/06/2019 : US liver: Fatty liver02/16: MRCP: Fatty infiltrati on, unremarkab le MRCP, Bakanasergio Sandra L Noted on the CT A/P 10/20/2020 Dr Vega 03/18/2021 , needs to see Dr Vega again Chronic ki dney disease 229809870 N18.9 Get an apt with Dr Carbone, last 10/26/2021 Spinal stenosis 79298113 M48.00 MRI T spine 03/25/2021 , needs to see NS Abdominal pain 16198420 R10.9 S/p CT A/P on 10/20/2020 , admitted and d/c from [facility] on 10/20/2020 Dr Vega: 11/04/2020 C-scope/EG D 11/17/2021 : Dr Troy: Dr Vega On prilosec 20mg dailyGastr itis, distal esophogeal strictureK eep apt with Dr Vega Chronic ob structive pulmonary disease 35283665 J44.9 Ex smoker On singulairO n HHNsOn proventilO n flonaseOn spirivaOn Symbicort Not on symbicortO n O2 PRN CT chest 03/17/2021 Dr Romero 03/15/2022 Gastroesop hageal reflux disease without esophagitis 904430063 K21.9 12/13/2019 : EGD: Hiatal hernia, gastritis: Dr Sanabria-sd ope/EGD 11/17/2021 : Dr Sweeney PPI advised to take as needed, did see Dr Vega 03/18/2021 , stricture dilated, PPI to be bidDoes wellAdvise d Neuropathy 449133744 G62 .9 On lyrica 50mg dailyDoes not want to see pain management Anxiety 79230962 F41.[address] [place] psychiatry in past On fluoxetine 40mg dailyOn buspirone 15mg dailyNot suicidal or homicidalS ees Dr Banerjee Ganglion of wrist 20280828 009 [address] GomezL>R soft slightly tender swelling noted on the flexor wrist, 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 04/05/2022 Eruption 365813788 R21 Noted on the upper anterior chest, faint red flat rashGet on triamcinol one Vertigo 209915370 R42 Get a referral to ENT and do PT Screening mammography 24 222088 Z12.31 Screening for osteoporosis 823496444 Z13.820 Gynecologi c examination 01367600 Z01.419 Adult heal th examination 025642450 Z00.00 Screening for disorder 211077829 Z13.9 [id number] Víctor Zaragoza DPM [facility] [address], [address] [place] [address] 11/24/2022 09:41:05 11/24/2022 16:11:07 Onychomycosis of toenails 323454191 B35.1 left great toenailTot al nail avulsion performed todayWound care instructio ns reviewedMo nitor for signs of infection at present seek medical attention immediatel yThe area clean and dry daily until healedFoll ow-up in 2-3 weeks, Rx ketoconazo le at that time [id number] Lexi foster MD [facility] [place] [address] [place] [address] 03/21/2023 09:43:30 03/21/2023 10:15:32 Screening - NAD [id number] Z13.9 C-scope: 07/08/2020 : Poor prep, next in one year 03/09/2021 C-scope/EG D 11/17/2021 : Dr Vega PAP: Did see Dr Gloria as per her hxNow on OC bijuva for 'vaginal thinness' as per her hx DEXA: 12/03/18: NormalDEXA : 12/25/2020 : Normal Mammogram: 12/02/2020 : NormalOrdewa red Get yearly flu shots, does not [...] Type 2 brie betes mellitus without complication 251756267 E11.[address] tresc[address] 77U daily Dr Aceves Not on farxiga 10mg dailyNot on glimeperid e as per ACCU On metformin ER 500mg dailyOn bydurion 2mg weekly Dr Ndiaye podiatryNe eds to see eye MDDr Ketan, referred to Dr Davon carballo Coronary arteriosclerosis 19504072 I25.10 S/p stentsS/p stress test 01/12/[address] [facility] [address] Joseph/p admitted and d/c from [facility] for CP on 10/20/2020 S/p CABG in 03/2021, Dr Beckman On ASAOn brilintaOf f coreg 6.25mg bidOn lasix PRNOn losartan 50mg dailyOn mag oxOn metoprolol XR 25mg dailyON NTGOn ranolazine ER 500mg bid, filled 02/24/2023 Dr Balta Gifford 03/17/22Dr Balta 09/02/2022 Rhythm report 03/14/2023 Hyperlipidemia 29628397 E78.5 On ASAOn atorvastat in 40mg dailyOn zetia 10mg dailyOff vascepa 1mg 2 tabs bid Get labs Porphyria cutanea tarda 15365340 E80.[address] Butler She did have a skin lesion on the L forearm, advised to keep away from sunlight and keep coveredDr Butler 01/29/2021 , treated with atarax and PO keflex PRN Cirrhosis of liver 34658 007 K74.60 12/06/2019 : US liver: Fatty liver02/16: MRCP: Fatty infiltrati on, unremarkab le MRCP, Bakanas Sandra L Noted on the CT A/P 10/20/2020 Dr Vega 03/18/2021 , needs to see Dr Vega again Dr Vega 01/25/2023 , f/u in 6 weeks, get RUQ US, continue with nexium, and get barium swallow study Chronic ki dney disease 663492709 N18.9 Get an apt with Dr Carbone, last 10/26/2021 Spinal stenosis 55639572 M48.00 MRI T spine 03/25/2021 , needs to see NS Abdominal pain 90759946 R10.9 S/p CT A/P on 10/20/2020 , admitted and d/c from [facility] on 10/20/2020 Dr Vega: 11/04/2020 C-scope/EG D 11/17/2021 : Dr Troy: Dr Vega On prilosec 20mg dailyGastr itis, distal esophogeal strictureK eep apt with Dr Vega Chronic ob structive pulmonary disease 90956073 J44.9 Ex smoker On singulairO n HHNsOn proventilO n flonaseOn spirivaOn Symbicort Not on symbicortO n O2 PRN CT chest 03/17/2021 Dr Romero 03/15/2022 Gastroesop hageal reflux disease without esophagitis 474141860 K21.9 12/13/2019 : EGD: Hiatal hernia, gastritis: Dr Sanabria-sd ope/EGD 11/17/2021 : Dr Sweeney PPI advised to take as needed, did see Dr Vega 03/18/2021 , stricture dilated, PPI to be bidDoes wellAdvise d Neuropathy 983971313 G62 .9 On lyrica 50mg dailyDoes not want to see pain management Anxiety 43985420 F41.[address] Ny psychiatry in past On fluoxetine 40mg dailyOn buspirone 15mg dailyNot suicidal or homicidalS ees Dr Banerjee Ganglion of wrist 20280828 009 [address] GomezL>R soft slightly tender swelling noted on the flexor wrist, 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 04/05/2022 Eruption 759980889 R21 Noted on the upper anterior chest, faint red flat rashGet on triamcinol one Screening mammography 24 488422 Z12.31 Screening for osteoporosis 752138899 Z13.820 Gynecologi c examination 01926416 Z01.516 [id number] Germain Romero MD [facility] [place] [id number] 05/02/2023 11:58:54 05/03/2023 10:02:49 Dyspnea on exertion 43830970 R06.09 R05.9 T78.40XA [id number] Lexi foster MD [facility] [address] [place] [address] 08/22/2023 08:57:49 08/22/2023 11:17:00 Screening - NAD 763252481 Z13.9 C-scope: 07/08/2020 : Poor prep, next [...] Type 2 brie betes mellitus without complication 250749908 E11.9 On tresciba 77U daily Dr Aceves Not on farxiga 10mg dailyNot on glimeperid e as per ACCU On metformin ER 500mg dailyOn bydurion 2mg weeklyOn tresciba U [address] Ndiaye podiatrLopez eds to see eye MDDr Ketan, referred to Dr Davon carballo Coronary arteriosclerosis 16503570 I25.10 S/p stentsS/p stress test 01/12/2021 [facility] Dr Joseph/ellie admitted and d/c from [facility] for CP on 10/20/2020 S/p CABG in 03/2021, Dr Beckman On ASAOn brilintaOf f coreg 6.25mg bidOn lasix PRNOn losartan 50mg dailyOn mag oxOn metoprolol ER 25mg dailyON NTGOn ranolazine ER 500mg bid, filled 02/24/2023 Dr Balta Gifford 03/17/22Dr Balta 09/02/2022 Rhythm report 03/14/2023 Hyperlipidemia 62747213 E78.5 On ASAOn atorvastat in 40mg dailyOn zetia 10mg dailyOff vascepa 1mg 2 tabs bid Get labs Porphyria cutanea tarda 32635136 E80.[address] Butler She did have a skin lesion on the L forearm, advised to keep away from sunlight and keep coveredDr Butler 01/29/2021 , treated with atarax and PO keflex PRN Cirrhosis of liver 14689 007 K74.60 12/06/2019 : US liver: Fatty liver02/16: MRCP: Fatty infiltrati on, unremarkab le MRCP, Bakanas Sandra L Noted on the CT A/P 10/20/2020 Dr Vega 03/18/2021 , needs to see Dr Vega again Dr Vega 01/25/2023 , f/u in 6 weeks, get RUQ US, continue with nexium, and get barium swallow study [facility] 07/07/2023 : ER for weakness, CT A/P: Cirrhosis, get MRI liver Chronic ki dney disease 996871977 N18.9 Get an apt with Dr Carbone, last 10/26/2021 Spinal stenosis 38323707 M48.00 MRI T spine 03/25/2021 , needs to see NS Abdominal pain 29606065 R10.9 S/p CT A/P on 10/20/2020 , admitted and d/c from [facility] on 10/20/2020 Dr Vega: 11/04/2020 C-scope/EG D 11/17/2021 : Dr Troy: Dr Vega On prilosec 20mg dailyGastr itis, distal esophogeal strictureK eep apt with Dr Vega Chronic ob structive pulmonary disease 05887160 J44.9 Ex smoker On singulairO n HHNsOn proventilO n flonaseOn singulairO n spirivaOn Symbicort Not on symbicortO n O2 PRN CT chest 03/17/2021 Dr Romero 03/15/2022 Addendum: 08/25/2023 :CT Chest Dr Romero Gastroesop hageal reflux disease without esophagitis 752429126 K21.9 12/13/2019 : EGD: Hiatal hernia, gastritis: Dr Burdick-sd ope/EGD 11/17/2021 : Dr Sweeney PPI advised to take as needed, did see Dr Vega 03/18/2021 , stricture dilated, PPI to be bidDoes wellAdvise d Neuropathy 935008207 G62 .9 On lyrica 50mg dailyDoes not want to see pain management Anxiety 21521115 F41.[address] Ny psychiatry in past On fluoxetine 40mg dailyOn buspirone 15mg dailyNot suicidal or homicidalS ees Dr Banerjee Ganglion of wrist 20280828 009 [address] GomezL>R soft slightly tender swelling noted on the flexor wrist, 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 04/05/2022 Eruption 143375292 R21 Noted on the upper anterior chest, faint red flat rashGet on triamcinol one Screening mammography 24 389595 Z12.31 Screening for osteoporosis 610273395 Z13.820 Gynecologi c examination 66357416 Z01.419 Recurrent urinary tract infection 517320632 N39.0 Seen in the ERHas increased frequency and urgency, no LBP, no gross hematuriaU A: 08/22/2023 : No leuk, trace blood, +ve nitriteSta rt on cipro 500mg po bid for 7 days, also get on diflucan as she also gets yeast infections with any antibiotic s [id number] Germain Romero MD [facility] [address] [place] [address], [address] [address] 08/22/2023 09:28:58 08/23/2023 08:18:50 Obstructive sleep apnea syndrome 90531736 G47.33 Dyspnea on exertion 6084 5006 R06.09 R05.9 T78.40XA [id number] Lexi foster MD [facility] [address] [place], [place] [address]rosalind, [address] [place] [address] 10/24/2023 10:53:09 10/24/2023 11:31:57 Screening - NAD 744127355 Z13.9 C-scope: 07/08/2020 : Poor prep, next [...] Type 2 brie betes mellitus without complication 097464527 E11.9 Not on farxiga 10mg dailyNot on glimeperid e as per ACCU On metformin ER 500mg dailyOn bydurion 2mg weeklyOn tresciba U [address] Ndiaye podiatryNe eds to see eye MDDr Wood, referred to Dr Davon carballo Coronary arteriosclerosis 41898101 I25.10 S/p stentsS/p stress test 01/12/2021 [facility] Dr Joseph/ellie admitted and d/c from [facility] for CP on 10/20/2020 S/p CABG in 03/2021, Dr Kim/ellie ECHO 07/31/2023 S/p stress 08/28/[address] Gifford 10/10/2023 Off coreg 6.25mg bidOn lasix PRNOn losartan 50mg dailyOn mag oxOn metoprolol ER 25mg dailyON NTGOn ranolazine ER 500mg bid, filled 02/24/2023 Dr Balta Gifford 03/17/22Dr Gifford 09/02/2022 Rhythm report 03/14/2023 Hyperlipidemia 47170946 E78.5 On ASAOn atorvastat in 40mg dailyOn zetia 10mg dailyOff vascepa 1mg 2 tabs bid Get labs Porphyria cutanea tarda 82672968 E80.[address] Butler She did have a skin lesion on the L forearm, advised to keep away from sunlight and keep coveredDr Luke 01/29/2021 , treated with atarax and PO keflex PRN Cirrhosis of liver 58773 007 K74.60 12/06/2019 : US liver: Fatty liver02/16: MRCP: Fatty infiltrati on, unremarkab le MRCP, Bakanas Sandra L Noted on the CT A/P 10/20/2020 Dr Vega 03/18/2021 , needs to see Dr Vega again Dr Vega 01/25/2023 , f/u in 6 weeks, get RUQ US, continue with nexium, and get barium swallow study [facility] 07/07/2023 : ER for weakness, CT A/P: Cirrhosis, get MRI liver Chronic ki dney disease 474044609 N18.9 Get an apt with Dr Carbone, last 10/26/2021 Spinal stenosis 06217746 M48.00 MRI T spine 03/25/2021 , needs to see NS, today 10/24/2023 declines Abdominal pain 32388915 R10.9 S/p CT A/P on 10/20/2020 , admitted and d/c from [facility] on 10/20/2020 Dr Vega: 11/04/2020 C-scope/EG D 11/17/2021 : Dr Troy: Dr Vega On prilosec 20mg dailyGastr itis, distal esophogeal strictureK eep apt with Dr Vega Chronic ob structive pulmonary disease 48897475 J44.9 Ex smoker On singulairO n HHNsOn proventilO n flonaseOn singulairO n spirivaOn Symbicort Not on symbicortO n O2 PRN CT chest 03/17/2021 Dr Romero 03/15/2022 Addendum: 08/25/2023 :CT Chest Dr Romero Gastroesop hageal reflux disease without esophagitis 416686162 K21.9 12/13/2019 : EGD: Hiatal hernia, gastritis: Dr Sanabria-sc ope/EGD 11/17/2021 : Dr Sweeney PPI advised to take as needed, did see Dr Vega 03/18/2021 , stricture dilated, PPI to be bidDoes wellAdvise d Neuropathy 260134728 G62 .9 On lyrica 50mg daily, wants to double as she feels that the daily dose is not as effective, will increase to bid 10/24/2023 Does not want to see pain management Anxiety 35554644 F41.[address] Ny psychiatry in past On fluoxetine 40mg dailyOn buspirone 15mg dailyNot suicidal or homicidalS ees Dr Banerjee Ganglion of wrist 20280828 009 [address] GomezL>R soft slightly tender swelling noted on the flexor wrist, 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 04/05/2022 Eruption 401260570 R21 Noted on the upper anterior chest, faint red flat rashGet on triamcinol one Screening mammography 24 553536 Z12.31 Screening for osteoporosis 439005802 Z13.820 Gynecologi c examination 69405006 Z01.394 [id number] Lexi foster MD [facility] [address] [facility], [address] [place] [address] 02/22/2024 09:36:19 02/22/2024 10:21:01 Screening - NAD 861323371 Z13.9 C-scope: 07/08/2020 : Poor prep, next [...] Type 2 brie betes mellitus without complication 521319282 E11.9 Not on farxiga 10mg dailyNot on glimeperid e as per ACCU On metformin ER 500mg dailyOn bydurion 2mg weeklyOn tresciba U [address] [facility]iat[facility]Gr [facility] 09/27/2023 Dr Aceves, referred to Dr Mays labs Coronary arteriosclerosis 63540812 I25.10 S/p stentsS/p stress test 01/12/[address] Joseph/ellie admitted and d/c from [facility] for CP on 10/20/2020 S/p CABG in 03/2021, Dr Kim/ellie ECHO 07/31/2023 S/p stress 08/28/[address] Gifford 10/10/2023 , 02/18/2024 Off coreg 6.25mg bidOn lasix PRNOn losartan 50mg dailyOn mag oxOn metoprolol ER 25mg dailyOn NTGOn ranolazine ER 500mg bid, filled 02/24/2023 Dr Gifford Rhythm report 03/14/2023 Hyperlipidemia 78353043 E78.5 On ASAOn atorvastat in 40mg dailyOn zetia 10mg dailyOff vascepa 1mg 2 tabs bid Get labs Porphyria cutanea tarda 91479526 E80.[address] Butler She did have a skin lesion on the L forearm, advised to keep away from sunlight and keep coveredDr Butler 01/29/2021 , treated with atarax and PO keflex PRN Cirrhosis of liver 83410 007 K74.60 12/06/2019 : US liver: Fatty liver02/16: MRCP: Fatty infiltrati on, unremarkab le MRCP, Bakabhijits Sandra L Noted on the CT A/P 10/20/2020 Dr Vega 03/18/2021 , needs to see Dr Vega again Dr Vega 01/25/2023 , f/u in 6 weeks, get RUQ US, continue with nexium, and get barium swallow study [facility] 07/07/2023 : ER for weakness, CT A/P: Cirrhosis, get MRI liver Chronic ki dney disease 482622754 N18.9 Get an apt with Dr Carbone last 01/03/2023 , f/u in 6 months Spinal stenosis 87134512 M48.00 MRI T spine 03/25/2021 , needs to see NS, today 10/24/2023 declines Abdominal pain 62242768 R10.9 S/p CT A/P on 10/20/2020 , admitted and d/c from [facility] on 10/20/2020 Dr Vega: 11/04/2020 C-scope/EG D 11/17/2021 : Dr Troy: Dr Vega On prilosec 20mg dailyGastr itis, distal esophogeal strictureK eep apt with Dr Vega Will repeat the CT A/P 02/22/2024 , may need to d/c the GLP-1 Addendum: 02/22/2024 : CT abd/pelvis noted, will now have to proceed to the ER, she was notified and will go to [facility] ER, also discussed with Dr Lillian QUINTANILLA at [facility] ER Chronic ob structive pulmonary disease 57138720 J44.9 Ex smoker On singulairO n HHNsOn proventilO n flonaseOn singulairN ot on spirivaNot on Symbicort Not on symbicortO n O2 PRN CT chest 03/17/2021 Dr Romero 03/15/2022 Addendum: 08/25/2023 :CT Chest Dr Heather Romero 08/22/2023 Gastroesop hageal reflux disease without esophagitis 300805898 K21.9 12/13/2019 : EGD: Hiatal hernia, gastritis: Dr Sanabria-sd ope/EGD 11/17/2021 : Dr Sweeney PPI advised to take as needed, did see Dr Vega 03/18/2021 , stricture dilated, PPI to be bidDoes wellAdvise d Neuropathy 416367159 G62 .9 On lyrica 50mg daily, increased to bid 10/24/2023 Does not want to see pain management Anxiety 88292278 F41.[address] Ny psychiatry in past On fluoxetine 40mg dailyOn buspirone 15mg dailyNot suicidal or homicidalS ees Dr Banerjee Ganglion of wrist 20280828 00[address] BellL>R soft slightly tender swelling noted on the flexor wrist, 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 04/05/2022 Eruption 682090355 R21 Noted on the upper anterior chest, faint red flat rashGet on triamcinol one Screening mammography 24 472903 Z12.31 Screening for osteoporosis 089827978 Z13.820 Gynecologi c examination 76576199 Z01.419 Pain in ri ght hip joint 7176891885 40297 M25.551 Get xraysWill need to see ortho Addendum: 02/22/2024 :XRays noted [id number] Lexi foster MD [facility] [address] [facility], [facility] 15 [place] [address] 02/29/2024 10:00:10 02/29/2024 11:33:43 Screening - NAD 895950932 Z13.9 C-scope: 07/08/2020 : Poor prep, next [...] Type 2 brie betes mellitus without complication 697738978 E11.9 Not on farxiga 10mg dailyNot on glimeperid e as per ACCUNot on bydurion 2mg weekly On metformin ER 500mg dailyOn tresciba U [address] Ndiaye podiatryGr [facility] 09/27/2023 Dr Aceves, will discuss use of the Bydureon with Dr Julian labs Coronary arteriosclerosis 95525414 I25.10 S/p stentsS/p stress test 01/12/2021 [facility] Dr Joseph/ellie admitted and d/c from [facility] for CP on 10/20/2020 S/p CABG in 03/2021, Dr Kim/ellie ECHO 07/31/2023 S/p stress 08/28/[address] Gifford 10/10/2023 , 02/18/2024 Off coreg 6.25mg bidOn lasix PRNOn losartan 50mg dailyOn mag oxOn metoprolol ER 25mg dailyOn NTGOn ranolazine ER 500mg bid, filled 02/24/2023 Dr Gifford Rhythm report 03/14/2023 Hyperlipidemia 51971069 E78.5 On ASAOn atorvastat in 40mg dailyOn zetia 10mg dailyOff vascepa 1mg 2 tabs bid Get labs Porphyria cutanea tarda 88863236 E80.[address] Butler She did have a skin lesion on the L forearm, advised to keep away from sunlight and keep coveredDr Butler 01/29/2021 , treated with atarax and PO keflex PRN Cirrhosis of liver 49765 007 K74.60 12/06/2019 : US liver: Fatty liver02/16: MRCP: Fatty infiltrati on, unremarkab le MRCP, Ila Flores L Noted on the CT A/P 10/20/2020 Dr Vega 03/18/2021 , needs to see Dr Vega again Dr Vega 01/25/2023 , f/u in 6 weeks, get RUQ US, continue with nexium, and get barium swallow study [facility] 07/07/2023 : ER for weakness, CT A/P: Cirrhosis, get MRI liver Chronic ki dney disease 784579704 N18.9 Get an apt with Dr Carbone last 01/03/2023 , f/u in 6 months Spinal stenosis 97376230 M48.00 MRI T spine 03/25/2021 , needs to see NS, today 10/24/2023 declines Abdominal pain 92749195 R10.9 S/p CT A/P on 10/20/2020 , admitted and d/c from [facility] on 10/20/2020 Dr Vega: 11/04/2020 C-scope/EG D 11/17/2021 : Dr Troy: Dr Vega On prilosec 20mg dailyGastr itis, distal esophogeal strictureK eep apt with Dr Vega Will repeat the CT A/P 02/22/2024 , may need to d/c the GLP-1 Addendum: 02/22/2024 : CT abd/pelvis noted, will now have to proceed to the ER, she was notified and will go to [facility] ER, also discussed with Dr Lillian QUINTANILLA at [facility] ER OV 02/29/2024 : S/p [facility] ER, given antibiotic s, does well today, does now need to see urology Chronic ob structive pulmonary disease 62955197 J44.9 Ex smoker On singulairO n HHNsOn proventilO n flonaseOn singulairN ot on spirivaNot on Symbicort Not on symbicortO n O2 PRN CT chest 03/17/2021 Dr Romero 03/15/2022 Addendum: 08/25/2023 :CT Chest Dr Heather Romero 08/22/2023 Gastroesop hageal reflux disease without esophagitis 796853255 K21.9 12/13/2019 : EGD: Hiatal hernia, gastritis: Dr aSnabria-sd ope/EGD 11/17/2021 : Dr Sweeney PPI advised to take as needed, did see Dr Vega 03/18/2021 , stricture dilated, PPI to be bidDoes wellAdvise d Neuropathy 312486406 G62 .9 On lyrica 50mg daily, increased to bid 10/24/2023 Does not want to see pain management Anxiety 18825543 F41.[address] Ny psychiatry in past On fluoxetine 40mg dailyOn buspirone 15mg dailyNot suicidal or homicidalS ees Dr Banerjee Ganglion of wrist 20280828 009 M67[address] GomezL>R soft slightly tender swelling noted on the flexor wrist, 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 04/05/2022 Screening mammography 24 248382 Z12.31 Screening for osteoporosis 812459959 Z13.820 Gynecologi c examination 89308214 Z01.419 Pain in ri ght hip joint 8995936250 70401 M25.551 Get xraysWill need to see ortho Addendum: 02/22/2024 :XRays noted Cystitis 47371851 B37.41 S/p CT A/P , [facility] urology [id number] Rahul Anders MD [facility] [address], [address] [place] [address] 1 03/15/2024 16:18:15 03/15/2024 16:59:01 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 [id number] Germain Romero MD [facility] [address], [facility] 15 [place] [address] 05/15/2024 08:25:38 05/15/2024 11:58:26 Obstructive sleep apnea syndrome 69299618 G47.33 Dyspnea on exertion 6084 5006 R06.09 R05.9 T78.40XA [id number] Lexi foster MD [facility] [address], [facility] 15 [place] [address] 1 06/20/2024 09:16:46 06/20/2024 10:22:09 Screening - NAD 887058497 Z13.9 C-scope: 07/08/2020 : Poor prep, next [...] Type 2 brie betes mellitus without complication 515653393 E11.9 Not on farxiga 10mg dailyNot on glimeperid e as per ACCUNot on bydurion 2mg weekly On metformin ER 500mg dailyOn tresciba U [address] [facility]aye podiatryGr [facility] 09/27/2023 Dr Aceves, will discuss use of the Bydureon with Dr AcevesGet labs OV 06/20/2024 :ACCU 06/20/2024 540+, which is fasting, she is now referred to the ER 06/20/2024 and will go to [facility] ER, case discussed with Dr Snyder in the ERAlso spoke personally with Dr Aceves, as per Dr Aceves she has been very non compliant with her labs and has also missed her appointmen t, she does also agree that she has to proceed to the ER! Coronary arteriosclerosis 38421274 I25.10 S/p stentsS/p stress test 01/12/2021 [facility] Dr Joseph/p admitted and d/c from [facility] for CP on 10/20/2020 S/p CABG in 03/2021, Dr Kim/ellie ECHO 07/31/2023 S/p stress 08/28/[address] Gifford 10/10/2023 , 02/18/2024 Off coreg 6.25mg bidOn lasix PRNOn losartan 50mg dailyOn mag oxOn metoprolol ER 25mg dailyOn NTGOn ranolazine ER 500mg bid, filled 02/24/2023 Dr Gifford Rhythm report 03/14/2023 05/27/2024 : CTA chest, [facility] ER Hyperlipidemia 75169441 E78.5 On ASAOn atorvastat in 40mg dailyOn zetia 10mg dailyOff vascepa 1mg 2 tabs bid Get labs Porphyria cutanea tarda 84195393 E80.[address] Butler She did have a skin lesion on the L forearm, advised to keep away from sunlight and keep coveredDr Luke 01/29/2021 , treated with atarax and PO keflex PRN Cirrhosis of liver 77097 007 K74.60 12/06/2019 : US liver: Fatty liver02/16: MRCP: Fatty infiltrati on, unremarkab le MRCP, Bakanas Sandra L Noted on the CT A/P 10/20/2020 Dr Vega 03/18/2021 , needs to see Dr Vega again Dr Vega 01/25/2023 , f/u in 6 weeks, get RUQ US, continue with nexium, and get barium swallow study [facility] 07/07/2023 : ER for weakness, CT A/P: Cirrhosis, get MRI liverRefer red to Dr Vega 06/20/2024 Chronic ki dney disease 437675685 N18.9 Get an apt with Dr Carbone last 01/03/2023 , f/u in 6 months Spinal stenosis 62519092 M48.00 MRI T spine 03/25/2021 , needs to see NS, today 10/24/2023 declinesCT A Chest 05/27/2024 , needs to repeat the MRI, at this time refer to NS, will refer to NS 06/20/2024 Abdominal pain 39132130 R10.9 S/p CT A/P on 10/20/2020 , admitted and d/c from [facility] on 10/20/2020 Dr Vega: 11/04/2020 C-scope/EG D 11/17/2021 : Dr Troy: Dr Vega On prilosec 20mg dailyGastr itis, distal esophogeal strictureK eep apt with Dr Vega Will repeat the CT A/P 02/22/2024 , may need to d/c the GLP-1 Addendum: 02/22/2024 : CT abd/pelvis noted, will now have to proceed to the ER, she was notified and will go to [facility] ER, also discussed with Dr Lillian QUINTANILLA at [facility] ER OV 02/29/2024 : S/p [facility] ER, given antibiotic s, does well today, does now need to see urology Chronic ob structive pulmonary disease 52430745 J44.9 Ex smoker On singulairO n HHNsOn proventilO n flonaseOn singulairN ot on spirivaNot on Symbicort Not on symbicortO n O2 PRN CT chest 03/17/2021 Dr Romero 03/15/2022 Addendum: 08/25/2023 :CT Chest Dr Heather Romero 08/22/2023 , referred 06/20/2024 Gastroesop hageal reflux disease without esophagitis 314606189 K21.9 12/13/2019 : EGD: Hiatal hernia, gastritis: Dr Sanabria-sd ope/EGD 11/17/2021 : Dr Sweeney PPI advised to take as needed, did see Dr Vega 03/18/2021 , stricture dilated, PPI to be bidDoes wellAdvise d Neuropathy 705762404 G62 .9 On lyrica 50mg daily, increased to bid 10/24/2023 Does not want to see pain management Anxiety 99132213 F41.[address] Ny psychiatry in past On fluoxetine 40mg dailyOn buspirone 15mg dailyNot suicidal or homicidalS ees Dr Banerjee Ganglion of wrist 20280828 009 [address] GomezL>R soft slightly tender swelling noted on the flexor wrist, 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 04/05/2022 Screening mammography 24 067215 Z12.31 Screening for osteoporosis 368127709 Z13.820 Gynecologi c examination 50115028 Z01.419 Pain in ri ght hip joint 2922141870 77660 M25.551 Get xraysWill need to see ortho Addendum: 02/22/2024 :XRays noted Cystitis 84600182 B37.41 S/p CT A/P , [facility] [facility] Concerns Section Related Observation LastModified by Organization Detai ls LastModified Time None Recorded Concern Status LastModified by Organization Details LastModified Time None Recorded Advance Directives Directive N: information given to mac ent Payers Encounter Date Sequence Insurance Name Policy Number Policy Mata Covered Member ID Mata Member ID Guarantor Name 02/22/[address] [facility] (MEDICARE REPLACEMENT/AD VANTAGE - PPO) [id number] Jose D Jha [id number] Jose D Jha 02/22/2024 2 [place] Jose D Jha [id number] Jose D Jha 02/29/[address] [facility] (MEDICARE REPLACEMENT/AD VANTAGE - PPO) [id number] Jose D Jha [id number] Jose D Jha 02/29/2024 2 [place]ARE OR [place]ARE REPLACEMENT PRIMARY) Jose D Jha [id number] Jose D Foster Abhijeet 03/15/[address] [facility] (MEDICARE REPLACEMENT/AD VANTAGE - PPO) [id number] Jose D Foster Abhijeet [id number] Jose D Foster Abhijeet 03/15/2024 2 [place] OR [place] REPLACEMENT PRIMARY) Jose D Foster Abhijeet [id number] Jose D Foster Abhijeet 05/15/[address] [facility] (MEDICARE REPLACEMENT/AD VANTAGE - PPO) [id number] Jose D Foster Abhijeet [id number] Jose D Foster Abhijeet 05/15/2024 2 [place] OR MEDIC[place] REPLACEMENT PRIMARY) Jose D Foster Abhijeet [id number] Jose D Foster Abhijeet 06/20/[address] [facility] (MEDICARE REPLACEMENT/AD VANTAGE - PPO) [id number] Jose D Foster Abhijeet [id number] Jose D Foster Abhijeet 06/20/2024 2 [place] OR MEDICARE REPLACEMENT PRIMARY) Jose D Foster Abhijeet [id number] Jose D Foster Abhijeet Notes Date Note Type Note Provider Name [...] her post hosp aptShe was admitted to [facility] for chest pain and abd pain, s/p [...] fevers or chills Lexi Martin MD [address], [facility] [address], [place], [address], [facility] 02/22/2024 14:05:34 4 text/html OV 10/01/2019:Here to [...] her post hosp aptShe was admitted to [facility] for chest pain and abd pain, s/p [...] in the ER Lexi Martin MD [address], [place], [address], linkedü 03/15/2024 08:41:16 4 text/html this is a [...] her urine. Rahul Anders MD [address], [place], [address], linkedü 03/15/2024 18:05:30 4 text/html Primary care/Referring provider: Tanya Suárez is here to go over her ILD management.Initial development of shortness of breath: 1990Duration of shortness of breath: 36 yearsCondition of shortness of breath: stableTiming of shortness of breath: noneFrequency: up to 6 times a dayLimits activities: yesAggravating factors: walking, bending down, heat, bug spray, cologneAlleviating factors: restModified [employer] [place] (mMRC) Dyspnea Scale - Grade 2Grade 0 I only get breathless with strenuous exercise .Grade 1 I get short of breath when hurrying on the level or walking up a slight hill .Grade 2 I walk slower than people of the same age on the level because of breathlessness or have to stop for breath when walking at my own pace on the level .Grade 3 I stop for breath after walking about 100 yards or after a few minutes on the level .Grade 4 I am too breathless to leave the house or I am breathless when dressing .Treatment history:albuterol HFA as needed since 1987Duonebs as needed 2017-1Advair 2004 onlyQVAR 2012-2016Aerospan 80 mcg 2016-2018Flovent HFA 2019 onlySymbicort 160/4.5 mcg 2 puffs BID since 2019Other symptoms:Productive cough: yellowWheezing: yesChest tightness: yesOrthopnea: noFrequent throat clearing or swallowing: yesPalpitations: noHeartburn: noDysphagia: noEdema: noEnvironmental exposures:Nicotine smoke: 3 ppd [id number] = 33 pack yearsPaint: noDye: noDust mites: [...] chance of dozing. Germain Romero MD [address], [facility] [address], [place], [address], [facility] [employer] 05/15/2024 09:09:06 5 text/html OV 10/01/2019:Here to [...] her post hosp aptShe was admitted to [facility] for chest pain and abd pain, s/p [...] busy', she has also not seen Dr Acevse, she does have vertigo, states that the [...] appointment, she has also not seen her application technical designer or weight reduction specialist, states that she has been very non compliant with her diet, and understands that she has very high sugars, she states that Dr Aceves has given her a CGM but she is unable to wear this as it Lexi Martin MD [address] [place] [address], [facility] [address], [place], [address], [facility] [employer] [facility] 06/20/2024 14:11:44 OBGyn Episode No OBEpisode recorded.
--- OUTSIDE RECORDS SUMMARY | 2024-07-04 07:54 | XMS_ITS | Encounter Summary ---
Author Organization [facility] [employer] [facility] Address [address] [place] [address] Care Team Providers Care Pattern Storage Clerk Name Role Phone Nereida Martin MD Primary Care Provider Encounter Details Date Type Department Care Team (Late st Contact Info) Description 04/12/2022 Abstract [facility] Oncology and Hematology - [place] [address] [address] Justyna Delgado RN Social History [...] on filedocumented in this encounter Care Teams Pattern Storage Clerk Relationship Specialty Start Date End Date Nereida Martin MD PCP - General Internal Medicine 10/04/19 documented as of this encounter
--- NOTE | 2024-07-04 11:27 | P.METCHAL_ITS ---
Methacholine Procedure Perform Procedure Performed Methacholine Challenge Methacholine Challenge Methacholine Challenge: This is a methacholine challenge test. The test was performed and interpreted in accordance with the 2017 ERS technical standard, endorsed by the ATS, using the GLI 2012 reference equations. Testing was performed with increasing doses of nebulized methacholine following a quadrupling dosage protocol. The methacholine dose was delivered via the [employer] nebulizer using a 1-minutes tidal breathing protocol. The best post-methacholine FEV1 values were used to determine the change from the post diluent FEV1. The delivered dose of methacholine was used to calculate the provocative dose causing a 20% fall in FEV1 (PD20). Of note, the patient took cetirizine 10 mg on 07/02/2024. Findings: Baseline FEV1 1.68 L, 64% predicted. Post diluent FEV1 1.68 L Post 1.81 mcg methacholine FEV1 1.65 L, decreased 1% Post 7.26 mcg methacholine FEV1 1.74 L, increased 4% Post 29.03 mcg methacholine FEV1 1.60 L, decreased 5% Post 116.1 mcg methacholine FEV1 1.49 L, decreased 12% Post 464.4 mcg methacholine FEV1 1.44 L, decreased 14% Post albuterol nebulization FEV1 1.58 L Impression: The PD20 is > 400 mcg which is categorized as normal airway hyperresponsiveness. There are no prior methacholine challenge studies for comparison
== END 2024-07-04 07:51 | disposition home or self-care (01) ==
LOC: ANHPFT 07:51
PROVIDERS: PCP Internal Medicine; Visit Provider Internal Medicine Pulmonary Disease
DX: R06.09 Other forms of dyspnea (principal); R05.9 Cough, unspecified; T78.40XA Allergy, unspecified, initial encounter
CPT/HCPCS: 94618; J7674

== ENCOUNTER 2025-02-03 10:24 | Outpatient (CLI) | payer MEDICARE, SELFPAY ==
--- OUTSIDE RECORDS SUMMARY | 2024-04-13 16:00 | XMS_ITS ---
Author Organization [facility] Address [address] [address] Care Team Providers Care Content Assistant Name Role Phone Margot Aceves Primary Care Provider Migration, Provider Unavailable Unavailable Allergies Allergen (clinical drug ingredient) Drug/Non Drug Allergy documented on EMR Reaction Allergy Type Onset Date Status tramadol traMADol Unknown Drug Allergy Active morphine Morphine Unknown Drug Allergy Active codeine Codeine Unknown Drug Allergy Active clopidogrel Plavix Unknown Drug Allergy Activ e lisinopril Lisinopril Unknown Drug Allergy Activ e erythromycin Erythromycin Unknown Drug Allergy A ctive diphenhydramine Benadryl Allergy Unknown Drug Allergy Active [facility] Con[facility] Encounter Medications Medication SIG (Take, Route, Frequency, Duration) Notes Start Date End Date Status DULoxetine HCl 60 MG 1 cap(s) orally onc e a day Active busPIRone HCl 15 MG 1 tab(s) orally 2 times a day Active Esomeprazole Magnesium 40 MG 1 cap(s) orally once a day Active Brilinta 60 MG 1 tab(s) orally 2 times a day Active Metoprolol Succinate ER 25 MG 1 tab(s) orally once a day Active Tresiba FlexTouch 200 UNIT/ML inject up to 80 subcutaneously once a day at bedtime for 90 days 03/25/2024 Active Pregabalin 50 MG 1 cap(s) orally 2 times a day Active Losartan Potassium 50 MG 1 tab(s) orally once a day Active metFORMIN HCl ER 500 MG 1 tab(s) orally once a day with dinner for 90 days 03/25/2024 Active GVOKE HYPOPEN TWO PACK 1 MG/0.2 ML INJECT 1 MG SUBCUTANEOUSLY ONCE NEEDED for 1 DAYS *Please review for potential replacement for e-prescription and drug interaction check* 03/25/2024 Active Ozempic (0.25 or 0.5 MG/DOSE) 2 MG/3ML inject 0.5 mg subcutaneously once a week with a meal for 90 days 03/25/2024 Active dexAMETHasone 1 MG 1 tab(s) orally at 1 0 pm night before 8 am cortisol for 1 days 03/25/2024 Active metFORMIN HCl 500 MG 1 tab(s) orally 2 times a day Active Atorvastatin Calcium 40 MG 1 tab(s) orally once a day Active Montelukast Sodium 10 MG 1 tab(s) orally once a day Active Tresiba FlexTouch *Please review and pick correct strength-formulat ion from Mingleverse options. If intended option is not shown, discontinue and re-order from Quick Search* Active Bydureon BCise *Please review and pick correct strength-formulat ion from Mingleverse options. If intended option is not shown, discontinue and re-order from Quick Search* Active Aspirin Low Dose 81 MG 1 tab(s) orally once a day Active Symbicort 160-4.5 MCG/ACT 2 puff(s) inhaled 2 times a day Active Albuterol Sulfate HFA 108 (90 Base) MCG/ACT 2 INH inhaled every 6 hours Active Ezetimibe 10 MG 1 tab(s) orally once a day Active Encounters Encounter Location Date Provider Diagnosis [address] [address] 04/13/2024 Provider Migration Type 2 diabetes mellitus with hyperglycemia E11.65 and Obesity, unspecified E66.9 Assessments Encounter Date Diagnosis (ICD Code) Assessment Notes Treatment Notes Treatment Clinical Notes Section Notes 04/13/2024 Type 2 diabetes mellitus with hyperglycemia (ICD-10 - E11.65) 04/13/2024 Obesity, unspecified (ICD-10 - E66.9) Plan Of Treatment Medication Medication Name Sig Start Date Stop Date Notes Tresiba FlexTouch 200 UNIT/ML inject up to 80 subcutaneously once a day at bedtime for 90 days 03/25/2024 metFORMIN HCl ER 500 MG 1 tab(s) orally once a day with dinner for 90 days 03/25/2024 GVOKE HYPOPEN TWO PACK 1 MG/0.2 ML INJECT 1 MG SUBCUTANEOUSLY ONCE NEEDED for 1 DAYS 03/25/2024 *Please review for potential replacement for e-prescription and drug interaction check* Ozempic (0.25 or 0.5 MG/DOSE) 2 MG/3ML inject 0.5 mg subcutaneously once a week with a meal for 90 days 03/25/2024 dexAMETHasone 1 MG 1 tab(s) orally at 1 0 pm night before 8 am cortisol for 1 days 03/25/2024 Progress Notes * Lizbeth JHAViolettaB:1965 ( 59 yo F)Acc No.[id number]:04/13/2024 Patient: Miracle CHURCH Provider: Lynn montoya Migration :1965 A ge:58 Y S ex:Female Date:04/13/2024 Address:[address] [place] [address] , [facility] Pcp:Margot Aceves Subjective: * Chief Complaints: * [facility] . [facility] * Medical History: * Medications: T aking metFORMIN HCl 500 MG Tablet 1 tab(s) orally 2 times a day , Taking Montelukast Sodium 10 MG Tablet 1 tab(s) orally once a day , Taking Atorvastatin Calcium 40 MG Tablet 1 tab(s) orally once a day , Taking Losartan Potassium 50 MG Tablet 1 tab(s) orally once a day , Taking Pregabalin 50 MG Capsule 1 cap(s) orally 2 times a day , Taking Metoprolol Succinate ER 25 MG Tablet Extended Release 24 Hour 1 tab(s) orally once a day , Taking Brilinta(Ticagrelor) 60 MG Tablet 1 tab(s) orally 2 times a day , Taking Esomeprazole Magnesium 40 MG Capsule Delayed Release 1 cap(s) orally once a day , Taking busPIRone HCl 15 MG Tablet 1 tab(s) orally 2 times a day , Taking DULoxetine HCl 60 MG Capsule Delayed Release Particles 1 cap(s) orally once a day , Taking Ezetimibe 10 MG Tablet 1 tab(s) orally once a day , Taking Aspirin Low Dose(Aspirin) 81 MG Tablet Delayed Release 1 tab(s) orally once a day , Taking Albuterol Sulfate HFA 108 (90 Base) MCG/ACT Aerosol Solution 2 INH inhaled every 6 hours , Taking Symbicort(Budesonide-Formoterol Fumarate) 160-4.5 MCG/ACT Aerosol 2 puff(s) inhaled 2 times a day , Taking Bydureon BCise , Notes to Pharmacist: *Please review and pick correct strength-formulation from Medispan options. If intended option is not shown, discontinue and re-order from Quick Search*, Taking Tresiba FlexTouch , Notes to Pharmacist: *Please review and pick correct strength- formulation from Medispan options. If intended option is not shown, discontinue and re-order from Quick Search* * Allergies: C odeine, Benadryl Allergy, Erythromycin, traMADol, Lisinopril, Plavix, Morphine. Objective: * Vitals: Assessment: * Assessment: 1. T ype 2 diabetes mellitus with hyperglycemia - E11.65 (Primary) 2 . O besity, unspecified - E66.9 Plan: * Treatment: 2. O besity, unspecified Start dexAMETHasone Tablet, 1 MG, 1 tab(s), orally, at 10 pm night before 8 am cortisol, 1 days, 1, Refills 1. * Billing Information: * Visit Code: * Procedure Codes: * Electronic signature of Juan David felix Migration on 02/03/2025 at 10:50 AM CDT Sign off status: Pending * Provider: Lynn montoya Migration Date: 06/13/2023 Generated for Marino clay/Nain/Elaineitting on: 0 02/03/2025 10:50 AM CDT
--- OUTSIDE RECORDS SUMMARY | 2024-05-06 03:00 | XMS_ITS ---
Author Organization [email or web address] [facility] Address [address] [place] [address] Care Team Providers Care Repair Service Clerk Name Role Phone Margot Aceves Primary Care Provider [phone] REASON FOR VISIT 6 week follow up Encounters Encounter Location Date Provider Diagnosis [facility] - Margot Aceves [address] [place] [address] 05/06/2024 Margot Aceves Plan Of Treatment No Information Progress Notes * ABHIJEETLizbethViolettaB:1965 ( 59 yo F)Acc No.[id number]:05/06/2024 Progress Notes Patient: Miracle CHURCH Provider: Hossein Aceves MD :1965 A ge:58 Y S ex:Female Date:05/06/2024 Address:[facility] [address] [facility] Subjective: * Chief Complaints: * 1 . 6 week follow up. * Medical History: Objective: * Vitals: Assessment: Plan: * Treatment: * Billing Information: * Visit Code: * Procedure Codes: * Electronic signature of Lasha Aceves MD on 02/03/2025 at 10:50 AM CDT Sign off status: Pending * Provider: Hossein Aceves MD Date: 07/07/2023 Generated for Marino clay/Nain/Elaineitting on: 0 02/03/2025 10:50 AM CDT
--- OUTSIDE RECORDS SUMMARY | 2024-05-27 03:00 | XMS_ITS ---
Author Organization [facility] Address [address] [address] Care Team Providers Care Aoc Plans Intelligence Officer Chief Name Role Phone Margot Aceves Primary Care Provider REASON FOR VISIT Lab Review, Er follow up Medications Medication SIG (Take, Route, Frequency, Duration) Notes Start Date End Date Status Tresiba FlexTouch *Please review and pick correct strength-formulat ion from CenTrakan options. If intended option is not shown, discontinue and re-order from Quick Search* Unknown Bydureon BCise *Please review and pick correct strength-formulat ion from Press options. If intended option is not shown, discontinue and re-order from Quick Search* Unknown Tresiba FlexTouch 200 UNIT/ML inject up to 80 units once at bedtime Subcutaneous at bedtime for 90 days Unknown Symbicort 160-4.5 MCG/ACT 2 puff(s) inhaled 2 times a day Unknown Albuterol Sulfate HFA 108 (90 Base) MCG/ACT 2 INH inhaled every 6 hours Unknown Aspirin Low Dose 81 MG 1 tab(s) orally once a day Unknown DULoxetine HCl 60 MG 1 cap(s) orally once a day Unknown busPIRone HCl 15 MG 1 tab(s) orally 2 times a day Unknown Ezetimibe 10 MG 1 tab(s) orally once a day Unknown Dexcom G7 Sensor - change sensor every 10 days for 90 days 05/14/2024 Unknown Metoprolol Succinate ER 25 MG 1 tab(s) orally once a day Unknown Pregabalin 50 MG 1 cap(s) orally 2 times a day Unknown Esomeprazole Magnesium 40 MG 1 cap(s) orally once a day Unknown Brilinta 60 MG 1 tab(s) orally 2 times a day Unknown Losartan Potassium 50 MG 1 tab(s) orally once a day Unknown Atorvastatin Calcium 40 MG 1 tab(s) orally once a day Unknown Montelukast Sodium 10 MG 1 tab(s) orally once a day Unknown Ozempic (0.25 or 0.5 MG/DOSE) 2 MG/3ML inject 0.5 mg subcutaneously once a week with a meal for 90 days 03/25/2024 Unknown GVOKE HYPOPEN TWO PACK 1 MG/0.2 ML INJECT 1 MG SUBCUTANEOUSLY ONCE NEEDED for 1 DAYS *Please review for potential replacement for e-prescription and drug interaction check* 03/25/2024 Unknown metFORMIN HCl ER 500 MG 1 tab(s) orally once a day with dinner for 90 days 03/25/2024 Unknown Encounters Encounter Location Date Provider Diagnosis [facility] - Margot Aceves [address] [place] [address] 05/27/2024 Margot Aceves Plan Of Treatment No Information Progress Notes * Lizbeth JHAaDOB:1965 ( 59 yo F)Acc No.[id number]:05/27/2024 Progress Notes Patient: Miracle CHURCH Provider: Hossein Aceves MD :1965 A ge:58 Y S ex:Female Date:05/27/2024 Address:[address] [place] [address] , [facility] Subjective: * Chief Complaints: * 1 . Lab Review, Er follow up. * Medical History: * Medications: U nknown Ozempic (0.25 or 0.5 MG/DOSE)(Semaglutide(0.25 or 0.5MG/DOS)) 2 MG/3ML Solution Pen-injector inject 0.5 mg subcutaneously once a week with a meal , Unknown metFORMIN HCl ER 500 MG Tablet Extended Release 24 Hour 1 tab(s) orally once a day with dinner , Unknown GVOKE HYPOPEN TWO PACK 1 MG/0.2 ML SOLUTION INJECT 1 MG SUBCUTANEOUSLY ONCE NEEDED , Notes to Pharmacist: *Please review for potential replacement for e-prescription and drug interaction check*, Unknown Montelukast Sodium 10 MG Tablet 1 tab(s) orally once a day , Unknown Atorvastatin Calcium 40 MG Tablet 1 tab(s) orally once a day , Unknown Losartan Potassium 50 MG Tablet 1 tab(s) orally once a day , Unknown Pregabalin 50 MG Capsule 1 cap(s) orally 2 times a day , Unknown Metoprolol Succinate ER 25 MG Tablet Extended Release 24 Hour 1 tab(s) orally once a day , Unknown Brilinta(Ticagrelor) 60 MG Tablet 1 tab(s) orally 2 times a day , Unknown Esomeprazole Magnesium 40 MG Capsule Delayed Release 1 cap(s) orally once a day , Unknown busPIRone HCl 15 MG Tablet 1 tab(s) orally 2 times a day , Unknown DULoxetine HCl 60 MG Capsule Delayed Release Particles 1 cap(s) orally once a day , Unknown Dexcom G7 Sensor(Continuous Glucose Sensor) - Miscellaneous change sensor every 10 days , Unknown Ezetimibe 10 MG Tablet 1 tab(s) orally once a day , Unknown Aspirin Low Dose(Aspirin) 81 MG Tablet Delayed Release 1 tab(s) orally once a day , Unknown Albuterol Sulfate HFA 108 (90 Base) MCG/ACT Aerosol Solution 2 INH inhaled every 6 hours , Unknown Symbicort(Budesonide-Formoterol Fumarate) 160-4.5 MCG/ACT Aerosol 2 puff(s) inhaled 2 times a day , Unknown Bydureon BCise , Notes to Pharmacist: *Please review and pick correct strength-formulation from Amicus Medicusspan options. If intended option is not shown, discontinue and re-order from Quick Search*, Unknown Tresiba FlexTouch , Notes to Pharmacist: *Please review and pick correct strength-formulation from Amicus Medicusspan options. If intended option is not shown, discontinue and re-order from Quick Search*, Unknown Tresiba FlexTouch(Insulin Degludec) 200 UNIT/ML Solution Pen-injector inject up to 80 units once at bedtime Subcutaneous at bedtime Objective: * Vitals: Assessment: Plan: * Treatment: * Billing Information: * Visit Code: * Procedure Codes: * Electronic signature of Lasha Acvees MD on 02/03/2025 at 10:50 AM CDT Sign off status: Pending * Provider: Hossein Aceves MD Date: Generated for Marino clay/Nain/Enrique on: 02/03/2025 10:50 AM CDT
--- OUTSIDE RECORDS SUMMARY | 2024-07-04 05:30 | XMS_ITS ---
Author Organization [facility] Address [address] [facility] [address] [place] [address] Care Team Providers Care Smasher Name Role Phone Jonatan Juan Unavailable [phone] Allergies Allergen (clinical drug ingredient) Drug/Non Drug Allergy documented on EMR Reaction Allergy Type Onset Date Status fluticasone / salmeterol Advair Diskus Unknown Drug Allerg y 07/24/2023 Active diphenhydramine Benadryl Unknown Drug Allergy 07/24/2023 Active erythromycin Erythromycin Base Unknown Drug Allergy 2023 Active lisinopril Lisinopril Unknown Drug Allergy 07/24/2023 Acti ve clopidogrel Plavix Unknown Drug Allergy 07/24/2023 Acti ve codeine Codeine Unknown Drug Allergy 07/24/2023 Active morphine Morphine Unknown Drug Allergy 07/24/2023 Active tramadol Tramadol Unknown Drug Allergy 07/24/2023 Active Medications Medication SIG (Take, Route, Frequency, Duration) Notes Start Date End Date Status Metoprolol Succinate ER 25 MG Tablet Extended Release 24 Hour TAKE 1 TABLET BY MOUTH EVERY DAY Oral; Duration: 90 Days Unknown Ozempic (0.25 or 0.5 MG/DOSE) 2 MG/3ML Solution Pen-injector INJECT 0.5 MG ONCE A WEEK WITH A MEAL Subcutaneous; Duration: 28 Days Unknown BD Pen Needle Original U/F 29G X 12.7MM Miscellaneous USE TO INJECT INSULIN DAILY; Duration: 90 Days Unknown Montelukast Sodium 10 MG Tablet TAKE 1 TABLET BY MOUTH EVERY DAY Oral; Duration: 90 Days Unknown Atorvastatin Calcium 40 MG Tablet TAKE 1 TABLET BY MOUTH EVERY DAY Oral; Duration: 90 Days Unknown Dexcom G7 Sensor - Miscellaneous CHANGE SENSOR EVERY 10 DAYS; Duration: 90 Days Unknown Ezetimibe 10 MG Tablet TAKE 1 TABLET BY MOUTH EVERY DAY Oral; Duration: 90 Days Unknown Albuterol Sulfate HFA 108 (90 Base) MCG/ACT Aerosol Solution INHALE 2 PUFFS INTO LUNGS EVERY 4 HOURS NEEDED Inhalation; Duration: 16 Days Unknown Tresiba FlexTouch 200 UNIT/ML Solution Pen-injector ADMINISTER UP TO 80 UNITS UNDER THE SKIN 1 TIME AT BEDTIME Subcutaneous; Duration: 36 Days Unknown Ranolazine ER 500 MG Tablet Extended Release 12 Hour TAKE 1 TABLET BY MOUTH TWICE DAILY FOR CHRONIC ANGINA Oral; Duration: 90 Days Unknown busPIRone HCl 30 MG Tablet TAKE 1 TABLET BY MOUTH THREE TIMES DAILY Oral; Duration: 5 Days Unknown DULoxetine HCl 60 MG Capsule Delayed Release Particles TAKE 1 CAPSULE BY MOUTH DAILY Oral; Duration: 30 Days Unknown Pregabalin 50 MG Capsule TAKE 1 CAPSULE BY MOUTH EVERY DAY Oral; Duration: 30 Days Unknown Brilinta 60 MG Tablet TAKE 1 TABLET BY M OUTH TWICE DAILY Oral; Duration: 90 Days Unknown FLUoxetine HCl 40 MG Capsule TAKE 1 CAPSULE BY MOUTH DAILY Oral; Duration: 30 Days Unknown metFORMIN HCl ER 500 MG Tablet Extended Release 24 Hour TAKE 1 TABLET BY MOUTH EVERY DAY WITH A MEAL Oral; Duration: 90 Days Unknown Losartan Potassium 50 MG Tablet TAKE 1 TABLET BY MOUTH EVERY DAY Oral; Duration: 90 Days Unknown Rexulti 1 MG Tablet TAKE 1 TABLET BY JORY TH DAILY Oral; Duration: 30 Days Unknown Social History Sex Assigned At : Social History Observation Description Sex Assigned At Female Social History Miscellaneous: Social Info Question Answer Notes Education: Highest achieved lev el of education GED Additional Details Category Social Info Options Details Miscellaneous: Occupation: Disability Migrated Social History Migrated Social History Alcohol Intake: None 12/31/2020,Tobacco Years: Former smoker 12/31/2020 Vital Signs Height 66.00 in 07/04/2024 Height-cm 167.64 cm 07/04/2024 Encounters Encounter Location Date Provider Diagnosis [facility], [place] [address] [place] [address] 07/04/2024 Jonatan Juan Plan Of Treatment Next Appt Details Provider Name:Annemarie mckinnon, 02/13/2025 08:00:00 AM, [address], [address], [place], [address], Progress Notes * JOSE D SALAMANCA LEONCIODOB:[birth year] (59 yo F)Acc No.[id number]:07/04/2024 Patient: JOSE D CHURCH Provider: JOSE Bettencourt :1965 A ge:59 Y S ex:Female Date:07/04/2024 Address:[address] [facility] Subjective: * Chief Complaints: * Medical History: Problems: Acute upper respiratory infection Arthritis Asthma Chest pain Chronic back pain Chronic depression Chronic obstructive lung disease Coronary arteriosclerosis Diabetes mellitus Disorder of skin Essential hypertension Gastroenteritis Gastroesophageal reflux disease Generalized anxiety disorder Headache Herpes labialis Hyperlipidemia Hypertensive disorder Hypertriglyceridemia Ischemic congestive cardiomyopathy Knee pain Major depression in remission Neuropathy Neuropathy due to diabetes mellitus Obesity Obstructive sleep apnea syndrome Osteoarthritis Osteoarthritis of midfoot Pain in limb Pain in throat Peripheral neuropathy due to type 2 diabetes mellitus Polyp of colon Porphyria cutanea tarda Primary insomnia Psoriasis Restrictive lung disease Severe recurrent major depression without psychotic features Sleep apnea Stented coronary artery Type 1 diabetes mellitus Type 2 diabetes mellitus without complication , * Surgical History: Cardiac stent Quadruple Bypass * Family History: M other: Diabetes mellitus , Depressive disorder . S ister: Diabetes mellitus , Depressive disorder . S on: Depressive disorder . * Social History: M igrated Social History: M igrated Social History: Alcohol Intake: None 12/31/2020,Tobacco Years: Former smoker 12/31/2020. M iscellaneous: E ducation H ighest achieved level of education G ED Occupation: Disability. * Medications: U nknownmetFORMIN HCl ER 500 MG Tablet Extended Release 24 Hour TAKE 1 TABLET BY MOUTH EVERY DAY WITH A MEAL Oral Losartan Potassium 50 MG Tablet TAKE 1 TABLET BY MOUTH EVERY DAY Oral Rexulti 1 MG Tablet TAKE 1 TABLET BY MOUTH DAILY Oral FLUoxetine HCl 40 MG Capsule TAKE 1 CAPSULE BY MOUTH DAILY Oral busPIRone HCl 30 MG Tablet TAKE 1 TABLET BY MOUTH THREE TIMES DAILY Oral DULoxetine HCl 60 MG Capsule Delayed Release Particles TAKE 1 CAPSULE BY MOUTH DAILY Oral Pregabalin 50 MG Capsule TAKE 1 CAPSULE BY MOUTH EVERY DAY Oral Brilinta 60 MG Tablet TAKE 1 TABLET BY MOUTH TWICE DAILY Oral Albuterol Sulfate HFA 108 (90 Base) MCG/ACT Aerosol Solution INHALE 2 PUFFS INTO LUNGS EVERY 4 HOURS NEEDED Inhalation Tresiba FlexTouch 200 UNIT/ML Solution Pen-injector ADMINISTER UP TO 80 UNITS UNDER THE SKIN 1 TIME AT BEDTIME Subcutaneous Ranolazine ER 500 MG Tablet Extended Release 12 Hour TAKE 1 TABLET BY MOUTH TWICE DAILY FOR CHRONIC ANGINA Oral Dexcom G7 Sensor - Miscellaneous CHANGE SENSOR EVERY 10 DAYS Ezetimibe 10 MG Tablet TAKE 1 TABLET BY MOUTH EVERY DAY Oral Montelukast Sodium 10 MG Tablet TAKE 1 TABLET BY MOUTH EVERY DAY Oral Atorvastatin Calcium 40 MG Tablet TAKE 1 TABLET BY MOUTH EVERY DAY Oral Metoprolol Succinate ER 25 MG Tablet Extended Release 24 Hour TAKE 1 TABLET BY MOUTH EVERY DAY Oral Ozempic (0.25 or 0.5 MG/DOSE) 2 MG/3ML Solution Pen-injector INJECT 0.5 MG ONCE A WEEK WITH A MEAL Subcutaneous BD Pen Needle Original U/F 29G X 12.7MM Miscellaneous USE TO INJECT INSULIN DAILY Unknown metFORMIN HCl ER 500 MG Tablet Extended Release 24 Hour TAKE 1 TABLET BY MOUTH EVERY DAY WITH A MEAL Oral Unknown Losartan Potassium 50 MG Tablet TAKE 1 TABLET BY MOUTH EVERY DAY Oral Unknown Rexulti 1 MG Tablet TAKE 1 TABLET BY MOUTH DAILY Oral Unknown FLUoxetine HCl 40 MG Capsule TAKE 1 CAPSULE BY MOUTH DAILY Oral Unknown busPIRone HCl 30 MG Tablet TAKE 1 TABLET BY MOUTH THREE TIMES DAILY Oral Unknown DULoxetine HCl 60 MG Capsule Delayed Release Particles TAKE 1 CAPSULE BY MOUTH DAILY Oral Unknown Pregabalin 50 MG Capsule TAKE 1 CAPSULE BY MOUTH EVERY DAY Oral Unknown Brilinta 60 MG Tablet TAKE 1 TABLET BY MOUTH TWICE DAILY Oral Unknown Albuterol Sulfate HFA 108 (90 Base) MCG/ACT Aerosol Solution INHALE 2 PUFFS INTO LUNGS EVERY 4 HOURS NEEDED Inhalation Unknown Tresiba FlexTouch 200 UNIT/ML Solution Pen-injector ADMINISTER UP TO 80 UNITS UNDER THE SKIN 1 TIME AT BEDTIME Subcutaneous Unknown Ranolazine ER 500 MG Tablet Extended Release 12 Hour TAKE 1 TABLET BY MOUTH TWICE DAILY FOR CHRONIC ANGINA Oral Unknown Dexcom G7 Sensor - Miscellaneous CHANGE SENSOR EVERY 10 DAYS Unknown Ezetimibe 10 MG Tablet TAKE 1 TABLET BY MOUTH EVERY DAY Oral Unknown Montelukast Sodium 10 MG Tablet TAKE 1 TABLET BY MOUTH EVERY DAY Oral Unknown Atorvastatin Calcium 40 MG Tablet TAKE 1 TABLET BY MOUTH EVERY DAY Oral Unknown Metoprolol Succinate ER 25 MG Tablet Extended Release 24 Hour TAKE 1 TABLET BY MOUTH EVERY DAY Oral Unknown Ozempic (0.25 or 0.5 MG/DOSE) 2 MG/3ML Solution Pen-injector INJECT 0.5 MG ONCE A WEEK WITH A MEAL Subcutaneous Unknown BD Pen Needle Original U/F 29G X 12.7MM Miscellaneous USE TO INJECT INSULIN DAILY * Allergies: A dvair Diskus: Allergy - Onset Date 07/24/2023enadryl: Allergy - Onset Date 07/24/2023Erythromycin Base: Allergy - Onset Date 07/24/2023Lisinopril: Allergy - Onset Date 07/24/2023lavix: Allergy - Onset Date 07/24/2023odeine: Allergy - Onset Date 07/24/2023Morphine: Allergy - Onset Date 07/24/2023Tramadol: Allergy - Onset Date 07/24/2023 Objective: * Vitals: H t: 66.00 in, Ht-cm: 167.64 cm. Billing Information: * Procedure Codes: * Electronic signature of JOSE Child on 02/03/2025 at 10:49 AM CDT Sign off status: Pending * Provider: JOSE Bettencourt Date: 0 07/04/2024 Generated for Marino clay/Nain/Enrique on: 0 02/03/2025 10:49 AM CDT
--- OUTSIDE RECORDS SUMMARY | 2024-09-09 06:20 | XMS_ITS ---
Author Organization [facility] Address [address] [facility] [address] HAYDEE [id number] Care Team Providers Care Appeals Reviewer Veteran Name Role Phone Margot Aceves Primary Care Provider REASON FOR VISIT 1 month f/u Medications Medication SIG (Take, Route, Fr equency, Duration) Notes Start Date End Date Status GVOKE HYPOPEN TWO PACK 1 MG/0.2 ML SOLUTION INJECT 1 MG SUBCUTANONCEasNEEDEDEOUSLY as needed; Duration: 90 days *Please review for potential replacement for e-prescription and drug interaction check* *Reorder from [email or web address] for eRx and Interaction Alerts* 4 Active metFORMIN HCl ER 500 MG Tablet Extended Release 24 Hour 1 tab(s) orally once a day with dinner; Duration: 90 days 4 Active Ozempic (0.25 or 0.5 MG/DOSE) 2 MG/3ML Solution Pen-injector inject 0.5 mg subcutaneously once a week with a meal; Duration: 90 days 4 Active Tresiba FlexTouch 200 UNIT/ML Solution Pen-injector inject up to 80 units once at bedtime Subcutaneous at bedtime; Duration: 90 days Activ e Dexcom G7 Sensor - Miscellaneous change sensor every 10 days; Duration: 90 days 4 Active Albuterol Sulfate HFA 108 (90 Base) MCG/ACT Aerosol Solution 2 INH inhaled every 6 hours Active Aspirin Low Dose 81 MG Tablet Delayed Release 1 tab(s) orally once a day Active Bydureon BCise *Please review and pick correct strength-formul ation from [email or web address] options. If intended option is not shown, discontinue and re-order from Quick Search* *Pick strength-form from [email or web address] for eRX* Active Symbicort 160-4.5 MCG/ACT Aerosol 2 puff(s) inhaled 2 times a day Active Tresiba FlexTouch *Please review and pick correct strength-formul ation from [email or web address] options. If intended option is not shown, discontinue and re-order from Quick Search* *Pick strength-form from [email or web address] for eRX* Active busPIRone HCl 15 MG Tablet 1 tab(s) orally 2 times a day Active Esomeprazole Magnesium 40 MG Capsule Delayed Release 1 cap(s) orally once a day A ctive Brilinta 60 MG Tablet 1 tab(s) orally 2 times a day Active Ezetimibe 10 MG Tablet 1 tab(s) orally once a day A ctive DULoxetine HCl 60 MG Capsule Delayed Release Particles 1 cap(s) orally once a day A ctive Metoprolol Succinate ER 25 MG Tablet Extended Release 24 Hour 1 tab(s) orally once a day A ctive Montelukast Sodium 10 MG Tablet 1 tab(s) orally once a day A ctive Pregabalin 50 MG Capsule 1 cap(s) orally 2 times a day Active Losartan Potassium 50 MG Tablet 1 tab(s) orally once a day A ctive Atorvastatin Calcium 40 MG Tablet 1 tab(s) orally once a day A ctive Insulin Lispro 200 UNIT/ML Solution Pen-injector inject up to 30 units Subcutaneous three times daily before meals; Duration: 90 days 5 Active Pen [place] 5/16 31G X 8 MM Miscellaneous inject insulin 4 times daily; Duration: 90 days 5 Active dexAMETHasone 1 MG Tablet 1 tablet Orally at 10 pm night before 8 am cortisol; Duration: 1 days 5 Active Encounters Encounter Location Date Provider Diagnosis [facility] [address] Aceves [address] [place] [address] 09/09/2024 Margot Aceves Plan Of Treatment No Information History and Physical Notes * HPI (History of Present Illness) Category Sub-Category Detail Notes Category Not es History of Present Illness 59 yo female comes in for follow up in management of poorly controlled type 2 DM on insulin has hx of renal and liver disease/cirrhosis. Patient highly noncompliant. At last visit in July we increased tresiba to 78 units with titration instructions along with addition of humalog 20 units plus correction prior to meals in addition to low dose ozempic. She has hepatorenal failure secondary to cirrhosis so needs nephrofriendly medications. She was advised to complete further testing for hypercortisolism however with history of cirrhosis makes it very difficult to diagnosis cushings or hypercortisolism due to false positive tests. Progress Notes * Lizbeth JHAaDOB:1965 ( 59 yo F)Acc No.[id number]:09/09/2024 Progress Notes Patient: Miracle Clinton Provider: Hossein Aceves MD :1965 A ge:59 Y S ex:Female Date:09/09/2024 Address:[address] [place] [address] , [id number] Subjective: * Chief Complaints: * 1 month f/u * HPI: H istory of Present Illness: 59 yo female comes in for follow up in management of poorly controlled type 2 DM on insulin has hx of renal and liver disease/cirrhosis. Patient highly noncompliant. At last visit in July we increased tresiba to 78 units with titration instructions along with addition of humalog 20 units plus correction prior to meals in addition to low dose ozempic. She has hepatorenal failure secondary to cirrhosis so needs nephrofriendly medications. She was advised to complete further testing for hypercortisolism however with history of cirrhosis makes it very difficult to diagnosis cushings or hypercortisolism due to false positive tests. * Medications: T akingMontelukast Sodium 10 MG Tablet 1 tab(s) orally once a day Atorvastatin Calcium 40 MG Tablet 1 tab(s) orally once a day Losartan Potassium 50 MG Tablet 1 tab(s) orally once a day Pregabalin 50 MG Capsule 1 cap(s) orally 2 times a day Metoprolol Succinate ER 25 MG Tablet Extended Release 24 Hour 1 tab(s) orally once a day Brilinta 60 MG Tablet 1 tab(s) orally 2 times a day Esomeprazole Magnesium 40 MG Capsule Delayed Release 1 cap(s) orally once a day busPIRone HCl 15 MG Tablet 1 tab(s) orally 2 times a day DULoxetine HCl 60 MG Capsule Delayed Release Particles 1 cap(s) orally once a day Ezetimibe 10 MG Tablet 1 tab(s) orally once a day Aspirin Low Dose 81 MG Tablet Delayed Release 1 tab(s) orally once a day Albuterol Sulfate HFA 108 (90 Base) MCG/ACT Aerosol Solution 2 INH inhaled every 6 hours Symbicort 160-4.5 MCG/ACT Aerosol 2 puff(s) inhaled 2 times a day Rasheed Fields , Notes to Pharmacist: *Please review and pick correct strength-formulation from [email or web address] options. If intended option is not shown, discontinue and re-order from Quick Search* *Pick strength-form from [email or web address] for eRX*Tresiba FlexTouch , Notes to Pharmacist: *Please review and pick correct strength-formulation from [email or web address] options. If intended option is not shown, discontinue and re-order from Quick Search* *Pick strength-form from [email or web address] for eRX*Tresiba FlexTouch 200 UNIT/ML Solution Pen-injector inject up to 80 units once at bedtime Subcutaneous at bedtime Ozempic (0.25 or 0.5 MG/DOSE) 2 MG/3ML Solution Pen-injector inject 0.5 mg subcutaneously once a week with a meal metFORMIN HCl ER 500 MG Tablet Extended Release 24 Hour 1 tab(s) orally once a day with dinner GVOKE HYPOPEN TWO PACK 1 MG/0.2 ML SOLUTION INJECT 1 MG SUBCUTANONCEasNEEDEDEOUSLY as needed , Notes to Pharmacist: *Please review for potential replacement for e-prescription and drug interaction check* *Reorder from [email or web address] for eRx and Interaction Alerts*Dexcom G7 Sensor - Miscellaneous change sensor every 10 days dexAMETHasone 1 MG Tablet 1 tablet Orally at 10 pm night before 8 am cortisol [place] 10/11 31G X 8 MM Miscellaneous inject insulin 4 times daily Insulin Lispro 200 UNIT/ML Solution Pen-injector inject up to 30 units Subcutaneous three times daily before meals Taking Montelukast Sodium 10 MG Tablet 1 tab(s) orally once a day Taking Atorvastatin Calcium 40 MG Tablet 1 tab(s) orally once a day Taking Losartan Potassium 50 MG Tablet 1 tab(s) orally once a day Taking Pregabalin 50 MG Capsule 1 cap(s) orally 2 times a day Taking Metoprolol Succinate ER 25 MG Tablet Extended Release 24 Hour 1 tab(s) orally once a day Taking Brilinta 60 MG Tablet 1 tab(s) orally 2 times a day Taking Esomeprazole Magnesium 40 MG Capsule Delayed Release 1 cap(s) orally once a day Taking busPIRone HCl 15 MG Tablet 1 tab(s) orally 2 times a day Taking DULoxetine HCl 60 MG Capsule Delayed Release Particles 1 cap(s) orally once a day Taking Ezetimibe 10 MG Tablet 1 tab(s) orally once a day Taking Aspirin Low Dose 81 MG Tablet Delayed Release 1 tab(s) orally once a day Taking Albuterol Sulfate HFA 108 (90 Base) MCG/ACT Aerosol Solution 2 INH inhaled every 6 hours Taking Symbicort 160-4.5 MCG/ACT Aerosol 2 puff(s) inhaled 2 times a day Taking Bydureon BCise , Notes to Pharmacist: *Please review and pick correct strength-formulation from [email or web address] options. If intended option is not shown, discontinue and re-order from Quick Search* *Pick strength-form from [email or web address] for eRX*Taking Tresiba FlexTouch , Notes to Pharmacist: *Please review and pick correct strength-formulation from [employer] options. If intended option is not shown, discontinue and re-order from Quick Search* *Pick strength-form from [email or web address] for eRX*Taking Tresiba FlexTouch 200 UNIT/ML Solution Pen-injector inject up to 80 units once at bedtime Subcutaneous at bedtime Taking Ozempic (0.25 or 0.5 MG/DOSE) 2 MG/3ML Solution Pen-injector inject 0.5 mg subcutaneously once a week with a meal Taking metFORMIN HCl ER 500 MG Tablet Extended Release 24 Hour 1 tab(s) orally once a day with dinner Taking GVOKE HYPOPEN TWO PACK 1 MG/0.2 ML SOLUTION INJECT 1 MG SUBCUTANONCEasNEEDEDEOUSLY as needed , Notes to Pharmacist: *Please review for potential replacement for e-prescription and drug interaction check* *Reorder from [email or web address] for eRx and Interaction Alerts*Taking Dexcom G7 Sensor - Miscellaneous change sensor every 10 days Taking dexAMETHasone 1 MG Tablet 1 tablet Orally at 10 pm night before 8 am cortisol Taking [place] /16 31G X 8 MM Miscellaneous inject insulin 4 times daily Taking Insulin Lispro 200 UNIT/ML Solution Pen-injector inject up to 30 units Subcutaneous three times daily before meals Billing Information: * Procedure Codes: * Electronic signature of Lasha Aceves MD on 02/03/2025 at 10:50 AM CDT Sign off status: Pending * Provider: Hossein Aceves MD Date: 0 09/09/2024 Generated for Marino clay/Nain/Enrique on: 0 02/03/2025 10:50 AM CDT
--- OUTSIDE RECORDS SUMMARY | 2024-10-14 04:00 | XMS_ITS ---
Author Organization [facility] Address [address] [place], [place] [id number] Care Team Providers Care Photographic Engineer Name Role Phone Margot Aceves Primary Care Provider REASON FOR VISIT lab f/u Medications Medication SIG (Take, Route, Fr equency, Duration) Notes Start Date End Date Status Insulin Lispro 200 UNIT/ML Solution Pen-injector inject up to 30 units Subcutaneous three times daily before meals; Duration: 90 days 5 Active Pen [place] 5/16 31G X 8 MM Miscellaneous inject insulin 4 times daily; Duration: 90 days 5 Active dexAMETHasone 1 MG Tablet 1 tablet Orally at 10 pm night before 8 am cortisol; Duration: 1 days 5 Active Dexcom G7 Sensor - Miscellaneous change sensor every 10 days; Duration: 90 days 4 Active GVOKE HYPOPEN TWO PACK 1 MG/0.2 ML SOLUTION INJECT 1 MG SUBCUTANONCEasNEEDEDEOUSLY as needed; Duration: 90 days *Please review for potential replacement for e-prescription and drug interaction check* *Reorder from [employer] for eRx and Interaction Alerts* 4 Active Tresiba FlexTouch 200 UNIT/ML Solution Pen-injector inject up to 80 units once at bedtime Subcutaneous at bedtime; Duration: 90 days Activ e Tresiba FlexTouch *Please review and pick correct strength-formul ation from Medispan options. If intended option is not shown, discontinue and re-order from Quick Search* *Pick strength-form from Medispan for eRX* Active Bydureon BCise *Please review and pick correct strength-formul ation from Medispan options. If intended option is not shown, discontinue and re-order from Quick Search* *Pick strength-form from food.de for eRX* Active metFORMIN HCl ER 500 MG Tablet Extended Release 24 Hour 1 tab(s) orally once a day with dinner; Duration: 90 days 4 Active Ozempic (0.25 or 0.5 MG/DOSE) 2 MG/3ML Solution Pen-injector inject 0.5 mg subcutaneously once a week with a meal; Duration: 90 days 4 Active Symbicort 160-4.5 MCG/ACT Aerosol 2 puff(s) inhaled 2 times a day Active Albuterol Sulfate HFA 108 (90 Base) MCG/ACT Aerosol Solution 2 INH inhaled every 6 hours Active Aspirin Low Dose 81 MG Tablet Delayed Release 1 tab(s) orally once a day Active Ezetimibe 10 MG Tablet 1 tab(s) orally once a day A ctive DULoxetine HCl 60 MG Capsule Delayed Release Particles 1 cap(s) orally once a day A ctive Metoprolol Succinate ER 25 MG Tablet Extended Release 24 Hour 1 tab(s) orally once a day A ctive Pregabalin 50 MG Capsule 1 cap(s) orally 2 times a day Active busPIRone HCl 15 MG Tablet 1 tab(s) orally 2 times a day Active Esomeprazole Magnesium 40 MG Capsule Delayed Release 1 cap(s) orally once a day A ctive Brilinta 60 MG Tablet 1 tab(s) orally 2 times a day Active Losartan Potassium 50 MG Tablet 1 tab(s) orally once a day A ctive Atorvastatin Calcium 40 MG Tablet 1 tab(s) orally once a day A ctive Montelukast Sodium 10 MG Tablet 1 tab(s) orally once a day A ctive Encounters Encounter Location Date Provider Diagnosis [facility] Dr[address] 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 Patient highly noncompliant. Patient Miracle, who has Type 2 Diabetes Mellitus, was previously started on Tresiba, extended-release metformin, and Ozempic, with Victoza discontinued. She reports difficulty with Dexcom adherence and experiencing chest pain. Due to her high insulin regimen, there is concern for hypercortisolism, and cortisol testing has been ordered. Recommendations were made to address Dexcom adhesion issues, and the patient was advised to seek immediate medical attention if chest pain persists or worsens. 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 Patient highly noncompliant. Lynn Rausch, who has Type 2 Diabetes Mellitus, was previously started on Tresiba, extended-release metformin, and Ozempic, with Victoza discontinued. She reports difficulty with Dexcom adherence and experiencing chest pain. Due to her high insulin regimen, there is concern for hypercortisolism, and cortisol testing has been ordered. Recommendations were made to address Dexcom adhesion issues, and the patient was advised to seek immediate medical attention if chest pain persists or worsens. * Medications: T akingMontelukast Sodium 10 MG [...] *Please review and pick correct strength-formulation from food.de options. If intended option is not shown, discontinue and re-order from Quick Search* *Pick strength-form from food.de for eRX*Tresiba FlexTouch , Notes to Pharmacist: *Please review and pick correct strength-formulation from food.de options. If intended option is not shown, discontinue and re-order from Quick Search* *Pick strength-form from food.de for eRX*Tresiba FlexTouch 200 UNIT/ML Solution Pen-injector [...] e-prescription and drug interaction check* *Reorder from food.de for eRx and Interaction Alerts*Dexcom G7 Sensor - Miscellaneous change sensor every 10 days dexAMETHasone 1 MG Tablet 1 tablet Orally at 10 pm night before 8 am cortisol Pen [place] 10/11 31G X 8 MM Miscellaneous inject [...] *Please review and pick correct strength-formulation from food.de options. If intended option is not shown, discontinue and re-order from Quick Search* *Pick strength-form from food.de for eRX*Taking Tresiba FlexTouch , Notes to Pharmacist: *Please review and pick correct strength-formulation from food.de options. If intended option is not shown, discontinue and re-order from Quick Search* *Pick strength-form from food.de for eRX*Taking Tresiba FlexTouch 200 UNIT/ML Solution [...] e-prescription and drug interaction check* *Reorder from food.de for eRx and Interaction Alerts*Taking Dexcom G7 Sensor - Miscellaneous change sensor every 10 days Taking dexAMETHasone 1 MG Tablet 1 tablet Orally at 10 pm night before 8 am cortisol Taking Pen [place] 10/11 31G X 8 MM Miscellaneous inject insulin 4 times daily Taking Insulin Lispro 200 UNIT/ML Solution Pen-injector inject up to 30 units Subcutaneous three times daily before meals Objective: * P ast Orders: L ab:CORTISOL, FREE, 24 HOUR URINE ([id number]) (Order Date - 09/17/2024) (Collection Date & Time - 09/17/2024 09:15 AM) Value Reference Range CREATININE, URINE 0.97 0.50-2.15 - g/24 h CORTISOL, FREE, 24 HOUR 2.0 L 4.0-50.0 - mcg/2 4 h TOTAL VOLUME 2000 - mL CORTISOL, FREE, URINE 2.1 L - mcg/g creat Notes: Margot Aceves 09/28/2024 06:53:55 PM CDT >urine leels normal L ab:.COMPREHENSIVE METABOLIC PANEL (73238) CMP (Order Date - 09/10/2024) (Collection Date & Time - 09/10/2024 09:39 AM) Value Reference Range GLUCOSE 267 H 65-99 - mg/dL UREA NITROGEN (BUN) 11 7-25 - mg/dL CREATININE 0.73 0.50-1.05 - mg/dL BUN/CREATININE RATIO SEE NOTE: 6-22 - (calc) SODIUM 136 135-146 - mmol/L POTASSIUM 4.0 3.5-5.3 - mmol/L CHLORIDE 99 98-110 - mmol/L CARBON DIOXIDE 27 20-32 - mmol/L CALCIUM 9.5 8.6-10.4 - mg/dL PROTEIN, TOTAL 6.9 6.1-8.1 - g/dL ALBUMIN 4.2 3.6-5.1 - g/dL GLOBULIN 2.7 1.9-3.7 - g/dL (calc ) ALBUMIN/GLOBULIN RATIO 1.6 1.0-2.5 - (calc) BILIRUBIN, TOTAL 0.7 0.2-1.2 - mg/dL ALKALINE PHOSPHATASE 116 37-153 - U/L AST 12 10-35 - U/L ALT 10 6-29 - U/L EGFR 94 > OR = 60 - mL/min/1.73m2 Notes: Margot Aceves 09/16/2024 10:53:55 PM CDT >discuss at return visit this week L ab:.LIPID PANEL, STANDARD (7600) (Order Date - 09/10/2024) (Collection Date & Time - 09/10/2024 09:39 AM) Value Reference Range TRIGLYCERIDES 140 <150 - mg/dL CHOLESTEROL, TOTAL 113 <200 - mg/dL HDL CHOLESTEROL 41 L > OR = 50 - mg/dL LDL-CHOLESTEROL 50 - mg/dL (calc) CHOL/HDLC RATIO 2.8 <5.0 - (calc) NON HDL CHOLESTEROL 72 <130 - mg/dL (calc) Notes: Margot Aceves 09/16/2024 10:53:55 PM CDT >discuss at return visit this week L ab:.CBC (INCLUDES DIFF/PLT) (6399) (Order Date - 09/10/2024) (Collection Date & Time - 09/10/2024 09:39 AM) Value Reference Range WHITE BLOOD CELL COUNT 10.7 3.8-10.8 - Thous[place] nd/uL RED BLOOD CELL COUNT 4.76 3.80-5.10 - Million /uL HEMOGLOBIN 13.5 11.7-15.5 - g/dL HEMATOCRIT 42.2 35.0-45.0 - % MCV 88.7 80.0-100.0 - fL MCH 28.4 27.0-33.0 - pg MCHC 32.0 32.0-36.0 - g/dL RDW 14.3 11.0-15.0 - % PLATELET COUNT 321 140-400 - Thousand/u L NEUTROPHILS 75.5 - % ABSOLUTE NEUTROPHILS 8079 H 7281-5270 - cells/u L LYMPHOCYTES 15.0 - % ABSOLUTE LYMPHOCYTES 0738 448-4272 - cells/uL MONOCYTES 4.6 - % ABSOLUTE MONOCYTES 492 200-950 - cells/uL EOSINOPHILS 4.5 - % ABSOLUTE EOSINOPHILS 482 15-500 - cells/uL BASOPHILS 0.4 - % ABSOLUTE BASOPHILS 43 0-200 - cells/uL MPV 10.2 7.5-12.5 - fL Notes: Margot Aceves 09/16/2024 10:53:55 PM CDT >discuss at return visit this week L ab:.HEMOGLOBIN A1c (496) (Order Date - 09/10/2024) (Collection Date & Time - 09/10/2024 09:39 AM) Value Reference Range HEMOGLOBIN A1c 11.1 H <5.7 - % of total Hg b Notes: Margot Aceves 09/16/2024 10:53:55 PM CDT >discuss at return visit this week L ab:T4, FREE (866) (Order Date - 09/10/2024) (Collection Date & Time - 09/10/2024 09:39 AM) Value Reference Range T4, FREE 0.9 0.8-1.8 - ng/dL Notes: Margot Aceves 09/16/2024 10:53:55 PM CDT >discuss at return visit this week L ab:TSH (899) (Order Date - 09/10/2024) (Collection Date & Time - 09/10/2024 09:39 AM) Value Reference Range TSH 0.74 0.40-4.50 - mIU/L Notes: Margot Aceves 09/16/2024 10:53:55 PM CDT >discuss at return visit this week L ab:T3, FREE (59819) (Order Date - 09/10/2024) (Collection Date & Time - 09/10/2024 09:39 AM) Value Reference Range T3, FREE 2.8 2.3-4.2 - pg/mL Notes: Margot Aceves 09/16/2024 10:53:55 PM CDT >discuss at return visit this week Billing Information: * Procedure Codes: * Electronic signature of Lasha Aceves MD on 02/03/2025 at 10:49 AM CDT Sign off status: Pending * Provider: Hossein Aceves MD Date: 0 10/14/2024 Generated for Marino ng/Farobg/eTransmitting on: 0 02/03/2025 10:49 AM CDT
--- OUTSIDE RECORDS SUMMARY | 2025-02-03 10:49 | XMS_ITS | Clinical Summary ---
Author Organization [facility] Address [address] [place] [id number] Care Team Providers Care Shop Welder Name Role Phone Lou Martin MD Primary Care Provide r Darian Beckman MD Unavailable [phone] Cezar Vides MD Unavailable Tigre Gifford MD Unavailable [phone] Isaac Whitley MD Unavailable [phone] Allergies Active Allergy Reactions Criticality Noted Date Comments Codeine Nausea only Low 04/08/2021 Diphenhydramine Rash,Nausea only,Nathen sea And Vomiting,Vomiting High 07/07/2017 Erythromycin Nausea & Vomiting,Itching High 06/18/19 18 [place]-3 Fatty Acids Nausea only Low 04/08/2021 Fluticasone Propion-Salmeterol Hives High 02/20/2020 Lisinopril Cough Low 04/08/2021 Morphine Hallucinations Medium 04/08/2021 Clopidogrel Hives Medium 04/08/2021 Tramadol Itching Low 04/08/2021 Icosapent Ethyl Nausea & Vomiting Low 10/08/2024 Medications atorvastatin (LIPITOR) 40 mg tablet Take 1 tablet (40 mg total) by mouth every morning 06/20/[address] (NexIUM) 40 mg capsule Take 1 capsule (40 mg total) by mouth daily before breakfast 12/25/19 20 Active ezetimibe (ZETIA) 10 mg tablet Take 1 tablet (10 mg total) by mouth every morning 01/05/20 21 Active fluticasone propionate (FLONASE) 50 mcg/actuation nasal spray Administer 2 sprays into each nostril daily as needed for rhinitis or allergies 05/29/18 70 Active insulin degludec (TRESIBA) 200 unit/mL (3 mL) pen for injection Inject 0.28 mL (56 Units total) under the skin nightly 8.4 mL 04/21/20 21 Active Additional Information Patient taking differently: 84 Unitssubcutaneous Nightly, Informant: Self, Reported on 12/04/2024 blood glucose diagnostic strip FreeStyle Lite Strips Take 1 strip 4 times a day by miscell. route before meals for 30 days. Active pen needle, diabetic (BD Ultra-Fine Mini Pen Needle) 31 gauge x 3/16 needle 01/27/20 20 Active aspirin 81 mg chewable tablet Take 1 tablet (81 mg total) by mouth every morning 06/21/[address] (CYMBALTA) 60 mg capsule Take 1 capsule (60 mg total) by mouth nightly 05/29/18 70 Active FLUoxetine (PROzac) 20 mg tablet Take 2 tablets (40 mg total) by mouth nightly 05/29/18 70 Active ranolazine ER (RANEXA) 500 mg 12 hr tablet Take 1 tablet (500 mg total) by mouth 2 (two) times a day 03/19/20 21 Active busPIRone (BUSPAR) 10 mg tablet Take 3 tablets (30 mg total) by mouth nightly Active hydrOXYzine (ATARAX) 25 mg tablet Take 1 tablet (25 mg total) by mouth daily as needed 05/10/20 21 Active albuterol HFA (PROVENTIL HFA,VENTOLIN HFA,PROAIR HFA) 90 mcg/actuation inhaler INHALE 1 PUFF BY MOUTH EVERY 4 HOURS NEEDED Active carbidopa-levo dopa CR (SINEMET CR) 25-100 mg per CR tablet TK TWO TS PO QHS Act kandi metoprolol tartrate (LOPRESSOR) 37.5 mg tablet immediate release tablet Take 1 tablet (37.5 mg total) by mouth nightly 01/06/20 23 Active pregabalin (LYRICA) 50 mg capsule Take 1 capsule (50 mg total) by mouth nightly 01/06/20 23 Active acetaminophen (TYLENOL) 500 mg tablet Take 1-2 tablets (500-1,000 mg total) by mouth every 6 (six) hours as needed for pain 30 tablet 07/27/19 24 Active losartan (COZAAR) 50 mg tablet Take 1 tablet (50 mg total) by mouth every morning 08/02/19 25 Active cetirizine (ZyrTEC) 10 mg tablet Take 1 tablet (10 mg total) by mouth every morning Active dicyclomine (BENTYL) 10 mg capsule Take 1 capsule (10 mg total) by mouth 3 (three) times a day as needed (stomache cramps) 08/08/19 25 Active Rexulti 1 mg tablet Take 1 tablet (1 mg total) by mouth nightly Active Dexcom G7 Sensor device Inject 1 Application under the skin every 10 days 08/08/19 25 Active furosemide (LASIX) 20 mg tablet Take 1 tablet (20 mg total) by mouth every morning Active HumaLOG 200 unit/mL (3 mL) pen for injection Inject 1 Units under the skin 3 (three) times a day as needed (high blood sugar) Sliding scale - may use up to 30 units 08/09/19 25 Active Ozempic 0.25 mg or 0.5 mg (2 mg/3 mL) pen injector injection Inject 0.5 mg under the skin every 7 days Q Monday08/03/19 25 Active ticagrelor (BRILINTA) 90 mg tablet Take 1 tablet (90 mg total) by mouth 2 (two) times a day 180 tablet 10/17/19 25 Active metFORMIN (FORTAMET) 500 mg 24 hr tablet Take 1 tablet (500 mg total) by mouth daily with breakfast Active Active Problems Problem Noted Date Diagnosed Date Coronary artery disease (CAD) excluded 5 Coronary artery disease, occlusive 10/11/2024 CAD (coronary artery disease) 10/01/2024 Sternal wound dehiscence 05/18/2021 Overview (05/18/2021): Added automatically from request for surgery [id number] Coronary artery disease invo lving [place] heart without angina pectoris 04/06/2021 Overview (04/09/2021): Added automatically from request for surgery [id number] Surgical History Surgery Date Site/Laterality Comments CORONARY ARTERY BYPASS GRAFT ECTOPIC SURGERY SECTION CARDIAC CATHETERIZATION 10/10/2024 N/A Procedure: PCI PTCA - MAJOR CORONARY [id number]; Surgeon: Tigre Gifford MD; 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 Medical History Medical History Date Comments Diabetes mellitus (HCC) Coronary artery disease Hypertension Pulmonary nodule Sleep apnea CAD (coronary artery disease) Open wound GERD (gastroesophageal reflux disease) Type 2 diabetes mellitus Stroke (HCC) slight right fac ial droop PCT (porphyria cutanea tarda) Depression Anxiety Irritable bowel syndrome Infectious viral hepatitis Chronic kidney disease Headache Chronic pain disorder TIA (transient ischemic attack) Coronary artery disease invo lving [place] heart without angina pectoris, unspecified vessel or lesion type Coronary artery disease, occlusive Family History Medical History Relation Name Comments [...] e alcohol) Social Connection and Isolation Panel Answer Date Recorded In a typical week, how many times do you talk on the phone with family, friends, or neighbors? Three times a week 04/08/20 21 How often do you get togethe r with friends or relatives? Three times a week 04/08/2021 How often do you attend chur ch or evangelical services? 1 to 4 times per year 04/08/2021 Do you belong to any clubs o r organizations such as anabaptist groups, unions, fraternal or athletic groups, or school groups? No 04/08/2021 How often do you attend meet ings of the clubs or organizations you belong to? Never 04/08/2021 Are you , , di vorced, , never , or living with a partner? 04/08/2021 AUDIT-C Answer Date Recorded Q1: How often do you have a drink containing alcohol? Never 12/04/2024 Q2: How many drinks containi ng alcohol do you have on a typical day when you are drinking? Patient does not drink Q3: How often do you have si x or more drinks on one occasion? Never 12/04/2024 Overall Financial Resource Strain (CARDIA) Answe r [...] place to sleep or slept in a custodial (including now)? No 04/08/2021 Personal Safety Answer Date Recorded Have you ever been in or are you currently in a harmful physical or emotional relationship or is someone making you feel afraid or unsafe? 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 Gender Identity Not on file Sexual Orientation Not on file Obstetrics History Last Filed Vital Signs Vital Sign Reading Time Taken Comments Blood Pressure 113/88 10/16/2024 11:44 AM CDT Pulse 84 10/16/2024 11:44 AM CDT Temperature 36.9 C (98.4 F) 10/16/2024 11:44 AM CDT Respiratory Rate 18 10/16/2024 11:44 AM CDT Oxygen Saturation 93% 10/16/2024 11:44 AM CDT Inhaled Oxygen Concentration - - Weight 94.3 kg (208 lb) 10/16/2024 6:00 AM CDT Height 167.6 cm (5' 6) 10/15/2024 7:16 AM CDT Body Mass Index 33.57 10/15/2024 7:16 AM CDT Plan of Treatment Health Maintenance Due Date Last Done Comments Breast Cancer Screening-Mammogram 1965 Cervical Cancer Screening 1965 Colon Cancer Screening-Colonoscopy 1965 Hepatitis C Screening 1965 DTaP/Tdap/Td Vaccine (1 - Tdap) 1974 Hepatitis B Screening 1981 Regular Well Visit/Exam 18-64 1981 Zoster Vaccine (1 of 2) 2013 Depression Screening 04/06/2022 04/06/2021, 04/06/20 21 Influenza Vaccine (#1) 2025 Pneumococcal vaccine <65 (3 of 3 - PCV20 or PCV21) 02/18/2025 02/19/2020, 02/19/2020 Medical Devices Implanted Type Area Certified Pesticide Applicator Device Identifier Shelf Expiration Date Model / Serial / Lot Vyopta Lesli Stent Coronary Drug Eluting Rapid Exchange Synergy Megatron 3.32h17ht [place] Chromium [id number] - [id number] - [id number] Implanted:Qty: 1 on 10/15/2024 by Isaac Whitley MD at [facility] Stent [employer] Lesli 08/02/2025 [id number] / [id number] / [id number] [employer] Lesli Stent Drug Eluting S Megatron Us Mr 3.87f51ab [id number] - [id number] - [id number] Implanted:Qty: 1 on 10/15/2024 by Isaac Whitley MD at [facility] Stent [employer] Lesli 12/05/2025 [id number] / [id number] / [id number] [employer] 73-2623 Sternalock Naldo 8 Hole Sternum Plate Bone 2.4 Mm Screw - [id number] Implanted:Qty: 3 on 04/12/2021 by Darian Beckman MD at [facility] N/A: Sternum Twan [employer] 73-2623 / / [employer] 73-2412 Sternalock Naldo 2.4mm 12mm Self Drill Lock Sternum Cancellous - [id number] Implanted:Qty: 12 on 04/12/2021 by Darian Beckman MD at [facility] N/A: Sternum [employer] 73-2412 / / [employer] 73-2414 Sternalock Naldo 2.4mm 14mm Self Drill Lock Sternum Cancellous - [id number] Implanted:Qty: 4 on 04/12/2021 by Darian Beckman MD at [facility] N/A: Sternum [employer] 73-2414 / / [employer] 73-2418 Sternalock Naldo 2.4mm 18mm Self Drill Lock Sternum Cancellous - [id number] Implanted:Qty: 4 on 04/12/2021 by Darian Beckman MD at [facility] N/A: Sternum [employer] 73-2418 / / [employer] 73-2416 Sternalock Naldo 2.4mm 16mm Self Drill Lock Sternum Cancellous - [id number] Implanted:Qty: 4 on 04/12/2021 by Darian Beckman MD at [facility] N/A: Sternum [employer]an [employer] 73-4719 / / Medtronic Card Vasc Surgery 2.75 X 26mm Erie [place]rose Rx Coronary Stent [id number] - [id number] Implanted:Qty: 1 on 10/10/2024 by Tigre Gifford MD at [facility] Medtronic Card Vasc Surgery 06/17/2027 [id number] / / [id number] Insurance IDPA [facility] MEDICARE ADVANTAGE IDPA [facility] MEDICARE ADVANTAGE MEDICARE ADVANTAGE IDPA [facility] MEDICARE ADVANTAGE Advance Directives For more information, please contact: [phone] * Full Code (Latest Code Status on File) Date Activated Date Inactivated Comments 10/15/2024 12:27 PM 10/16/2024 6:18 PM * Full Code Date Activated Date Inactivated Comments 10/10/2024 5:17 PM 10/11/2024 2:16 PM * Full Code Date Activated Date Inactivated Comments 04/12/2021 2:39 PM 04/21/2021 9:55 PM * Full Code Date Activated Date Inactivated Comments 04/08/2021 4:39 AM 04/12/2021 2:39 PM Care Teams Shop Welder Relationship Specialty Start Date End Date Lou Martin MD [address] [place] [address] PCP - General Internal Medicine 04/02/21 Darian Beckman MD [address] [place] [address] Surgeon Cardiothoracic Surgery 04/21/21 Cezar Vides MD [address] [place] [address] Referring Physician Cardiovascular Disease 04/21/21 Tigre Gifford MD [address] [place] [address] Consulting Physician Cardiology 10/11/24 Isaac Whitley MD [address] [place] [address] Consulting Physician Cardiology 10/16/24
--- OUTSIDE RECORDS SUMMARY | 2025-02-03 10:49 | XMS_ITS | Patient Health Record ---
Author Organization [facility] Address [address] [place] [id number] Care Team Providers Care Hybrid Tester Name Role Phone KetanMargot Primary Care Provider [phone] Migration, Provider Unavailable Unavailable Edgar Bunny Unavailable [phone] Allergies Allergen (clinical drug ingredient) Drug/Non Drug Allergy documented on EMR Reaction Allergy Type Onset Date Status diphenhydramine Benadryl Allergy Unknown Drug Allergy Active erythromycin Erythromycin Unknown Drug Allergy A ctive lisinopril Lisinopril Unknown Drug Allergy Activ e clopidogrel Plavix Unknown Drug Allergy Activ e codeine Codeine Unknown Drug Allergy Active morphine Morphine Unknown Drug Allergy Active tramadol traMADol Unknown Drug Allergy Active Results Component Value Reference Range Flag Notes .COMPREHENSIVE METABOLIC THOMPSON EL (69536) [facility] Reviewed date:09/16/2024 10:54:05 PM Interpretation: Performing Lab:ROSA ISELA [facility][id number] [address] [facility] [place], [id number] Neel Goldberg MD Notes/Report: FASTING: YES URINE VOLUME: 2000 COLLECTION KIT GIVEN TO PATIENT. PATIENT ADVISED TO RETURN. FASTING:YES GLUCOSE 267 65-99 mg/dL H Fasting reference interval For someone without known diabetes, a glucose value >125 mg/dL indicates that they may have diabetes and this should be confirmed with a follow-up test. UREA NITROGEN (BUN) 11 7-25 mg/dL N CREATININE 0.73 0.50-1.05 mg/dL N EGFR 94 > OR = 60 mL/min/1.73m2 N BUN/CREATININE RATIO SEE NOTE: 6-22 (calc) Not Reported: BUN and Creatinine are within reference range. SODIUM 136 135-146 mmol/L N POTASSIUM 4.0 3.5-5.3 mmol/L N CHLORIDE 99 98-110 mmol/L N CARBON DIOXIDE 27 20-32 mmol/L N CALCIUM 9.5 8.6-10.4 mg/dL N PROTEIN, TOTAL 6.9 6.1-8.1 g/dL N ALBUMIN 4.2 3.6-5.1 g/dL N GLOBULIN 2.7 1.9-3.7 g/dL (calc) N ALBUMIN/GLOBULIN RATIO 1.6 1.0-2.5 (calc) N BILIRUBIN, TOTAL 0.7 0.2-1.2 mg/dL N ALKALINE PHOSPHATASE 116 37-153 U/L N AST 12 10-35 U/L N ALT 10 6-29 U/L N .LIPID PANEL, STANDARD (7600 ) Reviewed date:09/16/2024 10:54:05 PM Interpretation: Performing Lab:ROSA ISELA [facility][id number] [address] [place], [id number] Neel Goldberg MD Notes/Report: FASTING:YES COLLECTION KIT GIVEN TO PATIENT. PATIENT ADVISED TO RETURN. URINE VOLUME: 1999 FASTING: YES CHOLESTEROL, TOTAL 113 <200 mg/dL N HDL CHOLESTEROL 41 > OR = 50 mg/dL L TRIGLYCERIDES 140 <150 mg/dL N LDL-CHOLESTEROL 50 N Reference range: <100 Desirable range <100 mg/dL for primary prevention; <70 mg/dL for patients with CHD or diabetic patients with > or = 2 CHD risk factors. LDL-C is now calculated using the Donovan-Sanchez calculation, which is a validated novel method providing better accuracy than the Friedewald equation in the estimation of LDL-C. Donovan SS et al. MARILU. 2013;310(19): 4002-1654 (http://education.[facility]/faq/VOC743) CHOL/HDLC RATIO 2.8 <5.0 (calc) N NON HDL CHOLESTEROL 72 <130 mg/dL (calc) N For patients with diabetes plus 1 major ASCVD risk factor, treating to a non-HDL-C goal of <100 mg/dL (LDL-C of <70 mg/dL) is considered a therapeutic option. .CBC (INCLUDES DIFF/PLT) (63 99) Reviewed date:09/16/2024 10:54:05 PM Interpretation: Performing Lab:ROSA ISELA [facility][id number] [address] [place], [id number] Neel Goldberg MD Notes/Report: FASTING:YES COLLECTION KIT GIVEN TO PATIENT. PATIENT ADVISED TO RETURN. URINE VOLUME: 1999 FASTING: YES WHITE BLOOD CELL COUNT 10.7 3.8-10.8 Thousand/uL N RED BLOOD CELL COUNT 4.76 3.80-5.10 Million/uL N HEMOGLOBIN 13.5 11.7-15.5 g/dL N HEMATOCRIT 42.2 35.0-45.0 % N MCV 88.7 80.0-100.0 fL N MCH 28.4 27.0-33.0 pg N MCHC 32.0 32.0-36.0 g/dL N For adults, a slight decrease in the calculated MCHC value (in the range of 30 to 32 g/dL) is most likely not clinically significant; however, it should be interpreted with caution in correlation with other red cell parameters and the patient's clinical condition. RDW 14.3 11.0-15.0 % N PLATELET COUNT 321 140-400 Thousand/uL N MPV 10.2 7.5-12.5 fL N ABSOLUTE NEUTROPHILS 8079 4860-7328 cells/uL H ABSOLUTE LYMPHOCYTES 3419 481-6734 cells/uL N ABSOLUTE MONOCYTES 492 200-950 cells/uL N ABSOLUTE EOSINOPHILS 482 15-500 cells/uL N ABSOLUTE BASOPHILS 43 0-200 cells/uL N NEUTROPHILS 75.5 N LYMPHOCYTES 15.0 N MONOCYTES 4.6 N EOSINOPHILS 4.5 N BASOPHILS 0.4 N .HEMOGLOBIN A1c (496) Reviewed date:09/16/2024 10:54:05 PM Interpretation: Performing Lab:DOROTHY, [place] [address] [id number] Neel Goldberg Notes/Report: FASTING: YES URINE VOLUME: 1999 COLLECTION KIT GIVEN TO PATIENT. PATIENT ADVISED TO RETURN. FASTING:YES HEMOGLOBIN A1c 11.1 <5.7 % of total Hgb H For someone without known diabetes, a hemoglobin A1c value of 6.5% or greater indicates that they may have diabetes and this should be confirmed with a follow-up test. For someone with known diabetes, a value <7% indicates that their diabetes is well controlled and a value greater than or equal to 7% indicates suboptimal control. A1c targets should be individualized based on duration of diabetes, age, comorbid conditions, and other considerations. Currently, no consensus exists regarding use of hemoglobin A1c for diagnosis of diabetes for children. T4, FREE (866) Reviewed date:09/16/2024 10:54:05 PM Interpretation: Performing Lab:Ten NATARAJAN-[id number] Brandyn Hernández[address] Neel Goldberg MD Notes/Report: COLLECTION KIT GIVEN TO PATIENT. PATIENT ADVISED TO RETURN. URINE VOLUME: 2000 FASTING: YES FASTING:YES T4, FREE 0.9 0.8-1.8 ng/dL N TSH (899) Reviewed date:09/16/2024 10:54:05 PM Interpretation: Performing Lab:Ten NAT[facility]AJ[facility]-Brandyn Siegel[address] Neel Goldberg MD Notes/Report: FASTING: YES URINE VOLUME: 2000 COLLECTION KIT GIVEN TO PATIENT. PATIENT ADVISED TO RETURN. FASTING:YES TSH 0.74 0.40-4.50 mIU/L N T3, FREE (77752) Reviewed date:09/16/2024 10:54:05 PM Interpretation: Performing Lab:Ten NAT[facility]-[id number] Brandyn Hernández[address] Neel Goldberg MD Notes/Report: URINE VOLUME: 2000 FASTING: YES COLLECTION KIT GIVEN TO PATIENT. PATIENT ADVISED TO RETURN. FASTING:YES T3, FREE 2.8 2.3-4.2 pg/mL N CORTISOL, FREE, 24 HOUR URIN E (58189) Reviewed date:09/28/2024 06:54:01 PM Interpretation: Performing Lab:Ten LEAL/[facility],[address] [facility] CenterCA[address] Katie Smallwood MD,PhD,MICHELLE Notes/Report: URINE VOLUME: 1999/24 COLLECTION REQUIREMENTS NOT MET. PATIENT ADVISED TO RETURN. SPLIT 09/10/2024 FROM [id number] TOTAL VOLUME 2000 CORTISOL, FREE, URINE 2.0 4.0-50.0 mcg/24 h L CORTISOL, FREE, URINE 2.1 L Reference Range: ADULTS: 3.1-42.3 CREATININE, URINE 0.97 0.50-2.15 g/24 h This test was developed and its analytical performance characteristics have been determined by [facility]. It has not been cleared or approved by the FDA. This assay has been validated pursuant to the CLIA regulations and is used for clinical purposes. Reason For Referral No Information Medications Medication SIG (Take, Route, Fr equency, Duration) Notes Start Date End Date Status Metoprolol Succinate ER 25 MG Tablet Extended Release 24 Hour 1 tab(s) orally once a day A ctive Tresiba FlexTouch 200 UNIT/ML Solution Pen-injector inject up to 80 units once at bedtime Subcutaneous at bedtime; Duration: 90 days Activ e Pregabalin 50 MG Capsule 1 cap(s) orally 2 times a day Active Tresiba FlexTouch *Please review and pick correct strength-formul ation from [employer] options. If intended option is not shown, discontinue and re-order from Quick Search* *Pick strength-form from [facility] for eRX* Active Losartan Potassium 50 MG Tablet 1 tab(s) orally once a day A ctive Bydureon BCise *Please review and pick correct strength-formul ation from [employer] options. If intended option is not shown, discontinue and re-order from Quick Search* *Pick strength-form from [employer] for eRX* Active Atorvastatin Calcium 40 MG Tablet 1 tab(s) orally once a day A ctive Symbicort 160-4.5 MCG/ACT Aerosol 2 puff(s) inhaled 2 times a day Active Montelukast Sodium 10 MG Tablet 1 tab(s) orally once a day A ctive Albuterol Sulfate HFA 108 (90 Base) MCG/ACT Aerosol Solution 2 INH inhaled every 6 hours Active Insulin Lispro 200 UNIT/ML Solution Pen-injector inject up to 30 units Subcutaneous three times daily before meals; Duration: 90 days 5 Active Aspirin Low Dose 81 MG Tablet Delayed Release 1 tab(s) orally once a day Active Pen [place] 5/16 31G X 8 MM Miscellaneous inject insulin 4 times daily; Duration: 90 days 5 Active Ezetimibe 10 MG Tablet 1 tab(s) orally once a day A ctive dexAMETHasone 1 MG Tablet 1 tablet Orally at 10 pm night before 8 am cortisol; Duration: 1 days 5 Active DULoxetine HCl 60 MG Capsule Delayed Release Particles 1 cap(s) orally once a day A ctive Dexcom G7 Sensor - Miscellaneous change sensor every 10 days; Duration: 90 days 4 Active busPIRone HCl 15 MG Tablet 1 tab(s) orally 2 times a day Active GVOKE HYPOPEN TWO PACK 1 MG/0.2 ML SOLUTION INJECT 1 MG SUBCUTANONCEasNEEDEDEOUSLY as needed; Duration: 90 days *Please review for potential replacement for e-prescription and drug interaction check* *Reorder from [facility] for eRx and Interaction Alerts* 4 Active metFORMIN HCl ER 500 MG Tablet Extended Release 24 Hour 1 tab(s) orally once a day with dinner; Duration: 90 days 4 Active Esomeprazole Magnesium 40 MG Capsule Delayed Release 1 cap(s) orally once a day A ctive Brilinta 60 MG Tablet 1 tab(s) orally 2 times a day Active Ozempic (0.25 or 0.5 MG/DOSE) 2 MG/3ML Solution Pen-injector inject 0.5 mg subcutaneously once a week with a meal; Duration: 90 days 4 Active Social History Social History Additional Details Category Social Info Options Details Migrated Social History Migrated Social History (Alcohol:):no (Recreational drug use:):yes marijuana (Smoking:):no Section Notes: caffeine: yes Problems Problem Type SNOMED Code ICD Code Onset Dates Problem Status W/U Status Risk Notes Problem Hyperglycemia due to type 2 diabetes mellitus (994898729036247) Type 2 diabetes mellitus with hyperglycemia (E11.65) Active confirmed Problem Disorder of adrenal gland (69296902) Disorder of adrenal gland, unspecified (E27.9) Active confirmed Problem Obesity (481928197) Obesity, unspecified (E66.9) Active confirmed Problem Essential hypertension (66341227) Essential (primary) hypertension (I10) Active confirmed Problem Hyperlipidemia (73289857) Hyperlipidemia, unspecified (E78.5) Active confirmed Vital Signs Heart Rate 84 /min 08/06/2024 Blood pressure diastolic 83 mm Hg 08/06/2024 Weight-kg 95.89 kg 08/06/2024 Height 66 in 08/06/2024 Blood pressure systolic 130 mm Hg 08/06/2024 Weight 211.4 lbs 08/06/2024 BMI 34.12 kg/m2 08/06/2024 Encounters Encounter Location Date Provider Diagnosis [facility] [place] [address] [place], [place] [id number] 04/13/2024 Provider Migration Type 2 diabetes mellitus with hyperglycemia E11.65 and Obesity, unspecified E66.[address] Aceves [address] [place] [phone] 03/25/2024 Margot Aceves Type 2 diabetes mellitus with hyperglycemia E11.65 ; Hyperlipidemia, unspecified E78.5 ; Other fatigue R53.83 and Obesity, unspecified E66.[address] Aceves [address] [place] [phone] 05/14/2024 Margot Aceves Type 2 diabetes mellitus with hyperglycemia E11.65 ; Obesity, unspecified E66.9 ; Hyperlipidemia, unspecified E78.5 ; Essential (primary) hypertension I10 and Dietary counseling and surveillance Z71.[address] Aceves [address] [place] [phone] 08/06/2024 Margot Aceves Type 2 diabetes mellitus with hyperglycemia E11.65 ; Obesity, unspecified E66.9 ; Essential (primary) hypertension I10 ; Disorder of adrenal gland, unspecified E27.9 and Dietary counseling and surveillance Z71.3 [facility] [address] [place] [phone] 04/01/2024 Bunny Aceves [address] [place] [phone] 04/04/2024 Margot REYES [facility] [address] [place] [phone] 05/03/2024 Margot Aceves [address] [place] [phone] 05/15/2024 Margot Aceves [address] [place] [phone] 05/21/2024 Margot REYES [facility] [address] [place] [phone] 07/21/2024 Margot Aceves [address] [place], [place] [phone] 10/14/2024 Margot Aceves Assessments Encounter Date Diagnosis (ICD Code) Assessment Notes Treatment Notes Treatment Clinical Notes Section Notes 03/25/2024 Type 2 diabetes mellitus with hyperglycemia (ICD-10 - E11.65) 03/25/2024 Hyperlipidemia, unspecified (ICD9-CM - E78.5) 04/13/2024 Type 2 diabetes mellitus with hyperglycemia (ICD-10 - E11.65) 05/14/2024 Type 2 diabetes mellitus with hyperglycemia (ICD-10 - E11.65) 05/14/2024 Obesity, unspecified (ICD-10 - E66.9) 08/06/2024 Type 2 diabetes mellitus with hyperglycemia (ICD-10 - E11.65) 08/06/2024 Obesity, unspecified (ICD-10 - E66.9) 08/06/2024 Essential (primary) hypertension (ICD-10 - I10) 03/25/2024 Other fatigue (ICD-10 - R53.83) 05/14/2024 Hyperlipidemia, unspecified (ICD9-CM - E78.5) 08/06/2024 Disorder of adrenal gland, unspecified (ICD-10 - E27.9) 05/14/2024 Essential (primary) hypertension (ICD-10 - I10) 04/13/2024 Obesity, unspecified (ICD-10 - E66.9) 03/25/2024 Obesity, unspecified (ICD-10 - E66.9) 05/14/2024 Dietary counseling and surveillance (ICD-10 - Z71.3) 08/06/2024 Dietary counseling and surveillance (ICD-10 - Z71.3) Spent 15 minutes preventative counseling patient on dietary recommendations and changes in setting of hyperglycemia- need to restrict refined sugars and processed foods and incorporate up to 150 minutes of moderate level activity weekly. 03/25/2024 Other Assessment and Plan: 1. Type [...] patterns-patient educated on self placement lot number [id number] exp 03/28/2025 2. Diabetic Peripheral Neuropathy- Patient reports cold feet and sharp pains.- No history of amputations, sores, or ulcers.- Plan: Encourage regular foot care and follow-up with rivet hole puncher Dr. Alvarez. Monitor for any changes in symptoms or development of ulcers. 3. Cardiovascular Disease- History of triple or quadruple vessel bypass.- Plan: Continue monitoring cardiovascular health and optimize diabetes management with Ozempic. 4. Chronic Kidney Disease- Patient reports kidney problems but not on dialysis.- Currently seeing Dr. Arriola for kidney issues.- Plan: Continue follow-up with cdl instructor Dr. Arriola and monitor kidney function. 5. [...] examination and/or evaluation, counseling and educating the patient/family/caregiver, ordering medications, tests, or procedures, referring and communicating with other health day care home mother, documenting clinical information in the electronic or other health record, independently interpreting results and communicating results to the patient/family/caregiver and care coordinating patient plan. Patient alert [...] or overlays for Dexcom or Freestyle from [employer]- Ensure patient has enough refills for medications [...] was placed on patient in clinic today- fermenting cellars receiver provided as well as her phone is not compatible for download. Spent 25 minutes preparing to see the patient (ex review of tests/chart), obtaining and / or reviewing separately obtained history, performing a medically appropriate examination and/or evaluation, counseling and educating the patient/family/caregiver, ordering medications, tests, or procedures, referring and communicating with other health day care home mother, documenting clinical information in the electronic or other health record, independently interpreting results and communicating results to the patient/family/caregiver and care coordinating patient plan. Patient alert [...] 150 minutes of moderate level activity weekly. 08/06/2024 Other Assessment and Plan: Poorly Controlled Type 2 Diabetes MellitusLast reported A1c of 13 with blood glucose levels in April around 500 mg/dL and current levels between 200-300 mg/dLPatient not regularly monitoring blood glucose due to lack of a glucometerCurrent regimen: Tresiba 76 units at bedtime, Ozempic 0.25 mg weekly, and metformin once dailyIncrease Tresiba to 84 units at bedtime, with instructions to increase by 8 units every 3 days until fasting glucose is 90-120 mg/dLAdd Humalog or NovoLog 20 units before meals, plus correction scale (>8 units if glucose >300 mg/dL)Increase Ozempic to 0.5 mg weekly if tolerated for 4-6 weeksIncrease metformin to twice daily with mealsProvide glucometer, lancets, and test strips-she will also be given dexcom G7 fermenting cellars receiver and sensor- she was educated on self placement and how to maintain adherence to continue. Instruct patient to check blood glucose 4 times dailyApply Dexcom G7 continuous glucose monitor with instructions on proper use and adhesion techniquesFollow up in approximately one month Suspected Meghna's SyndromePatient reports poor sleep, anxiety, easy bruising, and poor wound healing, consistent with hypercortisolismPrevious attempt at dexamethasone suppression test was incompleteOrder CT scan of adrenal glands without contrastRepeat dexamethasone suppression testOrder 24-hour urine cortisol testOrder late-night salivary cortisol test for two nightsAwait results before determining further management Cirrhosis with Possible Renal InvolvementPatient has known cirrhosis and is due for follow-up with a hepatologistConcern for possible renal involvement secondary to cirrhosisRefer patient to orthopedic dentist for evaluation and management of cirrhosisRequest records from orthopedic dentist to assess severity of liver diseaseConsider renal function evaluation pending hepatology assessment Follow-up:Schedule follow-up appointments as necessary to review test results and assess the response to interventionsEncourage patient to contact the clinic if any new or worsening symptoms occur Spent 45 minutes preparing to see the patient (ex review of tests/chart), obtaining and / or reviewing separately obtained history, performing a medically appropriate examination and/or evaluation, counseling and educating the patient/family/caregiver, ordering medications, tests, or procedures, referring and communicating with other health day care home mother, documenting clinical information in the electronic or other health record, independently interpreting results and communicating results to the patient/family/caregiver and care coordinating patient plan. Patient alert and oriented x 4 and aware of discussion noted above and in agreeance to plan in management of poorly controlled type 2 DM/in setting of noncompliance, concern for hypercortisolism with potential adrenal source/need CT adrenal, dyslipidemia, obesity/ weight management. Plan Of Treatment Pending Test Test Name Order Date *CT ABDOMEN W/O CONTRAST 70666 5 Insurance Providers Payer Name Payer Address Payer Phone Subscriber Number Group Number Insured Name Patient Relationship to Insured Coverage Start Date Coverage End Date [facility] [address] [place] [id number] Miracle Jha Self - patient is the insured Medical (General) History Medical History History ICD Code high blood pressure diabetes cardiomyopathy HIGH CHOLESTEROL HEART DISEASE STROKE LIVER DISEASE KIDNEY DISEASE HEART DISEASE Surgical History Surgery Date(Month/Year) quadruple bypass 2020
--- OUTSIDE RECORDS SUMMARY | 2025-02-03 10:50 | XMS_ITS | Clinical Summary ---
Author Organization [facility] Facility Address [address] [place] [address] Care Team Providers Care Audio Experience Expert Name Role Phone Nereida Martin MD Primary Care Provider [phone] Allergies Active Allergy Reactions Criticality Noted Date [...] 88 01/03/2023 2:52 PM CDT Temperature 36.1 C (97 F) 01/03/2023 2:52 PM CDT Respiratory Rate 18 01/03/2023 2:52 PM CDT Oxygen Saturation 97% 01/03/2023 2:52 PM CDT Inhaled Oxygen Concentration - - Weight 98.4 kg (217 lb) 01/03/2023 2:52 PM CDT Height 162.6 cm (5' 4) 03/09/2021 2:57 PM CDT Body Mass Index 37.25 03/09/2021 2:57 PM CDT Plan of Treatment Upcoming Encounters Date Type Department Care Team (Late st Contact Info) Description 04/22/2025 2:45 PM CHIEF REVENUE OFFICER Office Visit [facility] [address] [facility] [address] [place] [address] Markus Carbone DO [address] [facility] [address] [place] [address] Health Maintenance Due Date Last Done Comments [...] Risk 3-dose series) 2023 Influenza Vaccine (#1) 2025 Pneumococcal Vaccine: 50+ Ye ars (3 of 3 - PCV20 or PCV21) 02/18/2025 02/19/2020, 02/19/2020 Pneumococcal Vaccine: Peds ( 0 to 5 Years) and At-Risk Patients (6 to 49 Years) Discontinued 02/19/2020, 02/19/2020 Insurance Medicaid [place] UHC Medicare Care Teams Audio Experience Expert Relationship Specialty Start Date End Date Nereida Martin MD [address] [facility], [address] [place] [address] PCP - General Internal Medicine 11/19/20
--- OUTSIDE RECORDS SUMMARY | 2025-02-03 10:50 | XMS_ITS | Encounter Summary ---
Author Organization [facility] Healthcare Address [address] [place] [address] Care Team Providers Care Litharge Mill Operator Name Role Phone Lou Martin MD Primary Care Provide r Darian Beckman MD Unavailable [phone] Cezar Vides MD Unavailable Tigre Gifford MD Unavailable [phone] Isaac Whitley MD Unavailable [phone] Encounter Details Date Type Department Care Team (Late st Contact Info) Description 10/22/2024 [facility] Post Discharge Follow up phone call [facility] [address] [place] [address] [place] Social History Tobacco Use Types Packs/Day Years Used Date Smoking Tobacco: Former Cigarettes Q uit: 05/1988 Smokeless Tobacco: Never Alcohol Use Standard Drinks/Week Comments Never 0 [...] often do you attend chur ch or advent services? 1 to 4 times per year 04/08/2021 Do you belong to any clubs o r organizations such as quaker groups, unions, fraternal or athletic groups, or school groups? No 04/08/2021 How often do you attend meet ings of the clubs or organizations you belong to? Never 04/08/2021 Are you , , di vorced, , never , or living with a partner? 04/08/2021 AUDIT-C Answer Date Recorded Q1: How often do you have a drink containing alcohol? Never 10/15/2024 Q2: How many drinks containi ng alcohol do you have on a typical day when you are drinking? Patient does not drink Q3: How often do you have si x or more drinks on one occasion? Never 10/15/2024 Overall Financial Resource Strain (CARDIA) Answe r [...] place to sleep or slept in a [place] (including now)? No 04/08/2021 Personal Safety Answer Date Recorded Have you ever been in or are you currently in a harmful physical or emotional relationship or is someone making you feel afraid or unsafe? 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 Gender Identity Not on file Sexual Orientation Not on file documented as of this encounter Plan of Treatment Not on file documented as of this encounter Visit Diagnoses Not on filedocumented in this encounter Care Teams Litharge Mill Operator Relationship Specialty Start Date End Date Lou Martin MD [address] [facility] [address] [address] [place] [address] PCP - General Internal Medicine 04/02/21 Darian Beckman MD [address] [facility] [address] [place], [place] [id number] Surgeon Cardiothoracic Surgery 04/21/21 Cezar Vides MD [address] [facility] [address] [place] [address] Referring Physician Cardiovascular Disease 04/21/21 Tigre Gifford MD [address] [place] [address] Consulting Physician Cardiology 10/11/24 Isaac Whitley MD [address] [place] [address] Consulting Physician Cardiology 10/16/24 documented as of this encounter
--- OUTSIDE RECORDS SUMMARY | 2025-02-03 10:50 | XMS_ITS | Clinical Summary ---
Author Organization [facility] [place] [facility] Address [address] [place] [address] Care Team Providers Care Optician Name Role Phone Nereida Martin MD Primary [...] tablet every 24 hours. Acti ve Insulin [place], Disposable, (BD Ultra-Fine Mini Pen Needle) 31 gauge x 3/16 Needle BD Ultra-Fine Mini Pen Needle 31 gauge x 3/16 Active Insulin [place], Disposable, (BD Ultra-Fine Short Pen Needle) 31 gauge x 5/16 Needle BD Ultra-Fine Short Pen Needle 31 gauge x 5/16 Active Insulin [place], Disposable, (BD Ultra-Fine Short Pen Needle) 31 [...] 1 Active fluticasone propionate (FLONASE) 50 mcg/spray [place], Suspension nasal inhaler 1 Active ezetimibe (ZETIA) [...] 8:56 AM CDT Height 167.6 cm (5' 6) 01/29/2021 8:56 AM CDT Body Mass Index 35.99 01/29/2021 8:56 AM CDT Plan of Treatment Health Maintenance Due Date Last Done Comments DIABETES ANNUAL FOOT EXAM 1981 DIABETES MICROALBUMIN ANNUAL SCREEN 1981 LDL CHOLESTEROL ANNUAL 1981 DTAP/TDAP/TD VACCINES (1 - Tdap) 1982 HPV/Cotest (21-29) 1984 HPV/Cotest (30-65) 1993 FIT-DNA Q 3 years 2008 FIT/FOBT Q 1 year 2008 Flex Sig/CT Colonography Q 5 years 2008 ZOSTER VACCINE (1 of 2) 2013 DIABETES HBA1C Q 6 MONTHS 05/11/20212020, 07/06/2020, 02/17/2020, Additional history exists DIABETES ANNUAL RETINAL EXAM 08/05/2021 08/05/2020 BREAST CANCER SCREENING 12/02/2021 12/02/2020, 12/02 RSV VACCINE (60+ or ) (1 - Risk 60-74 years 1-dose series) 2023 CERVICAL CANCER SCREENING 10/14/2023 PAP SMEAR 10/14/2023 10/13/2020 INFLUENZA VACCINE (#1) 2024 COLORECTAL SCREENING 07/08/2030 07/08/2020 Colorectal Cancer Screening 07/08/2030 Insurance MEDICAID [place] Care Teams Optician Relationship Specialty Start Date End Date Nereida Martin MD PCP - General Internal Medicine 10/04/19
--- OUTSIDE RECORDS SUMMARY | 2025-02-03 10:50 | XMS_ITS | Encounter Summary ---
Author Organization [facility] Address [address] [place] [address] Care Team Providers Care Field Operations Coordinator Name Role Phone Lou Martin MD Primary Care Provide r Darian Beckman MD Unavailable [phone] Cezar Vides MD Unavailable Tigre Gifford MD Unavailable [phone] Isaac Whitley MD Unavailable [phone] Encounter Details Date Type Department Care Team (Late st Contact Info) Description 10/11/2024 Orders Only [facility] Cardiac Catheterization Lab [address] [place] [address] Isaac Whitley MD [address] [place] [address] Social History Tobacco Use Types Packs/Day Years [...] week 04/08/2021 How often do you attend [facility] or buddhism services? 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 Gender Identity Not on file Sexual Orientation Not on file documented as of this encounter Plan of Treatment Not on file documented as of this encounter Visit Diagnoses Not on filedocumented in this encounter Care Teams Field Operations Coordinator Relationship Specialty Start Date End Date Lou Martin MD [address] [place] [address] PCP - General Internal Medicine 04/02/21 Darian Beckman MD [address] [place] [address] Surgeon Cardiothoracic Surgery 04/21/21 Cezar Vides MD [address] [place] [address] Referring Physician Cardiovascular Disease 04/21/21 Tigre Gifford MD [address] [place] [address] Consulting Physician Cardiology 10/11/24 Isaac Whitley MD [address] [place] [address] Consulting Physician Cardiology 10/16/24 documented as of this encounter
--- OUTSIDE RECORDS SUMMARY | 2025-02-03 10:51 | XMS_ITS | Patient Health Record ---
Author Organization [facility] [place] Address [address] [address] Care Team Providers Care Net Finisher Name Role Phone Margot Aceves Primary Care Provider CHRIS CARO Unavailable [phone] Migration, Provider Unavailable Unavailable Allergies Allergen (clinical drug ingredient) Drug/Non Drug Allergy documented on EMR Reaction Allergy Type Onset Date Status clopidogrel Plavix Unknown Drug Allergy Activ e lisinopril Lisinopril Unknown Drug Allergy Activ e erythromycin Erythromycin Unknown Drug Allergy A ctive diphenhydramine Benadryl Allergy Unknown Drug Allergy Active tramadol traMADol Unknown Drug Allergy Active morphine Morphine Unknown Drug Allergy Active codeine Codeine Unknown Drug Allergy Active Reason For Referral No Information Medications Medication SIG (Take, Route, Frequency, Duration) Notes Start Date End Date Status Metoprolol Succinate ER 25 MG 1 tab(s) orally once a day Unknown Tresiba FlexTouch *Please review and pick correct strength-formulat ion from [employer] options. If intended option is not shown, discontinue and re-order from Quick Search* Unknown Pregabalin 50 MG 1 cap(s) orally 2 times a day Unknown Bydureon BCise *Please review and pick correct strength-formulat ion from [employer] options. If intended option is not shown, [...] with dinner for 90 days 03/25/2024 Unknown [employer] G7 Sensor - change sensor every 10 days for 90 days 05/14/2024 Unknown Problems Problem Type SNOMED Code ICD Code Onset Dates Problem Status W/U Status Risk Notes Problem Hyperglycemia due to type 2 diabetes mellitus (226477653171774) Type 2 diabetes mellitus with hyperglycemia (E11.65) Active confirmed Problem Hyperlipidemia (96416318) Hyperlipidemia, unspecified (E78.5) Active confirmed Problem Essential hypertension (56910504) Essential (primary) hypertension (I10) Active confirmed Problem Obesity (994384735) Obesity, unspecified (E66.9) Active confirmed Vital Signs Heart Rate 84 /min 05/14/2024 Blood pressure diastolic 89 mm Hg 05/14/2024 Height 66 in 05/14/2024 Blood pressure systolic 140 mm Hg 05/14/2024 Weight 197.6 lbs 05/14/2024 BMI 31.89 kg/m2 05/14/2024 Encounters Encounter Location Date Provider Diagnosis [facility], [facility] - Margot Aceves [address] [place] [address] 05/14/2024 Margot Aceves Type 2 diabetes mellitus with hyperglycemia E11.65 ; Obesity, unspecified E66.9 ; Hyperlipidemia, unspecified E78.5 ; Essential (primary) hypertension I10 and Dietary counseling and surveillance Z71.3 [facility] [address] [facility] [place] [address] 04/13/2024 Provider Migration Type 2 diabetes mellitus with hyperglycemia E11.65 and Obesity, unspecified E66.9 [facility], [facility] - Margot Aceves [address] [place] [address] 03/25/2024 Margot Aceves Type 2 diabetes mellitus with hyperglycemia E11.65 ; Hyperlipidemia, unspecified E78.5 ; Other fatigue R53.83 and Obesity, unspecified E66.9 [facility] [address] [place] [address] 04/01/2024 CHRIS [facility], [facility] Margot Aceves [address] [place] [address] 04/04/2024 Margot Aceves [facility] [address] [place] [address] 05/03/2024 Margot Aceves [facility], [facility] Margot Aceves [address] [place] [address] 05/15/2024 Margot Aceves [facility], [facility] - [facility] [employer] [address] [place] [address] 05/21/2024 Margot Aceves Assessments Encounter Date Diagnosis [...] patterns-patient educated on self placement lot number [id number] exp 03/28/2025 2. Diabetic Peripheral Neuropathy- Patient reports cold feet and sharp pains.- No history of amputations, sores, or ulcers.- Plan: Encourage regular foot care and follow-up with director of pharmacy Dr. Alvarez. Monitor for any changes in symptoms or development of ulcers. 3. Cardiovascular Disease- History of triple or quadruple vessel bypass.- Plan: Continue monitoring cardiovascular health and optimize diabetes management with Ozempic. 4. Chronic Kidney Disease- Patient reports kidney problems but not on dialysis.- Currently seeing Dr. Arriola for kidney issues.- Plan: Continue follow-up with upset welding machine operator Dr. Arriola and monitor kidney function. 5. [...] examination and/or evaluation, counseling and educating the patient/family/vehicle care specialist, ordering medications, tests, or procedures, referring and communicating with other health behavioral health care manager, documenting clinical information in the electronic or other health record, independently interpreting results and communicating results to the patient/family/vehicle care specialist and care coordinating patient plan. Patient alert [...] or overlays for Dexcom or Freestyle from [employer]- Ensure patient has enough refills for medications [...] was placed on patient in clinic today- senior research project manager provided as well as her phone is not compatible for download. Spent 25 minutes preparing to see the patient (ex review of tests/chart), obtaining and / or reviewing separately obtained history, performing a medically appropriate examination and/or evaluation, counseling and educating the patient/family/vehicle care specialist, ordering medications, tests, or procedures, referring and communicating with other health behavioral health care manager, documenting clinical information in the electronic or other health record, independently interpreting results and communicating results to the patient/family/vehicle care specialist and care coordinating patient plan. Patient alert [...] Insured Coverage Start Date Coverage End Date [facility] [address] [place] [address] [id number] Miracle Jha Self - patient is the insured [place] Medicaid [address] [place] [address] [id number] Miracle Jha Self - patient is the insured Medical (General) History Medical History History ICD Code high blood pressure diabetes cardiomyopathy HIGH CHOLESTEROL HEART DISEASE STROKE LIVER DISEASE KIDNEY DISEASE HEART DISEASE Surgical History Surgery Date(Month/Year) quadruple bypass 2019
--- OUTSIDE RECORDS SUMMARY | 2025-02-03 10:51 | XMS_ITS | Clinical Summary ---
Author Organization [facility] Address [address] [place] [address] Care Team Providers Care Clinical Ob Name Role Phone Nereida Martin MD Primary Care Provider Source Comments [facility],non-owned Affiliates and Associated Physician Practices is amultiple site organization consisting of ambulatory clinics and hospital sitesin [place], [place], [place] and [place]. This disclosure is being madepursuant to the Care Everywhere program and may not contain all information available regarding this patient. Last updated 18.[facility] Allergies Active Allergy Reactions Criticality Noted Date Comments Codeine GI Discomfort 06/18/2017 Erythromycin Itching 06/18/2017 Tramadol GI Discomfort 06/18/2017 Medications * Be aware that medications may not be up to date on this document. Alwaysverify current medications with the patient. gabapentin (NEURONTIN) 300 MG capsule Take 300 [...] times daily Active atorvastatin (LIPITOR) 40 MG tabletIndicatio ns:Acute Myocardial Infarction Take 1 tablet by mouth at bedtime Reasons: Acute Heart Attack 30 tablet 5 06/20/2017 Active lisinopril (PRINIVIL;ZESTR [place]) 5 MG tablet Take 1 tablet by mouth once daily 30 tablet 5 06/21/2017 Active carvedilol (COREG) 6.25 MG tablet Take 1 tablet by mouth 2 times daily with morning and evening meal 60 tablet 5 06/20/2017 Active clopidogrel (PLAVIX) 75 MG tablet Take 1 tablet by mouth once daily 30 tablet 5 06/21/2017 Active aspirin (ASPIRIN) 81 MG chew tabletIndicatio ns:Acute Myocardial Infarction Take 1 tablet by mouth [...] = 0.6 oz pur e alcohol) Comments Unknown Sex and Gender Information Value Date Recorded Sex Assigned at Not on file 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 Gender Identity Not on file Sexual Orientation Not on file Last Filed Vital Signs Vital Sign Reading Time Taken Comments Blood Pressure 105/75 06/20/2017 11:58 AM FISH CLEANER MACHINE TENDER Pulse 96 06/20/2017 11:59 AM FISH CLEANER MACHINE TENDER Temperature 36.7 C (98 F) 06/20/2017 11:59 AM FISH CLEANER MACHINE TENDER Respiratory Rate 18 06/20/2017 11:59 AM FISH CLEANER MACHINE TENDER Oxygen Saturation 96% 06/20/2017 11:58 AM FISH CLEANER MACHINE TENDER Inhaled Oxygen Concentration - - Weight 111.1 kg (245 lb) 06/18/2017 9:20 AM FISH CLEANER MACHINE TENDER Height 167.6 cm (5' 6) 06/18/2017 9:20 AM FISH CLEANER MACHINE TENDER Body Mass Index 39.54 06/18/2017 9:20 AM FISH CLEANER MACHINE TENDER Plan of Treatment Health Maintenance Due Date Last Done Comments COLOGUARD (AGES 45-75) - COL ON CA SCREENING 1963 COLON MONITORING 1963 COLONOSCOPY - COLON CA SCREENING 1963 CT COLONOGRAPHY - COLON CA SCREENING 1963 Colorectal Cancer Screening 1963 FIT - COLON CA SCREENING 1963 FLEX SIG - COLON CA SCREENING 1963 MAMMOGRAM 1963 HIV SCREENING 1978 HEPATITIS C SCREENING 05/25/1981 DTAP/TDAP/TD VACCINES (1 - Tdap) 1982 PAP SMEAR 1984 PNEUMOCOCCAL VACCINE 50+ (1 of 1 - PCV) 2013 ZOSTER VACCINE (1 of 2) 2013 DEPRESSION SCREENING 05/29/2024 MEDICARE AWV CALENDAR YEAR 2024 COVID-19 VACCINE (1 - 2023-2 5 season) 2025 INFLUENZA VACCINE (#1) 2025 Respiratory Syncytial Virus (RSV) Vaccine Pt: or [...] to complete this topic MENINGOCOCCAL (Group B) VACC INE SHARED DECISION-MAKING Aged Out No longer eligibl e based on patient's age to complete this topic MENINGOCOCCAL GROUPS A/C/Y/W VACCINE Aged Out No longer eligible b ased on patient's age to complete this topic Insurance [facility] MANAGED MEDICARE [facility] [place] [address] MEDICAID - [place] MEDICAID - OUT OF STATE MEDICARE Advance Directives * Full Code (Latest Code Status on File) Date Activated Date Inactivated Comments 06/18/2017 11:12 AM 06/20/2017 3:28 PM Care Teams Clinical Ob Relationship Specialty Start Date End Date Nereida Martin MD [address] [facility] [address] [place] [address] PCP - General 11/20/19
--- OUTSIDE RECORDS SUMMARY | 2025-02-03 10:51 | XMS_ITS | Patient Health Record ---
Author Organization [facility] Address [address] [facility] [address] [place] [address] Care Team Providers Care Machine Sole Leveler Name Role Phone Jonatan Juan Unavailable [phone] Sarah Blackanna Unavailable [phone] Allergies Allergen (clinical drug ingredient) Drug/Non Drug [...] tramadol Tramadol Unknown Drug Allergy 07/24/2023 Active Results Component Value Reference Range Flag Notes UDT Reviewed date:07/09/2024 11:56:43 AM Interpretation: Performing Lab: Notes/Report: THC P 0 - 50 ng/ml Cocaine N 0 - 300 ng/ml Amphetamine N 0 - 1000 ng/ml Buprenorphine (BUP) N 0 - 10 ng/ml Secobarbital (Bar) N 0 - 300 ng/ml Oxazepam (BZO) N 0 - 300 ng/ml 2-xkgnvqeweb-6,3-ifxmlbcc-7, 3-diph enylpyrrolidine (EDDP) N 0 - 300 ng/ml Methamphetamine (MET) N 0 - 1000 ng/ml Methylenedioxymethamphetamin e (MDMA) N 0 - 500 ng/ml Morphine (MOP 300/[id number]) N 0 - 300 ng/ml Methadone (MTD) N 0 - 300 ng/ml Phencyclidine (PCP) N 0 - 25 ng/ml Nortriptyline (TCA) N 0 - 1000 ng/ml Oxycodone N 0 - 300 ng/ml x N 0 - 300 ng/ml Illicits Reviewed date:07/12/2024 02:22:49 PM Interpretation: Performing Lab:[address] [place] [address], [address] [place] [address], [facility], Director - [phone] Notes/Report: An exception occurred while processing this report and so it has incomplete data. Please contact [employer] for assistance. THCCOOH >600 15.0 POSITIVE Not Medicated Inconsistent PCP NEGATIVE 20.0 ng/mL Not Medicated Consistent MDMA NEGATIVE 50.0 ng/mL Not Medicated Consistent MDEA NEGATIVE 50.0 ng/mL Not Medicated Consistent MDA NEGATIVE 50.0 ng/mL Not Medicated Consistent Cocaine Metabolite NEGATIVE 20.0 ng/mL Not Me dicated Consistent 6-MELISSA NEGATIVE 10.0 ng/mL Not Medicated Consistent PDF Report CE_OUT_RAW_CO MMON_SRC_ORU Reason For Referral No Information Medications Medication SIG (Take, Route, Frequency, Duration) Notes Start Date End Date Status amLODIPine Besylate 5 MG Tablet 1 tablet Orally Once a day Active Ozempic (0.25 or 0.5 MG/DOSE) 2 MG/3ML Solution Pen-injector INJECT 0.5 MG ONCE A WEEK WITH A MEAL Subcutaneous; Duration: 28 Days Active Ranitidine 150 Max Strength 150 MG Tablet 1 tablet at bedtime Orally twice a day Active Atorvastatin Calcium 40 MG Tablet TAKE 1 TABLET BY MOUTH EVERY DAY Oral; Duration: 90 Days Active Ezetimibe 10 MG Tablet TAKE 1 TABLET BY MOUTH EVERY DAY Oral; Duration: 90 Days Active Gabapentin 300 MG Capsule 1 capsule Oral ly three times a day Active Aspirin 81 81 MG Tablet Delayed Release 1 tablet Orally Once a day Active Carvedilol 6.25 MG Tablet 1 tablet with food Orally Twice a day Active OneTouch Ultra Blue Test - Strip as directed In Vitro Active Montelukast Sodium 10 MG Tablet 1 tablet Orally Once a day Active Nitroglycerin 0.4 MG Tablet Sublingual 1 tablet under the tongue and allow to dissolve as needed. Take every 5 minutes up to 3 times if chest pain persists Sublingual Three times a day As needed 07/24/2023 Active Brilinta 90 MG Tablet TAKE 1 TABLET BY M OUTH TWICE DAILY Oral Twice a day; Duration: 90 days Active Clotrimazole 1 % Cream 1 application Externally Twice a day As needed Active Rexulti 2 MG Tablet 1 tablet Orally Once a day; Duration: 90 days Active busPIRone HCl 10 MG Capsule 1 capsule Or ally 3 times a day; Duration: 90 days Active Diclofenac Sodium CR 75 MG Tablet Delayed Release as directed Orally twice a day Active DULoxetine HCl 60 MG Capsule Delayed Release Particles 1 capsule Orally Once a day; Duration: 90 days Active FLUoxetine HCl 40 MG Capsule 1 capsule Orally Once a day; Duration: 90 days Active Immunizations Vaccine Route Administration Date Status Comme nts Pneumococcal polysaccharide PPV23 Unknown 02/19/2020 Ad ministered Pneumococcal conjugate PCV 13 Unknown 02/19/2020 Admini stered Social History Tobacco Use: Social History Observation Description Date Details (start date - stop date) Current Smoker NA - NA Sex Assigned At : Social History Observation Description Sex Assigned At Female Social History Miscellaneous: Social Info Question Answer Notes Education: Highest achieved level of education GED Safety issues: Are there any firearms in the house? No Household: Social Info Question Answer Notes Household Marital status: single Number of adults in household: laury trevizo with son Level of education: finished high school Drug/Alcohol: Social Info Question Answer Notes AUDIT-C (Standard) Did you have a drink containing alcohol in the past year? No Points 0 Interpretation Negative Caffeine Intake: 3-4 cups per day Tobacco Use: Social Info Question Answer Notes Tobacco Control (Standard) Tobacco use: Current smoker Additional Details Category Social Info Options Details Miscellaneous: Occupation: Disability Migrated Social History Migrated Social History Alcohol Intake: None 12/31/2020,Tobacco Years: Former smoker 12/31/2020 Drug/Alcohol: Do you smoke marijuana? Admits, States Not Problematic Do you drink alcohol? 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) Active confirmed Problem Mental disorder (23608065) Mental disorder, not otherwise specified (F99) Active confirmed Problem Obstructive sleep apnea syndrome (disorder) (14765221) Obstructive sleep apnea (adult) (pediatric) (G47.33) Active confirmed Problem Screening for cardiovascular system disease (663913703) Encounter for screening for cardiovascular disorders (Z13.6) Active confirmed Problem Depression Screening (079146693) Encounter for screening for depression (Z13.31) Active confirmed Problem Mild recurrent major depression (83083691) MDD (major depressive disorder), recurrent episode, mild (F33.0) Active confirmed Problem Nondependent cannabis abuse (454284180) Marijuana use (F12.90) Active confirmed Vital Signs Heart Rate 76 /min 12/12/2024 Height-cm 167.64 cm 12/12/2024 Blood pressure diastolic 82 mm Hg 12/12/2024 Weight-kg 94.8 kg 12/12/2024 Height 66.00 in 12/12/2024 Blood pressure systolic 133 mm Hg 12/12/2024 Weight 209 lbs 12/12/2024 BMI 33.73 kg/m2 12/12/2024 Encounters Encounter Location Date Provider Diagnosis [facility], [place] [address] [address] 07/09/2024 Jonatan Clubalejandro Major depressive disorder, recurrent severe without psychotic features F33.2 ; Generalized anxiety disorder F41.1 ; Benign essential HTN I10 and Marijuana use F12.90 [facility] [employer] [place] [address] [address] 08/06/2024 Annemarie Black [facility] [address] [address] 11/12/2024 Jonatan Clubb Generalized anxiety disorder F41.1 ; MDD (major depressive disorder), recurrent episode, mild F33.0 ; Insomnia due to other mental disorder F51.05 ; Marijuana use F12.90 ; Obstructive sleep apnea (adult) (pediatric) G47.33 ; Encounter for screening for depression Z13.31 ; Encounter for screening for cardiovascular disorders Z13.6 ; History of falling Z91.81 and Benign essential HTN I10 [facility] [employer] [place] [address] [address] 12/12/2024 Annemarie Kurilla Nicotine use Z72.0 ; Generalized anxiety disorder F41.1 ; MDD (major depressive disorder), recurrent episode, mild F33.0 ; Insomnia due to other mental disorder F51.05 ; Marijuana use F12.90 and Obstructive sleep apnea (adult) (pediatric) G47.33 [facility] [address] [facility] [address] [place] [address] 02/14/2024 Annemarie Wayne Major depressive disorder, recurrent severe without psychotic features F33.2 [facility] [address] [facility] [address] [place] [address] 06/20/2024 Annemarie Wayne Major depressive disorder, recurrent severe without psychotic features F33.2 and Generalized anxiety disorder F41.1 [facility] [address] [address] 06/28/2024 Annemarie Black [facility] [address] [address] 11/11/2024 Jonatan Clubb Generalized anxiety disorder F41.1 and Major depressive disorder, recurrent severe without psychotic features F33.2 [facility] [address] [facility] [address] [place] [address] 11/14/2024 Jonatan Clubb Generalized anxiety disorder F41.1 [facility] [address] [address] 02/19/2024 Annemarie Wayne Major depressive disorder, recurrent severe without psychotic features F33.2 [place] [address] [address] 02/19/2024 Annemarie Black Assessments Encounter Date Diagnosis (ICD Code) Assessment Notes Treatment Notes Treatment Clinical Notes Section Notes 02/14/2024 Major depressive disorder, recurrent severe without psychotic features (ICD-10 - F33.2) 06/20/2024 Major depressive disorder, recurrent severe without psychotic features (ICD-10 - F33.2) 06/20/2024 Generalized anxiety disorder (ICD-10 - F41.1) 07/09/2024 Major depressive disorder, recurrent severe without psychotic features (ICD-10 - F33.2) Assessment and plan reviewed with patient Call for problems with medication, side effects or need for dosage change Compliance issues reviewed Discussed the risks/benefits of this medication Discussed medication side effects Return if symptoms worsen Treatment options reviewed. discussed that it can take weeks to see full therapeutic effects of psychotropic medications. discussed when to seek emergency services. discussed crisis prevention hotline 988. 07/09/2024 Generalized anxiety disorder (ICD-10 - F41.1) 12/12/2024 Nicotine use (ICD-10 - Z72.0) 11/14/2024 Generalized anxiety disorder (ICD-10 - F41.1) 11/12/2024 Generalized anxiety disorder (ICD-10 - F41.1) - continue buspar 10 mg TID - encouraged initiation of psychotherapy *patient refused psychotherapy at this time. 11/12/2024 MDD (major depressive disorder), recurrent episode, mild (ICD-10 - F33.0) - d/c fluoxetine 20 mg daily - continue fluoxetine 40 mg daily - continue duloxetine 60 mg daily - continue rexulti 1 mg daily - encouraged initation of psychotherapy 11/11/2024 Generalized anxiety disorder (ICD-10 - F41.1) 02/19/2024 Major depressive disorder, recurrent severe without psychotic features (ICD-10 - F33.2) 11/11/2024 Major depressive disorder, recurrent severe without psychotic features (ICD-10 - F33.2) 11/12/2024 Insomnia due to other mental disorder (ICD-10 - F51.05) Improving sleep hygiene is moctezuma to getting better rest and feeling more energized during the day. Here are some practical tips to help you establish a healthy sleep routine: 1. Consistent Sleep Schedule Go to bed and wake up at the same time every day, even on weekends. This helps regulate your body's internal clock (circadian rhythm). Try to stick within a window of 7-9 hours of sleep per night for adults. 2. Create a Relaxing Bedtime Routine Wind down before bed by engaging in calming activities like reading, listening to soft music, or practicing relaxation techniques (e.g., deep breathing, meditation). Avoid stimulating activities, such as watching action-packed TV shows or engaging in intense conversations. 3. Limit Exposure to Screens Reduce screen time (phones, tablets, computers) at least 30-60 minutes before bed. The blue light emitted by devices can interfere with your ability to fall asleep by suppressing melatonin production. 4. Create a Comfortable Sleep Environment Keep your bedroom cool, dark, and quiet. Aim for a temperature between 60-67 degree(s) F (15-20 degree(s) C), as cooler environments tend to promote deeper sleep. Use blackout curtains or a sleep mask to block light, and consider using earplugs or a white noise machine if noise is a problem. 5. Watch Your Diet Avoid large meals, caffeine, and alcohol in the evening. Caffeine can stay in your system for hours, and while alcohol might make you feel sleepy, it can disrupt your sleep cycle. Drink plenty of water during the day, but reduce fluid intake an hour or two before bed to minimize nighttime trips to the bathroom. 6. Limit Naps If you find you need to nap during the day, keep naps short (20-30 minutes), and try to take them in the early afternoon. Longer or late naps can interfere with your nighttime sleep. 7. Physical Activity Regular exercise is great for sleep, but avoid vigorous exercise close to bedtime. A good rule of thumb is to finish intense workouts at least 3 hours before you plan to sleep. 8. Associate the Bed with Sleep Only use your bed for sleep and intimacy. This helps condition your mind to associate the bed with relaxation and rest, making it easier to fall asleep. If you can't fall asleep within 20 minutes, get out of bed and do something relaxing (like reading or light stretching) until you feel sleepy. 9. Manage Stress and Anxiety Try to address any sources of stress or anxiety before bed. Journaling or writing down worries can be helpful for clearing your mind. Consider practicing mindfulness or relaxation techniques, such as progressive muscle relaxation, to calm your body and mind. 10. Evaluate Your Mattress and Pillows Ensure your mattress and pillows are comfortable and supportive. An uncomfortable sleeping surface can lead to poor sleep quality. Bonus Tip: Stay Patient Developing good sleep hygiene can take time. Be patient and consistent with your routine, and remember that it can take a few weeks for the effects to show. 07/09/2024 Benign essential HTN (ICD-10 - I10) 12/12/2024 Generalized anxiety disorder (ICD-10 - F41.1) 07/09/2024 Marijuana use (ICD-10 - F12.90) 11/12/2024 Marijuana use (ICD-10 - F12.90) - encouraged marijuana cessation - discussed risk of marijuana use with medications and mental illness. 12/12/2024 MDD (major depressive disorder), recurrent episode, mild (ICD-10 - F33.0) 12/12/2024 Insomnia due to other mental disorder (ICD-10 - F51.05) 11/12/2024 Obstructive sleep apnea (adult) (pediatric) (ICD-10 - G47.33) - continue NPPV therapy 12/12/2024 Marijuana use (ICD-10 - F12.90) - encouraged marijuana cessation - discussed risk of marijuana use with medications and mental illness. 11/12/2024 Encounter for screening for depression (ICD-10 - Z13.31) 11/12/2024 Encounter for screening for cardiovascular disorders (ICD-10 - Z13.6) 12/12/2024 Obstructive sleep apnea (adult) (pediatric) (ICD-10 - G47.33) - continue NPPV therapy 11/12/2024 History of falling (ICD-10 - Z91.81) Gait, Strength, and Balance Training ExercisesThis handout provides simple exercises to improve your gait, strength, and balance. Theseexercises can help prevent falls, improve mobility, and enhance overall function. Perform them in asafe space, use support if needed, and stop if you feel pain or dizziness.1. Gait Training Exercises- Walk in a straight line for 10-20 feet, heel-to-toe.- Step over small objects (cones or rolled towels).- Practice walking sideways and backwards.- Use a treadmill if available, under supervision.2. Balance Exercises- Stand on one foot for 10-30 seconds; switch legs.- Walk heel-to-toe in a straight line.- Use a balance board or cushion to challenge stability.- Practice rising from a chair without using your hands.3. Strength Training Exercises- Uef-ba-vsphq: rise from a chair repeatedly.- Wall push-ups: stand at arm's length from a wall and push.- Step-ups on a low step or stairs.- Leg lifts while seated or lying down.Consult your primary care provider (PCP) before starting these exercises, especially if you havemedical conditions or difficulty performing them 11/12/2024 Benign essential HTN (ICD-10 - I10) 07/09/2024 Other Learning About Depression Screening material was printed Serotonin syndrome symptoms usually occur within several hours of taking a new drug or increasing the dose of a drug you're already taking. Signs and symptoms include: Agitation or restlessnessInsomniaConfu sionRapid heart rate and high blood pressureDilated pupilsLoss of muscle coordination or twitching musclesHigh blood pressureMuscle rigidityHeavy sweatingDiarrheaHeadacheS hiveringGoose bumpsSevere serotonin syndrome can be life-threatening. Signs include: High feverTremorSeizuresIrregu lar heartbeatUnconsciousnessW hen to see a doctorIf you suspect you might have serotonin syndrome after starting a new drug or increasing the dose of a drug you're already taking, call your health care provider right away or go to the emergency room. If you have severe or rapidly worsening symptoms, seek emergency treatment immediately. 1. Major Depressive Disorder - Roger Depression Inventory score: 23 (severe depression) - PHQ9 score: 10 - Patient reports a current depression rating of 3/10 - Plan: Increase Fluoxetine from 40 mg to 60 mg daily. Schedule follow-up appointment in 30 days to assess medication change. Educate patient on potential serotonin syndrome 2. Generalized Anxiety Disorder - SIS score: 7 - Patient reports no current anxiety - Plan: Continue current medications (BuSpar 30 mg nightly). Monitor for any changes in anxiety levels during follow-up appointments. 3. Insomnia - Patient reports difficulty sleeping, only getting 15-20 minutes of sleep per month - Plan: Assess the impact of increased Fluoxetine dose on sleep during follow-up appointment. Consider referral to a sleep specialist if no improvement. 4. Social and Lifestyle Factors - Patient lives with adult son - Reports no alcohol use, occasional marijuana use, and 3 sodas per day for caffeine intake - No reported abuse or safety concerns - Plan: Encourage patient to maintain a healthy lifestyle and seek social support. Monitor for any changes in social or lifestyle factors during follow-up appointments. 5. Medication Refill - Patient has been receiving medication refills through phone calls with Annemarie - Plan: Provide 90-day supplies of current medications. Schedule follow-up appointment with Annemarie in 30 days. 6. Therapy - Patient is not currently in therapy - Plan: Encourage patient to consider therapy for additional support in managing depression. Inform patient of walk-in clinic with same-day therapy appointments available. 11/12/2024 Mitzi Rausch is a patient with a history of depression, anxiety, and sleep apnea, presenting with ongoing mild depression, anxiety, and recent cardiac stenting. Depression Assessment: Patient reports current depression severity as 5/10. Roger Depression Inventory results indicate mild depression. Current medication regimen includes fluoxetine 60mg, duloxetine 60mg, and brexpiprazole 1mg. Patient expressed desire to decrease fluoxetine dose from 60mg to 40mg due to unspecified side effects. Plan: - Decrease fluoxetine to 40mg - Continue duloxetine 60mg - Continue brexpiprazole 1mg - Provide 90-day prescription for medications - encouraged initiation of psychotherapy Anxiety Assessment: Patient reports anxiety levels reaching 7-8/10 at times. Currently taking buspirone 30mg daily (10mg in the morning, 20mg at night). Patient experienced a panic attack a few days ago. Plan: - Continue buspirone to 10mg three times daily - encouraged initiation of psychotherapy Sleep Disturbance Assessment: Patient reports poor sleep quality and history of sleep apnea. Unable to take melatonin or probiotics. Occasionally uses marijuana for sleep. Plan: - patient denied pharmacological intervention - educated on the importance of sleep hygiene - continue NPPV for MISTY - printed information about sleep hygiene - encouraged initiation of psychotherapy Fall Risk Assessment: Patient reports multiple falls in the past year due to neuropathy, including one incident resulting in eye injury and broken glasses over a year ago. Plan: - educated on the importance of strength training exercises - printed off information on strength training exercises - discussed removal of throw rugs and installation of side rails. The note is transcribed using speech recognition software. It is a reflection of a visit with the patient. It might have some inaccuracy, including medication names and transcribing errors, though efforts have been made to correct them. 12/12/2024 Other Increase Rexulti to 2mg daily for mood, anxiety Patient educated on all medications including potential benefits, side effects, risks. Educated on proper dosing schedule and importance of compliance. Previous records reviewed, notes from walk in clinic reviewed -Assessment and treatment plan reviewed with patient. -Compliance with treatment plan importance discussed. -Discussed the risks/benefits of this medication -Discussed medication side effects. -Contact office if symptoms worsen. -Discussed that it can take up to 6-8 weeks to see full therapeutic effects of psychotropic medications. -Crisis prevention hotline 834. Plan Of Treatment Next Appt Details Provider Name:Annemarie mckinnon, 02/13/2025 08:00:00 AM, [address], [address], [place], [address], Insurance Providers Payer Name Payer Address Payer Phone Subscriber Number Group Number Insured Name Patient Relationship to Insured Coverage Start Date Coverage End Date [employer] Medicare Replacement/ Advantage - Ppo [address] [address] [place] [address] [id number] JOSE D SALAMANCA Self - patient is the insured Medical (General) History Medical History History ICD Code Problems: Acute upper respiratory infect ion Arthritis Asthma Chest pain Chronic back pain Chronic depression Chronic obstructive lung disease Coronary arteriosclerosis Disorder of skin Essential hypertension Gastroenteritis Gastroesophageal reflux disease Generalized anxiety disorder Headache Herpes labialis Hyperlipidemia Hypertensive disorder Hypertriglyceridemia Ischemic congestive cardiomyopathy Knee pain Major depression in remission Neuropathy Neuropathy due to diabetes mellitus Obesity Obstructive sleep apnea syndrome Osteoarthritis Osteoarthritis of midfoot Pain in limb Pain in throat 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
--- OUTSIDE RECORDS SUMMARY | 2025-02-03 10:51 | XMS_ITS | Encounter Summary ---
Author Organization [facility] Address [address] [place] [address] Care Team Providers Care Teenage Program Director Name Role Phone Nereida Martin MD Primary Care Provider Encounter Details Date Type Department Care Team (Late st Contact Info) Description 04/12/2022 Abstract [facility] Oncology and Hematology - [place] [address] [address] Justyna Delgado RN Social History [...] on filedocumented in this encounter Care Teams Teenage Program Director Relationship Specialty Start Date End Date Nereida Martin MD PCP - General Internal Medicine 10/04/19 documented as of this encounter
--- NOTE | 2025-02-25 08:50 | WPDSLEEPSTUD ---
Sleep Study Date of Study: 02/03/25 Ordering Provider: Germain RomeroMD Interpreting Physician: Meaghan Arteaga DO Sleep Study Type: Split Polysomnogram Height: 1.68 m Weight: 90.718 kg Body Mass Index: 32.3 Neck Circumference (inches): 15 [place]: 14 Reason for Sleep Study Excessive daytime sleepiness Sleep History The patient is a 59-year-old female that had a sleep study ordered by her heat treat puller for evaluation of sleep apnea. The patient was diagnosed with severe sleep apnea in 2018 and was prescribed AutoPAP. The patient occasionally awakens from sleep short of breath. She occasionally awakens at night with heartburn, belching or cough. She constantly snores loudly enough that others complain. She constantly has trouble sleeping when she has a cold. She occasionally wakes up gasping for air throughout the night. She occasionally has breathing problems at night observed by herself or others. She occasionally sweats excessively at night. She occasionally has heart palpitations or irregular heartbeats during the night. She occasionally falls asleep during the day but rarely while driving. He rarely experiences loss of muscle tone when extremely emotional. She rarely has trouble at school or work due to sleepiness. He rarely feels unable to move while waking up or falling asleep. She occasionally experiences vivid dreamlike scenes upon awakening or falling asleep. She rarely feels afraid of going to sleep. She rarely has nightmares. She occasionally remembers her dreams. She rarely has thoughts racing through her mind. She rarely feels sad, depressed or anxious. She occasionally has muscular tension. She occasionally notices parts of her body jerk. She occasionally kicks during the night. She occasionally has crawling and aching feelings in her legs and occasionally has leg pain during the night. She rarely grinds her teeth during sleep and rarely awakens with morning jaw pain. She is occasionally bothered by pain during the day and occasionally awakened by pain during the night. She occasionally wakes up feeling stiff in the morning. She occasionally wakes up with sore or achy muscles. She occasionally wakes up with pain in the neck, spine or other joints. She goes to bed at 9:00 p.m.. It takes her 20-30 minutes to fall asleep. She wakes up 2-3 times throughout the night for unknown reasons and is usually able to fall back asleep quickly. She wakes up at 6:00 a.m. on weekdays and 8:00 a.m. on the weekends. She typically gets 8 hours of sleep per night. She will stay in bed for 30 minutes after waking up in the morning. She currently lives with her children. She denies consuming any caffeinated beverages within 2 hours of bedtime. She denies engaging in physical exercise before bedtime. She denies reading watching television before falling asleep. She will take naps in afternoon or the evening but they are not always refreshing. She does consume caffeinated beverages throughout the day. She is a former smoker. She denies alcohol and recreational drug use. [facility] Past Medical History Medical History Heart attack Hypertension Headache Chest pain Depression Blood disorder Back pain Asthma Arthritis Anxiety Surgical History Surgical History H/O heart bypass surgery quadruple bypass H/O heart artery stent Family History Family History Mother Family history of obesity Family history of migraine headaches Family history of arthritis Family history of diabetes mellitus in first degree relative Family history of hearing loss Father Family history of lung cancer Family history of heart disease in male family member before age 55 Family history of diabetes mellitus in first degree relative Family history of coronary artery disease Grandparent Diabetes mellitus Social History Social History Smoking packs per day: 3.5 Smoking cigarettes per day: 70.0 Years smoked: 25 Smoking pack-years: 87.50 Smoking status: Former smoker Tobacco type: cigarettes Alcohol intake: never Substance use: current Substance use type: marijuana Do You Feel Safe in your Home?: Yes Lack of Transportation: YES Lack of Food: Sometimes True Current Housing: I Have Housing Concerned About Future Housing: No Difficulty Paying Gas/Electric Bills: YES Difficulty Paying for Meds: YES Currently Unemployed: No Education: High School Diploma/GED Difficulty w/ Childcare or Family Care: No Living arrangements: with family Additional living arrangements comments: 2 sons and grandchildren Additional occupation/education comments: disabled Gender identity (if verbalized by the patient): Female Sexual Orientation (if Verbalized by the Patient): Straight or Heterosexual Spiritual care concerns: No Medications Home Medications ?Medication ?Instructions ?Recorded ?Confirmed ?Type aspirin 81 mg tablet,delayed 81 mg PO DAILY 08/13/19 01/04/24 History release (Adult Aspirin Regimen) buspirone 15 mg tablet 15 mg PO BID 08/13/19 01/04/24 History fluoxetine 40 mg capsule (Prozac) 40 mg PO DAILY 08/13/19 01/04/24 History losartan 50 mg tablet 50 mg PO DAILY 08/13/19 01/04/24 History montelukast 10 mg tablet 10 mg PO DAILY 08/13/19 01/04/24 History (Singulair) ticagrelor 90 mg tablet (Brilinta) 60 mg PO Q12H 08/13/19 01/04/24 History albuterol sulfate 90 mcg/actuation 2 puff inhalation Q4H PRN 08/23/19 01/04/24 History aerosol inhaler (Ventolin HFA) Shortness Of Breath atorvastatin 40 mg tablet 40 mg PO QPM 08/23/19 01/04/24 History blood sugar diagnostic (OneTouch #10 ea 08/23/19 03/11/21 History Ultra Blue Test Strip) lancets 33 gauge (OneTouch Delica #100 ea 08/23/19 03/11/21 History Lancets) pen needle, diabetic 32 gauge x #10 ea 08/23/19 03/11/21 History 5/32 (BD Ultra-Fine Sofia Pen Needle) budesonide-formoterol HFA 80 2 puff inhalation Q12H 02/10/21 01/04/24 History mcg-4.5 mcg/actuation aerosol inhaler (Symbicort) duloxetine 30 mg capsule,delayed 30 mg PO DAILY 02/10/21 01/04/24 History release esomeprazole magnesium 40 mg 40 mg PO DAILY 02/10/21 01/04/24 History capsule,delayed release exenatide microspheres 2 mg/0.85 2 mg subcut Q7D 02/10/21 01/04/24 History mL subcutaneous auto-injector (BymichellWantful BCi) insulin degludec 100 unit/mL (3 64 unit subcut HS 02/10/21 01/04/24 History mL) subcutaneous pen (Tresiba FlexTouch U-100 insulin) metformin 500 mg tablet 500 mg PO DAILY 02/10/21 01/04/24 History pregabalin 25 mg capsule 25 mg PO HS 02/10/21 01/04/24 History clobetasol 0.05 % topical ointment 1 applic topical BID 2 weeks #60 01/04/24 01/04/24 Rx grams ezetimibe 10 mg tablet mg PO 01/04/24 01/04/24 History fluconazole 150 mg tablet 150 mg PO Q72H #2 tabs 01/04/24 01/04/24 Rx metoprolol succinate 25 mg mg PO 01/04/24 01/04/24 History tablet,extended release 24 hr Sleep Procedure A full night split study using the [employer] multi-channel system recorded the standard physiologic parameters including EEG, EOG, submentalis EMG, anterior tibialis EMG, EKG, body position, nasal and oral airflow using nasal pressure sensor and thermistor.? Respiratory parameters of chest and abdominal movements were recorded with Respiratory Inductance Plethysmography belts. Oxygen saturation was recorded by pulse oximetry. Video monitoring was also performed. Sleep stages, periodic limb movements, and EEG arousals were scored in 30 second epochs according to the criteria of the AASM Scoring Manual. The Apnea-Hypopnea Index was calculated using CMS guidelines for definition of hypopnea with 4% O2 desaturations while scoring respiratory events. Sleep Architecture During the diagnostic portion of the study, the total recording time was 146.8 minutes. The total sleep time was 128.0 minutes. Sleep latency was 3.8 minutes.? REM latency was 77.5 minutes. Sleep Efficiency was 87.2%. The patient had 11 awakenings for an awakening index of 5.2. Wake after sleep onset time was 15.0 minutes. The patient spent 14.0 minutes, 10.9% of total sleep time in Stage N1. The patient spent 88.0 minutes, 68.8% in Stage N2. The patient spent 0.0 minutes, 0.0% in Stage N3. The patient spent 26.0 minutes, 20.3% in Stage REM sleep. At 11:56:09 PM the patient was placed on PAP treatment and was titrated at pressures ranging from 5 cm H20 up to 16/11 cm H20. During the treatment portion of the study, the total recording time was 369.1 minutes.? The total sleep time was 350.0 minutes. Sleep latency was 1.5 minutes. REM latency was 165.5 minutes. Sleep Efficiency was 94.8%. Wake after Sleep Onset time was 17.5 minutes. The patient spent 52.5 minutes, 15.0% of total sleep time in Stage N1. The patient spent 213.0 minutes, 60.9% in Stage N2. The patient spent 0.0 minutes, 0.0% in Stage N3. The patient spent 84.5 minutes, 24.1% in Stage REM. Respiratory Analysis During the diagnostic portion of the study, the patient had 30 hypopneas and 3 obstructive apneas for an overall Apnea Hypopnea Index of 15.0 events per hour. The REM Apnea Hypopnea Index was 27.7. The NREM Apnea Hypopnea Index was 14.1. The patient had a Central Apnea Hypopnea Index of 0. There was no evidence of Alexi-Powell Respirations. During the treatment portion of the study, the patient had 35 hypopneas, 31 obstructive apneas and 13 central apneas for an overall Apnea Hypopnea Index of 13.5 events per hour. The REM Apnea Hypopnea Index was 1.4. The NREM Apnea Hypopnea Index was 17.4. The patient had a Central Apnea Hypopnea Index of 2.2. There was no evidence of Alexi-Powell Respirations. The patient was started on CPAP 5 cm H2O and titrated to BPAP 16/11 cm H2O. The patient was able to fall asleep starting on BPAP 8/4 cm H2O. The patient was able to achieve REM sleep starting on BPAP 15/10 cm H2O. The lowest residual AHI that patient was able to achieve with both NREM and REM sleep was 5.2. On BPAP 15/10 cm H2O, the patient spent 116 minutes in NREM and 68 minutes in REM with 7 central apneas and 9 hypopneas, resulting in an AHI of 5.2. On BPAP 16/11 cm H2O, the patient spent 6 minutes in NREM and 16.5 minutes in REM with 1 central apnea and 1 hypopnea, resulting in an AHI of 5.3. The patient had a sleep efficiency of 95.8% on 15/10 cm H2O and 90% on 16/11 cm H2O. Arousals During the diagnostic portion of the study, there were a total of 26 arousals for an arousal index of 12.2.? There were 8 respiratory arousals for an index of 3.8. There were 4 periodic limb movement arousals for an index of 1.9.? There were 1 isolated limb movement arousals for an index of 0.5. There were 13 spontaneous arousals for an index of 6.1. During the treatment portion of the study, there were a total of 75 arousals for an index of 12.9.? There were 31 respiratory arousals for an index of 5.3. There were 2 periodic limb movement arousals for an index of 0.3.? There were 11 isolated limb movement arousals for an index of 1.9. There were 32 spontaneous arousals for an index of 5.5. Periodic Limb Movements During the diagnostic portion of the study, the patient had 39 isolated limb movements with an index of 18.3. The patient had 23 periodic limb movements with an index of 10.8. The patient had a total of 62 limb movements with a total limb movement index of 29.1. During the treatment portion of the study, the patient had 126 isolated limb movements with an index of 21.6. The patient had 83 periodic limb movements with an index of 14.2. The patient had a total of 209 limb movements with a total limb movement index of 35.8. Oximetry Data During the diagnostic portion of the study, the patient had an average oxygen saturation of 92.4% in wake with a minimum oxygen saturation of 79% and a maximum oxygen saturation of 98%. The patient had an average oxygen saturation of 93.1% in sleep with a minimum oxygen saturation of 78.0% and a maximum oxygen saturation of 99.0%. The patient had 54 oxygen desaturations resulting in an Oxygen Desaturation Index of 25.3. The patient spent 3.8 minutes, 2.6% of total sleep time with an oxygen saturation less than 88%. During the treatment portion of the study, the patient had an average oxygen saturation of 94.9% in wake with a minimum oxygen saturation of 82.0% and a maximum oxygen saturation of 99.0%. The patient had an average oxygen saturation of 94.5% in sleep with a minimum oxygen saturation of 82.0% and a maximum oxygen saturation of 99.0%. The patient had 154 oxygen desaturations resulting in an Oxygen Desaturation Index of 26.4. The patient spent 4.8 minutes, 1.3% of total sleep time with an oxygen saturation less than 88%. Snoring Profile Moderate snoring was present in the baseline portion of the study. The snoring resolved once the patient was titrated to BPAP 14/9 cm H2O. Cardiac Profile The EKG lead shows normal sinus rhythm. No arrhythmias or premature beats were seen. During the diagnostic portion of the study, the EKG showed normal sinus rhythm. The average pulse rate was 72.7 bpm.? The minimum pulse rate was 53.0 bpm. The maximum pulse rate was 101.0 bpm. During the treatment portion of the study, the EKG showed normal sinus rhythm. The average pulse rate was 67.0 bpm.? The minimum pulse rate was 53.0 bpm. The maximum pulse rate was 87.0 bpm. EEG Profile No signs of seizure activity seen. Assessment and Plan Assessment and Plan (1) MISTY (obstructive sleep apnea): Code(s): G47.33 - Obstructive sleep apnea (adult) (pediatric) Status: Acute Assessment and Plan: In the diagnostic portion of the study, the patient had an overall AHI of 15.0 with desaturation down to 78%. This is consistent with moderate sleep apnea. The patient was started on CPAP 5 cm H2O and titrated to BPAP 16/11 cm H2O. I recommend that the patient be prescribed BPAP 16/11 cm H2O, size small Resmed AirFit F20 full face mask, BPAP filters/tubing and heated humidity. This should be used with all episodes of sleep.? Compliance should be reviewed within 31-90 days of starting therapy for usage greater than 4 hours per night greater than 70% of the nights. The patient should be asked about symptoms such as?excessive daytime sleepiness, quality of sleep, decreased nocturia, increased?mental functioning such as memory, mood, and concentration. Data The data obtained during this sleep study is adequate for interpretation. Certification This sleep study has been reviewed by a board certified sleep medicine physician.
[2025-02-27 12:27] VITALS: BMI 32.3
== END 2025-02-04 06:39 | disposition home or self-care (01) ==
LOC: ANHCSM 10:28
PROVIDERS: PCP Internal Medicine; Visit Provider Internal Medicine Pulmonary Disease
DX: G47.33 Obstructive sleep apnea (adult) (pediatric) (principal)
CPT/HCPCS: 95811